=== PATIENT | female | born 1950 | race Caucasian/White ===

== ENCOUNTER 2022-06-11 16:46 | Inpatient (IN) ==
[2022-06-11] MEDS ORDERED: SODIUM CHLORIDE 0.9% 1000ML 1,000 ML IV ONE (16:55)
[2022-06-11] MEDS ORDERED: LACTATED RINGER'S 1,000 ML IV ONE (16:55)
[2022-06-11] MEDS ORDERED: OPTIRAY 320 500ml IV ONE (17:08)
[2022-06-11 17:13] LABS: iSTAT Creatinine 1.8 mg/dl (0.6-1.3); iSTAT Hemoglobin 12.6 g/dl (12.0-16.0); iSTAT Ionized Calcium 1.08 mmol/l (1.12-1.32); iSTAT Potassium 3.9 mmol/L (3.3-5.0)
[2022-06-11 17:18] LABS: Base Excess VBG -10.9 mEq/L; HCO3 VBG 16 mmol/L; Oxygen Saturation VBG < 60.0 %; PCO2 VBG 38 mmHg (38-50); PO2 VBG 32 mmHg; pH VBG 7.23 (7.36-7.41)
[2022-06-11] MEDS ORDERED: ACETAMINOPHEN 1,000 MG/100 ML VIAL IV STA (17:19)
[2022-06-11] MEDS ORDERED: PIPERACILLIN/TAZOBACTAM 4.5 GM/120 ML BAG IV ONE (17:19)
--- NOTE | 2022-06-11 17:23 | Emergency Department Note ---
Impression & Plan SBO (small bowel obstruction), Lactic acidosis, Sepsis, Acute kidney injury superimposed on CKD, Elevated troponin ED Provider Note Provider: Harrison Garcia MD DATE OF SERVICE: 06/11/2022 CHIEF COMPLAINT: Abdominal pain, hypoxia, altered HISTORY OF PRESENT ILLNESS: Patient is a 71-year-old female history of hypertension presenting here today via ambulance from home. Patient herself will answer questions upon arrival. EMS reports they found the patient somewhat hypoxic and minimally responsive at her house hypotensive here to see the liter of normal saline prior to arrival. Found to be significantly tachycardic. later arrives and provides additional history. Reports the patient had some nausea and GI upset last evening. Is vomiting a good bit of the night. Slept a bit and then continued to have vomiting abdominal upset this morning peer developed worsening abdominal pain. Evidently called her doctor's office and was scheduled for an appointment tomorrow but was concerned about ongoing pain. Did not eat much today. No trauma or falls reported. reports as a afternoon proceeded she was not making sense and was having increased pain and thus he called the ambulance. Patient himself again is altered and unable provide additional history. Patient placed on nonrebreather by EMS. reports that the patient had a history of 3 sections but no other abdominal surgeries by his recollection. PAST MEDICAL HISTORY: As noted above MEDICATIONS: Reviewed home medications no noted history of anticoagulants SOCIAL HISTORY: and lives at PHYSICAL EXAM: GENERAL: alert and oriented in no acute distress on stretcher Head: normocephalic and atraumatic EYES: No injection, discharge or icterus. PERRL, EOMI. NECK: Trachea midline. Supple. ENT: Mucous membranes pink and moist. Pharynx without erythema or exudate. LUNGS: Airway patent. No retractions. Breath sounds clear with good air entry bilaterally. HEART: Regular rate and rhythm. No chest wall tenderness ABDOMEN: Soft and non-tender, without guarding or rebound. No hepatosplenomegaly or masses BACK: No midline tenderness, no SI joint tenderness. No bilateral flank ten derness. SKIN: Acyanotic, warm, dry, without rashes EXTREMITIES: Without swelling, tenderness or deformity NEUROLOGICAL: No focal deficits. No aphasia. No facial droop or slurred speech. Normal strength and tone in the extremities. Sensation to gross touch normal. Ambulatory. EK bpm sinus tachycardia with diffuse ST segment slight ST elevation in aVR. Appears to be sinus tach with a QTc of 524. CONTINUOUS CARDIAC MONITORING: was ordered and showed a heart rate of 120s-150s bpm in sinus tachycardia Patient's laboratory studies and imaging reviewed. Differential includes Appendicitis, infections, diverticulitis, UTI, obstruction, mesenteric ischemia, aortic pathology, inflammatory bowel disease, renal colic, PUD, pancreatitis, biliary pathology, hernia, volvulus, constipation, as well as other pathologies. IMPRESSION/MEDICAL DECISION MAKING: Received call from EMS shortly before their arrival and met them in room B1. Patient altered but opens eyes to voice. Not following commands. On a nonrebreather satting 100%. Significantly tachycardic. EKG with evidence of diffuse ST depressions. Blood pressure in the 130s here initially and received a liter of normal saline prior to arrival. Additional IV fluids ordered here. Febrile here. Quick abdominal ultrasound with evidence of some free fluid. Immediately sent for CT scan of the head as well as the chest abdomen pelvis to look for possible intra-abdominal source. Given her altered mentation as well as some shortness of breath to complete the head and chest CT at this time as well. Does have a creatinine of 1.8 but given her critical illness believe she needs IV contrast to elucidate the cause of her symptoms. Given the fever ordered Tylenol as well as Zosyn. Patient's lactate returns at 10.4. VBG pH 7.23 but CO2 is 38. Patient is somewhat tachypneic. Maintaining her airway at this time other not following commands. Believes she is trying to compensate for her acidosis with elevated lactate with the tachypnea. Hemoglobin on the [id number] returns at 12.6. Updating her at bedside frequently. Head CT per radiology without acute pathology which seems consistent as a believe this is more sepsis and intra-abdominal source Patient has an anion gap with creatinine 1.7 on formal labs. No significant transaminitis. No lipase elevation. Urinalysis negative for infection. Trop onin of 661 likely demand related to sepsis and tachycardia. Formal CBC with hemoglobin 11.9 normal platelet count. White blood cell count 3.4. CT report of the abdomen pelvis and chest reviewed and indicates evidence of a high-grade small bowel obstruction and ascites but no free air. Discussed with general surgery Dr. Stone to come see the patient in the room soon as possible. Dr. Stone wished me to discuss with the medicine team/hospitalist. Did order NG tube. Dr. Price at bedside and discussed with after evaluating the patient plan to take 2 OR for surgical intervention given her critical illness with the SBO. NG tube not placed given plan for OR. Patient did report a little bit of abdominal pain verbally to nurse. Heart rate improving some. Not hypotensive here in ED. DIAGNOSIS: Small bowel obstruction, type II NSTEMI, elevated lactic acid, AMS, hypoxia, sepsis DISPOSITION: Hospitalist will evaluate as well as our general surgeon Critical Care I have personally spent 75 minutes of critical care time in the direct management of this patient. This includes bedside care, interpretation of diagnostic studies, and testing, discussion with consultants, patient, and family members, and other required patient management activities. These 75 minutes is in excess of all separately billable procedures. Past Med/Surg History Medical History (Updated 06/11/22 @ 22:35 by Harrison Garcia M.D.) Chronic iron deficiency anemia CKD (chronic kidney disease), stage III Degenerative joint disease of left knee Exertional dyspnea GERD (gastroesophageal reflux disease) treated prn Glaucoma Osteoarthritis Seasonal allergies Surgical History History of appendectomy History of bilateral tubal ligation History of cataract surgery right History of section x3 History of colonoscopy History of detached retina repair right History of dilatation and curettage History of tonsillectomy Family History Other No family history of adverse response to anesthesia Social History Smoking Status: Never smoker Second Hand Exposure: No; Hx Alcohol Use: Yes Alcohol type: wine Hx Substance Use: No Preferred Language: Ukrainian Communication Ability: Effective [employer]st Required: No Beliefs That Will Affect Care: None Current Living Situation: Spouse Feels Safe at Home: Yes Assistive Devices: Glasses Allergies Allergies Allergy/AdvReac Type Severity Reaction Status Date / Time prochlorperazine Allergy Severe severe Verified 06/11/22 17:31 [From Compazine] muscle spasms (neck) as a child Sulfa (Sulfonamide Allergy Intermediate Rash Verified 06/11/22 17:31 Antibiotics) Home Meds Home Medications Medication Instructions Recorded Confirmed cetirizine 10 mg tablet (Zyrtec) 10 mg PO DAILY 01/26/20 06/11/22 cyclosporine 0.05 % eye drops in a 1 drp ophthalmic (eye) Q12H 01/26/20 06/11/22 dropperette (Restasis) psyllium husk 3.4 gram/5.4 gram 1 tbsp PO BID 01/26/20 06/11/22 oral powder (Metamucil) timolol maleate 0.5 % eye drops 1 drp OPB QAM 01/26/20 06/11/22 meloxicam 7.5 mg tablet 7.5 mg PO QAM 11/14/21 06/11/22 omeprazole 20 mg capsule,delayed 20 mg PO DAILYBB 11/14/21 06/11/22 release acetaminophen 500 mg tablet 500 mg PO TID 06/11/22 06/11/22 (Tylenol Extra Strength) bimatoprost 0.01 % eye drops 1 drp OPB HS 06/11/22 06/11/22 (Lumigan) [id number] D2 1 tab PO DAILY 06/11/22 06/11/22 cyanocobalamin (vitamin B-12) 1,000 mcg PO DAILY 06/11/22 06/11/22 1,000 mcg tablet (Vitamin B-12) diclofenac sodium 1 % topical gel 2 g topical TID PRN LEFT KNEE PAIN 06/11/22 06/11/22 iron,carbonyl 65 mg-vitamin C 125 1 tab PO QAM 06/11/22 06/11/22 mg tablet,delayed release (Vitron-C) metoprolol succinate 25 mg 12.5 mg PO BID 06/11/22 06/11/22 tablet,extended release 24 hr tretinoin 0.05 % topical cream 1 applic topical QPM 06/11/22 06/11/22 Results & Data (ED) Vital Signs Vital Signs - 24 hr 06/11/22 16:50 06/11/22 17:25 06/11/22 17:25 Temperature 40.0 C H Temperature Source Rectal Pulse Rate 147 H 147 H Pulse Rate from SpO2 Sensor Respiratory Rate 51 H Respiratory Effort / Characteristics Grunting Respiratory Depth Shallow Respiratory Pattern Rapid/Shallow Blood Pressure Blood Pressure Mean Pulse Oximetry Oxygen Delivery Method Non-rebreather Non-rebreather Oxygen Flow Rate 15 15 Sepsis Recent Fever Within 48 Hours Yes Sepsis New/Unexplained Change in Mental Status Yes Sepsis Action Taken by Nursing No Action Required 06/11/22 17:30 06/11/22 17:30 06/11/22 17:40 Temperature Temperature Source Pulse Rate 145 H 142 H Pulse Rate from SpO2 Sensor 146 H 142 H Respiratory Rate 45 H 46 H Respiratory Effort / Characteristics Respiratory Depth Respiratory Pattern Blood Pressure 150/71 H Blood Pressure Mean 97 Pulse Oximetry 100 100 Oxygen Delivery Method Non-rebreather Non-rebreather Non-rebreather Oxygen Flow Rate 15 15 15 Sepsis Recent Fever Within 48 Hours Sepsis New/Unexplained Change in Mental Status Sepsis Action Taken by Nursing 06/11/22 17:45 06/11/22 17:45 06/11/22 17:50 Temperature Temperature Source Pulse Rate 141 H 140 H Pulse Rate from SpO2 Sensor 141 H 140 H Respiratory Rate 45 H 43 H Respiratory Effort / Characteristics Respiratory Depth Respiratory Pattern Blood Pressure 140/60 Blood Pressure Mean 86 Pulse Oximetry 100 100 Oxygen Delivery Method Non-rebreather Non-rebreather Non-rebreather Oxygen Flow Rate 15 15 15 Sepsis Recent Fever Within 48 Hours Sepsis New/Unexplained Change in Mental Status Sepsis Action Taken by Nursing 06/11/22 18:00 06/11/22 18:00 06/11/22 18:10 Temperature Temperature Source Pulse Rate 138 H 129 H Pulse Rate from SpO2 Sensor 139 H 129 H Respiratory Rate 44 H 41 H Respiratory Effort / Characteristics Respiratory Depth Respiratory Pattern Blood Pressure 147/56 H Blood Pressure Mean 86 Pulse Oximetry 100 100 Oxygen Delivery Method Non-rebreather Non-rebreather Non-rebreather Oxygen Flow Rate 15 15 15 Sepsis Recent Fever Within 48 Hours Sepsis New/Unexplained Change in Mental Status Sepsis Action Taken by Nursing 06/11/22 18:15 06/11/22 18:15 06/11/22 18:20 Temperature Temperature Source Pulse Rate 131 H 130 H Pulse Rate from SpO2 Sensor 131 H 129 H Respiratory Rate 44 H 40 H Respiratory Effort / Characteristics Respiratory Depth Respiratory Pattern Blood Pressure 145/68 H Blood Pressure Mean 93 Pulse Oximetry 100 100 Oxygen Delivery Method Non-rebreather Non-rebreather Non-rebreather Oxygen Flow Rate 15 15 15 Sepsis Recent Fever Within 48 Hours Sepsis New/Unexplained Change in Mental Status Sepsis Action Taken by Nursing 06/11/22 18:30 06/11/22 18:30 06/11/22 18:40 Temperature Temperature Source Pulse Rate 132 H 128 H Pulse Rate from SpO2 Sensor 132 H 129 H Respiratory Rate 39 H 40 H Respiratory Effort / Characteristics Respiratory Depth Respiratory Pattern Blood Pressure 148/69 H Blood Pressure Mean 95 Pulse Oximetry 100 100 Oxygen Delivery Method Non-rebreather Non-rebreather Non-rebreather Oxygen Flow Rate 15 15 15 Sepsis Recent Fever Within 48 Hours Sepsis New/Unexplained Change in Mental Status Sepsis Action Taken by Nursing 06/11/22 19:03 06/11/22 18:45 06/11/22 18:45 Temperature Temperature Source Pulse Rate 131 H Pulse Rate from SpO2 Sensor 131 H Respiratory Rate 42 H Respiratory Effort / Characteristics Respiratory Depth Respiratory Pattern Blood Pressure 130/73 Blood Pressure Mean 92 Pulse Oximetry 100 Oxygen Delivery Method Non-rebreather Non-rebreather Non-rebreather Oxygen Flow Rate 15 15 15 Sepsis Recent Fever Within 48 Hours Sepsis New/Unexplained Change in Mental Status Sepsis Action Taken by Nursing 06/11/22 18:50 06/11/22 19:00 06/11/22 19:00 Temperature Temperature Source Pulse Rate 132 H 131 H Pulse Rate from SpO2 Sensor 133 H 131 H Respiratory Rate 42 H 44 H Respiratory Effort / Characteristics Respiratory Depth Respiratory Pattern Blood Pressure 126/75 Blood Pressure Mean 92 Pulse Oximetry 100 100 Oxygen Delivery Method Non-rebreather Non-rebreather Non-rebreather Oxygen Flow Rate 15 15 15 Sepsis Recent Fever Within 48 Hours Sepsis New/Unexplained Change in Mental Status Sepsis Action Taken by Nursing Laboratory Data 06/11/22 17:00 06/11/22 17:00 Lab Results 06/11/22 06/11/22 06/11/22 Range/Units 16:57 16:57 16:57 WBC (4.8-10.8) K/ul RBC (4.20-5.40) M/uL Hgb (12.0-16.0) g/dl POC Hgb (12.0-16.0) g/dl Hct (37.0-47.0) % POC Hct (37-47) % MCV (80.0-100.0) fL MCH (25.0-34.0) pg MCHC (32.0-36.0) g/dL RDW Std Deviation (36.4-46.3) fL RDW Coeff of Lei (11.5-14.5) % Plt Count (130-400) K/uL MPV (9.4-12.4) fL Neutrophils % (Manual) % Lymphocytes % (Manual) % Monocytes % (Manual) % Metamyelocytes % (Man) % Myelocytes % (Man) % Neutrophils # (Manual) (1.40-6.50) K/uL Total Absolute Neuts (1.4-6.5) K/uL Lymphocytes # (Manual) (1.2-3.4) K/uL Total Abs Lymphocytes (1.2-3.4) K/uL Monocytes # (Manual) (0.11-0.59) K/uL Metamyelocytes # (Man) (0-0) K/uL Myelocytes # (Manual) (0-0) K/uL Polychromasia Acanthocytes (Spur) PT (9.0-12.0) Seconds INR (0.9-1.1) VBG pH 7.23 L (7.36-7.41) VBG pCO2 38 (38-50) mmHg VBG pO2 32 mmHg VBG HCO3 16 mmol/L VBG O2 Saturation < 60.0 % VBG Base Excess -10.9 mEq/L POC Sodium (135-144) mmol/L Sodium (136-145) mmol/L POC Potassium (3.3-5.0) mmol/L Potassium (3.5-5.1) mmol/L POC Chloride (101-112) mmol/L Chloride (98-107) mmol/L Carbon Dioxide (21-32) mmol/L POC Total CO2 (24-31) mmol/L Anion Gap (3-11) POC Anion Gap (16-25) mmol/L POC BUN (7-18) mg/dl BUN (6-23) mg/dl Creatinine (0.6-1.2) mg/dl POC Creatinine (0.6-1.3) mg/dl Est Cr Clr Drug Dosing Est GFR ( Amer) ml/min Est GFR (Non-Af Amer) ml/min BUN/Creatinine Ratio (10-20) Glucose (70-99(Fasting)) mg/dl POC Glucose (other) (70-99) mg/dl Lactate 10.4 H* (0.4-2.0) mmol/L Calcium (8.5-10.1) mg/dl POC Ioniz Calcium Rima (1.12-1.32) mmol/l Total Bilirubin (0.2-1.0) mg/dl AST (13-39) U/L ALT (7-52) U/L Alkaline Phosphatase (34-104) U/L Troponin I High Sens (0-14) pg/ml Total Protein (6.0-8.3) gm/dl Albumin (3.4-5.0) gm/dl Globulin (2.5-4.0) gm/dl Albumin/Globulin Ratio (0.9-2) Lipase (11-82) U/L Procalcitonin (0-0.5) ng/ml SARS-CoV-2, RNA, NAAT (NEGATIVE) Blood Type O Positive Antibody Screen NEGATIVE Crossmatch See Detail 06/11/22 06/11/22 06/11/22 Range/Units 16:59 17:00 17:00 WBC (4.8-10.8) K/ul RBC (4.20-5.40) M/uL Hgb (12.0-16.0) g/dl POC Hgb 12.6 (12.0-16.0) g/dl Hct (37.0-47.0) % POC Hct 37 (37-47) % MCV (80.0-100.0) fL MCH (25.0-34.0) pg MCHC (32.0-36.0) g/dL RDW Std Deviation (36.4-46.3) fL RDW Coeff of Lei (11.5-14.5) % Plt Count (130-400) K/uL MPV (9.4-12.4) fL Neutrophils % (Manual) % Lymphocytes % (Manual) % Monocytes % (Manual) % Metamyelocytes % (Man) % Myelocytes % (Man) % Neutrophils # (Manual) (1.40-6.50) K/uL Total Absolute Neuts (1.4-6.5) K/uL Lymphocytes # (Manual) (1.2-3.4) K/uL Total Abs Lymphocytes (1.2-3.4) K/uL Monocytes # (Manual) (0.11-0.59) K/uL Metamyelocytes # (Man) (0-0) K/uL Myelocytes # (Manual) (0-0) K/uL Polychromasia Acanthocytes (Spur) PT 11.4 (9.0-12.0) Seconds INR 1.1 (0.9-1.1) VBG pH (7.36-7.41) VBG pCO2 (38-50) mmHg VBG pO2 mmHg VBG HCO3 mmol/L VBG O2 Saturation % VBG Base Excess mEq/L POC Sodium 140 (135-144) mmol/L Sodium 141 (136-145) mmol/L POC Potassium 3.9 (3.3-5.0) mmol/L Potassium 3.9 (3.5-5.1) mmol/L POC Chloride 105 (101-112) mmol/L Chloride 106 (98-107) mmol/L Carbon Dioxide 17 L (21-32) mmol/L POC Total CO2 16 L (24-31) mmol/L Anion Gap 18 H (3-11) POC Anion Gap 24.0 (16-25) mmol/L POC BUN 25 H (7-18) mg/dl BUN 27 H (6-23) mg/dl Creatinine 1.77 H (0.6-1.2) mg/dl POC Creatinine 1.8 H (0.6-1.3) mg/dl Est Cr Clr Drug Dosing Not Reportable Est GFR ( Amer) 32.5 ml/min Est GFR (Non-Af Amer) 28.0 ml/min BUN/Creatinine Ratio 15.3 (10-20) Glucose 181 H (70-99(Fasting)) mg/dl POC Glucose (other) 176 H (70-99) mg/dl Lactate (0.4-2.0) mmol/L Calcium 8.7 (8.5-10.1) mg/dl POC Ioniz Calcium Rima 1.08 L (1.12-1.32) mmol/l Total Bilirubin 0.7 (0.2-1.0) mg/dl AST 17 (13-39) U/L ALT 13 (7-52) U/L Alkaline Phosphatase 73 (34-104) U/L Troponin I High Sens 661.6 H* (0-14) pg/ml Total Protein 6.4 (6.0-8.3) gm/dl Albumin 3.7 (3.4-5.0) gm/dl Globulin 2.7 (2.5-4.0) gm/dl Albumin/Globulin Ratio 1.4 (0.9-2) Lipase 16 (11-82) U/L Procalcitonin (0-0.5) ng/ml SARS-CoV-2, RNA, NAAT (NEGATIVE) Blood Type Antibody Screen Crossmatch 06/11/22 06/11/22 06/11/22 Range/Units 17:00 17:00 17:30 WBC 3.44 L (4.8-10.8) K/ul RBC 3.85 L (4.20-5.40) M/uL Hgb 11.9 L (12.0-16.0) g/dl POC Hgb (12.0-16.0) g/dl Hct 35.8 L (37.0-47.0) % POC Hct (37-47) % MCV 93.0 (80.0-100.0) fL MCH 30.9 (25.0-34.0) pg MCHC 33.2 (32.0-36.0) g/dL RDW Std Deviation 52.9 H (36.4-46.3) fL RDW Coeff of Lei 15.5 H (11.5-14.5) % Plt Count 317 (130-400) K/uL MPV 9.8 (9.4-12.4) fL Neutrophils % (Manual) 69 % Lymphocytes % (Manual) 23 % Monocytes % (Manual) 3 % Metamyelocytes % (Man) 3 % Myelocytes % (Man) 2 % Neutrophils # (Manual) 2.37 (1.40-6.50) K/uL Total Absolute Neuts 2.37 (1.4-6.5) K/uL Lymphocytes # (Manual) 0.79 L (1.2-3.4) K/uL Total Abs Lymphocytes 0.79 L (1.2-3.4) K/uL Monocytes # (Manual) 0.10 L (0.11-0.59) K/uL Metamyelocytes # (Man) 0.10 H (0-0) K/uL Myelocytes # (Manual) 0.07 H (0-0) K/uL Polychromasia 1+ Acanthocytes (Spur) 1+ PT (9.0-12.0) Seconds INR (0.9-1.1) VBG pH (7.36-7.41) VBG pCO2 (38-50) mmHg VBG pO2 mmHg VBG HCO3 mmol/L VBG O2 Saturation % VBG Base Excess mEq/L POC Sodium (135-144) mmol/L Sodium (136-145) mmol/L POC Potassium (3.3-5.0) mmol/L Potassium (3.5-5.1) mmol/L POC Chloride (101-112) mmol/L Chloride (98-107) mmol/L Carbon Dioxide (21-32) mmol/L POC Total CO2 (24-31) mmol/L Anion Gap (3-11) POC Anion Gap (16-25) mmol/L POC BUN (7-18) mg/dl BUN (6-23) mg/dl Creatinine (0.6-1.2) mg/dl POC Creatinine (0.6-1.3) mg/dl Est Cr Clr Drug Dosing Est GFR ( Amer) ml/min Est GFR (Non-Af Amer) ml/min BUN/Creatinine Ratio (10-20) Glucose (70-99(Fasting)) mg/dl POC Glucose (other) (70-99) mg/dl Lactate (0.4-2.0) mmol/L Calcium (8.5-10.1) mg/dl POC Ioniz Calcium Rima (1.12-1.32) mmol/l Total Bilirubin (0.2-1.0) mg/dl AST (13-39) U/L ALT (7-52) U/L Alkaline Phosphatase (34-104) U/L Troponin I High Sens (0-14) pg/ml Total Protein (6.0-8.3) gm/dl Albumin (3.4-5.0) gm/dl Globulin (2.5-4.0) gm/dl Albumin/Globulin Ratio (0.9-2) Lipase (11-82) U/L Procalcitonin 3.51 H (0-0.5) ng/ml SARS-CoV-2, RNA, NAAT NEGATIVE (NEGATIVE) Blood Type Antibody Screen Crossmatch 06/11/22 Range/Units 19:01 WBC (4.8-10.8) K/ul RBC (4.20-5.40) M/uL Hgb (12.0-16.0) g/dl POC Hgb (12.0-16.0) g/dl Hct (37.0-47.0) % POC Hct (37-47) % MCV (80.0-100.0) fL MCH (25.0-34.0) pg MCHC (32.0-36.0) g/dL RDW Std Deviation (36.4-46.3) fL RDW Coeff of Lei (11.5-14.5) % Plt Count (130-400) K/uL MPV (9.4-12.4) fL Neutrophils % (Manual) % Lymphocytes % (Manual) % Monocytes % (Manual) % Metamyelocytes % (Man) % Myelocytes % (Man) % Neutrophils # (Manual) (1.40-6.50) K/uL Total Absolute Neuts (1.4-6.5) K/uL Lymphocytes # (Manual) (1.2-3.4) K/uL Total Abs Lymphocytes (1.2-3.4) K/uL Monocytes # (Manual) (0.11-0.59) K/uL Metamyelocytes # (Man) (0-0) K/uL Myelocytes # (Manual) (0-0) K/uL Polychromasia Acanthocytes (Spur) PT (9.0-12.0) Seconds INR (0.9-1.1) VBG pH (7.36-7.41) VBG pCO2 (38-50) mmHg VBG pO2 mmHg VBG HCO3 mmol/L VBG O2 Saturation % VBG Base Excess mEq/L POC Sodium (135-144) mmol/L Sodium (136-145) mmol/L POC Potassium (3.3-5.0) mmol/L Potassium (3.5-5.1) mmol/L POC Chloride (101-112) mmol/L Chloride (98-107) mmol/L Carbon Dioxide (21-32) mmol/L POC Total CO2 (24-31) mmol/L Anion Gap (3-11) POC Anion Gap (16-25) mmol/L POC BUN (7-18) mg/dl BUN (6-23) mg/dl Creatinine (0.6-1.2) mg/dl POC Creatinine (0.6-1.3) mg/dl Est Cr Clr Drug Dosing Est GFR ( Amer) ml/min Est GFR (Non-Af Amer) ml/min BUN/Creatinine Ratio (10-20) Glucose (70-99(Fasting)) mg/dl POC Glucose (other) (70-99) mg/dl Lactate 9.0 H* (0.4-2.0) mmol/L Calcium (8.5-10.1) mg/dl POC Ioniz Calcium Rima (1.12-1.32) mmol/l Total Bilirubin (0.2-1.0) mg/dl AST (13-39) U/L ALT (7-52) U/L Alkaline Phosphatase (34-104) U/L Troponin I High Sens (0-14) pg/ml Total Protein (6.0-8.3) gm/dl Albumin (3.4-5.0) gm/dl Globulin (2.5-4.0) gm/dl Albumin/Globulin Ratio (0.9-2) Lipase (11-82) U/L Procalcitonin (0-0.5) ng/ml SARS-CoV-2, RNA, NAAT (NEGATIVE) Blood Type Antibody Screen Crossmatch Administered Medications Discontinued Medications Bacitracin (Bacitracin Oint 15 Gm Tube) Confirm Administered Dose 45 appln .ROUTE .STK-MED ONE Stop: 06/11/22 19:31 Last Admin: 06/11/22 21:54 Dose: Not Given Documented By: TRISH Bupivacaine HCl (Bupivacaine 0.5 % 5 Mg/1 Ml Mpf 30ml Vial) Confirm Administered Dose 30 ml .ROUTE .STK-MED ONE Stop: 06/11/22 19:31 Last Admin: 06/11/22 21:32 Dose: 18 ml Documented By: SELMA Sodium Chloride (Nss 1000ml) 1,000 mls @ 999 mls/hr IV .Q1H1M ONE Stop: 06/11/22 17:55 Last Infusion: 06/11/22 17:57 Dose: 0 mls/hr Documented By: Admin: 06/11/22 17:05 Dose: 999 mls/hr Documented By: SHAMAR Lactated Ringer's (Lr) 1,000 mls @ 999 mls/hr IV .Q1H1M ONE Stop: 06/11/22 17:55 Last Infusion: 06/11/22 18:40 Dose: 0 mls/hr Documented By: Admin: 06/11/22 17:35 Dose: 999 mls/hr Documented By: SHAMAR Piperacillin Sod/Tazobactam Sod (Zosyn) 4.5 gm in 120 mls @ 240 mls/hr IV NOW ONE Stop: 06/11/22 17:48 Last Infusion: 06/11/22 18:41 Dose: 0 mls/hr Documented By: Admin: 06/11/22 17:34 Dose: 240 mls/hr Documented By: SHAMAR Acetaminophen (Ofirmev) 1,000 mg in 100 mls @ 400 mls/hr IV NOW STA Stop: 06/11/22 17:33 Last Infusion: 06/11/22 17:57 Dose: 0 mls/hr Documented By: Admin: 06/11/22 17:35 Dose: 400 mls/hr Documented By: SHAMAR Lactated Ringer's (Lr) 500 mls @ 999 mls/hr IV .Q31M ONE Stop: 06/11/22 18:06 Last Infusion: 06/11/22 19:16 Dose: 0 mls/hr Documented By: Admin: 06/11/22 18:16 Dose: 999 mls/hr Documented By: SHAMAR Ioversol (Optiray 320 500ml) 112 ml IV ONCE ONE Stop: 06/11/22 17:09 Last Admin: 06/11/22 17:17 Dose: 112 ml Documented By: SHAMAR Lidocaine HCl (Lidocaine 1% Local 20 Ml Vial) Confirm Administered Dose 1 ml .ROUTE .STK-MED ONE Stop: 06/11/22 19:31 Last Admin: 06/11/22 21:36 Dose: 18 ml Documented By: SELMA Imaging Data Radiologist's Impression: Chest X-Ray 06/11/22 16:52 XR chest 1V portable HISTORY: 71 years-old Female ams . Acutely altered mental status COMPARISON: CTA chest of same day TECHNIQUE: AP view of the chest FINDINGS: Cardiac mediastinal and hilar silhouettes are within normal limits. No pneumothorax, pleural effusion, airspace consolidation or pulmonary edema. Bones appear grossly intact. IMPRESSION: No acute process. ACT 112: Negative or not required by law. The above report was generated using voice recognition software. It may contain grammatical, syntax or spelling errors. Electronically signed by: Lefty Landis M.D. 06/11/2022 6:[address] 06/11/22 16:52 CT head/brain wo con CLINICAL HISTORY: 71 years-old Female with ams. Acutely altered mental status TECHNIQUE: Multiple axial CT images of the head were obtained without contrast. A dose lowering technique was utilized adhering to the principles of ALARA. COMPARISON: None. FINDINGS: No acute intracranial hemorrhage, midline shift, intracranial mass, hydrocephalus, territorial ischemia or abnormal extra-axial collection. Mildly motion degraded exam. Involutional changes with chronic microvascular ischemic disease. The calvarium is intact. Mild to moderate mucosal thickening maxillary sinus with air-fluid level. Trace right mastoid effusion. Prior bilateral lens repair. IMPRESSION: No acute intracranial abnormality. ACT 112: Negative or not required by law. The above report was generated using voice recognition software. It may contain grammatical, syntax or spelling errors. Electronically signed by: Lefty Landis M.D. 06/11/2022 5:27 PM Abdomen/Pelvis CTA 06/11/22 16:53 CT angio chest dissec wo/w con, CT angio abdomen pelvis w con HISTORY: 71 years-old Female ams, hypoxia, abd pain, tachy acute hypoxia with chest and abdominal pain with tachycardia COMPARISON: None TECHNIQUE: CTA of the chest was obtained both with and without use of [address] abdomen and pelvis was also obtained with IV contrast. 3-D coronal and sagittal MIPS were obtained from the axial data set and were submitted for review. All measurements were obtained according to NASCET criteria. A dose lowering technique was used consistent with the principals of ALARA. FINDINGS: Limited study secondary to upper Hilary positioning and respiratory motion artifact. CTA CHEST: Noncontrast study demonstrates no intramural or mediastinal hematoma mild cardiomegaly with trace pericardial effusion. No thoracic aortic aneurysm or dissection. No significant atherosclerosis. The visualized pulmonary arterial tree is unremarkable. CT CHEST: Unremarkable thyroid. No lymphadenopathy. Fluid-filled distention of the mid to distal esophagus with moderate sized hiatal hernia. No pneumothorax, pleural effusion, airspace consolidation or pulmonary edema. Mild dependent subsegmental bibasilar atelectasis. There are no suspicious pulmonary nodules or masses rosanne ntified. Central airways are patent. Unremarkable soft tissues. No acute fracture identified. Mildly hyperinflated compression of the T3 vertebral body is age-indeterminate, likely chronic. CTA ABDOMEN/PELVIS: Mild atherosclerosis of the abdominal aorta without aneurysm or dissection. Iliac and imaged femoral arteries are patent. The celiac trunk, superior and inferior mesenteric and renal arteries appear patent. No aneurysm, dissection, high-grade stenosis or arterial occlusion identified. CT ABDOMEN/PELVIS: No pneumatosis or pneumoperitoneum. There is limited evaluation of the solid abdominal organs secondary to arterial phase imaging. Within the limitations of the study, the spleen, pancreas, hyperattenuating adrenal glands, distended gallbladder and liver appear unremarkable. Kidneys are within normal limits with mild scarring of the superior poles, right greater than left. No urolith or hydronephrosis. Decompressed urinary bladder with Merchant catheter in place in wall thickening with perivesicular stranding. No lymphadenopathy. Moderate sized hiatal hernia. Small volume of abdominal pelvic ascites. Colonic diverticulosis. Mild wall thickening throughout the colon with partial distention. The appendix is not definitively seen. There are several mildly dilated small bowel loops within the mid to lower abdomen and pelvis measuring up to approximately 3 cm with air-fluid levels. Decompressed distal small bowel loops. Interloop edema. There is a decompressed loop noted within the mid to upper pelvis on image 267 several loops of small bowel demonstrates circumferential wall thickening. No acute fracture identified. IMPRESSION: 1. Unremarkable CTA of the chest, abdomen and pelvis. 2. Limited evaluation of the solid abdominal organs and bowel secondary to arterial phase of imaging and lack of enteric contrast. 3. High-grade small bowel obstruction with several loops demonstrating circumferential wall thickening with associated intraluminal edema and small volume of abdominopelvic ascites. 4. No pneumoperitoneum identified. 5. Moderate sized hiatal hernia. 6. Additional findings as above. ACT 112: Negative or not required by law. The above report was generated using voice recognition software. It may contain grammatical, syntax or spelling errors. Electronically signed by: Lefty Landis M.D. 06/11/2022 5:58 PM Chest CTA 06/11/22 16:53 CT angio chest dissec wo/w con, CT angio abdomen pelvis w con HISTORY: 71 years-old Female ams, hypoxia, abd pain, tachy acute hypoxia with chest and abdominal pain with tachycardia COMPARISON: None TECHNIQUE: CTA of the chest was obtained both with and without use of [address] abdomen and pelvis was also obtained with IV contrast. 3-D coronal and sagittal MIPS were obtained from the axial data set and were submitted for review. All measurements were obtained according to NASCET criteria. A dose lowering technique was used consistent with the principals of KURTIS. FINDINGS: Limited study secondary to upper Hilary positioning and respiratory motion artifact. CTA CHEST: Noncontrast study demonstrates no intramural or mediastinal hematoma mild cardiomegaly with trace pericardial effusion. No thoracic aortic aneurysm or dissection. No significant atherosclerosis. The visualized pulmonary arterial tree is unremarkable. CT CHEST: Unremarkable thyroid. No lymphadenopathy. Fluid-filled distention of the mid to distal esophagus with moderate sized hiatal hernia. No pneumothorax, pleural effusion, airspace consolidation or pulmonary edema. Mild dependent subsegmental bibasilar atelectasis. There are no suspicious pulmonary nodules or masses identified. Central airways are patent. Unremarkable soft tissues. No acute fracture identified. Mildly hyperinflated compression of the T3 vertebral body is age-indeterminate, likely chronic. CTA ABDOMEN/PELVIS: Mild atherosclerosis of the abdominal aorta without aneurysm or dissection. Iliac and imaged femoral arteries are patent. The celiac trunk, superior and inferior mesenteric and renal arteries appear patent. No aneurysm, dissection, high-grade stenosis or arterial occlusion identified. CT ABDOMEN/PELVIS: No pneumatosis or pneumoperitoneum. There is limited evaluation of the solid abdominal organs secondary to arterial phase imaging. Within the limitations of the study, the spleen, pancreas, hyperattenuating adrenal glands, distended gallbladder and liver appear unremarkable. Kidneys are within normal limits with mild scarring of the superior poles, right greater than left. No urolith or hydronephrosis. Decompressed urinary bladder with Merchant catheter in place in wall thickening with perivesicular stranding. No lymphadenopathy. Moderate sized hiatal hernia. Small volume of abdominal pelvic ascites. Colonic diverticulosis. Mild wall thickening throughout the colon with partial distention. The appendix is not definitively seen. There are several mildly di lated small bowel loops within the mid to lower abdomen and pelvis measuring up to approximately 3 cm with air-fluid levels. Decompressed distal small bowel loops. Interloop edema. There is a decompressed loop noted within the mid to upper pelvis on image 267 several loops of small bowel demonstrates circumferential wall thickening. No acute fracture identified. IMPRESSION: 1. Unremarkable CTA of the chest, abdomen and pelvis. 2. Limited evaluation of the solid abdominal organs and bowel secondary to arterial phase of imaging and lack of enteric contrast. 3. High-grade small bowel obstruction with several loops demonstrating circ umferential wall thickening with associated intraluminal edema and small volume of abdominopelvic ascites. 4. No pneumoperitoneum identified. 5. Moderate sized hiatal hernia. 6. Additional findings as above. ACT 112: Negative or not required by law. The above report was generated using voice recognition software. It may contain grammatical, syntax or spelling errors. Electronically signed by: Lefty Landis M.D. 06/11/2022 5:58 PM Discharge Plan Visit Data Chief Complaint: Illness Stated Complaint: AB PAIN, SOB, SEMI RESPONSIVE ED Provider: Harrison Garcia Discharge Problem: SBO (small bowel obstruction), Lactic acidosis, Sepsis, Acute kidney injury superimposed on CKD, Elevated troponin Patient Disposition: Admitted As Inpatient Discharge Instructions Interventions: ED Discharge Assessment Last Done: 06/11/22 19:03
--- NOTE | 2022-06-11 17:29 | CT Scan Report ---
CT head/brain wo con CLINICAL HISTORY: 71 years-old Female with ams. Acutely altered mental status TECHNIQUE: Multiple axial CT images of the head were obtained without contrast. A dose lowering tech nique was utilized adhering to the principles of ALARA. COMPARISON: None. FINDINGS: No acute intracranial hemorrhage, midline shift, intracranial mass, hydrocephalus, territorial ischem ia or abnormal extra-axial collection. Mildly motion degraded exam. Involutional changes with chronic microvascular ischemic disease. The calvarium is intact. Mild to moderate mucosal thickening maxillary sinus with air-fluid level. T race right mastoid effusion. Prior bilateral lens repair. IMPRESSION: No acute intracranial abnormality. ACT 112: Negative or not required by law. The above report was generated using voice recognition software. It may contain grammatical, syntax o r spelling errors. Electronically signed by: Lefty Landis M.D. 06/11/2022 5:27 PM
[2022-06-11] MEDS ORDERED: LACTATED RINGER'S 500 ML IV ONE (17:36)
[2022-06-11 17:38] LABS: Alanine Aminotransferase 13 U/L (7-52); Albumin Globulin Ratio 1.4 (0.9-2); Albumin Level 3.7 gm/dl (3.4-5.0); Alkaline Phosphatase 73 U/L (34-104); Anion Gap 18 (3-11); Aspartate Aminotransferase 17 U/L (13-39); BUN Creatinine Ratio 15.3 (10-20); Bilirubin,Total 0.7 mg/dl (0.2-1.0); Blood Urea Nitrogen 27 mg/dl (6-23); Calcium 8.7 mg/dl (8.5-10.1); Carbon Dioxide 17 mmol/L (21-32); Chloride 106 mmol/L (98-107); Est GFR (African American) 32.5 ml/min; Globulin 2.7 gm/dl (2.5-4.0); Glucose 181 mg/dl (70-99(Fasting)); Lipase 16 U/L (11-82); Potassium 3.9 mmol/L (3.5-5.1); Sodium 141 mmol/L (136-145); Total Protein 6.4 gm/dl (6.0-8.3)
[2022-06-11 17:40] LABS: Hematocrit (blood only) 35.8 % (37.0-47.0); Hemoglobin 11.9 g/dl (12.0-16.0); Mean Corpuscular Hemoglobin 30.9 pg (25.0-34.0); Mean Corpuscular Hgb Conc 33.2 g/dL (32.0-36.0); Mean Platelet Volume 9.8 fL (9.4-12.4); Platelet Count 317 K/uL (130-400); RDW Coefficient of Variation 15.5 % (11.5-14.5); RDW Standard Deviation 52.9 fL (36.4-46.3); Red Blood Count 3.85 M/uL (4.20-5.40)
[2022-06-11 17:45] LABS: Appearance Urine Cloudy (Clear); Bacteria Urine Automated Negative (Negative); Bilirubin Urine Negative (Negative); Blood Urine Negative (Negative); Color Urine Dark Yellow; Glucose Urine UA 3+ (Negative); Ketones Urine 1+ (Negative); Leukocyte Esterase Urine Negative (Negative); Nitrite Urine Negative (Negative); Protein Urine 2+ (Negative); RBC Urine Automated 0-4 /hpf (0-4); Specific Gravity Urine 1.021 (1.000-1.030); Urobilinogen Urine Negative (Negative); pH Urine 5.5 (4.5-7.5)
[2022-06-11 17:46] LABS: Troponin I High Sensitivity 661.6 pg/ml (0-14)
[2022-06-11 17:47] LABS: White Blood Count 3.44 K/ul (4.8-10.8)
[2022-06-11 17:49] LABS: ALC (manual) 0.79 K/uL (1.2-3.4); ANC (manual) 2.37 K/uL (1.4-6.5); Acanthocytes 1+; INR 1.1 (0.9-1.1); Lymphocytes # (manual) 0.79 K/uL (1.2-3.4); Lymphocytes % (manual) 23 %; Metamyelocytes % (manual) 3 %; Monocytes % (manual) 3 %; Myelocytes # (manual) 0.07 K/uL (0-0); Myelocytes % (manual) 2 %; Neutrophils # (manual) 2.37 K/uL (1.40-6.50); Neutrophils % (manual) 69 %; Polychromasia 1+; Prothrombin Time 11.4 Seconds (9.0-12.0)
--- NOTE | 2022-06-11 17:59 | CT Scan Report ---
CT angio chest dissec wo/w con, CT angio abdomen pelvis w con HISTORY: 71 years-old Female ams, hypoxia, abd pain, tachy acute hypoxia with chest and abdominal pa in with tachycardia COMPARISON: None TECHNIQUE: CTA of the chest was obtained both with and without use of [address] abdomen and pelvis was also obtained with IV contrast. 3-D coronal and sagittal MIPS were obtained from the axial data set and were submitted for review. All measurements were obtained according to NASCET criteria. A dose lowering technique was used consistent with the principals of KURTIS. FINDINGS: Limited study secondary to upper Hilary positioning and respiratory motion artifact. CTA CHEST: Noncontrast study demonstrates no intramural or mediastinal hematoma mild cardiomegaly with trace per icardial effusion. No thoracic aortic aneurysm or dissection. No significant atherosclerosis. The vis ualized pulmonary arterial tree is unremarkable. CT CHEST: Unremarkable thyroid. No lymphadenopathy. Fluid-filled distention of the mid to distal esophagus with moderate sized hiatal hernia. No pneumothorax, pleural effusion, airspace consolidation or pulmonary edema. Mild dependent subsegmental bibasilar atelectasis. There are no suspicious pulmonary nodules or masses identified. Central airways are patent. Unremarkable soft tissues. No acute fracture identi fied. Mildly hyperinflated compression of the T3 vertebral body is age-indeterminate, likely chronic. CTA ABDOMEN/PELVIS: Mild atherosclerosis of the abdominal aorta without aneurysm or dissection. Iliac and imaged femoral arteries are patent. The celiac trunk, superior and inferior mesenteric and renal arteries appear pat ent. No aneurysm, dissection, high-grade stenosis or arterial occlusion identified. CT ABDOMEN/PELVIS: No pneumatosis or pneumoperitoneum. There is limited evaluation of the solid abdominal organs seconda ry to arterial phase imaging. Within the limitations of the study, the spleen, pancreas, hyperattenua ting adrenal glands, distended gallbladder and liver appear unremarkable. Kidneys are within normal l imits with mild scarring of the superior poles, right greater than left. No urolith or hydronephrosis . Decompressed urinary bladder with Merchant catheter in place in wall thickening with perivesicular str anding. No lymphadenopathy. Moderate sized hiatal hernia. Small volume of abdominal pelvic ascites. Colonic diverticulosis. Mild wall thickening throughout the colon with partial distention. The appendix is not definitively seen. There are several mildly dilated small bowel loops within the mid to lower abdomen and pelvis measuri ng up to approximately 3 cm with air-fluid levels. Decompressed distal small bowel loops. Interloop e [place]. There is a decompressed loop noted within the mid to upper pelvis on image 267 several loops of small bowel demonstrates circumferential wall thickening. No acute fracture identified. IMPRESSION: 1. Unremarkable CTA of the chest, abdomen and pelvis. 2. Limited evaluation of the solid abdominal organs and bowel secondary to arterial phase of imaging and lack of enteric contrast. 3. High-grade small bowel obstruction with several loops demonstrating circumferential wall thickenin g with associated intraluminal edema and small volume of abdominopelvic ascites. 4. No pneumoperitoneum identified. 5. Moderate sized hiatal hernia. 6. Additional findings as above. ACT 112: Negative or not required by law. The above report was generated using voice recognition software. It may contain grammatical, syntax o r spelling errors. Electronically signed by: Lefty Landis M.D. 06/11/2022 5:58 PM
--- NOTE | 2022-06-11 18:01 | XRay Report ---
XR chest 1V portable HISTORY: 71 years-old Female ams . Acutely altered mental status COMPARISON: CTA chest of same day TECHNIQUE: AP view of the chest FINDINGS: Cardiac mediastinal and hilar silhouettes are within normal limits. No pneumothorax, pleural effusion , airspace consolidation or pulmonary edema. Bones appear grossly intact. IMPRESSION: No acute process. ACT 112: Negative or not required by law. The above report was generated using voice recognition software. It may contain grammatical, syntax o r spelling errors. Electronically signed by: Lefty Landis M.D. 06/11/2022 6:00 PM
[2022-06-11] MEDS ORDERED: fentaNYL citrate PF 100 MCG/2 ML VIAL ONE (18:57)
[2022-06-11] MEDS ORDERED: PROPOFOL IV EMULSION 10 MG/ML 20 ML VIAL IV ONE (18:57)
[2022-06-11] MEDS ORDERED: ROCURONIUM BROMIDE 10 MG/ML 5 ML VIAL IV ONE ×7 (18:57→22:29)
[2022-06-11] MEDS ORDERED: LIDOCAINE 2% MPF LOCAL 5 ML VIAL INFIL ONE (18:57)
[2022-06-11] MEDS ORDERED: SUCCINYLCHOLINE CHLORIDE 20 MG/ML 10 ML VIAL IV ONE (18:57)
--- NOTE | 2022-06-11 18:57 | Surgery Consultation ---
Date of Consultation June 11, 2022 Assessment & Plan (1) SBO (small bowel obstruction): pt is a 71 year-old female who presents to Er with one day history abdominal pain with nausea and vomiting, IMP; SBO, possible loop SBO, Plan, base on H/P, labs and CT scan finding, I recommend to do emergent exploratory laparotomy, possible bowel resection or stoma, D/W benefits, risks and alternatives of the surgery with pt's , the risks - infection, bleeding, sepsis, injury other organs, multiple organs failure, MS, anastomotic leak, , pt's understood, he agreed with surgery, he signed informed consent, I answered all questions, pre-op iv antibiotic. D/W ER attending, History of Present Illness Reason for Consultation: SBO History of Present Illness Provider: Harrison Garcia MD DATE OF SERVICE: 06/11/2022 CHIEF COMPLAINT: Abdominal pain, hypoxia, altered HISTORY OF PRESENT ILLNESS: Patient is a 71-year-old female history of hypertension presenting here today via ambulance from home. Patient herself will answer questions upon arrival. EMS reports they found the patient somewhat hypoxic and minimally responsive at her house hypotensive here to see the liter of normal saline prior to arrival. Found to be significantly tachycardic. later arrives and provides additional history. Reports the patient had some nausea and GI upset last evening. Is vomiting a good bit of the night. Slept a bit and then continued to have vomiting abdominal upset this morning peer developed worsening abdominal pain. Evidently called her doctor's office and was scheduled for an appointment tomorrow but was concerned about ongoing pain. Did not eat much today. No trauma or falls reported. reports as a afternoon proceeded she was not making sense and was having increased pain and thus he called the ambulance. Patient himself again is altered and unable provide additional history. Patient placed on nonrebreather by EMS. reports that the patient had a history of 3 sections but no other abdominal surgeries by his recollection. I ( Alonso Stone MD ) got a call for consult SBO, I reviewed pt's H/P, labs and CT scan with pt and her , PAST MEDICAL HISTORY: As noted above MEDICATIONS: Reviewed home medications no noted history of anticoagulants SOCIAL HISTORY: and lives at Past Med/Surg History Medical History Degenerative joint disease of left knee GERD (gastroesophageal reflux disease) Glaucoma Osteoarthritis Seasonal allergies Surgical History History of appendectomy History of bilateral tubal ligation History of cataract surgery History of section History of colonoscopy History of detached retina repair History of dilatation and curettage History of tonsillectomy Family History Other No family history of adverse response to anesthesia Social History Smoking Status: Never smoker Second Hand Exposure: No; Hx Alcohol Use: Yes Alcohol type: wine Hx Substance Use: No Preferred Language: Welsh Communication Ability: Effective 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 Beliefs That Will Affect Care: None Current Living Situation: Spouse Feels Safe at Home: Yes Assistive Devices: Glasses Allergies Allergies Allergy/AdvReac Type Severity Reaction Status Date / Time prochlorperazine Allergy Severe severe Verified 06/11/22 17:31 [From Compazine] muscle spasms (neck) as a child Sulfa (Sulfonamide Allergy Intermediate Rash Verified 06/11/22 17:31 Antibiotics) Home Meds Home Medications Medication Instructions Recorded Confirmed cetirizine 10 mg tablet (Zyrtec) 10 mg PO DAILY 01/26/20 06/11/22 cyclosporine 0.05 % eye drops in a 1 drp ophthalmic (eye) Q12H 01/26/20 06/11/22 dropperette (Restasis) psyllium husk 3.4 gram/5.4 gram 1 tbsp PO BID 01/26/20 06/11/22 oral powder (Metamucil) timolol maleate 0.5 % eye drops 1 drp OPB QAM 01/26/20 06/11/22 meloxicam 7.5 mg tablet 7.5 mg PO QAM 11/14/21 06/11/22 omeprazole 20 mg capsule,delayed 20 mg PO DAILYBB 11/14/21 06/11/22 release acetaminophen 500 mg tablet 500 mg PO TID 06/11/22 06/11/22 (Tylenol Extra Strength) bimatoprost 0.01 % eye drops 1 drp OPB HS 06/11/22 06/11/22 (Lumigan) [id number]-xigixpf D2 1 tab PO DAILY 06/11/22 06/11/22 cyanocobalamin (vitamin B-12) 1,000 mcg PO DAILY 06/11/22 06/11/22 1,000 mcg tablet (Vitamin B-12) diclofenac sodium 1 % topical gel 2 g topical TID PRN LEFT KNEE PAIN 06/11/22 06/11/22 iron,carbonyl 65 mg-vitamin C 125 1 tab PO QAM 06/11/22 06/11/22 mg tablet,delayed release (Vitron-C) metoprolol succinate 25 mg 12.5 mg PO BID 06/11/22 06/11/22 tablet,extended release 24 hr tretinoin 0.05 % topical cream 1 applic topical QPM 06/11/22 06/11/22 Allergies Allergy/AdvReac Type Severity Reaction Status Date / Time prochlorperazine Allergy Severe severe Verified 06/11/22 17:31 [From Compazine] muscle spasms (neck) as a child Sulfa (Sulfonamide Allergy Intermediate Rash Verified 06/11/22 17:31 Antibiotics) Home Medications Medication Instructions Recorded Confirmed Type cetirizine 10 mg tablet (Zyrtec) 10 mg PO DAILY 01/26/20 06/11/22 History cyclosporine 0.05 % eye drops in a 1 drp ophthalmic (eye) Q12H 01/26/20 06/11/22 History dropperette (Restasis) psyllium husk 3.4 gram/5.4 gram 1 tbsp PO BID 01/26/20 06/11/22 History oral powder (Metamucil) timolol maleate 0.5 % eye drops 1 drp OPB QAM 01/26/20 06/11/22 History meloxicam 7.5 mg tablet 7.5 mg PO QAM 11/14/21 06/11/22 History omeprazole 20 mg capsule,delayed 20 mg PO DAILYBB 11/14/21 06/11/22 History release acetaminophen 500 mg tablet 500 mg PO TID 06/11/22 06/11/22 History (Tylenol Extra Strength) bimatoprost 0.01 % eye drops 1 drp OPB HS 06/11/22 06/11/22 History (Lumigan) [id number]-[id number]-xhwkyda D2 1 tab PO DAILY 06/11/22 06/11/22 History cyanocobalamin (vitamin B-12) 1,000 mcg PO DAILY 06/11/22 06/11/22 History 1,000 mcg tablet (Vitamin B-12) diclofenac sodium 1 % topical gel 2 g topical TID PRN LEFT KNEE PAIN 06/11/22 06/11/22 History iron,carbonyl 65 mg-vitamin C 125 1 tab PO QAM 06/11/22 06/11/22 History mg tablet,delayed release (Vitron-C) metoprolol succinate 25 mg 12.5 mg PO BID 06/11/22 06/11/22 History tablet,extended release 24 hr tretinoin 0.05 % topical cream 1 applic topical QPM 06/11/22 06/11/22 History Patient History Medical History Degenerative joint disease of left knee GERD (gastroesophageal reflux disease) Glaucoma Osteoarthritis Seasonal allergies Surgical History History of appendectomy History of bilateral tubal ligation History of cataract surgery History of section History of colonoscopy History of detached retina repair History of dilatation and curettage History of tonsillectomy Family History Other No family history of adverse response to anesthesia Social History Smoking Status: Never smoker Second Hand Exposure: No; Hx Alcohol Use: Yes Alcohol type: wine Hx Substance Use: No Preferred Language: Welsh Communication Ability: Effective 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 Beliefs That Will Affect Care: None Current Living Situation: Spouse Feels Safe at Home: Yes Assistive Devices: Glasses Physical Exam Constitutional: awake, Eyes: PERRL, conjunctivae normal, anicteric sclerae Neck: trachea midline, no thyromegaly Respiratory: RR 44, o2 sat 100% on 15L/min, bilateral lung sound clear, Cardiovascular: RRR, no murmur, no edema Gastrointestinal (Abdomen): soft, distend abdomen, tenderness periumbilical area, rebound +, lower middle line scar, BS - Musculoskeletal: no cyanosis or clubbing, extremities motor strength 5/5 Neurologic: patellar DTR's 2+ bilat, sensation intact Psychiatric: A+Ox3, euthymic affect Results & Data ([facility]) Vital Signs (Past 12 Hours) Vital Signs Temp Pulse Resp BP Pulse Ox O2 Del Method O2 Flow Rate 06/11/22 18:40 128 H 40 H 100 Non-rebreather 15 06/11/22 18:30 132 H 39 H 100 Non-rebreather 15 06/11/22 18:30 148/69 H Non-rebreather 15 06/11/22 18:20 130 H 40 H 100 Non-rebreather 15 06/11/22 18:15 145/68 H Non-rebreather 15 06/11/22 18:15 131 H 44 H 100 Non-rebreather 15 06/11/22 18:10 129 H 41 H 100 Non-rebreather 15 06/11/22 18:00 138 H 44 H 100 Non-rebreather 15 06/11/22 18:00 147/56 H Non-rebreather 15 06/11/22 17:50 140 H 43 H 100 Non-rebreather 15 06/11/22 17:45 141 H 45 H 100 Non-rebreather 15 06/11/22 17:45 140/60 Non-rebreather 15 06/11/22 17:40 142 H 46 H 100 Non-rebreather 15 06/11/22 17:30 145 H 45 H 100 Non-rebreather 15 06/11/22 17:30 150/71 H Non-rebreather 15 06/11/22 17:25 147 H 51 H Non-rebreather 15 06/11/22 17:25 147 H 06/11/22 16:50 40.0 C H Non-rebreather 15 Laboratory Results Abnormal lab results 06/11/22 06/11/22 06/11/22 Range/Units 16:57 16:57 16:59 WBC (4.8-10.8) K/ul RBC (4.20-5.40) M/uL Hgb (12.0-16.0) g/dl Hct (37.0-47.0) % RDW Std Deviation (36.4-46.3) fL RDW Coeff of Lei (11.5-14.5) % Lymphocytes # (Manual) (1.2-3.4) K/uL Total Abs Lymphocytes (1.2-3.4) K/uL Monocytes # (Manual) (0.11-0.59) K/uL Metamyelocytes # (Man) (0-0) K/uL Myelocytes # (Manual) (0-0) K/uL VBG pH 7.23 L (7.36-7.41) Carbon Dioxide (21-32) mmol/L POC Total CO2 16 L (24-31) mmol/L Anion Gap (3-11) POC BUN 25 H (7-18) mg/dl BUN (6-23) mg/dl Creatinine (0.6-1.2) mg/dl POC Creatinine 1.8 H (0.6-1.3) mg/dl Glucose (70-99(Fasting)) mg/dl POC Glucose (other) 176 H (70-99) mg/dl Lactate 10.4 H* (0.4-2.0) mmol/L POC Ioniz Calcium Rima 1.08 L (1.12-1.32) mmol/l Troponin I High Sens (0-14) pg/ml Procalcitonin (0-0.5) ng/ml Urine Appearance (Clear) Urine Protein (Negative) Urine Glucose (UA) (Negative) Urine Ketones (Negative) U Hyaline Cast (Auto) (0-5) /lpf U Epithel Cells (Auto) (0-5) /lpf 06/11/22 06/11/22 06/11/22 Range/Units 17:00 17:00 17:00 WBC 3.44 L (4.8-10.8) K/ul RBC 3.85 L (4.20-5.40) M/uL Hgb 11.9 L (12.0-16.0) g/dl Hct 35.8 L (37.0-47.0) % RDW Std Deviation 52.9 H (36.4-46.3) fL RDW Coeff of Lei 15.5 H (11.5-14.5) % Lymphocytes # (Manual) 0.79 L (1.2-3.4) K/uL Total Abs Lymphocytes 0.79 L (1.2-3.4) K/uL Monocytes # (Manual) 0.10 L (0.11-0.59) K/uL Metamyelocytes # (Man) 0.10 H (0-0) K/uL Myelocytes # (Manual) 0.07 H (0-0) K/uL VBG pH (7.36-7.41) Carbon Dioxide 17 L (21-32) mmol/L POC Total CO2 (24-31) mmol/L Anion Gap 18 H (3-11) POC BUN (7-18) mg/dl BUN 27 H (6-23) mg/dl Creatinine 1.77 H (0.6-1.2) mg/dl POC Creatinine (0.6-1.3) mg/dl Glucose 181 H (70-99(Fasting)) mg/dl POC Glucose (other) (70-99) mg/dl Lactate (0.4-2.0) mmol/L POC Ioniz Calcium Rima (1.12-1.32) mmol/l Troponin I High Sens 661.6 H* (0-14) pg/ml Procalcitonin 3.51 H (0-0.5) ng/ml Urine Appearance (Clear) Urine Protein (Negative) Urine Glucose (UA) (Negative) Urine Ketones (Negative) U Hyaline Cast (Auto) (0-5) /lpf U Epithel Cells (Auto) (0-5) /lpf 06/11/22 Range/Units Unknown WBC (4.8-10.8) K/ul RBC (4.20-5.40) M/uL Hgb (12.0-16.0) g/dl Hct (37.0-47.0) % RDW Std Deviation (36.4-46.3) fL RDW Coeff of Lei (11.5-14.5) % Lymphocytes # (Manual) (1.2-3.4) K/uL Total Abs Lymphocytes (1.2-3.4) K/uL Monocytes # (Manual) (0.11-0.59) K/uL Metamyelocytes # (Man) (0-0) K/uL Myelocytes # (Manual) (0-0) K/uL VBG pH (7.36-7.41) Carbon Dioxide (21-32) mmol/L POC Total CO2 (24-31) mmol/L Anion Gap (3-11) POC BUN (7-18) mg/dl BUN (6-23) mg/dl Creatinine (0.6-1.2) mg/dl POC Creatinine (0.6-1.3) mg/dl Glucose (70-99(Fasting)) mg/dl POC Glucose (other) (70-99) mg/dl Lactate (0.4-2.0) mmol/L POC Ioniz Calcium Rima (1.12-1.32) mmol/l Troponin I High Sens (0-14) pg/ml Procalcitonin (0-0.5) ng/ml Urine Appearance Cloudy A (Clear) Urine Protein 2+ H (Negative) Urine Glucose (UA) 3+ H (Negative) Urine Ketones 1+ H (Negative) U Hyaline Cast (Auto) 5-10 H (0-5) /lpf U Epithel Cells (Auto) 10-20 H (0-5) /lpf Diagnostic Findings CT angio chest dissec wo/w con, CT angio abdomen pelvis w con HISTORY: 71 years-old Female ams, hypoxia, abd pain, tachy acute hypoxia with chest and abdominal pain with tachycardia COMPARISON: None TECHNIQUE: CTA of the chest was obtained both with and without use of [address] abdomen and pelvis was also obtained with IV contrast. 3-D coronal and sagittal MIPS were obtained from the axial data set and were submitted for review. All measurements were obtained according to NASCET criteria. A dose lowering technique was used consistent with the principals of UKRTIS. FINDINGS: Limited study secondary to upper Hilary positioning and respiratory motion artifact. CTA CHEST: Noncontrast study demonstrates no intramural or mediastinal hematoma mild cardiomegaly with trace pericardial effusion. No thoracic aortic aneurysm or dissection. No significant atherosclerosis. The visualized pulmonary arterial tree is unremarkable. CT CHEST: Unremarkable thyroid. No lymphadenopathy. Fluid-filled distention of the mid to distal esophagus with moderate sized hiatal hernia. No pneumothorax, pleural effusion, airspace consolidation or pulmonary edema. Mild dependent subsegmental bibasilar atelectasis. There are no suspicious pulmonary nodules or masses identified. Central airways are patent. Unremarkable soft tissues. No acute fracture identified. Mildly hyperinflated compression of the T3 vertebral body is age-indeterminate, likely chronic. CTA ABDOMEN/PELVIS: Mild atherosclerosis of the abdominal aorta without aneurysm or dissection. Iliac and imaged femoral arteries are patent. The celiac trunk, superior and inferior mesenteric and renal arteries appear patent. No aneurysm, dissection, high-grade stenosis or arterial occlusion identified. CT ABDOMEN/PELVIS: No pneumatosis or pneumoperitoneum. There is limited evaluation of the solid abdominal organs secondary to arterial phase imaging. Within the limitations of the study, the spleen, pancreas, hyperattenuating adrenal glands, distended gallbladder and liver appear unremarkable. Kidneys are within normal limits with mild scarring of the superior poles, right greater than left. No urolith or hydronephrosis. Decompressed urinary bladder with Merchant catheter in place in wal l thickening with perivesicular stranding. No lymphadenopathy. Moderate sized hiatal hernia. Small volume of abdominal pelvic ascites. Colonic diverticulosis. Mild wall thickening throughout the colon with partial distention. The appendix is not definitively seen. There are several mildly dilated small bowel loops within the mid to lower abdomen and pelvis measuring up to approximately 3 cm with air-fluid levels. Decompressed distal small bowel loops. Interloop edema. There is a decompressed loop noted within the mid to upper pelvis on image [id number] several loops of small bowel demonstrates circu mferential wall thickening. No acute fracture identified. IMPRESSION: 1. Unremarkable CTA of the chest, abdomen and pelvis. 2. Limited evaluation of the solid abdominal organs and bowel secondary to arterial phase of imaging and lack of enteric contrast. 3. High-grade small bowel obstruction with several loops demonstrating circumferential wall thickening with associated intraluminal edema and small volume of abdominopelvic ascites. 4. No pneumoperitoneum identified. 5. Moderate sized hiatal hernia. 6. Additional findings as above.
--- NOTE | 2022-06-11 19:00 | History & Physical Report ---
Date of Service June 11, 2022 Assessment & Plan (1) SBO (small bowel obstruction): (2) Sepsis: (3) Lactic acidosis: Plan: Patient is 71 y/o F with PMH CKD III, GERD, IBS, chronic iron deficiency anemia presented to ER via EMS for abdominal pain, N/V started last night after dinner at 1900. Today with worsening abdominal pain, noted lethargy, AMS In ER T: 40 C rectal, P: 147, R: 51, BP 150/71 on nonrebreather No leukocytosis, lactate: 10, procalcitonin: 3.5, Cr: 1.7, A, VBG pH: 7.23. Negative SARS-CoV-2 CT head: No acute intracranial abnormality CTA chest, abd/pelvis: 1. Unremarkable CTA of the chest, abdomen and pelvis. 2. Limited evaluation of the solid abdominal organs and bowel secondary to arterial phase of imaging and lack of enteric contrast. 3. High-grade small bowel obstruction with several loops demonstrating circumferential wall thickening with associated intraluminal edema and small volume of abdominopelvic ascites. 4. No pneumoperitoneum identified. 5. Moderate sized hiatal hernia. In ER given 1 L NSS, 1.5L LR, Zosyn, IV Tylenol Blood cultures pending Repeat lactate 9.0 General surgeon was consulted. Dr. Stone evaluated patient in ER. Plans to take patient emergently to OR for exploratory laparotomy. Plan for patient to be admitted to ICU Give dose vancomycin now MRSA swab pending Trend lactate Admit ICU, further management per ICU tray line worker (4) Elevated troponin: Plan: High-sensitivity troponin: 661. EKG sinus tachycardia, rate 150, noted ST depressions anterior lateral leads ? Demand ischemia Trend troponin Echo May need cardiology consult (5) Acute kidney injury superimposed on CKD: Plan: BUN: 27, Cr: 1.77. Baseline creatinine 1.0 per outpatient chart review (6) Exertional dyspnea: Plan: 03/2022 initial stress test nondiagnostic secondary to rapid heart rate blood pressure response and poor exercise tolerance. It was suspected HTN, elevated heart response may be contributed and patient was started on 12.5 mg metoprolol succinate twice daily. Repeat nuclear stress testing reported as no evidence of ischemia Home dose of metoprolol succinate 12.5mg twice daily (7) Chronic iron deficiency anemia: Plan: Hgb: 11.9. Baseline 11-12 per outpatient chart review (8) GERD (gastroesophageal reflux disease): Plan: PPI home medicine Full Code as per discussion with pt's . Follows with Dr Faustin for routine care Pt was seen and care coordinated with Dr Pryor. See addendum for PE and additional details. I spent a total of 85 minutes reviewing notes, outpatient records, labs, medication, coordinating, documenting and providing care for this patient excluding time spent in the performance of separately billed services. History of Present Illness Chief Complaint: AMS Primary Care Provider: Colby Faustin MD Patient is 71 y/o F with PMH CKD III, GERD, IBS, chronic iron deficiency anemia presented to ER via EMS for AMS, abdominal pain. History obtained from outpatient record review and patient's who is at bedside secondary to patient's current cognitive status. states last night they ate spaghetti for dinner around 19:00. Shortly after that patient complained of abdominal pain and had nausea and vomiting. Reported episodes of vomiting until 3:00am today. This morning when woke up patient c/o abdominal pain, nausea. Reports patient called PCP's office for appointment but none available today. As day progressed patient became lethargic and with noted increased respirations and decreased responsiveness. doesn't think patient ate today. He states gave her lemonade prior to noon today but patient did not drink it. Patient with history appendectomy, x 3 per outpatient records. EMS was called this afternoon secondary to patient's worsening status. Upon ER arrival patient noted to be tachycardic, tachypneic, febrile and with AMS. CT abd/pelvis showed high grade SBO. Had lactate 10. General surgery consulted and plan to take patient to OR now for exploratory laparotomy. Allergies Allergy/AdvReac Type Severity Reaction Status Date / Time prochlorperazine Allergy Severe severe Verified 06/11/22 17:31 [From Compazine] muscle spasms (neck) as a child Sulfa (Sulfonamide Allergy Intermediate Rash Verified 06/11/22 17:31 Antibiotics) Home Medications Medication Instructions Recorded Confirmed Type cetirizine 10 mg tablet (Zyrtec) 10 mg PO DAILY 01/26/20 06/11/22 History cyclosporine 0.05 % eye drops in a 1 drp ophthalmic (eye) Q12H 01/26/20 06/11/22 History dropperette (Restasis) psyllium husk 3.4 gram/5.4 gram 1 tbsp PO BID 01/26/20 06/11/22 History oral powder (Metamucil) timolol maleate 0.5 % eye drops 1 drp OPB QAM 01/26/20 06/11/22 History meloxicam 7.5 mg tablet 7.5 mg PO QAM 11/14/21 06/11/22 History omeprazole 20 mg capsule,delayed 20 mg PO DAILYBB 11/14/21 06/11/22 History release acetaminophen 500 mg tablet 500 mg PO TID 06/11/22 06/11/22 History (Tylenol Extra Strength) bimatoprost 0.01 % eye drops 1 drp OPB HS 06/11/22 06/11/22 History (Lumigan) yaizkdd-jtitzjrfs-pyjloar D2 1 tab PO DAILY 06/11/22 06/11/22 History cyanocobalamin (vitamin B-12) 1,000 mcg PO DAILY 06/11/22 06/11/22 History 1,000 mcg tablet (Vitamin B-12) diclofenac sodium 1 % topical gel 2 g topical TID PRN LEFT KNEE PAIN 06/11/22 06/11/22 History iron,carbonyl 65 mg-vitamin C 125 1 tab PO QAM 06/11/22 06/11/22 History mg tablet,delayed release (Vitron-C) metoprolol succinate 25 mg 12.5 mg PO BID 06/11/22 06/11/22 History tablet,extended release 24 hr tretinoin 0.05 % topical cream 1 applic topical QPM 06/11/22 06/11/22 History Past Med/Surg History Medical History (Updated 06/11/22 @ 19:49 by Brandi Bee PA-C) Chronic iron deficiency anemia CKD (chronic kidney disease), stage III Degenerative joint disease of left knee Exertional dyspnea GERD (gastroesophageal reflux disease) treated prn Glaucoma Osteoarthritis Seasonal allergies Surgical History History of appendectomy History of bilateral tubal ligation History of cataract surgery right History of section x3 History of colonoscopy History of detached retina repair right History of dilatation and curettage History of tonsillectomy Family History Other No family history of adverse response to anesthesia Social History Smoking Status: Never smoker Second Hand Exposure: No; Hx Alcohol Use: Yes Alcohol type: wine Hx Substance Use: No Preferred Language: Swedish Communication Ability: Effective Security Officer Supervisor Required: No Beliefs That Will Affect Care: None Current Living Situation: Spouse Feels Safe at Home: Yes Assistive Devices: Glasses Review of Systems Review of Systems: Unobtainable due to cognitive status Physical Exam Physical Exam: PE per Dr Pryor Results & Data Results & Data ([facility]) Vital Signs (Past 12 Hours) Vital Signs Temp Pulse Resp BP Pulse Ox O2 Del Method O2 Flow Rate 06/11/22 18:40 128 H 40 H 100 Non-rebreather 15 06/11/22 18:30 132 H 39 H 100 Non-rebreather 15 06/11/22 18:30 148/69 H Non-rebreather 15 06/11/22 18:20 130 H 40 H 100 Non-rebreather 15 06/11/22 18:15 145/68 H Non-rebreather 15 06/11/22 18:15 131 H 44 H 100 Non-rebreather 15 06/11/22 18:10 129 H 41 H 100 Non-rebreather 15 06/11/22 18:00 138 H 44 H 100 Non-rebreather 15 06/11/22 18:00 147/56 H Non-rebreather 15 06/11/22 17:50 140 H 43 H 100 Non-rebreather 15 06/11/22 17:45 141 H 45 H 100 Non-rebreather 15 06/11/22 17:45 140/60 Non-rebreather 15 06/11/22 17:40 142 H 46 H 100 Non-rebreather 15 06/11/22 17:30 145 H 45 H 100 Non-rebreather 15 06/11/22 17:30 150/71 H Non-rebreather 15 06/11/22 17:25 147 H 51 H Non-rebreather 15 06/11/22 17:25 147 H 06/11/22 16:50 40.0 C H Non-rebreather 15 Laboratory Results Short CBC 06/11/22 Range/Units 17:00 WBC 3.44 L (4.8-10.8) K/ul Hgb 11.9 L (12.0-16.0) g/dl Hct 35.8 L (37.0-47.0) % Plt Count 317 (130-400) K/uL BMP 06/11/22 17:00 Sodium 141 Potassium 3.9 Chloride 106 Carbon Dioxide 17 L BUN 27 H Creatinine 1.77 H Glucose 181 H Calcium 8.7 Liver Function 06/11/22 Range/Units 17:00 Total Bilirubin 0.7 (0.2-1.0) mg/dl AST 17 (13-39) U/L ALT 13 (7-52) U/L Alkaline Phosphatase 73 (34-104) U/L Albumin 3.7 (3.4-5.0) gm/dl Urine 06/11/22 Range/Units Unknown Urine Color Dark Yellow Urine Appearance Cloudy A (Clear) Urine pH 5.5 (4.5-7.5) Ur Specific [place] 1.021 (1.000-1.030) Urine Protein 2+ H (Negative) Urine Glucose (UA) 3+ H (Negative) Diagnostic Findings Chest X-Ray 06/11/22 16:52 XR chest 1V portable HISTORY: 71 years-old Female ams . Acutely altered mental status COMPARISON: CTA chest of same day TECHNIQUE: AP view of the chest FINDINGS: Cardiac mediastinal and hilar silhouettes are within normal limits. No pneumothorax, pleural effusion, airspace consolidation or pulmonary edema. Bones appear grossly intact. IMPRESSION: No acute process. ACT 112: Negative or not required by law. The above report was generated using voice recognition software. It may contain grammatical, syntax or spelling errors. Electronically signed by: Lefty Landis M.D. 06/11/2022 6:[address] 06/11/22 16:52 CT head/brain wo con CLINICAL HISTORY: 71 years-old Female with ams. Acutely altered mental status TECHNIQUE: Multiple axial CT images of the head were obtained without contrast. A dose lowering technique was utilized adhering to the principles of ALARA. COMPARISON: None. FINDINGS: No acute intracranial hemorrhage, midline shift, intracranial mass, hydrocephalus, territorial ischemia or abnormal extra-axial collection. Mildly motion degraded exam. Involutional changes with chronic microvascular ischemic disease. The calvarium is intact. Mild to moderate mucosal thickening maxillary sinus with air-fluid level. Trace right mastoid effusion. Prior bilateral lens repair. IMPRESSION: No acute intracranial abnormality. ACT 112: Negative or not required by law. The above report was generated using voice recognition software. It may contain grammatical, syntax or spelling errors. Electronically signed by: Lefty Landis M.D. 06/11/2022 5:27 PM Abdomen/Pelvis CTA 06/11/22 16:53 CT angio chest dissec wo/w con, CT angio abdomen pelvis w con HISTORY: 71 years-old Female ams, hypoxia, abd pain, tachy acute hypoxia with chest and abdominal pain with tachycardia COMPARISON: None TECHNIQUE: CTA of the chest was obtained both with and without use of [address] abdomen and pelvis was also obtained with IV contrast. 3-D coronal and sagittal MIPS were obtained from the axial data set and were submitted for review. All measurements were obtained according to NASCET criteria. A dose lowering technique was used consistent with the principals of KURTIS. FINDINGS: Limited study secondary to upper Hilary positioning and respiratory motion artifact. CTA CHEST: Noncontrast study demonstrates no intramural or mediastinal hematoma mild cardiomegaly with trace pericardial effusion. No thoracic aortic aneurysm or dissection. No significant atherosclerosis. The visualized pulmonary arterial tree is unremarkable. CT CHEST: Unremarkable thyroid. No lymphadenopathy. Fluid-filled distention of the mid to distal esophagus with moderate sized hiatal hernia. No pneumothorax, pleural effusion, airspace consolidation or pulmonary edema. Mild dependent subsegmental bibasilar atelectasis. There are no suspicious pulmonary nodules or masses identified. Central airways are patent. Unremarkable soft tissues. No acute fracture identified. Mildly hyperinflated compression of the T3 vertebral body is age-indeterminate, likely chronic. CTA ABDOMEN/PELVIS: Mild atherosclerosis of the abdominal aorta without aneurysm or dissection. Iliac and imaged femoral arteries are patent. The celiac trunk, superior and inferior mesenteric and renal arteries appear patent. No aneurysm, dissection, high-grade stenosis or arterial occlusion identified. CT ABDOMEN/PELVIS: No pneumatosis or pneumoperitoneum. There is limited evaluation of the solid abdominal organs secondary to arterial phase imaging. Within the limitations of the study, the spleen, pancreas, hyperattenuating adrenal glands, distended gal lbladder and liver appear unremarkable. Kidneys are within normal limits with mild scarring of the superior poles, right greater than left. No urolith or hydronephrosis. Decompressed urinary bladder with Merchant catheter in place in wall thickening with perivesicular stranding. No lymphadenopathy. Moderate sized hiatal hernia. Small volume of abdominal pelvic ascites. Colonic diverticulosis. Mild wall thickening throughout the colon with partial distention. The appendix is not definitively seen. There are several mildly dilated small bowel loops within the mid to lower abdomen and pelvis measuring up to approximately 3 cm with air-fluid levels. Decompressed distal small bowel loops. Interloop edema. There is a decompressed loop noted within the mid to upper pelvis on image 267 several loops of small bowel demonstrates circumferential wall thickening. No acute fracture identified. IMPRESSION: 1. Unremarkable CTA of the chest, abdomen and pelvis. 2. Limited evaluation of the solid abdominal organs and bowel secondary to arterial phase of imaging and lack of enteric contrast. 3. High-grade small bowel obstruction with several loops demonstrating circumferential wall thickening with associated intraluminal edema and small volume of abdominopelvic ascites. 4. No pneumoperitoneum identified. 5. Moderate sized hiatal hernia. 6. Additional findings as above. ACT 112: Negative or not required by law. The above report was generated using voice recognition software. It may contain grammatical, syntax or spelling errors. Electronically signed by: Lefty Landis M.D. 06/11/2022 5:58 PM Chest CTA 06/11/22 16:53 CT angio chest dissec wo/w con, CT angio abdomen pelvis w con HISTORY: 71 years-old Female ams, hypoxia, abd pain, tachy acute hypoxia with chest and abdominal pain with tachycardia COMPARISON: None TECHNIQUE: CTA of the chest was obtained both with and without use of [address] abdomen and pelvis was also obtained with IV contrast. 3-D coronal and sagittal MIPS were obtained from the axial data set and were submitted for review. All measurements were obtained according to NASCET criteria. A dose lowering technique was used consistent with the principals of KURTIS. FINDINGS: Limited study secondary to upper Hilary positioning and respiratory motion artifact. CTA CHEST: Noncontrast study demonstrates no intramural or mediastinal hematoma mild cardiomegaly with trace pericardial effusion. No thoracic aortic aneurysm or dissection. No significant atherosclerosis. The visualized pulmonary arterial tree is unremarkable. CT CHEST: Unremarkable thyroid. No lymphadenopathy. Fluid-filled distention of the mid to distal esophagus with moderate sized hiatal hernia. No pneumothorax, pleural effusion, airspace consolidation or pulmonary edema. Mild dependent subsegmental bibasilar atelectasis. There are no suspicious pulmonary nodules or masses identified. Central airways are patent. Unremarkable soft tissues. No acute fracture identified. Mildly hyperinflated compression of the T3 vertebral body is age-indeterminate, likely chronic. CTA ABDOMEN/PELVIS: Mild atherosclerosis of the abdominal aorta without aneurysm or dissection. Iliac and imaged femoral arteries are patent. The celiac trunk, superior and inferior mesenteric and renal arteries appear patent. No aneurysm, dissection, high-grade stenosis or arterial occlusion identified. CT ABDOMEN/PELVIS: No pneumatosis or pneumoperitoneum. There is limited evaluation of the solid abdominal organs secondary to arterial phase imaging. Within the limitations of the study, the spleen, pancreas, hyperattenuating adrenal glands, distended gallbladder and liver appear unremarkable. Kidneys are within normal limits with mild scarring of the superior poles, right greater than left. No urolith or hydronephrosis. Decompressed urinary bladder with Merchant catheter in place in wall thickening with perivesicular stranding. No lymphadenopathy. Moderate sized hiatal hernia. Small volume of abdominal pelvic ascites. Colonic diverticulosis. Mild wall thickening throughout the colon with partial distention. The appendix is not definitively seen. There are several mildly dilated small bowel loops within the mid to lower abdomen and pelvis measuring up to approximately 3 cm with air-fluid levels. Decompressed distal small bowel loops. Interloop edema. There is a decompressed loop noted within the mid to upper pelvis on image 267 several loops of small bowel demonstrates circumferential wall thickening. No acute fracture identified. IMPRESSION: 1. Unremarkable CTA of the chest, abdomen and pelvis. 2. Limited evaluation of the solid abdominal organs and bowel secondary to arterial phase of imaging and lack of enteric contrast. 3. High-grade small bowel obstruction with several loops demonstrating circumferential wall thickening with associated intraluminal edema and small volume of abdominopelvic ascites. 4. No pneumoperitoneum identified. 5. Moderate sized hiatal hernia. 6. Additional findings as above. ACT 112: Negative or not required by law. The above report was generated using voice recognition software. It may contain grammatical, syntax or spelling errors. Electronically signed by: Lefty Landis M.D. 06/11/2022 5:58 PM ECG Rate (beats per minute): 150 Rhythm: sinus tachycardia Findings: + other (ST depression anterior, lateral) Supervising Physician Co-Signing Physician Notes Date of Service: June 11, 2022 History and exam performed by me History notable for 71-year-old woman who was brought in for altered mental status and abdominal pain that started yesterday. History provided by as patient is currently altered. reported that patient started having abdominal pain and persistent vomiting since after eating dinner last night. He noted that patient was in bed all day this morning. He tried to encourage her to drink some fluids but she was weak and in bed. Later around noon she started getting confused and respiratory rate increased. He called his PCPs office and was advised to come to the ER. He called EMS who brought patient to the ER. On exam, General: Ill looking elderly woman Eyes: PERRL, conjunctivae normal ENMT: On NRB Respiratory: In respiratory distress, tachypneic, on NRB, lungs clear to auscultation Cardiovascular: Tachycardic, normal rhythm, S1 S2 Gastrointestinal (Abdomen): Abdomen is mildly distended, generalized tenderness, +rebound tenderness, absent bowel sounds Musculoskeletal: No pedal edema Neurologic: Lethargic, not oriented, not following commands Psychiatric: Unable to assess Labs notable for WBC of 3.4, hemoglobin of 11.9, VBG pH of 7.23, bicarb of 17, anion gap of 18, creatinine of 1.77, lactate of 10.4, troponin of 661, procalcitonin of 3.51 Chest x-ray did not show any acute abnormality Head CT did not show any acute abnormality CTA of chest abdomen and pelvis noted high-grade small bowel obstruction with several loops demonstrating circumferential wall thickening with associated and trauma luminal edema and small volume abdominal pelvic ascites. Severe sepsis High-grade small bowel obstruction Lactic acidosis Metabolic encephalopathy Acute kidney injury Elevated troponin Patient is critically ill, lethargic, tachypneic, tachycardic. Discussed with surgeon Dr. Stone in ER. Plan to take to the OR right away. Discussed with ICU physician Dr. Ochoa. Patient will be admitted to the ICU after the OR. ER ordered 2.5 L of fluid which responds to 30 cc/kg. We will continue IV fluids. We will trend lactate. Got Zosyn in ER. Will continue Zosyn [renally dosed] and give 1 dose of vancomycin. Get MRSA screen Follow-up blood cultures and lab. Elevated troponin likely demand ischemia. Get EKG. Trend troponin. 2D echo Updated who was at bedside about plans. Discussed the patient is critically ill. He confirmed CODE STATUS is full code. Other plans as detailed by Brandi Bee PA-C I spent a total of 55 minutes of critical care with this patient on the date referenced in note and exclusive of time spent performing procedures or time spent by another provider or resident. This involves my evaluation, physical exam, review of labs, resuscitative measures, discussing plans/orders with NAMAN, communication with surgeon and ICU team
[2022-06-11] MEDS ORDERED: ceFAZolin 2000MG 2,000 MG/15 ML SYR IV ONE (19:08)
--- NOTE | 2022-06-11 19:08 | History & Physical Bridge Note ---
Date of Service June 11, 2022 History & Physical Bridge Note I have examined the patient, reviewed the History & Physical and in the interval since the performance of the History & Physical I have noted the following changes of clinical significance: no changes noted
[2022-06-11] MEDS ORDERED: VANCOMYCIN CONSULT ACTIVE PRN (19:10)
[2022-06-11] MEDS ORDERED: Patient's HEIGHT &/or WEIGHT Needed STA (19:16)
[2022-06-11] MEDS ORDERED: ATROPINE SULFATE 0.1 MG/ML 10ML SYR IV PRN (19:20)
[2022-06-11] MEDS ORDERED: ePHEDrine sulfate 50 MG/ML AMP IV PRN (19:20)
[2022-06-11] MEDS ORDERED: fentaNYL citrate PF 100 MCG/2 ML VIAL IV PRN (19:20)
[2022-06-11] MEDS ORDERED: HYDROmorphone INJ 2 MG/ML SYR/VIAL IV PRN (19:20)
[2022-06-11] MEDS ORDERED: ONDANSETRON INJ 2 MG/ML 2 ML VIAL IV PRN (19:20)
--- NOTE | 2022-06-11 19:20 | Anesthesiology Consultation ---
Date of Service June 11, 2022 Assessment & Plan ASA [id number] Proposed Anesthesia Anesthesia Type: General Anesthesia Line Insertion: Arterial line Risk / Benefits Reviewed With: PT / POA / Parent / Guardian, Accepts Plan and Informed Consent Obtained Additional Comments: pt is high risk. pt is septic. d/w that patient is at high risk of mortality History Surgery Operation Date: 06/11/22 19:00 Proposed Procedures p Exploratory Laparotomy - Alonso Stone MD Height/Weight Height: 5 ft 6 in Weight: 0 g Allergies Allergy/AdvReac Type Severity Reaction Status Date / Time prochlorperazine Allergy Severe severe Verified 06/11/22 17:31 [From Compazine] muscle spasms (neck) as a child Sulfa (Sulfonamide Allergy Intermediate Rash Verified 06/11/22 17:31 Antibiotics) Medications Home Medications Medication Instructions Recorded Confirmed Last Taken cetirizine 10 mg tablet (Zyrtec) 10 mg PO DAILY 01/26/20 06/11/22 02/12/20 cyclosporine 0.05 % eye drops in a 1 drp ophthalmic (eye) Q12H 01/26/20 06/11/22 02/13/20 09:00 dropperette (Restasis) psyllium husk 3.4 gram/5.4 gram 1 tbsp PO BID 01/26/20 06/11/22 02/12/20 oral powder (Metamucil) timolol maleate 0.5 % eye drops 1 drp OPB QAM 01/26/20 06/11/22 02/13/20 10:00 meloxicam 7.5 mg tablet 7.5 mg PO QAM 11/14/21 06/11/22 Unknown omeprazole 20 mg capsule,delayed 20 mg PO DAILYBB 11/14/21 06/11/22 Unknown release acetaminophen 500 mg tablet 500 mg PO TID 06/11/22 06/11/22 Unknown (Tylenol Extra Strength) bimatoprost 0.01 % eye drops 1 drp OPB HS 06/11/22 06/11/22 Unknown (Lumigan) [id number] D2 1 tab PO DAILY 06/11/22 06/11/22 Unknown cyanocobalamin (vitamin B-12) 1,000 mcg PO DAILY 06/11/22 06/11/22 Unknown 1,000 mcg tablet (Vitamin B-12) diclofenac sodium 1 % topical gel 2 g topical TID PRN LEFT KNEE PAIN 06/11/22 06/11/22 Unknown iron,carbonyl 65 mg-vitamin C 125 1 tab PO QAM 06/11/22 06/11/22 Unknown mg tablet,delayed release (Vitron-C) metoprolol succinate 25 mg 12.5 mg PO BID 06/11/22 06/11/22 Unknown tablet,extended release 24 hr tretinoin 0.05 % topical cream 1 applic topical QPM 06/11/22 06/11/22 Unknown NPO Date Last Intake of Fluids: 06/10/22 Time Last Intake of Fluids: 00:00 Date Last Intake of Solids: 06/10/22 Time Last Intake of Solids: 00:00 Past Medical History Medical History Degenerative joint disease of left knee GERD (gastroesophageal reflux disease) treated prn Glaucoma Osteoarthritis Seasonal allergies Exercise / Class Metabolic Activity II 4-5 Yardwork/Stairs/Walk up hill Past Family History Family History Other No family history of adverse response to anesthesia Past Surgical History Surgical History History of appendectomy History of bilateral tubal ligation History of cataract surgery right History of section x3 History of colonoscopy History of detached retina repair right History of dilatation and curettage History of tonsillectomy Past Anesthesia History No Hx of Anesthesia Complications and No Family Hx of Anesthesia Complications History of PONV No Hx of PONV and No Hx of Motion Sickness Social History Smoking Status: Never smoker tobacco type: cigarettes Hx Alcohol Use: Yes Alcohol type: wine alcohol intake frequency: a few times a month Hx Substance Use: No substance use type: does not use Review of Systems denies /cough/ colds/ chest pain/ SOB/ +ASIF/fever ROS from denies ASIF Physical Exam Vital Signs Last Vital Signs Temp 37.6 C H 06/11/22 19:14 Pulse 135 H 06/11/22 19:15 Resp 39 H 06/11/22 19:15 BP 96/67 L 06/11/22 19:15 Pulse Ox 100 06/11/22 19:15 O2 Del Method Non-rebreather 06/11/22 19:15 O2 Flow Rate 15 06/11/22 19:15 ENMT Mouth: no TMJ abnormality and no dentition abnormality Thyromental Distance: > or= 3.5 Finger Breadths Mallampati Class: Other (unable to assess pt is minimally responsive) Neck neck extension not limited Respiratory + respiratory distress and + tachypneic Auscultation: lungs clear to auscultation bilaterally Cardiovascular Rate/Rhythm: regular rhythm and + tachycardic Psychiatric Orientation: + not oriented x 3 Testing Laboratory Results 06/11/22 17:00 06/11/22 17:00 PT 11.4 Seconds (9.0-12.0) 06/11/22 17:00 INR 1.1 (0.9-1.1) 06/11/22 17:00 Urine Color Dark Yellow 06/11/22 Unknown Urine Appearance Cloudy (Clear) A 06/11/22 Unknown Urine pH 5.5 (4.5-7.5) 06/11/22 Unknown Ur Specific [place] 1.021 (1.000-1.030) 06/11/22 Unknown Urine Protein 2+ (Negative) H 06/11/22 Unknown Urine Glucose (UA) 3+ (Negative) H 06/11/22 Unknown Urine Ketones 1+ (Negative) H 06/11/22 Unknown Urine Nitrite Negative (Negative) 06/11/22 Unknown Ur Leukocyte Esterase Negative (Negative) 06/11/22 Unknown Urine WBC (Auto) 1-5 /hpf (0-5) 06/11/22 Unknown Urine RBC (Auto) 0-4 /hpf (0-4) 06/11/22 Unknown U Hyaline Cast (Auto) 5-10 /lpf (0-5) H 06/11/22 Unknown U Epithel Cells (Auto) 10-20 /lpf (0-5) H 06/11/22 Unknown Urine Bacteria (Auto) Negative (Negative) 06/11/22 Unknown 06/11/22 16:59 POC Glucose (other) 176 H
--- NOTE | 2022-06-11 19:28 | Communication Note ---
Date of Service: June 11, 2022 History and exam performed by me History notable for 71-year-old woman who was brought in for altered mental status and abdominal pain that started yesterday. History provided by as patient is currently altered. reported that patient started having abdominal pain and persistent vomiting since after eating dinner last night. He noted that patient was in bed all day this morning. He tried to encourage her to drink some fluids but she was weak and in bed. Later around noon she started getting confused and respiratory rate increased. He called his PCPs office and was advised to come to the ER. He called EMS who brought patient to the ER. On exam, General: Ill looking elderly woman Eyes: PERRL, conjunctivae normal ENMT: On NRB Respiratory: In respiratory distress, tachypneic, on NRB, lungs clear to auscultation Cardiovascular: Tachycardic, normal rhythm, S1 S2 Gastrointestinal (Abdomen): Abdomen is mildly distended, generalized tenderness, +rebound tenderness, absent bowel sounds Musculoskeletal: No pedal edema Neurologic: Lethargic, not oriented, not following commands Psychiatric: Unable to assess Labs notable for WBC of 3.4, hemoglobin of 11.9, VBG pH of 7.23, bicarb of 17, anion gap of 18, creatinine of 1.77, lactate of 10.4, troponin of 661, procalcitonin of 3.51 Chest x-ray did not show any acute abnormality Head CT did not show any acute abnormality CTA of chest abdomen and pelvis noted high-grade small bowel obstruction with several loops demonstrating circumferential wall thickening with associated and trauma luminal edema and small volume abdominal pelvic ascites. Severe sepsis High-grade small bowel obstruction Lactic acidosis Metabolic encephalopathy Acute kidney injury Elevated troponin Patient is critically ill, lethargic, tachypneic, tachycardic. Discussed with surgeon Dr. Stone in ER. Plan to take to the OR right away. Discussed with ICU physician Dr. Ochoa. Patient will be admitted to the ICU after the OR. ER ordered 2.5 L of fluid which responds to 30 cc/kg. We will continue IV fluids. We will trend lactate. Got Zosyn in ER. Will continue Zosyn [renally dosed] and give 1 dose of vancomycin. Get MRSA screen Follow-up blood cultures and lab. Elevated troponin likely demand ischemia. Get EKG. Trend troponin. 2D echo Updated who was at bedside about plans. Discussed the patient is critically ill. He confirmed CODE STATUS is full code. Other plans as detailed by Brandi Bee PA-C I spent a total of 55 minutes of critical care with this patient on the date referenced in note and exclusive of time spent performing procedures or time spent by another provider or resident. This involves my evaluation, physical exam, review of labs, resuscitative measures, discussing plans/orders with NAMAN, communication with surgeon and ICU team
[2022-06-11] MEDS ORDERED: LIDOCAINE 1% LOCAL 20 ML VIAL ONE (19:30)
[2022-06-11] MEDS ORDERED: VANCOMYCIN HCL 1000MG/20ML VIAL ONE (19:30)
[2022-06-11] MEDS ORDERED: BUPIVACAINE 0.5 % 5 MG/1 ML MPF 30ML VIAL ONE (19:30)
[2022-06-11] MEDS ORDERED: BACITRACIN OINT 15 GM TUBE ONE (19:30)
[2022-06-11] MEDS ORDERED: VANCOMYCIN HCL 1,000 MG in SODIUM CHLORIDE 0.9% 250 ML IV STA (19:35)
[2022-06-11] MEDS ORDERED: MIDAZOLAM HCL 1 MG/ML 2ML VIAL ONE ×3 (19:53→21:33)
[2022-06-11] MEDS ORDERED: VASOPRESSION #-# Do NOT Titrate #-# Option IV SCH (20:15)
[2022-06-11] MEDS ORDERED: PHENYLEPHRINE HCL 10 MG/ML VIAL ONE ×3 (20:22→22:29)
[2022-06-11] MEDS ORDERED: ePHEDrine sulfate 50 MG/ML SYR ONE (20:23)
[2022-06-11] MEDS ORDERED: SODIUM CHLORIDE 0.9% 250 ML IV PRN (20:33)
--- NOTE | 2022-06-11 20:40 | Anesthesia Procedure Note ---
Anesthesia Procedure Note Arterial Line Note Patient medical history, medications, allergies and vitals reviewed. Date of procedure: 06/11/22 Consent: Risk / Benefits Reviewed With: PT / POA / Parent / Guardian, Accepts Plan, Informed Consent Obtained and All Questions Answered Monitors attached: Blood Pressure, CO2, EKG and Pulse Oximetry Oxygen delivery method: ETT Time out completed: No Premedication: None Laterality: Left Location: Radial Hand hygeine: Soap and water and Alcohol based hand rub Equipment/Supplies: Cap, Mask and Sterile gloves Skin prep: Chloraprep Ultrasound used: Yes US equipment and supplies: Sterile Gel Attempts: 2 Procedure Summary: pt was an emergency case in the OR. I observe a patent ulnar and radial artery on ultrasound. 20 gauge angiocath advanced until return of bright red blood. Catheter threaded using seldinger technique with return of pulsatile, bright red blood. Catheter secured with tape and covered with occlusive dressing. Waveform consistent with correct arterial placement. After placement, normal perfusion was observed distal to the site of catheter placement. Post-Procedure: Pt tolerates well and No complication
[2022-06-11 20:43] LABS: iSTAT Arterial Blood Gas HCO3 17 meg/L (19-24); iSTAT Arterial Blood Gas pCO2 36 mmHg (35-46); iSTAT Arterial Blood Gas pH 7.28 (7.35-7.45); iSTAT Arterial Blood Gas pO2 341 mmHg (80-95); iSTAT Carbon Dioxide 18 mmol/L (24-31); iSTAT Hematocrit 25 % (37-47); iSTAT Hemoglobin 8.5 g/dl (12.0-16.0); iSTAT Potassium 3.2 mmol/L (3.3-5.0); iSTAT Sodium 140 mmol/L (135-144)
--- NOTE | 2022-06-11 20:44 | Communication Note ---
Date of Service: June 11, 2022 pt was tachycardic and hypotensive on arrival to OR. pt with only a carotid pulse. pt on phenylephedrine drip. After intubation, surgeon proceeded to open the belly. Per surgeon, he noted 1L of free blood/hematoma. bowel was present. Between his observations and the patients tenuous hemodynamics, I felt she needed immediate blood transfusion. I called for the emergency release of two units and for two more to be cross matched. One unit uncross matched blood given. repeat hgb 8.5. we returned the second unit to the blood bank. Pt has hemostasis. If she needs additional blood we can use the crossmatched blood. pt remains on a phenylephedrine drip.
[2022-06-11] MEDS ORDERED: SODIUM BICARBONATE 8.4% INJ 50 MEQ/50 ML VIAL ONE (21:33)
[2022-06-11] MEDS ORDERED: SODIUM BICARB 8.4% INJ 50 MEQ/50 ML SYR IV ONE (21:33)
[2022-06-11 21:46] LABS: iSTAT Arterial Blood Gas HCO3 23 meg/L (19-24); iSTAT Arterial Blood Gas pCO2 44 mmHg (35-46); iSTAT Arterial Blood Gas pH 7.32 (7.35-7.45); iSTAT Arterial Blood Gas pO2 353 mmHg (80-95); iSTAT Carbon Dioxide 24 mmol/L (24-31); iSTAT Hematocrit 26 % (37-47); iSTAT Hemoglobin 8.8 g/dl (12.0-16.0); iSTAT Potassium 3.1 mmol/L (3.3-5.0); iSTAT Sodium 144 mmol/L (135-144)
[2022-06-11] MEDS ORDERED: PHENYLEPHRINE HCL 25 MG/250 ML NSS IV ONE (21:53)
--- NOTE | 2022-06-11 21:57 | Post Operative Brief Note ---
Immediate Post Op Note v1 Date of Surgery June 11, 2022 Pre & Post Diagnosis Operation Date: 06/11/22 19:00 Pre-Op Diagnosis: small bowel obstruction, Sepsis, Lactic acidosis Post-Op Diagnosis: small bowel obstruction, Sepsis, Lactic acidosis, of small bowel I identified the patient and participated in the time-out.: Yes Procedure Operation Date: 06/11/22 19:00 Actual Procedures Emergent Exploratory Laparotomy, small bowel resection, one FLORY drainage - Alonso Stone MD Surgeon Alonso Stone MD [employer] Machine Operator rn surgical pcu Estimated Blood Loss 20 Findings Consistent with Post-Op Diagnosis small bowel, about 160cm, caused by scar bend. blood free fluid in abdominal cavity about 1000ml Fluids 3500ml Specimens small bowel, anastomatic small bowel ring Drains Merchant Catheter (Patient arrived to operating room with Merchant catheter intact) and Cal-Mendoza Drain (10 bengali flat cal-mendoza drain inserted by Dr. Stone during procedure) Anesthesia Type General Complications none Disposition Accompanied Patient To Recovery: Yes
--- NOTE | 2022-06-11 22:30 | Critical Care Consultation ---
Date of Consultation June 11, 2022 Assessment & Plan (1) SBO (small bowel obstruction): (2) Degenerative joint disease of left knee: (3) Sepsis: (4) Lactic acidosis: (5) Elevated troponin: (6) Acute kidney injury superimposed on CKD: (7) Chronic iron deficiency anemia: (8) GERD (gastroesophageal reflux disease): Plan Reason Critically Ill: Intubated and Sedated following emergent surgery for sepsis in the setting of high grade bowel obstruciton with bowel ischemia. S/P Ex-lap with resection of 160cm small bowel. Neuro - Encephalopathy, sedation for mechanical ventilation, acute pain - Encephalopathy on arrival to the EMD likely secondary to sepsis from bowel obstruction - Head CT negative for acute process - Continue sedation with Propofol and Fentanyl for pain control- Goal JORJE -2- patient remains on minimal sedation and without localization or withdraw to pain - hold sedation if continued with no response repeat head CT non con - Daily awakening and SBT Cardiac - Shock, Elevated HScTNI - Shock secondary to sepsis and hypovolemia - following resuscitation and surgical control remains on vasopressor support with neosynepherine- currently weaned to off - required 1 unit of PRBC in operating theater- follow HGB - Hold home Metoprolol while on vasopressor use - Continue with LR at 90ml/hour- avoid over resuscitation with closed abdomen - HScTNI elevation likely demand type II in the setting of septic shock and hypovolemia- trend HScTNI and ECGs. - current ECG without ischaemia changes Respiratory - Intubation with Mechanical Ventilation - no history of pulmonary disease or respiratory failure noted - remains intubated following OR for continued resuscitation needs and vasopressors - daily SBT - ARDSnet ventilation strategy GI - High grade SBO, bowel resection, GERD - POD #0, abdomen closed - appreciate surgical assistance - OGT remain LIWS - Protonix 40mg IV daily RENAL/LYTES - MICHEAL, AGAP Metabolic Acidosis - MICHEAL- resoliving following volume resuscitation and vasopressor- maintain MAP >65, UO 30ml/kg - AGAP metabolic acidosis resolving- Gap closed as lactate and BUN downtrending - Continue as above - No acute needs - Merchant to gravity ENDO - No acute needs - follow BG with dextrose sticks q6 hours- goal BG <180mg/dl- ICU protocol HEME - Acute on chronic anemia- - acute blood loss anemia with chronic fe deficiency- 1 unit transfused - Transfuse for HGB <8.0 or worsening organ dysfunction/lactic acidosis ID - Septic shock - No jena spillage of bowel per surigical report - ABX therapy- Zosyn/Vancomycin- send vanco random level at this time to dose - Source control as per surgery- appreciate assitance LINES/IV ACCESS - ETT, Merchant catheter, OGT, Left radial arterial line, FLORY drain Continue use of these lines DVT PROPHYLAXIS - SCDs- hold on chemoprophylaxis until hemostasis is ensured DISPO- ICU while on vasopressors and requiring mechanical ventilation I have personally spent 50 minutes of critical care time in the direct management of this patient. This is a life/limb threatening event. This includes time spent evaluating patient, direct bedside care, chart review, placing orders, interpretation of diagnostic studies, discussion with consultants, patient, and family members, as well as other required patient management activities. This time is exclusive of all separately billable procedures, and separate from and in addition to any other critical care service time. Thank you for allowing us to participate in the care of this patient. Please refer to my attending physician's documentation for any further recommendations. History of Present Illness Reason for Consultation: Intubation Mechanical Ventilation in setting of- Bowel obstruction with ischemia Requesting Physician: Cameron Gautam Attending Physician: mC Foster MD History of Present Illness 71 YOF with medical history of: GERD, Chronic FE deficient anemia, DJD, glaucoma. Patient presents to the EMD today for concerns of encephalopathy following 1 day history of abdominal pain with nausea and vomiting. Per chart review and discussion with following dinner around 1900 yesterday the patient had onset of abdominal pain and nausea with vomiting. This onset was approx 30min to 1 hour post ingestion. Multiple bouts of emesis into the morning. Through the day patient continued with abdominal pain, which progressed to encephalopathy and increase in respirations. In the EMD the patient was noted to be hyperthermic to 40 degrees Celsius , tahcycardia, and tachypneic. The patient had routine labs performed to include blood cultures/lactate as well as CT of abdomen and pelvis. CT abdomen and pelvis was interpreted with high grade bowel obstruction with intraluminal edema. Lactate was elevated to 9.0. Patient had urgent surgical evaluation performed at the bedside and was taken to the operating room. In the OR the patient underwent exploratory laparotomy with small bowel resection- removal of 160cm of reported bowel and removal of 1000ml of free fluid from the abdominal cavity. Discussed with primary surgeon at bedside and reports no jena spillage or bowel leakage noted. Patient received 1 unit of PRBC through the case as well as 3 Liters Crystalloid, required Norsynephrine infusion and 1 amp of NAHCO3. Patient was brought out to the ICU with ETT in place, FLORY drain in place, OGT in place, left radial arterial line and Merchant catheter in place. Patient abdomen is closed. COVID on admission is: NEGATIVE CODE: FULL Consultations: General Surgery Allergies Allergy/AdvReac Type Severity Reaction Status Date / Time prochlorperazine Allergy Severe severe Verified 06/11/22 17:31 [From Compazine] muscle spasms (neck) as a child Sulfa (Sulfonamide Allergy Intermediate Rash Verified 06/11/22 17:31 Antibiotics) Home Medications Medication Instructions Recorded Confirmed Type cetirizine 10 mg tablet (Zyrtec) 10 mg PO DAILY 01/26/20 06/11/22 History cyclosporine 0.05 % eye drops in a 1 drp ophthalmic (eye) Q12H 01/26/20 06/11/22 History dropperette (Restasis) psyllium husk 3.4 gram/5.4 gram 1 tbsp PO BID 01/26/20 06/11/22 History oral powder (Metamucil) timolol maleate 0.5 % eye drops 1 drp OPB QAM 01/26/20 06/11/22 History meloxicam 7.5 mg tablet 7.5 mg PO QAM 11/14/21 06/11/22 History omeprazole 20 mg capsule,delayed 20 mg PO DAILYBB 11/14/21 06/11/22 History release acetaminophen 500 mg tablet 500 mg PO TID 06/11/22 06/11/22 History (Tylenol Extra Strength) bimatoprost 0.01 % eye drops 1 drp OPB HS 06/11/22 06/11/22 History (Lumigan) [id number]-oqjimbs D2 1 tab PO DAILY 06/11/22 06/11/22 History cyanocobalamin (vitamin B-12) 1,000 mcg PO DAILY 06/11/22 06/11/22 History 1,000 mcg tablet (Vitamin B-12) diclofenac sodium 1 % topical gel 2 g topical TID PRN LEFT KNEE PAIN 06/11/22 06/11/22 History iron,carbonyl 65 mg-vitamin C 125 1 tab PO QAM 06/11/22 06/11/22 History mg tablet,delayed release (Vitron-C) metoprolol succinate 25 mg 12.5 mg PO BID 06/11/22 06/11/22 History tablet,extended release 24 hr tretinoin 0.05 % topical cream 1 applic topical QPM 06/11/22 06/11/22 History Patient History Medical History Chronic iron deficiency anemia CKD (chronic kidney disease), stage III Degenerative joint disease of left knee Exertional dyspnea GERD (gastroesophageal reflux disease) treated prn Glaucoma Osteoarthritis Seasonal allergies Surgical History History of appendectomy History of bilateral tubal ligation History of cataract surgery right History of section x3 History of colonoscopy History of detached retina repair right History of dilatation and curettage History of tonsillectomy Family History Other No family history of adverse response to anesthesia Social History Smoking Status: Never smoker Second Hand Exposure: No; Do You Dip or Chew Tobacco: No; Hx Alcohol Use: Yes Alcohol type: wine Hx Substance Use: No Preferred Language: Occitan Communication Ability: Effective Banking Services Officer Required: No Beliefs That Will Affect Care: None Current Living Situation: Spouse Feels Safe at Home: Yes Safety Concerns: Feels Safe At This Time Assistive Devices: None Review of Systems Review of Systems: unable to obtain secondary to intubation and sedation Physical Exam Physical Exam: PHYSICAL EXAM: General: intubated, sedated Neuro: Pupils 2 sluggish, prior to intubation patient was awake to voice, lethargic, followed commands and moving all extremities Chest: equal rise and fall of the chest,decreased in bases, on mechanical ventilation Cardiac: Regular rate and rhythm, telemetry reviewed- sinus tachycardia, skin warm dry, cap refill <3 seconds, peripheral pulses +2 no JVD, no edema GI: NABS x 4 quadrants, soft, nontender to palpation, no rebound, guarding or tenderness : Spontaneously voiding, Merchant to gravity Extremities: Normal inspection, no peripheral edema or erythema, calfs nontender to palpation Skin: no rash or erythema Results & Data Results & Data ([facility] [place]) Vital Signs (Past 12 Hours) Vital Signs Temp Pulse Pulse Resp BP BP Pulse Ox 06/11/22 19:29 134 H 42 H 88/63 L 97 06/11/22 19:15 96/67 L 06/11/22 19:15 135 H 39 H 100 06/11/22 19:10 134 H 30 H 91 06/11/22 19:00 131 H 44 H 100 06/11/22 19:00 126/75 06/11/22 18:50 132 H 42 H 100 06/11/22 18:45 130/73 06/11/22 18:45 131 H 42 H 100 06/11/22 19:14 37.6 C H 06/11/22 19:03 06/11/22 18:40 128 H 40 H 100 06/11/22 18:30 132 H 39 H 100 06/11/22 18:30 148/69 H 06/11/22 18:20 130 H 40 H 100 06/11/22 18:15 145/68 H 06/11/22 18:15 131 H 44 H 100 06/11/22 18:10 129 H 41 H 100 06/11/22 18:00 138 H 44 H 100 06/11/22 18:00 147/56 H 06/11/22 17:50 140 H 43 H 100 06/11/22 17:45 141 H 45 H 100 06/11/22 17:45 140/60 06/11/22 17:40 142 H 46 H 100 06/11/22 17:30 145 H 45 H 100 06/11/22 17:30 150/71 H 06/11/22 17:25 147 H 51 H 06/11/22 17:25 147 H 06/11/22 16:50 40.0 C H O2 Del Method O2 Flow Rate 06/11/22 19:29 Room Air 06/11/22 19:15 Non-rebreather 15 06/11/22 19:15 Non-rebreather 15 06/11/22 19:10 Non-rebreather 15 06/11/22 19:00 Non-rebreather 15 06/11/22 19:00 Non-rebreather 15 06/11/22 18:50 Non-rebreather 15 06/11/22 18:45 Non-rebreather 15 06/11/22 18:45 Non-rebreather 15 06/11/22 19:14 06/11/22 19:03 Non-rebreather 15 06/11/22 18:40 Non-rebreather 15 06/11/22 18:30 Non-rebreather 15 06/11/22 18:30 Non-rebreather 15 06/11/22 18:20 Non-rebreather 15 06/11/22 18:15 Non-rebreather 15 06/11/22 18:15 Non-rebreather 15 06/11/22 18:10 Non-rebreather 15 06/11/22 18:00 Non-rebreather 15 06/11/22 18:00 Non-rebreather 15 06/11/22 17:50 Non-rebreather 15 06/11/22 17:45 Non-rebreather 15 06/11/22 17:45 Non-rebreather 15 06/11/22 17:40 Non-rebreather 15 06/11/22 17:30 Non-rebreather 15 06/11/22 17:30 Non-rebreather 15 06/11/22 17:25 Non-rebreather 15 06/11/22 17:25 06/11/22 16:50 Non-rebreather 15 Laboratory Results Abnormal lab results 06/11/22 06/11/22 06/11/22 Range/Units 16:57 16:57 16:57 WBC (4.8-10.8) K/ul RBC (4.20-5.40) M/uL Hgb (12.0-16.0) g/dl POC Hgb (12.0-16.0) g/dl Hct (37.0-47.0) % POC Hct (37-47) % RDW Std Deviation (36.4-46.3) fL RDW Coeff of Lei (11.5-14.5) % Lymphocytes # (Manual) (1.2-3.4) K/uL Total Abs Lymphocytes (1.2-3.4) K/uL Monocytes # (Manual) (0.11-0.59) K/uL Metamyelocytes # (Man) (0-0) K/uL Myelocytes # (Manual) (0-0) K/uL POC pH (7.35-7.45) POC pO2 (80-95) mmHg POC HCO3 (19-24) lovely/L POC Base Excess (-9-1.8) lovely/L POC ABG O2 Sat (90-95) % VBG pH 7.23 L (7.36-7.41) POC Potassium (3.3-5.0) mmol/L Carbon Dioxide (21-32) mmol/L POC Total CO2 (24-31) mmol/L Anion Gap (3-11) POC BUN (7-18) mg/dl BUN (6-23) mg/dl Creatinine (0.6-1.2) mg/dl POC Creatinine (0.6-1.3) mg/dl Glucose (70-99(Fasting)) mg/dl POC Glucose (other) (70-99) mg/dl Lactate 10.4 H* (0.4-2.0) mmol/L POC Ioniz Calcium Rima (1.12-1.32) mmol/l Troponin I High Sens (0-14) pg/ml Procalcitonin (0-0.5) ng/ml Urine Appearance (Clear) Urine Protein (Negative) Urine Glucose (UA) (Negative) Urine Ketones (Negative) U Hyaline Cast (Auto) (0-5) /lpf U Epithel Cells (Auto) (0-5) /lpf Crossmatch See Detail 06/11/22 06/11/22 06/11/22 Range/Units 16:59 17:00 17:00 WBC (4.8-10.8) K/ul RBC (4.20-5.40) M/uL Hgb (12.0-16.0) g/dl POC Hgb (12.0-16.0) g/dl Hct (37.0-47.0) % POC Hct (37-47) % RDW Std Deviation (36.4-46.3) fL RDW Coeff of Lei (11.5-14.5) % Lymphocytes # (Manual) (1.2-3.4) K/uL Total Abs Lymphocytes (1.2-3.4) K/uL Monocytes # (Manual) (0.11-0.59) K/uL Metamyelocytes # (Man) (0-0) K/uL Myelocytes # (Manual) (0-0) K/uL POC pH (7.35-7.45) POC pO2 (80-95) mmHg POC HCO3 (19-24) lovely/L POC Base Excess (-9-1.8) lovely/L POC ABG O2 Sat (90-95) % VBG pH (7.36-7.41) POC Potassium (3.3-5.0) mmol/L Carbon Dioxide 17 L (21-32) mmol/L POC Total CO2 16 L (24-31) mmol/L Anion Gap 18 H (3-11) POC BUN 25 H (7-18) mg/dl BUN 27 H (6-23) mg/dl Creatinine 1.77 H (0.6-1.2) mg/dl POC Creatinine 1.8 H (0.6-1.3) mg/dl Glucose 181 H (70-99(Fasting)) mg/dl POC Glucose (other) 176 H (70-99) mg/dl Lactate (0.4-2.0) mmol/L POC Ioniz Calcium Rima 1.08 L (1.12-1.32) mmol/l Troponin I High Sens 661.6 H* (0-14) pg/ml Procalcitonin 3.51 H (0-0.5) ng/ml Urine Appearance (Clear) Urine Protein (Negative) Urine Glucose (UA) (Negative) Urine Ketones (Negative) U Hyaline Cast (Auto) (0-5) /lpf U Epithel Cells (Auto) (0-5) /lpf Crossmatch 06/11/22 06/11/22 06/11/22 Range/Units 17:00 19:01 20:15 WBC 3.44 L (4.8-10.8) K/ul RBC 3.85 L (4.20-5.40) M/uL Hgb 11.9 L (12.0-16.0) g/dl POC Hgb 8.5 L (12.0-16.0) g/dl Hct 35.8 L (37.0-47.0) % POC Hct 25 L (37-47) % RDW Std Deviation 52.9 H (36.4-46.3) fL RDW Coeff of Lei 15.5 H (11.5-14.5) % Lymphocytes # (Manual) 0.79 L (1.2-3.4) K/uL Total Abs Lymphocytes 0.79 L (1.2-3.4) K/uL Monocytes # (Manual) 0.10 L (0.11-0.59) K/uL Metamyelocytes # (Man) 0.10 H (0-0) K/uL Myelocytes # (Manual) 0.07 H (0-0) K/uL POC pH 7.28 L (7.35-7.45) POC pO2 341 H (80-95) mmHg POC HCO3 17 L (19-24) lovely/L POC Base Excess -10.0 L (-9-1.8) lovely/L POC ABG O2 Sat 100.0 H (90-95) % VBG pH (7.36-7.41) POC Potassium 3.2 L (3.3-5.0) mmol/L Carbon Dioxide (21-32) mmol/L POC Total CO2 18 L (24-31) mmol/L Anion Gap (3-11) POC BUN (7-18) mg/dl BUN (6-23) mg/dl Creatinine (0.6-1.2) mg/dl POC Creatinine (0.6-1.3) mg/dl Glucose (70-99(Fasting)) mg/dl POC Glucose (other) (70-99) mg/dl Lactate 9.0 H* (0.4-2.0) mmol/L POC Ioniz Calcium Rima (1.12-1.32) mmol/l Troponin I High Sens (0-14) pg/ml Procalcitonin (0-0.5) ng/ml Urine Appearance (Clear) Urine Protein (Negative) Urine Glucose (UA) (Negative) Urine Ketones (Negative) U Hyaline Cast (Auto) (0-5) /lpf U Epithel Cells (Auto) (0-5) /lpf Crossmatch 06/11/22 06/11/22 Range/Units 21:13 Unknown WBC (4.8-10.8) K/ul RBC (4.20-5.40) M/uL Hgb (12.0-16.0) g/dl POC Hgb 8.8 L (12.0-16.0) g/dl Hct (37.0-47.0) % POC Hct 26 L (37-47) % RDW Std Deviation (36.4-46.3) fL RDW Coeff of Lei (11.5-14.5) % Lymphocytes # (Manual) (1.2-3.4) K/uL Total Abs Lymphocytes (1.2-3.4) K/uL Monocytes # (Manual) (0.11-0.59) K/uL Metamyelocytes # (Man) (0-0) K/uL Myelocytes # (Manual) (0-0) K/uL POC pH 7.32 L (7.35-7.45) POC pO2 353 H (80-95) mmHg POC HCO3 (19-24) lovely/L POC Base Excess (-9-1.8) lovely/L POC ABG O2 Sat 100.0 H (90-95) % VBG pH (7.36-7.41) POC Potassium 3.1 L (3.3-5.0) mmol/L Carbon Dioxide (21-32) mmol/L POC Total CO2 (24-31) mmol/L Anion Gap (3-11) POC BUN (7-18) mg/dl BUN (6-23) mg/dl Creatinine (0.6-1.2) mg/dl POC Creatinine (0.6-1.3) mg/dl Glucose (70-99(Fasting)) mg/dl POC Glucose (other) (70-99) mg/dl Lactate (0.4-2.0) mmol/L POC Ioniz Calcium Rima (1.12-1.32) mmol/l Troponin I High Sens (0-14) pg/ml Procalcitonin (0-0.5) ng/ml Urine Appearance Cloudy A (Clear) Urine Protein 2+ H (Negative) Urine Glucose (UA) 3+ H (Negative) Urine Ketones 1+ H (Negative) U Hyaline Cast (Auto) 5-10 H (0-5) /lpf U Epithel Cells (Auto) 10-20 H (0-5) /lpf Crossmatch Diagnostic Findings Chest X-Ray 06/11/22 16:52 XR chest 1V portable HISTORY: 71 years-old Female ams . Acutely altered mental status COMPARISON: CTA chest of same day TECHNIQUE: AP view of the chest FINDINGS: Cardiac mediastinal and hilar silhouettes are within normal limits. No pneumothorax, pleural effusion, airspace consolidation or pulmonary edema. Bones appear grossly intact. IMPRESSION: No acute process. ACT 112: Negative or not required by law. The above report was generated using voice recognition software. It may contain grammatical, syntax or spelling errors. Electronically signed by: Lefty Landis M.D. 06/11/2022 6:[address] 06/11/22 16:52 CT head/brain wo con CLINICAL HISTORY: 71 years-old Female with ams. Acutely altered mental status TECHNIQUE: Multiple axial CT images of the head were obtained without contrast. A dose lowering technique was utilized adhering to the principles of ALARA. COMPARISON: None. FINDINGS: No acute intracranial hemorrhage, midline shift, intracranial mass, hydrocephalus, territorial ischemia or abnormal extra-axial collection. Mildly motion degraded exam. Involutional changes with chronic microvascular ischemic disease. The calvarium is intact. Mild to moderate mucosal thickening maxillary sinus with air-fluid level. Trace right mastoid effusion. Prior bilateral lens repair. IMPRESSION: No acute intracranial abnormality. ACT 112: Negative or not required by law. The above report was generated using voice recognition software. It may contain grammatical, syntax or spelling errors. Electronically signed by: Lefty Landis M.D. 06/11/2022 5:27 PM Abdomen/Pelvis CTA 06/11/22 16:53 CT angio chest dissec wo/w con, CT angio abdomen pelvis w con HISTORY: 71 years-old Female ams, hypoxia, abd pain, tachy acute hypoxia with chest and abdominal pain with tachycardia COMPARISON: None TECHNIQUE: CTA of the chest was obtained both with and without use of [address] abdomen and pelvis was also obtained with IV contrast. 3-D coronal and sagittal MIPS were obtained from the axial data set and were submitted for review. All measurements were obtained according to NASCET criteria. A dose lowering technique was used consistent with the principals of ALARA. FINDINGS: Limited study secondary to upper Hilary positioning and respiratory motion artifact. CTA CHEST: Noncontrast study demonstrates no intramural or mediastinal hematoma mild cardiomegaly with trace pericardial effusion. No thoracic aortic aneurysm or dissection. No significant atherosclerosis. The visualized pulmonary arterial tree is unremarkable. CT CHEST: Unremarkable thyroid. No lymphadenopathy. Fluid-filled distention of the mid to distal esophagus with moderate sized hiatal hernia. No pneumothorax, pleural effusion, airspace consolidation or pulmonary edema. Mild dependent subsegmental bibasilar atelectasis. There are no suspicious pulmonary nodules or masses identified. Central airways are patent. Unremarkable soft tissues. No acute fracture identified. Mildly hyperinflated compression of the T3 vertebral body is age-indeterminate, likely chronic. CTA ABDOMEN/PELVIS: Mild atherosclerosis of the abdominal aorta without aneurysm or dissection. Iliac and imaged femoral arteries are patent. The celiac trunk, superior and inferior mesenteric and renal arteries appear patent. No aneurysm, dissection, high-grade stenosis or arterial occlusion identified. CT ABDOMEN/PELVIS: No pneumatosis or pneumoperitoneum. There is limited evaluation of the solid abdominal organs secondary to arterial phase imaging. Within the limitations of the study, the spleen, pancreas, hyperattenuating adrenal glands, distended gallbladder and liver appear unremarkable. Kidneys are within normal limits with mild scarring of the superior poles, right greater than left. No urolith or hydronephrosis. Decompressed urinary bladder with Merchant catheter in place in wall thickening with perivesicular stranding. No lymphadenopathy. Moderate sized hiatal hernia. Small volume of abdominal pelvic ascites. Colonic diverticulosis. Mild wall thickening throughout the colon with partial distention. The appendix is not definitively seen. There are several mildly dilated small bowel loops within the mid to lower abdomen and pelvis measuring up to approximately 3 cm with air-fluid levels. Decompressed distal small bowel loops. Interloop edema. There is a decompressed loop noted within the mid to upper pelvis on image 267 several loops of small bowel demonstrates circumferential wall thickening. No acute fracture identified. IMPRESSION: 1. Unremarkable CTA of the chest, abdomen and pelvis. 2. Limited evaluation of the solid abdominal organs and bowel secondary to arterial phase of imaging and lack of enteric contrast. 3. High-grade small bowel obstruction with several loops demonstrating circumferential wall thickening with associated intraluminal edema and small volume of abdominopelvic ascites. 4. No pneumoperitoneum identified. 5. Moderate sized hiatal hernia. 6. Additional findings as above. ACT 112: Negative or not required by law. The above report was generated using voice recognition software. It may contain grammatical, syntax or spelling errors. Electronically signed by: Lefty Landis M.D. 06/11/2022 5:58 PM Chest CTA 06/11/22 16:53 CT angio chest dissec wo/w con, CT angio abdomen pelvis w con HISTORY: 71 years-old Female ams, hypoxia, abd pain, tachy acute hypoxia with chest and abdominal pain with tachycardia COMPARISON: None TECHNIQUE: CTA of the chest was obtained both with and without use of [address] abdomen and pelvis was also obtained with IV contrast. 3-D coronal and sagittal MIPS were obtained from the axial data set and were submitted for review. All measurements were obtained according to NASCET criteria. A dose lowering technique was used consistent with the principals of KURTIS. FINDINGS: Limited study secondary to upper Hilary positioning and respiratory motion artifact. CTA CHEST: Noncontrast study demonstrates no intramural or mediastinal hematoma mild cardiomegaly with trace pericardial effusion. No thoracic aortic aneurysm or dissection. No significant atherosclerosis. The visualized pulmonary arterial tree is unremarkable. CT CHEST: Unremarkable thyroid. No lymphadenopathy. Fluid-filled distention of the mid to distal esophagus with moderate sized hiatal hernia. No pneumothorax, pleural effusion, airspace consolidation or pulmonary edema. Mild dependent subsegmental bibasilar atelectasis. There are no suspicious pulmonary nodules or masses identified. Central airways are patent. Unremarkable soft tissues. No acute f racture identified. Mildly hyperinflated compression of the T3 vertebral body is age-indeterminate, likely chronic. CTA ABDOMEN/PELVIS: Mild atherosclerosis of the abdominal aorta without aneurysm or dissection. Iliac and imaged femoral arteries are patent. The celiac trunk, superior and inferior mesenteric and renal arteries appear patent. No aneurysm, dissection, high-grade stenosis or arterial occlusion identified. CT ABDOMEN/PELVIS: No pneumatosis or pneumoperitoneum. There is limited evaluation of the solid abdominal organs secondary to arterial phase imaging. Within the limitations of the study, the spleen, pancreas, hyperattenuating adrenal glands, distended gallbladder and liver appear unremarkable. Kidneys are within normal limits with mild scarring of the superior poles, right greater than left. No urolith or hydronephrosis. Decompressed urinary bladder with Merchant catheter in place in wall thickening with perivesicular stranding. No lymphadenopathy. Moderate sized hiatal hernia. Small volume of abdominal pelvic ascites. Colonic diverticulosis. Mild wall thickening throughout the colon with partial distention. The appendix is not definitively seen. There are several mildly dilated small bowel loops within the mid to lower abdomen and pelvis measuring up to approximately 3 cm with air-fluid levels. Decompressed distal small bowel loops. Interloop edema. There is a decompressed loop noted within the mid to upper pelvis on image 267 several loops of small bowel demonstrates circumferential wall thickening. No acute fracture identified. IMPRESSION: 1. Unremarkable CTA of the chest, abdomen and pelvis. 2. Limited evaluation of the solid abdominal organs and bowel secondary to arterial phase of imaging and lack of enteric contrast. 3. High-grade small bowel obstruction with several loops demonstrating circumferential wall thickening with associated intraluminal edema and small volume of abdominopelvic ascites. 4. No pneumoperitoneum identified. 5. Moderate sized hiatal hernia. 6. Additional findings as above. ACT 112: Negative or not required by law. The above report was generated using voice recognition software. It may contain grammatical, syntax or spelling errors. Electronically signed by: Lefty Landis M.D. 06/11/2022 5:58 PM Medications Administered Home Medications cetirizine 10 mg tablet (Zyrtec) 10 mg PO DAILY 01/26/20 [History Confirmed 06/11/22] cyclosporine 0.05 % eye drops in a dropperette (Restasis) 1 drp ophthalmic (eye) Q12H 01/26/20 [History Confirmed 06/11/22] psyllium husk 3.4 gram/5.4 gram oral powder (Metamucil) 1 tbsp PO BID 01/26/20 [History Confirmed 06/11/22] timolol maleate 0.5 % eye drops 1 drp OPB QAM 01/26/20 [History Confirmed 06/11/22] meloxicam 7.5 mg tablet 7.5 mg PO QAM 11/14/21 [History Confirmed 06/11/22] omeprazole 20 mg capsule,delayed release 20 mg PO DAILYBB 11/14/21 [History Confirmed 06/11/22] acetaminophen 500 mg tablet (Tylenol Extra Strength) 500 mg PO TID 06/11/22 [History Confirmed 06/11/22] bimatoprost 0.01 % eye drops (Lumigan) 1 drp OPB HS 06/11/22 [History Confirmed 06/11/22] iwlbypr-zpzzipbhh-yvcyrql D2 1 tab PO DAILY 06/11/22 [History Confirmed 06/11/22] cyanocobalamin (vitamin B-12) 1,000 mcg tablet (Vitamin B-12) 1,000 mcg PO DAILY 06/11/22 [History Confirmed 06/11/22] diclofenac sodium 1 % topical gel 2 g topical TID PRN LEFT KNEE PAIN 06/11/22 [History Confirmed 06/11/22] iron,carbonyl 65 mg-vitamin C 125 mg tablet,delayed release (Vitron-C) 1 tab PO QAM 06/11/22 [History Confirmed 06/11/22] metoprolol succinate 25 mg tablet,extended release 24 hr 12.5 mg PO BID 06/11/22 [History Confirmed 06/11/22] tretinoin 0.05 % topical cream 1 applic topical QPM 06/11/22 [History Confirmed 06/11/22] Active Medications Acetaminophen (Acetaminophen 500 Mg Tab) 500 mg PO TID ASIA Stop: 07/12/22 08:59 Cetirizine HCl (Cetirizine Hcl 10 Mg Tablet) 10 mg PO DAILY ASIA Stop: 07/12/22 08:59 Dextrose (Dextrose 50% 50 Ml Syringe) 25 - 50 ml IV UD PRN; Protocol PRN Reason: Hypoglycemia Protocol Stop: 07/11/22 22:31 Diclofenac Sodium (Diclofenac Sod 1% Gel 100 Gm Tube) 2 gm EXT TID PRN; Protocol PRN Reason: LEFT KNEE PAIN Stop: 07/11/22 22:31 Fentanyl Citrate (Fentanyl Bolus From Bag) 50 mcg IV Q60M PRN PRN Reason: Pain or Agitation Stop: 06/25/22 22:31 Glucagon (Glucagon For Inj 1 Mg Vial) 1 mg SQ UD PRN; Protocol PRN Reason: Hypoglycemia Protocol Stop: 07/11/22 22:31 Glucose (Glucose 10 Tab/Tube) 4 - 8 tab PO UD PRN; Protocol PRN Reason: Hypoglycemia Treatment Stop: 07/11/22 22:31 Glucose (Glucose 40% Gel 15 Gm Tube) 15 - 30 gm PO UD PRN; Protocol PRN Reason: Hypoglycemia Protocol Stop: 07/11/22 22:31 Hydromorphone HCl (Hydromorphone Inj 1 Mg/Ml Syringe) 1 mg IV Q3H PRN PRN Reason: Pain Stop: 06/25/22 22:31 Vasopressin 20 units/ Sodium (Chloride) 101 mls @ 12.12 mls/hr IV .Q8H20M ASIA Stop: 07/11/22 20:14 Sodium Chloride (Nss 1000ml) 1,000 mls @ 125 mls/hr IV .Q8H ASIA Stop: 06/12/22 14:31 Piperacillin Sod/Tazobactam (Sod 4.5 gm/ Dextrose) 120 mls @ 30 mls/hr IV Q8H ASIA; Protocol Stop: 06/21/22 22:59 Fentanyl Citrate (Fentanyl Citrate) 2,500 mcg in 250 mls @ 2.5 mls/hr IV .Q96H ASIA; Protocol Stop: 06/25/22 22:31 Acetaminophen (Ofirmev) 1,000 mg in 100 mls @ 400 mls/hr IV Q8H PRN PRN Reason: Fever/Mild Pain (Pain 1,2,3) Stop: 06/14/22 22:31 Propofol (Diprivan) 1,000 mg in 100 mls @ 9.72 mls/hr IV .[id number] ASIA; Protocol Stop: 06/14/22 22:31 Phenylephrine HCl (Phenylephrine/Nss) 25 mg in 250 mls @ 24.3 mls/hr IV .[id number] ASIA; Protocol Stop: 07/11/22 22:31 Meloxicam (Meloxicam 7.5 Mg Tab) 7.5 mg PO QAM [facility] Stop: 07/12/22 08:59 Metoprolol Succinate (Metoprolol Succ 25mg Ext Rel Tab) 12.5 mg PO BID [facility] Stop: 07/12/22 08:59 Miscellaneous (Icu Protocol For Hyperglycemia) 1 each N/A ACHS [facility] Stop: 06/13/22 22:31 Miscellaneous (Carbohydrates For Hypoglycemia ) 15 - 30 gm PO UD PRN PRN Reason: Hypoglycemia Protocol Stop: 07/11/22 22:31 Miscellaneous (Stat Iv Infusion Titration Per Protocol) 1 each N/A NOW STA Stop: 06/11/22 22:33 Miscellaneous (Icu Electrolyte Replacement Protocol) 1 each N/A BID@06,18 ASIA; Protocol Stop: 06/19/22 05:59 Non-Formulary Medication (Bimatoprost [Lumigan]) 1 drops OPB HS ASIA Stop: 07/12/22 20:59 Non-Formulary Medication (Nnkdjfg-Flwelznsv-Nbltpbp D2) 1 tab PO DAILY ASIA Stop: 07/12/22 08:59 Non-Formulary Medication (Cyanocobalamin (Vitamin B-12) [Vitamin B-12]) 1,000 mcg PO DAILY ASIA Stop: 07/12/22 08:59 Non-Formulary Medication (Cyclosporine [Restasis]) 1 drops OP Q12H ASIA Stop: 07/11/22 22:31 Non-Formulary Medication (Iron,Carbonyl-Vitamin C [Vitron-C]) 1 tab PO QAM [facility]IA Stop: 07/12/22 08:59 Non-Formulary Medication (Omeprazole) 20 mg PO DAILYBB ASIA Stop: 07/12/22 06:29 Non-Formulary Medication (Psyllium Husk [Metamucil]) 1 tbs PO BID ASIA Stop: 07/12/22 08:59 Non-Formulary Medication (Timolol Maleate) 1 drops OPB QAM [facility]IA Stop: 07/12/22 08:59 Non-Formulary Medication (Tretinoin) 1 appln TOP QPM [facility]IA Stop: 07/12/22 20:59 Ondansetron HCl (Ondansetron Inj 2 Mg/Ml 2 Ml Vial) 4 mg IV ONCE PRN PRN Reason: PACU Use Only-Nausea/Vomiting Stop: 06/12/22 03:21 Propofol (Propofol Bolus From Bag) 20 mg IV Q5M PRN PRN Reason: Sedation Stop: 06/14/22 22:31 ECG Additional Comments: Sinus tachycardia Marked ST abnormality, possible inferolateral subendocardial injury Abnormal ECG No previous ECGs available Coding Level of Care Code 64321 CRITICAL CARE 1ST 30-74M Diagnoses SBO (small bowel obstruction) K56.609 Degenerative joint disease of left knee M17.12 Sepsis A41.9 Lactic acidosis E87.20 Elevated troponin R77.8 Acute kidney injury superimposed on CKD N17.9; N18.9 Chronic iron deficiency anemia D50.9 GERD (gastroesophageal reflux disease) K21.9
[2022-06-11] MEDS ORDERED: fentaNYL BOLUS from BAG IV PRN (22:32)
[2022-06-11] MEDS ORDERED: fentaNYL citrate 2,500 MCG/250 ML BAG IV SCH (22:32)
[2022-06-11] MEDS ORDERED: propofoL 1,000 MG/100 ML VIAL IV SCH (22:32)
[2022-06-11] MEDS ORDERED: CARBOHYDRATES FOR HYPOGLYCEMIA PO PRN ×2 (22:32)
[2022-06-11] MEDS ORDERED: PROPOFOL BOLUS FROM BAG IV PRN (22:32)
[2022-06-11] MEDS ORDERED: GLUCOSE 10 TAB/TUBE PO PRN ×2 (22:32)
[2022-06-11] MEDS ORDERED: SODIUM CHLORIDE 0.9% 1000ML 1,000 ML IV SCH (22:32)
[2022-06-11] MEDS ORDERED: NON-FORMULARY MEDICATION (Cyclosporine [Restasis] 0.05 % Dropperette) OP SCH (22:32)
[2022-06-11] MEDS ORDERED: DICLOFENAC SOD 1% GEL 100 GM TUBE EXT PRN (22:32)
[2022-06-11] MEDS ORDERED: STAT IV Infusion **Titration per Protocol STA (22:32)
[2022-06-11] MEDS ORDERED: GLUCOSE 40% GEL 15 GM TUBE PO PRN ×2 (22:32)
[2022-06-11] MEDS ORDERED: DEXTROSE 50% 50 ML SYRINGE IV PRN ×2 (22:32)
[2022-06-11] MEDS ORDERED: GLUCAGON FOR INJ 1 MG VIAL SQ PRN ×2 (22:32)
[2022-06-11] MEDS ORDERED: HYDROmorphone INJ 1 MG/ML SYRINGE IV PRN (22:32)
--- NOTE | 2022-06-11 22:32 | Anesthesiology Progress Note ---
Date of Service June 11, 2022 Anesthesia Post Procedure Vital Signs Vital Signs: Temp Pulse Pulse Resp BP BP BP 06/11/22 22:26 120 H 16 115/61 115/58 L 06/11/22 22:21 120 H 16 118/63 118/61 06/11/22 22:16 119 H 16 124/66 121/63 06/11/22 22:11 118 H 16 133/70 129/67 06/11/22 22:22 120 H 16 06/11/22 22:06 36.6 C 119 H 16 110/72 06/11/22 19:29 134 H 42 H 88/63 L 06/11/22 19:15 96/67 L 06/11/22 19:15 135 H 39 H 06/11/22 19:10 134 H 30 H 06/11/22 19:00 131 H 44 H 06/11/22 19:00 126/75 06/11/22 18:50 132 H 42 H 06/11/22 18:45 130/73 06/11/22 18:45 131 H 42 H 06/11/22 19:14 37.6 C H 06/11/22 19:03 06/11/22 18:40 128 H 40 H 06/11/22 18:30 132 H 39 H 06/11/22 18:30 148/69 H 06/11/22 18:20 130 H 40 H 06/11/22 18:15 145/68 H 06/11/22 18:15 131 H 44 H 06/11/22 18:10 129 H 41 H 06/11/22 18:00 138 H 44 H 06/11/22 18:00 147/56 H 06/11/22 17:50 140 H 43 H 06/11/22 17:45 141 H 45 H 06/11/22 17:45 140/60 06/11/22 17:40 142 H 46 H 06/11/22 17:30 145 H 45 H 06/11/22 17:30 150/71 H 06/11/22 17:25 147 H 51 H 06/11/22 17:25 147 H 06/11/22 16:50 40.0 C H Pulse Ox O2 Del Method O2 Flow Rate FiO2 06/11/22 22:26 97 Mechanical Vent 40 06/11/22 22:21 96 Mechanical Vent 40 06/11/22 22:16 94 Mechanical Vent 40 06/11/22 22:11 95 Mechanical Vent 40 06/11/22 22:22 94 40 06/11/22 22:06 95 Mechanical Vent 40 06/11/22 19:29 97 Room Air 06/11/22 19:15 Non-rebreather 15 06/11/22 19:15 100 Non-rebreather 15 06/11/22 19:10 91 Non-rebreather 15 06/11/22 19:00 100 Non-rebreather 15 06/11/22 19:00 Non-rebreather 15 06/11/22 18:50 100 Non-rebreather 15 06/11/22 18:45 Non-rebreather 15 06/11/22 18:45 100 Non-rebreather 15 06/11/22 19:14 06/11/22 19:03 Non-rebreather 15 06/11/22 18:40 100 Non-rebreather 15 06/11/22 18:30 100 Non-rebreather 15 06/11/22 18:30 Non-rebreather 15 06/11/22 18:20 100 Non-rebreather 15 06/11/22 18:15 Non-rebreather 15 06/11/22 18:15 100 Non-rebreather 15 06/11/22 18:10 100 Non-rebreather 15 06/11/22 18:00 100 Non-rebreather 15 06/11/22 18:00 Non-rebreather 15 06/11/22 17:50 100 Non-rebreather 15 06/11/22 17:45 100 Non-rebreather 15 06/11/22 17:45 Non-rebreather 15 06/11/22 17:40 100 Non-rebreather 15 06/11/22 17:30 100 Non-rebreather 15 06/11/22 17:30 Non-rebreather 15 06/11/22 17:25 Non-rebreather 15 06/11/22 17:25 06/11/22 16:50 Non-rebreather 15 Transfer of Care Handoff Completed per policy Notes Mental Status: see notes below (intubated and sedated) Patient Amnestic to Procedure: Yes Nausea / Vomiting: adequately controlled Pain: adequately controlled BP & HR: see Notes below (pressor support) Hydration State: stable & adequate Anesthetic Complications: no major complications apparent and Pt Satisfied with anesthetic care
[2022-06-11] MEDS: PHENYLEPHRINE/NSS 25 MG/250 ML BAG IV SCH (22:57)
[2022-06-11] MEDS: ICU Protocol for HYPERglycemia SCH (22:58)
[2022-06-11] MEDS: LACTATED RINGER'S 1,000 ML IV SCH (23:01)
[2022-06-11 23:12] LABS: BUN Creatinine Ratio 19.7 (10-20); Est GFR (African American) 53.5 ml/min; Est GFR (Non-African American) 46.2 ml/min; Magnesium 1.5 mg/dl (1.7-2.4); Potassium 3.3 mmol/L (3.5-5.1)
[2022-06-11 23:34] LABS: iSTAT Art Bld Gas pCO2 Correct 37 mmHg (35-46); iSTAT Art Bld Gas pH Corrected 7.314 (7.35-7.45); iSTAT Arterial Blood Gas HCO3 19 meg/L (19-24); iSTAT Arterial Blood Gas pCO2 37 mmHg (35-46); iSTAT Arterial Blood Gas pH 7.31 (7.35-7.45); iSTAT Arterial Blood Gas pO2 81 mmHg (80-95); iSTAT Arterial Blood Gas pO2 C 81; iSTAT Carbon Dioxide 20 mmol/L (24-31); iSTAT FiO2 40 %; iSTAT Hematocrit 31 % (37-47); iSTAT Hemoglobin 10.5 g/dl (12.0-16.0); iSTAT Potassium 3.1 mmol/L (3.3-5.0); iSTAT Site Art Line; iSTAT Sodium 141 mmol/L (135-144)
[2022-06-11 23:50] LABS: Hematocrit (blood only) 32.9 % (37.0-47.0); Hemoglobin 11.1 g/dl (12.0-16.0); Mean Corpuscular Hemoglobin 30.9 pg (25.0-34.0); Mean Corpuscular Hgb Conc 33.7 g/dL (32.0-36.0); Mean Corpuscular Volume 91.6 fL (80.0-100.0); Mean Platelet Volume 9.8 fL (9.4-12.4); Platelet Count 183 K/uL (130-400); RDW Standard Deviation 50.2 fL (36.4-46.3); Red Blood Count 3.59 M/uL (4.20-5.40); White Blood Count 3.55 K/ul (4.8-10.8)
[2022-06-11 23:51] LABS: ALC (manual) 1.21 K/uL (1.2-3.4); Lymphocytes # (manual) 1.21 K/uL (1.2-3.4); Lymphocytes % (manual) 34 %; Metamyelocytes # (manual) 0.21 K/uL (0-0); Metamyelocytes % (manual) 6 %; Monocytes # (manual) 0.21 K/uL (0.11-0.59); Monocytes % (manual) 6 %; Myelocytes # (manual) 0.21 K/uL (0-0); Myelocytes % (manual) 6 %; Neutrophils % (manual) 48 %; Toxic Vacuolation 1+
[2022-06-11] MEDS: PIPERACILLIN/TAZOBACTAM 4.5 GM in DEXTROSE 5% 100 ML IV SCH (23:59)
[2022-06-12 00:11] LABS: Troponin I High Sensitivity 1229.7 pg/ml (0-14)
[2022-06-12] MEDS ORDERED: VANCOMYCIN CONSULT ACTIVE PRN ×2 (00:49→00:50)
[2022-06-12] MEDS ORDERED: VANCOMYCIN HCL 1,750 MG in SODIUM CHLORIDE 0.9% 500 ML IV ONE (01:00)
[2022-06-12] MEDS ORDERED: VANCOMYCIN HCL 1,500 MG in SODIUM CHLORIDE 0.9% 500 ML IV ONE (01:00)
[2022-06-12] MEDS: MAGNESIUM SULFATE / D5W 1 GM/100 ML BAG IV SCH ×4 (01:16→05:14)
[2022-06-12] MEDS: ACETAMINOPHEN 1,000 MG/100 ML VIAL IV PRN ×3 (03:31→20:25)
--- NOTE | 2022-06-12 04:17 | Operative Report (OR) ---
DATE OF PROCEDURE: 06/11/2022. PREOPERATIVE DIAGNOSES: Small-bowel obstruction and sepsis. POSTOPERATIVE DIAGNOSES: Small-bowel obstruction, sepsis and small-bowel necrosis. OPERATION: Emergency exploratory laparotomy, small-bowel resection, FLORY drainage x1. SURGEON: Alonso Stone MD. ANESTHESIA: General. ESTIMATED BLOOD LOSS: About 20 mL. FINDINGS: Small-bowel obstruction, small-bowel necrosis about 160 cm and bloody flow inside the abdominal cavity, about 1000 mL. COMPLICATIONS: None. INDICATIONS FOR THE PROCEDURE: This is a 71-year-old lady who presented to ED with 1-day history of abdominal pain, nausea, vomiting and the patient had a CT scan diagnosis of high-grade small-bowel obstruction with sepsis. I recommended to do the emergency exploratory laparotomy, possible bowel resection and stoma. I did talk to the patient and the patient's about the benefit, risk, alternate procedure. I indicated the risks may include but not limited to such as bleeding, infection, sepsis, multiple organ failure, injury to other organs, myocardial infarction, DVT, stroke, even , incisional hernia, recurrence of small-bowel obstruction. The patient and the patient's understand. The patient's signed informed consent and I answered all questions. DETAILS OF PROCEDURE: After we identified the patient and verified the procedure, we brought the patient to the OR, put the patient in the supine position on the OR table. The patient received SCD on bilateral legs to prevent DVT. Also, the patient received 2 g of Ancef IV for prophylactic antibiotic and the patient received general anesthesia without difficulty. The abdomen was prepped and draped in routine sterile fashion. The patient already had a Merchant catheter insertion and also the patient had NG tube at the ER. After timeout, I made a midline incision, dissected the subcutaneous layer, reached the fascial layer, opened the fascial layer, opened the peritoneum and get in the abdomen without difficulty. However, there was significant free blood fluid inside the abdomen, about 1 liter. We suctioned out. Then, we found the patient had small bowel dark color, already small bowel. Cause of the small bowel scar fiber band to close the mesenteric blood circulation caused all this small bowel . After we released the band, then we waited 10 minutes and on the small bowel no blood circulation; however, I can see the transection between the small bowel and viable small bowel. Then, I used a 45 mm Endo-DOE staple transection on the viable small bowel near the bowel and also distal of the small bowel, we found the transection between the small bowel and viable small bowel. Again, we used the 45 Endo-DOE staple transection on the small bowel and then we used the endovascular to take down the mesentery, removed all the small bowel. Then I measured the small bowel length, about 160 cm of small bowel. We removed the specimen, sent to pathology. I rechecked the remainder alive small bowel, about 100 cm length. I do the small bowel to small bowel txya-em-oeez anastomosis by using an 80 mm Endo-DOE staple and closed the 2 small bowel opening by using a 60 DOE staple. Then, I used a 3-0 Vicryl to reinforce the anastomosis interruptedly. Then, I closed the mesenteric defect by using 0 Vicryl interruptedly and the small bowel anastomosis has good blood circulation, pink and wide open on the small bowel anastomosis. Also, we sent the small bowel anastomosis ring to pathology. Hemostasis was obtained. I used warm saline to flush the abdomen. Rechecked, no active bleeding inside the abdomen. I put one 10 mm FLORY drainage near the anastomosis of the small bowel. Then, I closed the abdomen by using 0 PDS, closed the fascia in continuous running, closed subcutaneous layer by using 2-0 Vicryl continuous running, closed skin by using staple. Then, I put the dressing on. The patient tolerated the procedure well. All instrument, needle and sponge counts were correct x2 at the end of the case. The patient was transferred to recovery room in stable condition. The specimen was sent to pathology. After the procedure, I did talk to the patient's about the OR finding and the procedure we did, and also I informed the the prognosis may be poor and he understands. I answered all questions. Job ID: [id number] [facility]
[2022-06-12 05:06] LABS: iSTAT Arterial Blood Gas HCO3 18 meg/L (19-24); iSTAT Arterial Blood Gas pCO2 30 mmHg (35-46); iSTAT Arterial Blood Gas pO2 82 mmHg (80-95); iSTAT Carbon Dioxide 19 mmol/L (24-31); iSTAT FiO2 30 %; iSTAT Site Art Line
[2022-06-12] MEDS: PHENYLEPHRINE/NSS 25 MG/250 ML BAG IV SCH ×3 (05:14→22:09)
[2022-06-12 05:48] LABS: Albumin Globulin Ratio 1.3 (0.9-2); Albumin Level 2.4 gm/dl (3.4-5.0); BUN Creatinine Ratio 22.7 (10-20); Calcium 7.2 mg/dl (8.5-10.1); Creatinine Clr Calc Pharmacy 48.9 ml/min; Est GFR (African American) 57.7 ml/min; Est GFR (Non-African American) 49.8 ml/min; Globulin 1.8 gm/dl (2.5-4.0); Magnesium 2.3 mg/dl (1.7-2.4); Phosphorus 2.7 mg/dl (2.5-4.9); Potassium 3.5 mmol/L (3.5-5.1); Total Protein 4.2 gm/dl (6.0-8.3); Troponin I High Sensitivity 737.6 pg/ml (0-14)
[2022-06-12] MEDS: ICU ELECTROLYTE REPLACEMENT PROTOCOL SCH ×2 (05:54→18:24)
[2022-06-12 05:55] LABS: A calco-baum cmplx NotReported Not Detected (NotDetected); Bact fragilis Not Reported Not Detected (NotDetected); C auris Not Reported Not Detected (NotDetected); Calbicans Not Reported Not Detected (NotDetected); Candida glabrata Not Reported Not Detected (NotDetected); Candida krusei Not Reported Not Detected (NotDetected); Cneoformans/gatti Not Reported Not Detected (NotDetected); Cparapsilosis Not Reported Not Detected (NotDetected); Ctropicalis Not Reported Not Detected (NotDetected); E cloacae compx Not Reported Not Detected (NotDetected); Efaecalis Not Reported Not Detected (NotDetected); Efaecium Not Reported Not Detected (NotDetected); Enterobacterales Not Reported Not Detected (NotDetected); Escherichia coli Not Reported Not Detected (NotDetected); H influenzae Not Reported Not Detected (NotDetected); K aerogenes Not Reported Not Detected (NotDetected); Koxytoca Not Reported Not Detected (NotDetected); Kpneumoniae grp Not Reported Not Detected (NotDetected); Lmonocyt Not Reported Not Detected (NotDetected); N meningitidis Not Reported Not Detected (NotDetected); P aeruginosa Not Reported Not Detected (NotDetected); Proteus spp Not Reported Not Detected (NotDetected); Salmonella spp Not Reported Not Detected (NotDetected); Smarcescens Not Reported Not Detected (NotDetected); Staph lugdunensis Not Reported Not Detected (NotDetected); Staph spp. Not Reported Not Detected (NotDetected); Staphaureus Not Reported Not Detected (NotDetected); Staphepi Not Reported Not Detected (NotDetected); Stenmaltophilia Not Reported Not Detected (NotDetected); Strep agal(GrpB) Not Reported Not Detected (NotDetected); Strep pneum Not Reported Not Detected (NotDetected); Strep pyog (GrpA) Not Reported Not Detected (NotDetected); Strep spp Not Reported Not Detected (NotDetected)
[2022-06-12] MEDS: ICU Protocol for HYPERglycemia SCH ×3 (05:55→18:25)
[2022-06-12] MEDS: POTASSIUM CHLORIDE / WTR 10 MEQ/100 ML PLCT IV SCH ×4 (06:13→10:03)
[2022-06-12 06:16] LABS: ALC (manual) 1.79 K/uL (1.2-3.4); ANC (manual) 4.37 K/uL (1.4-6.5); Echinocytes 1+; Eosinophils # (manual) 0.07 K/uL (0-0.50); Eosinophils % (manual) 1 %; Hematocrit (blood only) 29.9 % (37.0-47.0); Hemoglobin 10.3 g/dl (12.0-16.0); Lymphocytes # (manual) 1.79 K/uL (1.2-3.4); Lymphocytes % (manual) 25 %; Mean Corpuscular Hemoglobin 31.3 pg (25.0-34.0); Mean Corpuscular Hgb Conc 34.4 g/dL (32.0-36.0); Mean Corpuscular Volume 90.9 fL (80.0-100.0); Metamyelocytes # (manual) 0.57 K/uL (0-0); Metamyelocytes % (manual) 8 %; Monocytes # (manual) 0.21 K/uL (0.11-0.59); Monocytes % (manual) 3 %; Myelocytes # (manual) 0.14 K/uL (0-0); Myelocytes % (manual) 2 %; Neutrophils # (manual) 4.37 K/uL (1.40-6.50); Neutrophils % (manual) 61 %; Platelet Count 193 K/uL (130-400); RDW Standard Deviation 50.5 fL (36.4-46.3); Red Blood Count 3.29 M/uL (4.20-5.40); Toxic Vacuolation 1+; White Blood Count 7.16 K/ul (4.8-10.8)
[2022-06-12] MEDS ORDERED: LACTATED RINGER'S 250 ML IV ONE (06:25)
[2022-06-12] MEDS ORDERED: NON-FORMULARY MEDICATION (Omeprazole 20 mg capsule,delayed release(DR/EC)) PO SCH (06:30)
[2022-06-12] MEDS: PIPERACILLIN/TAZOBACTAM 4.5 GM in DEXTROSE 5% 100 ML IV SCH ×2 (07:21→17:39)
--- NOTE | 2022-06-12 08:20 | XRay Report ---
XR chest 1V portable HISTORY: 71 years-old Female eval ett placment and lung bhatti/tubes status post placement of an end otracheal tube COMPARISON: Chest radiograph 06/11/2022 TECHNIQUE: Supine AP view of the chest FINDINGS: Cardiac silhouette is mildly enlarged. Endotracheal tube overlies the midline, 2.1 cm superior to the ahmet. Enteric tube courses below the diaphragm with distal tip projected over the mid stomach. Mil d chronic interstitial coarsening. Unchanged asymmetric right hilar prominence. No pneumothorax or lo bar airspace consolidation. The bones appear grossly intact. IMPRESSION: Lines and tubes as above. No pneumothorax identified. ACT 112: Negative or not required by law. The above report was generated using voice recognition software. It may contain grammatical, syntax o r spelling errors. Electronically signed by: Lefty Landis M.D. 06/12/2022 8:19 AM
[2022-06-12] MEDS: LACTATED RINGER'S 1,000 ML IV SCH (08:29)
[2022-06-12] MEDS: TIMOLOL MALEATE 0.5% OP SOLN 5 ML BTL OP SCH (08:52)
[2022-06-12] MEDS ORDERED: NON-FORMULARY MEDICATION (Iron,Carbonyl-Vitamin C [Vitron-C] 65 mg iron- 125 mg Tablet,Del PO SCH (09:00)
[2022-06-12] MEDS ORDERED: ACETAMINOPHEN 500 MG TAB PO SCH (09:00)
[2022-06-12] MEDS ORDERED: MAGNESIUM PO SCH (09:00)
[2022-06-12] MEDS ORDERED: CETIRIZINE HCL 10 MG TABLET PO SCH (09:00)
[2022-06-12] MEDS ORDERED: PSYLLIUM or GUAR GUM FIBER POWDER PACKET PO SCH (09:00)
[2022-06-12] MEDS ORDERED: CYANOCOBALAMIN (B-12) 500 MCG TABLET PO SCH (09:00)
[2022-06-12] MEDS ORDERED: CALCIUM PO SCH (09:00)
[2022-06-12] MEDS ORDERED: MELOXICAM 7.5 MG TAB PO SCH (09:00)
[2022-06-12] MEDS ORDERED: METOPROLOL SUCC 25MG EXT REL TAB PO SCH (09:00)
[2022-06-12] MEDS ORDERED: [UNRECOGNIZED DRUG - OTHER] PO SCH (09:00)
[2022-06-12] MEDS ORDERED: PNEUMOCOCCAL POLYSACCHARIDES 25 MCG/0.5 ML VIAL/SYR IM ONE (09:00)
--- NOTE | 2022-06-12 09:17 | Critical Care Progress Note ---
Date of Service June 12, 2022 Assessment & Plan (1) SBO (small bowel obstruction): (2) Degenerative joint disease of left knee: (3) Sepsis: (4) Lactic acidosis: (5) Elevated troponin: (6) Acute kidney injury superimposed on CKD: (7) Chronic iron deficiency anemia: (8) GERD (gastroesophageal reflux disease): Plan Reason Critically Ill: Intubated and Sedated following emergent surgery for sepsis in the setting of high grade bowel obstruciton with bowel ischemia. S/P Ex-lap with resection of 160cm small bowel. Neuro - Encephalopathy, sedation for mechanical ventilation, acute pain - Encephalopathy on arrival to the EMD likely secondary to sepsis from bowel obstruction - Head CT negative for acute process -Sedation vacation. SBT trial. Cardiac - Shock, Elevated HScTNI -Shock resolved. - required 1 unit of PRBC in operating theater- follow HGB - Hold home Metoprolol while on vasopressor use - Continue with LR at 90ml/hour- avoid over resuscitation with closed abdomen - HScTNI elevation likely demand type II in the setting of septic shock and hypovolemia- trend HScTNI and ECGs. - current ECG without ischaemia changes Respiratory - Intubation with Mechanical Ventilation - no history of pulmonary disease or respiratory failure noted -SBT today with likely trial of extubation GI - High grade SBO, bowel resection, GERD - POD #0, abdomen closed - appreciate surgical assistance - OGT remain LIWS - Protonix 40mg IV daily RENAL/LYTES - MICHEAL, AGAP Metabolic Acidosis -Acidosis and MICHEAL resolving. - No acute needs - Merchant to gravity ENDO - No acute needs - follow BG with dextrose sticks q6 hours- goal BG <180mg/dl- ICU protocol HEME - Acute on chronic anemia- - acute blood loss anemia with chronic fe deficiency- 1 unit transfused - Transfuse for HGB <7. ID - Septic shock -Broad-spectrum antibiotics. Await cultures. LINES/IV ACCESS - ETT, Merchant catheter, OGT, Left radial arterial line, FLORY drain Continue use of these lines DVT PROPHYLAXIS - SCDs- hold on chemoprophylaxis until hemostasis is ensured DISPO-if able to extubate and wean off pressors, can likely downgrade later today. CRITICAL CARE TIME - I have personally spent 39 minutes of critical care time in the direct management of this patient. This is a life/limb threatening event. This includes time spent evaluating patient, direct bedside care, chart review, placing orders, interpretation of diagnostic studies, discussion with consultants, patient, and family members, as well as other required patient management activities. This time is exclusive of all separately billable procedures, and teaching time and separate from and in addition to any other critical care service time. Admission and Anticipated Discharge Date Admission Date: June 11, 2022 Subjective No significant events overnight. Patient currently tolerating spontaneous breathing trial. Sedation turned off. She is following simple commands intermittently. Physical Exam Physical Exam: Constitutional: Intubated and lethargic. Eyes: Pupils are equal round and reactive to light. Conjunctivae are normal. Anicteric sclera. Ears nose, mouth and throat: ET tube in place. Neck: Trachea is midline. Visual inspection is normal. Respiratory: Clear to auscultation bilaterally. No use of accessory muscles. No significant clubbing noted. Cardiovascular: Regular rate and rhythm. No murmurs. No edema. Gastrointestinal: Diminished bowel sounds. Tenderness to palpation. Musculoskeletal: No cyanosis. Patient is able to move all extremities. Skin: No rashes, warm dry and intact. Neurologic: No obvious focal neurological deficits seen. Follow simple commands. Psychiatric: Lethargic. Results & Data Results & Data ([facility]) Vital Signs (Past 12 Hours) Vital Signs Temp Pulse Pulse Resp BP BP BP 06/12/22 08:00 06/12/22 08:00 06/12/22 08:00 102 H 06/12/22 08:00 98 H 06/12/22 08:00 06/12/22 07:56 102 H 25 H 06/12/22 07:00 37.5 C 99 H 26 H 06/12/22 07:00 122/58 L 06/12/22 06:40 37.5 C 94 H 23 06/12/22 06:30 37.5 C 95 H 24 06/12/22 06:20 37.5 C 101 H 16 06/12/22 06:10 37.5 C 99 H 20 06/12/22 06:00 37.5 C 99 H 25 H 06/12/22 06:00 105/53 L 06/12/22 05:30 37.5 C 104 H 25 H 06/12/22 05:15 37.5 C 104 H 25 H 06/12/22 05:09 14 06/12/22 05:00 37.5 C 103 H 25 H 06/12/22 05:00 104/58 L 06/12/22 04:45 37.4 C 99 H 24 06/12/22 04:30 37.4 C 99 H 23 06/12/22 04:00 37.4 C 101 H 20 06/12/22 04:00 108/54 L 06/12/22 03:30 37.4 C 108 H 18 06/12/22 03:00 37.4 C 106 H 20 06/12/22 03:00 109/57 L 06/12/22 04:00 06/12/22 02:45 37.4 C 105 H 18 06/12/22 02:30 37.4 C 107 H 18 06/12/22 02:15 37.4 C 106 H 17 06/12/22 02:29 106 H 21 06/12/22 02:00 37.4 C 108 H 17 06/12/22 02:00 103/66 06/12/22 01:45 37.4 C 107 H 19 06/12/22 01:30 37.4 C 109 H 20 06/12/22 00:01 06/12/22 01:15 37.5 C 110 H 19 06/12/22 01:00 37.5 C 113 H 19 06/12/22 01:00 102/66 06/12/22 00:45 37.4 C 113 H 20 06/12/22 00:30 06/12/22 00:00 114 H 06/12/22 00:40 37.4 C 110 H 20 06/12/22 00:30 37.4 C 114 H 19 06/12/22 00:20 37.4 C 114 H 19 06/12/22 00:10 37.4 C 113 H 16 06/12/22 00:00 37.4 C 115 H 16 06/12/22 00:00 103/53 L 06/11/22 23:50 37.4 C 116 H 16 06/11/22 23:40 37.4 C 119 H 16 06/11/22 23:30 120 H 16 06/11/22 23:20 120 H 16 06/11/22 23:10 120 H 16 06/11/22 23:05 120 H 16 06/11/22 23:05 98/51 L 06/11/22 23:00 121 H 16 06/11/22 23:00 95/50 L 06/11/22 22:55 121 H 16 06/11/22 22:55 94/53 L 06/11/22 22:50 122 H 16 06/11/22 22:50 105/54 L 06/11/22 22:45 118/58 L 06/11/22 22:45 123 H 16 06/11/22 22:40 123 H 16 06/11/22 22:40 110/61 06/11/22 22:40 110/61 06/11/22 22:35 121 H 16 06/11/22 22:35 108/64 06/11/22 22:35 108/64 06/11/22 22:30 120 H 16 06/11/22 22:30 115/58 L 06/11/22 22:30 115/58 L 06/12/22 00:44 16 06/11/22 23:53 36.6 C 116 H 16 110/60 06/11/22 22:26 36.6 C 120 H 16 115/61 115/58 L 06/11/22 22:21 120 H 16 118/63 118/61 06/11/22 22:16 119 H 16 124/66 121/63 06/11/22 22:11 118 H 16 133/70 129/67 06/11/22 22:22 120 H 16 06/11/22 22:06 36.6 C 119 H 16 110/72 Pulse Ox O2 Del Method FiO2 06/12/22 08:00 30 06/12/22 08:00 Mechanical Vent 30 06/12/22 08:00 06/12/22 08:00 06/12/22 08:00 Mechanical Vent 30 06/12/22 07:56 97 30 06/12/22 07:00 97 06/12/22 07:00 06/12/22 06:40 98 06/12/22 06:30 97 06/12/22 06:20 97 06/12/22 06:10 97 06/12/22 06:00 97 06/12/22 06:00 06/12/22 05:30 98 06/12/22 05:15 98 06/12/22 05:09 30 06/12/22 05:00 98 06/12/22 05:00 06/12/22 04:45 98 06/12/22 04:30 98 06/12/22 04:00 98 06/12/22 04:00 06/12/22 03:30 97 06/12/22 03:00 97 06/12/22 03:00 06/12/22 04:00 30 06/12/22 02:45 97 06/12/22 02:30 98 06/12/22 02:15 98 06/12/22 02:29 97 30 06/12/22 02:00 97 06/12/22 02:00 06/12/22 01:45 96 Mechanical Vent 30 06/12/22 01:30 96 06/12/22 00:01 Mechanical Vent 30 06/12/22 01:15 95 06/12/22 01:00 95 06/12/22 01:00 06/12/22 00:45 95 06/12/22 00:30 30 06/12/22 00:00 06/12/22 00:40 97 06/12/22 00:30 96 06/12/22 00:20 95 06/12/22 00:10 95 06/12/22 00:00 96 06/12/22 00:00 06/11/22 23:50 96 06/11/22 23:40 95 06/11/22 23:30 98 06/11/22 23:20 98 06/11/22 23:10 98 06/11/22 23:05 98 06/11/22 23:05 06/11/22 23:00 97 06/11/22 23:00 06/11/22 22:55 96 06/11/22 22:55 06/11/22 22:50 96 06/11/22 22:50 06/11/22 22:45 06/11/22 22:45 97 06/11/22 22:40 97 06/11/22 22:40 06/11/22 22:40 06/11/22 22:35 97 06/11/22 22:35 06/11/22 22:35 06/11/22 22:30 97 06/11/22 22:30 06/11/22 22:30 06/12/22 00:44 30 06/11/22 23:53 95 Mechanical Vent 40 06/11/22 22:26 97 Mechanical Vent 40 06/11/22 22:21 96 Mechanical Vent 40 06/11/22 22:16 94 Mechanical Vent 40 06/11/22 22:11 95 Mechanical Vent 40 06/11/22 22:22 94 40 06/11/22 22:06 95 Mechanical Vent 40 Coding Level of Care Code 63378 CRITICAL CARE 1ST 30-74M Diagnoses SBO (small bowel obstruction) K56.609 Degenerative joint disease of left knee M17.12 Sepsis A41.9 Lactic acidosis E87.20 Elevated troponin R77.8 Acute kidney injury superimposed on CKD N17.9; N18.9 Chronic iron deficiency anemia D50.9 GERD (gastroesophageal reflux disease) K21.9 Time Spent (min) 39
[2022-06-12] MEDS ORDERED: STAT IV STA (09:35)
[2022-06-12] MEDS ORDERED: CALCIUM GLUCONATE 10% 2,000 MG in DEXTROSE 5% 50 ML IV ONE (10:00)
[2022-06-12] MEDS: PANTOprazole 40 MG in SYRINGE 0 ML IV SCH (10:03)
[2022-06-12] MEDS ORDERED: ACETAMINOPHEN 1,000 MG/100 ML VIAL IV PRN (10:12)
--- NOTE | 2022-06-12 12:21 | Electrocardiogram Report ---
Test Reason : Blood Pressure : / mmHG Vent. Rate : 150 BPM Atrial Rate : 150 BPM P-R Int : 118 ms QRS Dur : 080 ms QT Int : 332 ms P-R-T Axes : 066 056 063 degrees QTc Int : 524 ms Sinus tachycardia Marked ST abnormality, possible inferolateral subendocardial injury Abnormal ECG No previous ECGs available Confirmed by Michael Philip ([id number]) on 06/12/2022 12:21:18 PM Referred By: REFERRED SELF Confirmed By:Michael Philip
--- NOTE | 2022-06-12 12:21 | Electrocardiogram Report ---
Test Reason : Blood Pressure : / mmHG Vent. Rate : 120 BPM Atrial Rate : 120 BPM P-R Int : 144 ms QRS Dur : 100 ms QT Int : 338 ms P-R-T Axes : 082 065 036 degrees QTc Int : 477 ms Sinus tachycardia Left atrial enlargement Borderline ECG When compared with ECG of 11-JUN-2022 16:50, ST no longer depressed in Lateral leads Confirmed by Michael Philip ([id number]) on 06/12/2022 12:21:31 PM Referred By: REFERRED SELF Confirmed By:Michael Philip
--- NOTE | 2022-06-12 12:24 | Electrocardiogram Report ---
Test Reason : Blood Pressure : / mmHG Vent. Rate : 098 BPM Atrial Rate : 098 BPM P-R Int : 124 ms QRS Dur : 086 ms QT Int : 374 ms P-R-T Axes : 065 062 075 degrees QTc Int : 477 ms Normal sinus rhythm Normal ECG When compared with ECG of 11-JUN-2022 23:22, HR has decreased by 22 bpm Otherwise no significant change Confirmed by Michael Philip ([id number]) on 06/12/2022 12:23:35 PM Referred By: REFERRED SELF Confirmed By:Michael Philip
--- NOTE | 2022-06-12 12:39 | Surgery Progress Note ---
Date of Service June 12, 2022 Assessment & Plan (1) SBO (small bowel obstruction): Plan: POD # 1 s/p ex lap, small bowel resection 160 cm for ischemic bowel - extubated this am, now on oxygen via nc - minimal NGT output - drain serosanguineous Plan: Continue current ICU management Continue pain management as needed Continue IV Zosyn Continue jessica drain to bulb suction abdominal binder, keep dressing on for today repeat am labs Continue scds for dvt prophylaxis COntinue Protonix Dr. Stone has seen and examined patient, agrees with above. Admission and Anticipated Discharge Date Admission Date: June 11, 2022 Subjective patient extubated this am, tolerated well now on oxygen via nasal cannula patient sleeping upon entering room, opens eyes but ROS limited states she is not having any abdominal pain at this time Physical Exam Constitutional: + lethargic; not in distress extubated, oxygen via nasal cannula, drowsy Neck: normal visual inspection and trachea midline Respiratory: normal respiratory effort; no respiratory distress, no labored breathing and no retractions Gastrointestinal (Abdomen): Inspection/Auscultation: abdomen normal to inspection and + abdominal surgical drain present (serosanguineous); abdomen not distended Percussion/Palpation: abdomen soft; abdomen nontender, no guarding and abdomen not rigid NGT with bilious output, minimal incannister Skin: no rashes, warm and dry Psychiatric: Orientation: alert, oriented to person and oriented to place Results & Data ([facility]) Vital Signs (Past 12 Hours) Vital Signs Temp Pulse Resp BP Pulse Ox O2 Del Method FiO2 06/12/22 10:30 37.6 C H 112 H 25 H 96 06/12/22 10:15 37.6 C H 109 H 25 H 98 06/12/22 10:01 37.6 C H 111 H 29 H 98 06/12/22 10:00 113/60 06/12/22 09:59 37.5 C 109 H 27 H 99 06/12/22 09:45 37.5 C 111 H 29 H 99 06/12/22 09:30 37.5 C 110 H 31 H 97 06/12/22 09:15 37.5 C 109 H 28 H 98 06/12/22 09:00 37.5 C 108 H 29 H 98 06/12/22 09:00 126/60 06/12/22 08:45 37.5 C 102 H 27 H 98 06/12/22 08:30 37.5 C 102 H 29 H 97 06/12/22 08:15 37.5 C 101 H 25 H 97 06/12/22 08:00 37.5 C 102 H 25 H 98 06/12/22 08:00 118/56 L 06/12/22 07:45 37.5 C 97 H 24 98 06/12/22 07:30 37.5 C 101 H 25 H 98 06/12/22 07:15 37.5 C 97 H 24 97 06/12/22 08:00 30 06/12/22 08:00 Mechanical Vent 30 06/12/22 08:00 102 H 06/12/22 08:00 98 H 06/12/22 08:00 Mechanical Vent 30 06/12/22 07:56 102 H 25 H 97 30 06/12/22 07:00 37.5 C 99 H 26 H 97 06/12/22 07:00 122/58 L 06/12/22 06:40 37.5 C 94 H 23 98 06/12/22 06:30 37.5 C 95 H 24 97 06/12/22 06:20 37.5 C 101 H 16 97 06/12/22 06:10 37.5 C 99 H 20 97 06/12/22 06:00 37.5 C 99 H 25 H 97 06/12/22 06:00 105/53 L 06/12/22 05:30 37.5 C 104 H 25 H 98 06/12/22 05:15 37.5 C 104 H 25 H 98 06/12/22 05:09 14 30 06/12/22 05:00 37.5 C 103 H 25 H 98 06/12/22 05:00 104/58 L 06/12/22 04:45 37.4 C 99 H 24 98 06/12/22 04:30 37.4 C 99 H 23 98 06/12/22 04:00 37.4 C 101 H 20 98 06/12/22 04:00 108/54 L 06/12/22 03:30 37.4 C 108 H 18 97 06/12/22 03:00 37.4 C 106 H 20 97 06/12/22 03:00 109/57 L 06/12/22 04:00 30 06/12/22 02:45 37.4 C 105 H 18 97 06/12/22 02:30 37.4 C 107 H 18 98 06/12/22 02:15 37.4 C 106 H 17 98 06/12/22 02:29 106 H 21 97 30 06/12/22 02:00 37.4 C 108 H 17 97 06/12/22 02:00 103/66 06/12/22 01:45 37.4 C 107 H 19 96 Mechanical Vent 30 06/12/22 01:30 37.4 C 109 H 20 96 06/12/22 01:15 37.5 C 110 H 19 95 06/12/22 01:00 37.5 C 113 H 19 95 06/12/22 01:00 102/66 06/12/22 00:45 37.4 C 113 H 20 95 06/12/22 00:40 37.4 C 110 H 20 97 06/12/22 00:44 16 30
--- NOTE | 2022-06-12 13:24 | Hospitalist Progress Note ---
Date of Service June 12, 2022 Assessment & Plan (1) SBO (small bowel obstruction): (2) Sepsis: (3) Lactic acidosis: (4) Elevated troponin: (5) Acute kidney injury superimposed on CKD: (6) Exertional dyspnea: (7) Chronic iron deficiency anemia: (8) GERD (gastroesophageal reflux disease): Plan Patient is a 71 yr female with H/O CKD III, GERD, IBS, chronic iron deficiency anemia presented to ER via EMS for abdominal pain, N/V started last night after dinner at 1900. Today with worsening abdominal pain, noted lethargy, AMS Septic shock Lactic acidosis Acute metabolic encephalopathy High-grade small bowel obstruction with bowel necrosis Sepsis secondary to SBO --Negative SARS-CoV-2 --CT head: No acute intracranial abnormality --CTA chest, abd/pelvis:Unremarkable CTA of the chest, abdomen and pelvis. Limited evaluation of the solid abdominal organs and bowel secondary to arterial phase of imaging and lack of enteric contrast. High-grade small bowel obstruction with several loops demonstrating circumferential wall thickening with associated intraluminal edema and small volume of abdominopelvic ascites. No pneumoperitoneum identified. Moderate sized hiatal hernia. --S/P Emergency exploratory laparotomy, small-bowel resection, FLORY drainage x1 --S/P Extubation on 06/12/22 --Pressors discontinued --Blood Cultures: 04/09:Gram positive Bacilli --Hold Metoprolol for now --Continue IV fluids --Empirically on Vanco, Zosyn>>Zosyn Appreciate Pill[employer] Sewer/Surgery Help Continue wound care Continue NG tube for now Elevated troponin: Type II CA secondary to above ECHO: Left ventricle is normal in size. Left ventricle systolic function is no rmal. EF 60 to 65%. Right ventricle systolic function is normal. Left atrial size is normal. Right atrial size is normal. No significant valvular pathology Monitor Acute kidney injury on CKD III Cr: 1.7>>1.1 Continue IV fluids Avoid nephrotoxic agents as able Exertional dyspnea: 03/2022 initial stress test nondiagnostic secondary to rapid heart rate blood pressure response and poor exercise tolerance. It was suspected HTN, elevated heart response may be contributed and patient was started on 12.5 mg metoprolol succinate twice daily. Repeat nuclear stress testing reported as no evidence of ischemia --Held metoprolol due to Shock Chronic iron deficiency anemia: Baseline Hb 11-12 per outpatient chart review Monitor CBC GERD Resume PPI as able Code Status Full Code Admission and Anticipated Discharge Date Admission Date: June 11, 2022 Subjective Patient is seen and examined at bedside Extubated this morning Currently off pressors Tachycardic on monitor Febrile today Poor historian due to drowsiness Discussed with patient's family at bedside Patient denies any abdominal pain, chest pain Review of Systems Review of Systems: All systems reviewed & are unremarkable except as noted in Subjective Physical Exam Physical Exam: Physical Exam: Vitals signs as noted above General Appearance:Moderately built and nourished, no apparent distress Head: normocephalic, Atraumatic Eyes: normal inspection, EOMI Neck: supple, Trachea midline Respiratory/Chest: Normal breath sounds, CTA, No accessory muscle use Cardiovascular: S1, S2, No murmur, +Tachycardic Abdomen/GI:Soft, Non tender, +Abd binder, Bowel sounds present Extremities/Musculoskeletal:normal inspection, no edema Neurologic/Psych:Drowsy, Oriented to person, grossly moves all extremities Skin: normal color, warm Results & Data Results & Data ([facility]) Vital Signs (Past 12 Hours) Vital Signs Temp Pulse Resp BP Pulse Ox O2 Del Method FiO2 06/12/22 10:30 37.6 C H 112 H 25 H 96 06/12/22 10:15 37.6 C H 109 H 25 H 98 06/12/22 10:01 37.6 C H 111 H 29 H 98 06/12/22 10:00 113/60 06/12/22 09:59 37.5 C 109 H 27 H 99 06/12/22 09:45 37.5 C 111 H 29 H 99 06/12/22 09:30 37.5 C 110 H 31 H 97 06/12/22 09:15 37.5 C 109 H 28 H 98 06/12/22 09:00 37.5 C 108 H 29 H 98 06/12/22 09:00 126/60 06/12/22 08:45 37.5 C 102 H 27 H 98 06/12/22 08:30 37.5 C 102 H 29 H 97 06/12/22 08:15 37.5 C 101 H 25 H 97 06/12/22 08:00 37.5 C 102 H 25 H 98 06/12/22 08:00 118/56 L 06/12/22 07:45 37.5 C 97 H 24 98 06/12/22 07:30 37.5 C 101 H 25 H 98 06/12/22 07:15 37.5 C 97 H 24 97 06/12/22 08:00 30 06/12/22 08:00 Mechanical Vent 06/12/22 08:00 102 H 06/12/22 08:00 98 H 06/12/22 08:00 Mechanical Vent 06/12/22 07:56 102 H 25 H 97 30 06/12/22 07:00 37.5 C 99 H 26 H 97 06/12/22 07:00 122/58 L 06/12/22 06:40 37.5 C 94 H 23 98 06/12/22 06:30 37.5 C 95 H 24 97 06/12/22 06:20 37.5 C 101 H 16 97 06/12/22 06:10 37.5 C 99 H 20 97 06/12/22 06:00 37.5 C 99 H 25 H 97 06/12/22 06:00 105/53 L 06/12/22 05:30 37.5 C 104 H 25 H 98 06/12/22 05:15 37.5 C 104 H 25 H 98 06/12/22 05:09 14 30 06/12/22 05:00 37.5 C 103 H 25 H 98 06/12/22 05:00 104/58 L 06/12/22 04:45 37.4 C 99 H 24 98 06/12/22 04:30 37.4 C 99 H 23 98 06/12/22 04:00 37.4 C 101 H 20 98 06/12/22 04:00 108/54 L 06/12/22 03:30 37.4 C 108 H 18 97 06/12/22 03:00 37.4 C 106 H 20 97 06/12/22 03:00 109/57 L 06/12/22 04:00 30 06/12/22 02:45 37.4 C 105 H 18 97 06/12/22 02:30 37.4 C 107 H 18 98 06/12/22 02:15 37.4 C 106 H 17 98 06/12/22 02:29 106 H 21 97 30 06/12/22 02:00 37.4 C 108 H 17 97 03/09/23 02:00 103/66 06/12/22 01:45 37.4 C 107 H 19 96 Mechanical Vent 30 06/12/22 01:30 37.4 C 109 H 20 96 Laboratory Results Short CBC 06/11/22 06/11/22 06/12/22 Range/Units 17:00 22:40 04:39 WBC 3.44 L 3.55 L 7.16 (4.8-10.8) K/ul Hgb 11.9 L 11.1 L 10.3 L (12.0-16.0) g/dl Hct 35.8 L 32.9 L 29.9 L (37.0-47.0) % Plt Count 317 183 193 (130-400) K/uL BMP 06/11/22 06/11/22 06/12/22 17:00 22:40 04:39 Sodium 141 140 138 Potassium 3.9 3.3 L 3.5 Chloride 106 112 H 112 H Carbon Dioxide 17 L 20 L 20 L BUN 27 H 23 25 H Creatinine 1.77 H 1.17 D 1.10 Glucose 181 H 118 H 124 H Calcium 8.7 7.0 L 7.2 L Liver Function 06/11/22 06/12/22 Range/Units 17:00 04:39 Total Bilirubin 0.7 1.0 (0.2-1.0) mg/dl AST 17 44 H (13-39) U/L ALT 13 12 (7-52) U/L Alkaline Phosphatase 73 45 (34-104) U/L Albumin 3.7 2.4 L (3.4-5.0) gm/dl Urine 06/11/22 Range/Units Unknown Urine Color Dark Yellow Urine Appearance Cloudy A (Clear) Urine pH 5.5 (4.5-7.5) Ur Specific [place] 1.021 (1.000-1.030) Urine Protein 2+ H (Negative) Urine Glucose (UA) 3+ H (Negative)
[2022-06-12] MEDS ORDERED: VANCOMYCIN HCL 1,250 MG in SODIUM CHLORIDE 0.9% 250 ML IV SCH (14:00)
[2022-06-12] MEDS ORDERED: LACTATED RINGER'S 500 ML IV ONE (17:04)
[2022-06-12] MEDS: HYDROmorphone INJ 0.5 MG/0.5 ML SYR IV PRN (20:20)
[2022-06-12] MEDS ORDERED: TRETINOIN 0.05% TOP SCH (21:00)
[2022-06-12] MEDS: BIMATOPROST 0.01% OP SOLN 2.5 ML BTL OP SCH (22:11)
[2022-06-13] MEDS: LACTATED RINGER'S 1,000 ML IV SCH (01:29)
[2022-06-13] MEDS: PIPERACILLIN/TAZOBACTAM 4.5 GM in DEXTROSE 5% 100 ML IV SCH ×3 (01:30→16:24)
[2022-06-13] MEDS: ICU Protocol for HYPERglycemia SCH ×5 (01:33→21:00)
[2022-06-13] MEDS: HYDROmorphone INJ 0.5 MG/0.5 ML SYR IV PRN ×2 (01:34→05:46)
[2022-06-13] MEDS: D5W AND 1/2NSS 1,000 ML IV SCH ×2 (03:21→16:25)
[2022-06-13 06:01] LABS: Hematocrit (blood only) 27.1 % (37.0-47.0); Hemoglobin 9.3 g/dl (12.0-16.0); Mean Corpuscular Hemoglobin 31.3 pg (25.0-34.0); Mean Corpuscular Hgb Conc 34.3 g/dL (32.0-36.0); Mean Corpuscular Volume 91.2 fL (80.0-100.0); Platelet Count 185 K/uL (130-400); RDW Coefficient of Variation 15.7 % (11.5-14.5); RDW Standard Deviation 52.4 fL (36.4-46.3); Red Blood Count 2.97 M/uL (4.20-5.40); White Blood Count 11.12 K/ul (4.8-10.8)
[2022-06-13 06:17] LABS: BUN Creatinine Ratio 25.5 (10-20); Calcium 7.6 mg/dl (8.5-10.1); Creatinine Clr Calc Pharmacy 48.9 ml/min; Est GFR (African American) 57.7 ml/min; Est GFR (Non-African American) 49.8 ml/min; Magnesium 2.5 mg/dl (1.7-2.4); Potassium 4.1 mmol/L (3.5-5.1)
[2022-06-13] MEDS: ICU ELECTROLYTE REPLACEMENT PROTOCOL SCH ×2 (06:32→18:00)
[2022-06-13] MEDS: TIMOLOL MALEATE 0.5% OP SOLN 5 ML BTL OP SCH (08:14)
--- NOTE | 2022-06-13 08:31 | Critical Care Progress Note ---
Date of Service June 13, 2022 Assessment & Plan (1) SBO (small bowel obstruction): (2) Degenerative joint disease of left knee: (3) Sepsis: (4) Lactic acidosis: (5) Elevated troponin: (6) Acute kidney injury superimposed on CKD: (7) Chronic iron deficiency anemia: (8) GERD (gastroesophageal reflux disease): Plan Reason Critically Ill: Intubated and Sedated following emergent surgery for sepsis in the setting of high grade bowel obstruciton with bowel ischemia. S/P Ex-lap with resection of 160cm small bowel. Neuro - Encephalopathy -Encephalopathy resolving. - Head CT negative for acute process -Pain control per surgery team. Cardiac - Shock, Elevated HScTNI - Shock secondary to sepsis and hypovolemia, resolved -Off vasopressors. - required 1 unit of PRBC in operating theater- follow HGB -D5 half-normal saline. - HScTNI elevation likely demand type II in the setting of septic shock and hypovolemia- trend HScTNI and ECGs. - current ECG without ischaemia changes -Echo unremarkable. Respiratory - -Extubated. Remains on low-flow oxygen. Tachypneic likely due to pain and mild metabolic acidosis. GI - High grade SBO, bowel resection, GERD - POD #2, abdomen closed - appreciate surgical assistance - OGT remain LIWS - Protonix 40mg IV daily -We will need to consider starting TPN if unable to use NG tube. Will defer to surgery. -At risk for short gut syndrome RENAL/LYTES - MICHEAL, AGAP Metabolic Acidosis -Resolving. Continue gentle hydration. - No acute needs - Merchant to gravity ENDO - No acute needs - Hypoglycemia overnight. Currently on D5 and half-normal saline. HEME - Acute on chronic anemia- - acute blood loss anemia with chronic fe deficiency- 1 unit transfused - Transfuse for HGB <8.0 or worsening organ dysfunction/lactic acidosis ID - Septic shock - No jena spillage of bowel per surgical report -Blood cultures with positive gram positive bacilli. - ABX therapy- Zosyn/Vancomycin - Source control as per surgery- appreciate assistance LINES/IV ACCESS - ETT, Merchant catheter, OGT, Left radial arterial line, FLORY drain Continue use of these lines DVT PROPHYLAXIS - SCDs- hold on chemoprophylaxis until hemostasis is ensured Admission and Anticipated Discharge Date Admission Date: June 11, 2022 Subjective Patient remains profoundly weak. She appears to be in mild distress and is able to answer simple questions. She denies any overt pain. She is tachypneic. Arterial line remains in place. Review of Systems Review of Systems: All systems reviewed & are unremarkable except as noted in HPI & below Physical Exam Physical Exam: Constitutional: Lethargic in mild distress. Eyes: Pupils are equal round and reactive to light. Conjunctivae are normal. Anicteric sclera. Ears nose, mouth and throat: NG and oxygen tubing in place. Neck: Trachea is midline. Visual inspection is normal. Respiratory: Clear to auscultation bilaterally. No use of accessory muscles. No significant clubbing noted. Tachypneic. Cardiovascular: Regular rate and rhythm. No murmurs. No edema. Gastrointestinal: Diminished bowel sounds. Tenderness to palpation. FLORY drain. Musculoskeletal: No cyanosis. Patient is able to move all extremities. Skin: No rashes, warm dry and intact. Neurologic: No obvious focal neurological deficits seen. Follow simple commands. Psychiatric: Lethargic. Results & Data Results & Data ([facility]) Vital Signs (Past 12 Hours) Vital Signs Temp Pulse Resp BP Pulse Ox 06/13/22 06:40 36.7 C 89 18 98 06/13/22 06:30 36.7 C 101 H 18 98 06/13/22 06:20 36.7 C 90 17 97 06/13/22 06:10 36.7 C 95 H 18 97 06/13/22 06:00 36.6 C 87 17 96 06/13/22 05:50 36.6 C 90 17 96 06/13/22 05:40 36.6 C 99 H 21 99 06/13/22 05:30 36.6 C 93 H 18 98 06/13/22 05:20 36.6 C 91 H 18 97 06/13/22 05:10 36.6 C 97 H 17 96 06/13/22 05:00 36.7 C 104 H 19 97 06/13/22 04:50 36.7 C 91 H 17 96 06/13/22 04:40 36.7 C 85 17 97 06/13/22 04:30 36.7 C 92 H 17 97 06/13/22 04:00 90 06/13/22 04:20 36.7 C 90 16 96 06/13/22 04:10 36.7 C 106 H 19 97 06/13/22 04:00 36.7 C 93 H 17 97 06/13/22 03:50 36.7 C 103 H 18 97 06/13/22 03:40 36.7 C 89 17 94 06/13/22 03:30 36.7 C 90 17 96 06/13/22 03:20 36.7 C 88 17 96 06/13/22 03:10 36.7 C 93 H 19 95 06/13/22 03:00 36.7 C 92 H 17 95 06/13/22 02:50 36.7 C 90 16 95 06/13/22 02:40 36.7 C 107 H 23 96 06/13/22 02:30 36.7 C 112 H 22 94 06/13/22 02:20 36.7 C 112 H 21 96 06/13/22 02:10 36.7 C 118 H 28 H 94 06/13/22 02:00 36.7 C 107 H 23 94 06/13/22 02:00 125/47 L 06/13/22 02:00 125/47 L 06/13/22 01:50 36.7 C 111 H 23 97 06/13/22 01:40 36.7 C 111 H 22 98 06/13/22 01:30 36.7 C 102 H 19 98 06/13/22 01:20 36.8 C 100 H 19 99 06/13/22 01:10 36.8 C 106 H 21 98 06/13/22 01:00 36.8 C 102 H 24 98 06/13/22 01:00 130/51 L 06/13/22 00:50 36.8 C 113 H 25 H 96 06/13/22 00:40 36.8 C 110 H 24 98 06/13/22 00:30 36.8 C 103 H 22 98 06/13/22 00:20 36.8 C 109 H 29 H 99 06/13/22 00:10 36.8 C 106 H 24 96 06/13/22 00:00 36.8 C 105 H 22 98 06/13/22 00:00 117/47 L 06/12/22 23:50 36.9 C 110 H 26 H 97 06/12/22 23:40 36.9 C 105 H 24 98 06/12/22 23:30 36.9 C 107 H 22 98 06/12/22 23:20 36.9 C 102 H 22 96 06/12/22 23:10 37.0 C 102 H 22 97 06/12/22 23:00 37.0 C 98 H 21 98 06/12/22 23:00 127/50 L 06/12/22 22:50 37.1 C 92 H 19 97 06/12/22 22:40 37.1 C 94 H 19 98 06/12/22 22:30 37.1 C 95 H 20 98 06/12/22 22:20 37.1 C 100 H 23 98 06/12/22 22:10 37.2 C 94 H 21 98 06/12/22 22:00 37.2 C 102 H 22 98 06/12/22 22:00 116/62 06/12/22 21:50 37.2 C 110 H 24 98 06/12/22 21:40 37.2 C 97 H 20 97 06/12/22 21:30 37.3 C 103 H 21 95 06/12/22 21:20 37.3 C 98 H 21 97 06/12/22 21:10 37.4 C 97 H 20 98 06/13/22 00:00 108 H 06/13/22 00:00 108 H Coding Level of Care Code 43380 SUB INP/OBS CARE MIN Diagnoses SBO (small bowel obstruction) K56.609 Degenerative joint disease of left knee M17.12 Sepsis A41.9 Lactic acidosis E87.20 Elevated troponin R77.8 Acute kidney injury superimposed on CKD N17.9; N18.9 Chronic iron deficiency anemia D50.9 GERD (gastroesophageal reflux disease) K21.9
[2022-06-13] MEDS ORDERED: STAT IV STA (09:05)
[2022-06-13] MEDS ORDERED: CALCIUM GLUCONATE 10% 2,000 MG in DEXTROSE 5% 50 ML IV ONE (09:15)
[2022-06-13] MEDS: ACETAMINOPHEN 1,000 MG/100 ML VIAL IV PRN (09:46)
--- NOTE | 2022-06-13 11:21 | Surgery Progress Note ---
Date of Service June 13, 2022 Assessment & Plan (1) SBO (small bowel obstruction): Plan: POD # 2 s/p ex lap, small bowel resection 160 cm for ischemic bowel - afebrile - hemodynamically stable - minimal NGT output - drain serosanguineous Plan: Continue pain management as needed, Will schedule the IV tylenol and continue IV Dilaudid for breakthrough pain Continue IV Zosyn Continue jessica drain to bulb suction abdominal binder repeat am labs Continue scds , start 40 mg Lovenox sq today for dvt prophylaxis Continue Protonix Will remove NGT today given low output May start clears tomorrow. IF does not tolerate clears may need to start TPN give risk of short gut syndrome PT/OT consults Okay to downgrade out of ICU Dr. Stone has seen and examined patient, agrees with above. Admission and Anticipated Discharge Date Admission Date: June 11, 2022 Subjective still very lethargic and weak, opens eyes and nodes to questions. Alert and oriented. Denies pain. Per nurse just gave IV Tylenol about 10 am got dose of Dilaudid overnight Physical Exam Constitutional: cooperative, comfortable, + lethargic and + edematous; no acute distress, not in distress and not diaphoretic Neck: normal visual inspection and trachea midline Respiratory: normal respiratory effort; no respiratory distress, no labored breathing, no retractions and not tachypneic Gastrointestinal (Abdomen): Inspection/Auscultation: abdomen normal to inspection and + abdominal surgical drain present (serosanguienous); abdomen not distended Percussion/Palpation: + abdomen tender and abdomen soft; no guarding and abdomen not rigid Skin: no rashes, warm and dry Psychiatric: Orientation: alert and oriented to person Results & Data ([facility]) Vital Signs (Past 12 Hours) Vital Signs Temp Pulse Resp BP Pulse Ox O2 Del Method O2 Flow Rate 06/13/22 10:56 37.0 C 92 H 22 100 06/13/22 10:56 112/60 06/13/22 10:00 37.0 C 92 H 18 99 06/13/22 09:00 36.9 C 91 H 19 99 06/13/22 08:00 Nasal Cannula 2 06/13/22 08:44 88 06/13/22 08:00 36.8 C 104 H 20 98 06/13/22 07:00 36.7 C 87 18 96 06/13/22 06:40 36.7 C 89 18 98 06/13/22 06:30 36.7 C 101 H 18 98 06/13/22 06:20 36.7 C 90 17 97 06/13/22 06:10 36.7 C 95 H 18 97 06/13/22 06:00 36.6 C 87 17 96 06/13/22 05:50 36.6 C 90 17 96 06/13/22 05:40 36.6 C 99 H 21 99 06/13/22 05:30 36.6 C 93 H 18 98 06/13/22 05:20 36.6 C 91 H 18 97 06/13/22 05:10 36.6 C 97 H 17 96 06/13/22 05:00 36.7 C 104 H 19 97 06/13/22 04:50 36.7 C 91 H 17 96 06/13/22 04:40 36.7 C 85 17 97 06/13/22 04:30 36.7 C 92 H 17 97 06/13/22 04:00 90 06/13/22 04:20 36.7 C 90 16 96 06/13/22 04:10 36.7 C 106 H 19 97 06/13/22 04:00 36.7 C 93 H 17 97 06/13/22 03:50 36.7 C 103 H 18 97 06/13/22 03:40 36.7 C 89 17 94 06/13/22 03:30 36.7 C 90 17 96 06/13/22 03:20 36.7 C 88 17 96 06/13/22 03:10 36.7 C 93 H 19 95 06/13/22 03:00 36.7 C 92 H 17 95 06/13/22 02:50 36.7 C 90 16 95 06/13/22 02:40 36.7 C 107 H 23 96 06/13/22 02:30 36.7 C 112 H 22 94 06/13/22 02:20 36.7 C 112 H 21 96 06/13/22 02:10 36.7 C 118 H 28 H 94 06/13/22 02:00 36.7 C 107 H 23 94 06/13/22 02:00 125/47 L 06/13/22 02:00 125/47 L 06/13/22 01:50 36.7 C 111 H 23 97 06/13/22 01:40 36.7 C 111 H 22 98 06/13/22 01:30 36.7 C 102 H 19 98 06/13/22 01:20 36.8 C 100 H 19 99 06/13/22 01:10 36.8 C 106 H 21 98 06/13/22 01:00 36.8 C 102 H 24 98 06/13/22 01:00 130/51 L 06/13/22 00:50 36.8 C 113 H 25 H 96 06/13/22 00:40 36.8 C 110 H 24 98 06/13/22 00:30 36.8 C 103 H 22 98 06/13/22 00:20 36.8 C 109 H 29 H 99 06/13/22 00:10 36.8 C 106 H 24 96 06/13/22 00:00 36.8 C 105 H 22 98 06/13/22 00:00 117/47 L 06/12/22 23:50 36.9 C 110 H 26 H 97 06/12/22 23:40 36.9 C 105 H 24 98 06/12/22 23:30 36.9 C 107 H 22 98 06/12/22 23:20 36.9 C 102 H 22 96 06/13/22 00:00 108 H 06/13/22 00:00 108 H
[2022-06-13] MEDS: PANTOprazole 40 MG in SYRINGE 0 ML IV SCH (11:39)
[2022-06-13] MEDS: ENOXAPARIN INJ 40 MG/0.4 ML SYR SQ SCH (12:14)
--- NOTE | 2022-06-13 15:23 | Hospitalist Progress Note ---
Date of Service June 13, 2022 Assessment & Plan (1) SBO (small bowel obstruction): (2) Sepsis: (3) Lactic acidosis: (4) Elevated troponin: (5) Acute kidney injury superimposed on CKD: (6) Exertional dyspnea: (7) Chronic iron deficiency anemia: (8) GERD (gastroesophageal reflux disease): Plan Patient is a 71 yr female with H/O CKD III, GERD, IBS, chronic iron deficiency anemia presented to ER via EMS for abdominal pain, N/V started last night after dinner at 1900. Today with worsening abdominal pain, noted lethargy, AMS Septic shock Lactic acidosis Acute metabolic encephalopathy High-grade small bowel obstruction with bowel necrosis Sepsis secondary to SBO --Negative SARS-CoV-2 --CT head: No acute intracranial abnormality --CTA chest, abd/pelvis:Unremarkable CTA of the chest, abdomen and pelvis. Limited evaluation of the solid abdominal organs and bowel secondary to arterial phase of imaging and lack of enteric contrast. High-grade small bowel obstruction with several loops demonstrating circumferential wall thickening with associated intraluminal edema and small volume of abdominopelvic ascites. No pneumoperitoneum identified. Moderate sized hiatal hernia. --S/P Emergency exploratory laparotomy, small-bowel resection, FLORY drainage x1 --S/P Extubation on 06/12/22 --Pressors discontinued --Blood Cultures: 04/09:Gram positive Bacilli --Repeat Blood Cultures: Pending --Hold Metoprolol for now --Continue IV fluids --Empirically on Vanco, Zosyn>>Zosyn Appreciate Geological Engineer/Surgery Help Continue wound care NG tube discontinued Likely to be started on clear liquid diet tomorrow Started on Lovenox SQ for DVT Px Elevated troponin: Type II MD secondary to above ECHO: Left ventricle is normal in size. Left ventricle systolic function is normal. EF 60 to 65%. Right ventricle systolic function is normal. Left atrial size is normal. Right atrial size is normal. No significant valvular pathology Monitor Acute kidney injury on CKD III Cr: 1.7>>1.1 Continue IV fluids Avoid nephrotoxic agents as able Exertional dyspnea: 03/2022 initial stress test nondiagnostic secondary to rapid heart rate blood pressure response and poor exercise tolerance. It was suspected HTN, elevated heart response may be contributed and patient was started on 12.5 mg metoprolol succinate twice daily. Repeat nuclear stress testing reported as no evidence of ischemia --Held metoprolol due to Shock Postoperative acute blood loss anemia Chronic iron deficiency anemia: Baseline Hb 11-12 per outpatient chart review S/P 1 unit PRBC Monitor CBC Hb 9.3 today GERD Resume PPI as able DVT Px: Lovenox SQ Code Status Full Code Admission and Anticipated Discharge Date Admission Date: June 11, 2022 Subjective Patient is seen and examined at bedside States having mild abdominal discomfort Denies any chest pain, shortness of breath Blood pressure stable today NG tube discontinued Plan to transfer out of ICU today Review of Systems Review of Systems: All systems reviewed & are unremarkable except as noted in Subjective Physical Exam Physical Exam: Physical Exam: Vitals signs as noted above General Appearance:Moderately built and nourished, no apparent distress Head: normocephalic, Atraumatic Eyes: normal inspection, EOMI Neck: supple, Trachea midline Respiratory/Chest: Normal breath sounds, CTA, No accessory muscle use Cardiovascular: S1, S2, No murmur Abdomen/GI:Soft, Non tender, +Abd binder, Bowel sounds present Extremities/Musculoskeletal:normal inspection, no edema Neurologic/Psych:Drowsy, Oriented to person, grossly moves all extremities Skin: normal color, warm Results & Data Results & Data ([facility]) Vital Signs (Past 12 Hours) Vital Signs Temp Pulse Resp BP Pulse Ox O2 Del Method O2 Flow Rate 06/13/22 15:00 37.2 C 90 20 99 Nasal Cannula 2 06/13/22 15:00 122/63 06/13/22 14:00 37.1 C 90 22 97 06/13/22 14:00 115/64 06/13/22 13:00 37.0 C 82 18 100 06/13/22 13:00 111/54 L 06/13/22 12:01 37.0 C 91 H 29 H 99 Nasal Cannula 2 06/13/22 12:01 111/61 06/13/22 12:00 37.0 C 90 26 H 100 06/13/22 11:02 37.1 C 96 H 20 97 06/13/22 15:16 86 06/13/22 10:56 37.0 C 92 H 22 100 06/13/22 10:56 112/60 06/13/22 10:00 37.0 C 92 H 18 99 06/13/22 09:00 36.9 C 91 H 19 99 06/13/22 08:00 Nasal Cannula 2 06/13/22 08:44 88 06/13/22 08:00 36.8 C 104 H 20 98 06/13/22 07:00 36.7 C 87 18 96 06/13/22 06:40 36.7 C 89 18 98 06/13/22 06:30 36.7 C 101 H 18 98 06/13/22 06:20 36.7 C 90 17 97 06/13/22 06:10 36.7 C 95 H 18 97 06/13/22 06:00 36.6 C 87 17 96 06/13/22 05:50 36.6 C 90 17 96 06/13/22 05:40 36.6 C 99 H 21 99 06/13/22 05:30 36.6 C 93 H 18 98 06/13/22 05:20 36.6 C 91 H 18 97 06/13/22 05:10 36.6 C 97 H 17 96 06/13/22 05:00 36.7 C 104 H 19 97 06/13/22 04:50 36.7 C 91 H 17 96 06/13/22 04:40 36.7 C 85 17 97 06/13/22 04:30 36.7 C 92 H 17 97 06/13/22 04:00 90 06/13/22 04:20 36.7 C 90 16 96 06/13/22 04:10 36.7 C 106 H 19 97 06/13/22 04:00 36.7 C 93 H 17 97 06/13/22 03:50 36.7 C 103 H 18 97 06/13/22 03:40 36.7 C 89 17 94 06/13/22 03:30 36.7 C 90 17 96 Laboratory Results Short CBC 06/13/22 Range/Units 05:38 WBC 11.12 H (4.8-10.8) K/ul Hgb 9.3 L (12.0-16.0) g/dl Hct 27.1 L (37.0-47.0) % Plt Count 185 (130-400) K/uL BMP 06/13/22 05:38 Sodium 136 Potassium 4.1 Chloride 110 H Carbon Dioxide 22 BUN 28 H Creatinine 1.10 Glucose 136 H Calcium 7.6 L
[2022-06-13] MEDS: ACETAMINOPHEN 1,000 MG/100 ML VIAL IV SCH (18:05)
[2022-06-13] MEDS ORDERED: Nursing to Pharmacy Communication SCH (18:15)
[2022-06-13] MEDS: BIMATOPROST 0.01% OP SOLN 2.5 ML BTL OP SCH (21:53)
[2022-06-14] MEDS: ACETAMINOPHEN 1,000 MG/100 ML VIAL IV SCH ×3 (01:48→17:23)
[2022-06-14] MEDS: D5W AND 1/2NSS 1,000 ML IV SCH ×2 (05:03→15:30)
[2022-06-14 06:49] LABS: Hematocrit (blood only) 25.9 % (37.0-47.0); Hemoglobin 8.7 g/dl (12.0-16.0); Mean Corpuscular Hemoglobin 31.3 pg (25.0-34.0); Mean Corpuscular Hgb Conc 33.6 g/dL (32.0-36.0); Mean Corpuscular Volume 93.2 fL (80.0-100.0); Mean Platelet Volume 10.1 fL (9.4-12.4); Platelet Count 182 K/uL (130-400); RDW Coefficient of Variation 15.6 % (11.5-14.5); RDW Standard Deviation 53.5 fL (36.4-46.3); Red Blood Count 2.78 M/uL (4.20-5.40); White Blood Count 15.67 K/ul (4.8-10.8)
[2022-06-14 07:05] LABS: Calcium 7.7 mg/dl (8.5-10.1); Creatinine Clr Calc Pharmacy 56.1 ml/min; Est GFR (Non-African American) 58.7 ml/min; Magnesium 2.2 mg/dl (1.7-2.4); Phosphorus 2.3 mg/dl (2.5-4.9); Potassium 3.7 mmol/L (3.5-5.1)
[2022-06-14] MEDS: PIPERACILLIN/TAZOBACTAM 4.5 GM in DEXTROSE 5% 100 ML IV SCH ×3 (08:37→15:29)
[2022-06-14] MEDS: TIMOLOL MALEATE 0.5% OP SOLN 5 ML BTL OP SCH (08:39)
--- NOTE | 2022-06-14 09:25 | Surgery Progress Note ---
Date of Service June 14, 2022 Assessment & Plan (1) SBO (small bowel obstruction): Plan: 06/14/2022 POD #3 s/p ex lap, small bowel resection 160 cm for ischemic bowel Vital signs stable. Abdominal pain improved. NG tube removed yesterday. She is sips and chips only. Does not feel hungry or thirsty right now. +abdominal drain in place with serosang output, abdominal binder in place. Slight decrease in H and H, but overall stable. WBC increased 15.67- Continue Zosyn. 06/13/2022 POD # 2 s/p ex lap, small bowel resection 160 cm for ischemic bowel - afebrile - hemodynamically stable - minimal NGT output - drain serosanguineous Plan: Continue pain management as needed, Will schedule the IV tylenol and continue IV Dilaudid for breakthrough pain Continue IV Zosyn Continue jessica drain to bulb suction abdominal binder repeat am labs Continue scds , start 40 mg Lovenox sq today for dvt prophylaxis Continue Protonix Will remove NGT today given low output May start clears tomorrow. IF does not tolerate clears may need to start TPN give risk of short gut syndrome PT/OT consults Okay to downgrade out of ICU Dr. Stone has seen and examined patient, agrees with above. Admission and Anticipated Discharge Date Admission Date: June 11, 2022 Supervising Physician Co-Signing Physician Notes Dr. Cartagena will continue on ice chips and sips today and advance to clear liquids tomorrow Physical therapy in the room helping Inessa Garcia is resting in bed, awake. She reports that she feels better than when she first came in. She reports abdominal pain at incision site. Review of Systems Constitutional: no fever and no chills Gastrointestinal: + abdominal pain (expected, at incision site. ); no nausea and no vomiting Physical Exam Constitutional: cooperative, comfortable, + lethargic and + edematous; no acute distress, not in distress and not diaphoretic Neck: normal visual inspection and trachea midline Respiratory: normal respiratory effort; no respiratory distress, no labored breathing, no retractions and not tachypneic Gastrointestinal (Abdomen): Inspection/Auscultation: abdomen normal to inspection and + abdominal surgical drain present (serosanguienous); abdomen not distended Percussion/Palpation: + abdomen tender and abdomen soft; no guarding and abdomen not rigid Skin: no rashes, warm and dry Psychiatric: Orientation: alert and oriented to person Results & Data ([facility]) Vital Signs (Past 12 Hours) Vital Signs Temp Pulse Pulse Resp BP BP Pulse Ox 06/14/22 07:43 36.6 C 87 18 119/67 93 06/14/22 02:31 36.7 C 92 H 18 119/67 98 06/14/22 00:00 06/14/22 00:00 91 H 06/13/22 22:29 36.7 C 91 H 18 115/71 99 O2 Del Method O2 Flow Rate 06/14/22 07:43 Nasal Cannula 1 06/14/22 02:31 Nasal Cannula 06/14/22 00:00 Nasal Cannula 2 06/14/22 00:00 06/13/22 22:29 Nasal Cannula 2 PG Care Time/CCT Total # of Minutes Spent Total Time Spent with Patient: Total time spent is greater than 50% in coordination of care (as documented) at patient's floor/unit and/or counseling patient: Coding Level of Care Code 15290 Post Operative Follow-Up Diagnoses SBO (small bowel obstruction) K56.609
[2022-06-14] MEDS: ENOXAPARIN INJ 40 MG/0.4 ML SYR SQ SCH (10:26)
[2022-06-14] MEDS: PANTOprazole 40 MG in SYRINGE 0 ML IV SCH (10:27)
--- NOTE | 2022-06-14 16:44 | Hospitalist Progress Note ---
Date of Service June 14, 2022 Assessment & Plan (1) SBO (small bowel obstruction): (2) Sepsis: (3) Lactic acidosis: (4) Elevated troponin: (5) Acute kidney injury superimposed on CKD: (6) Exertional dyspnea: (7) Chronic iron deficiency anemia: (8) GERD (gastroesophageal reflux disease): Plan Patient is a 71 yr female with H/O CKD III, GERD, IBS, chronic iron deficiency anemia presented to ER via EMS for abdominal pain, N/V started last night after dinner at 1900. Today with worsening abdominal pain, noted lethargy, AMS Septic shock Lactic acidosis Acute metabolic encephalopathy High-grade small bowel obstruction with bowel necrosis Sepsis secondary to SBO --Negative SARS-CoV-2 --CT head: No acute intracranial abnormality --CTA chest, abd/pelvis:Unremarkable CTA of the chest, abdomen and pelvis. Limited evaluation of the solid abdominal organs and bowel secondary to arterial phase of imaging and lack of enteric contrast. High-grade small bowel obstruction with several loops demonstrating circumferential wall thickening with associated intraluminal edema and small volume of abdominopelvic ascites. No pneumoperitoneum identified. Moderate sized hiatal hernia. --S/P Emergency exploratory laparotomy, small-bowel resection, FLORY drainage x1 --S/P Extubation on 06/12/22 --Pressors discontinued, NG tube discontinued --Blood Cultures: 04/09: Clostridium --Repeat Blood Cultures: No growth to date --Hold Metoprolol for now --Empirically on Vanco, Zosyn>>Zosyn Appreciate Graduate Advisor/Surgery Help Continue wound care Surgery following Continue IV fluids BP stable Hb drop likely dilutional Diet as per surgery Elevated troponin: Type II DE secondary to above ECHO: Left ventricle is normal in size. Left ventricle systolic function is normal. EF 60 to 65%. Right ventricle systolic function is normal. Left atrial size is normal. Right atrial size is normal. No significant valvular pathology Monitor Acute kidney injury on CKD III Cr: 1.7>>1.1>0.96 Continue IV fluids Avoid nephrotoxic agents as able Exertional dyspnea: 03/2022 initial stress test nondiagnostic secondary to rapid heart rate blood pressure response and poor exercise tolerance. It was suspected HTN, elevated heart response may be contributed and patient was started on 12.5 mg metoprolol succinate twice daily. Repeat nuclear stress testing reported as no evidence of ischemia --Held metoprolol due to Shock Postoperative acute blood loss anemia Chronic iron deficiency anemia: Baseline Hb 11-12 per outpatient chart review S/P 1 unit PRBC Monitor CBC Hb 8.7 today GERD Resume PPI as able DVT Px: Lovenox SQ Code Status Full Code Admission and Anticipated Discharge Date Admission Date: June 11, 2022 Subjective Patient is seen and examined at bedside Sitting in chair during my encounter Reports some abd pain at surgical site No Flatus/DM today Also denies any chest pain, shortness of breath No other complaints Review of Systems Review of Systems: All systems reviewed & are unremarkable except as noted in Subjective Physical Exam Physical Exam: Physical Exam: Vitals signs as noted above General Appearance:Moderately built and nourished, no apparent distress Head: normocephalic, Atraumatic Eyes: normal inspection, EOMI Neck: supple, Trachea midline Respiratory/Chest: Normal breath sounds, CTA, No accessory muscle use Cardiovascular: S1, S2, No murmur Abdomen/GI:Soft, Non tender, +Abd binder, Bowel sounds present Extremities/Musculoskeletal:normal inspection, no edema Neurologic/Psych:Drowsy, Oriented to person, grossly moves all extremities Skin: normal color, warm Results & Data Results & Data ([facility]) Vital Signs (Past 12 Hours) Vital Signs Temp Pulse Pulse Resp BP BP Pulse Ox 06/14/22 16:17 72 06/14/22 15:43 36.5 C 79 18 131/72 98 06/14/22 11:28 36.6 C 89 18 114/59 L 93 06/14/22 08:00 06/14/22 07:43 36.6 C 87 18 119/67 93 O2 Del Method O2 Flow Rate 06/14/22 16:17 06/14/22 15:43 Nasal Cannula 1 06/14/22 11:28 Nasal Cannula 1 06/14/22 08:00 Nasal Cannula 06/14/22 07:43 Nasal Cannula 1 Laboratory Results Short CBC 06/14/22 Range/Units 06:15 WBC 15.67 H (4.8-10.8) K/ul Hgb 8.7 L (12.0-16.0) g/dl Hct 25.9 L (37.0-47.0) % Plt Count 182 (130-400) K/uL BMP 06/14/22 06:15 Sodium 136 Potassium 3.7 Chloride 110 H Carbon Dioxide 25 BUN 25 H Creatinine 0.96 Glucose 103 H Calcium 7.7 L
[2022-06-14] MEDS: BIMATOPROST 0.01% OP SOLN 2.5 ML BTL OP SCH (20:49)
[2022-06-15] MEDS: PIPERACILLIN/TAZOBACTAM 4.5 GM in DEXTROSE 5% 100 ML IV SCH ×4 (00:35→23:08)
[2022-06-15] MEDS: ACETAMINOPHEN 1,000 MG/100 ML VIAL IV SCH ×3 (04:30→17:43)
[2022-06-15] MEDS: D5W AND 1/2NSS 1,000 ML IV SCH ×2 (04:42→21:36)
[2022-06-15 07:08] LABS: Hematocrit (blood only) 26.7 % (37.0-47.0); Mean Corpuscular Hemoglobin 31.4 pg (25.0-34.0); Mean Corpuscular Hgb Conc 33.7 g/dL (32.0-36.0); Mean Platelet Volume 9.9 fL (9.4-12.4); Platelet Count 200 K/uL (130-400); RDW Coefficient of Variation 15.8 % (11.5-14.5); Red Blood Count 2.87 M/uL (4.20-5.40); White Blood Count 16.42 K/ul (4.8-10.8)
--- NOTE | 2022-06-15 07:47 | Surgery Progress Note ---
Date of Service June 15, 2022 Assessment & Plan (1) SBO (small bowel obstruction): Plan: 06/15/2022 POD #4 s/p ex lap, small bowel resection 160 cm for ischemic bowel Radha is slowly improving. Would like to try clear liquids- was advised to go slow with liquids. Abdominal incision continues to look clean and dry with no signs of infection. Continue abdominal binder. H and H stable, increase in WBC- continue IV antibiotics per primary team. Dr. Stone to resume care tomorrow. 06/14/2022 POD #3 s/p ex lap, small bowel resection 160 cm for ischemic bowel Vital signs stable. Abdominal pain improved. NG tube removed yesterday. She is sips and chips only. Does not feel hungry or thirsty right now. +abdominal drain in place with serosang output, abdominal binder in place. Slight decrease in H and H, but overall stable. WBC increased 15.67- Continue Zosyn. 06/13/2022 POD # 2 s/p ex lap, small bowel resection 160 cm for ischemic bowel - afebrile - hemodynamically stable - minimal NGT output - drain serosanguineous Plan: Continue pain management as needed, Will schedule the IV tylenol and continue IV Dilaudid for breakthrough pain Continue IV Zosyn Continue jessica drain to bulb suction abdominal binder repeat am labs Continue scds , start 40 mg Lovenox sq today for dvt prophylaxis Continue Protonix Will remove NGT today given low output May start clears tomorrow. IF does not tolerate clears may need to start TPN give risk of short gut syndrome PT/OT consults Okay to downgrade out of ICU Dr. Stone has seen and examined patient, agrees with above. Admission and Anticipated Discharge Date Admission Date: June 11, 2022 Supervising Physician Co-Signing Physician Notes Dr. Brandtpatient sitting in her bed taking her clear liquid breakfast Awake and alert but feels very weak which is expected Continue supportive care Subjective Radha is resting in bed- she reports that she feels good this morning. She states that she is thirsty today and would like to try clear liquids. She denies nausea or vomiting and reports that her abdominal pain at incision site is improving. Review of Systems Constitutional: no fever and no chills Gastrointestinal: + abdominal pain (expected, at incision site. ); no nausea and no vomiting Physical Exam Constitutional: cooperative, comfortable, + lethargic (more awake today) and + edematous; no acute distress, not in distress and not diaphoretic Neck: normal visual inspection and trachea midline Respiratory: normal respiratory effort; no respiratory distress, no labored breathing, no retractions and not tachypneic Gastrointestinal (Abdomen): Inspection/Auscultation: abdomen normal to inspection and + abdominal surgical drain present (serosanguienous); abdomen not distended Percussion/Palpation: + abdomen tender and abdomen soft; no guarding and abdomen not rigid Skin: no rashes, warm and dry Psychiatric: Orientation: alert and oriented to person Results & Data ([facility]) Vital Signs (Past 12 Hours) Vital Signs Temp Pulse Resp BP BP Pulse Ox O2 Del Method 06/15/22 07:20 36.5 C 74 19 170/92 H 98 Nasal Cannula 06/15/22 03:00 36.3 C L 79 22 131/74 94 Nasal Cannula 06/14/22 23:58 36.4 C L 81 16 128/74 94 Nasal Cannula 06/14/22 20:45 Nasal Cannula 06/14/22 20:22 36.6 C 81 16 116/66 97 Nasal Cannula O2 Flow Rate 06/15/22 07:20 1 06/15/22 03:00 1 06/14/22 23:58 1 06/14/22 20:45 2 06/14/22 20:22 1 PG Care Time/CCT Total # of Minutes Spent Total Time Spent with Patient: Total time spent is greater than 50% in coordination of care (as documented) at patient's floor/unit and/or counseling patient: Coding Level of Care Code 50387 Post Operative Follow-Up Diagnoses SBO (small bowel obstruction) K56.609
[2022-06-15] MEDS: TIMOLOL MALEATE 0.5% OP SOLN 5 ML BTL OP SCH (08:42)
[2022-06-15 09:00] LABS: BUN Creatinine Ratio 25.3 (10-20); Calcium 7.4 mg/dl (8.5-10.1); Creatinine Clr Calc Pharmacy 68.1 ml/min; Est GFR (African American) 86.1 ml/min; Est GFR (Non-African American) 74.3 ml/min; Phosphorus 2.6 mg/dl (2.5-4.9); Potassium 3.2 mmol/L (3.5-5.1)
[2022-06-15] MEDS ORDERED: POTASSIUM CHLORIDE 20 MEQ/15 ML UDC PO ONE (09:36)
[2022-06-15] MEDS: ENOXAPARIN INJ 40 MG/0.4 ML SYR SQ SCH (10:22)
[2022-06-15] MEDS: PANTOprazole 40 MG in SYRINGE 0 ML IV SCH (10:22)
--- NOTE | 2022-06-15 17:10 | Hospitalist Progress Note ---
Date of Service June 15, 2022 Assessment & Plan (1) SBO (small bowel obstruction): (2) Sepsis: (3) Lactic acidosis: (4) Elevated troponin: (5) Acute kidney injury superimposed on CKD: (6) Exertional dyspnea: (7) Chronic iron deficiency anemia: (8) GERD (gastroesophageal reflux disease): Plan Patient is a 71 yr female with H/O CKD III, GERD, IBS, chronic iron deficiency anemia presented to ER via EMS for abdominal pain, N/V started last night after dinner at 1900. Today with worsening abdominal pain, noted lethargy, AMS Septic shock Lactic acidosis Acute metabolic encephalopathy High-grade small bowel obstruction with bowel necrosis Sepsis secondary to SBO --Negative SARS-CoV-2 --CT head: No acute intracranial abnormality --CTA chest, abd/pelvis:Unremarkable CTA of the chest, abdomen and pelvis. Limited evaluation of the solid abdominal organs and bowel secondary to arterial phase of imaging and lack of enteric contrast. High-grade small bowel obstruction with several loops demonstrating circumferential wall thickening with associated intraluminal edema and small volume of abdominopelvic ascites. No pneumoperitoneum identified. Moderate sized hiatal hernia. --S/P Emergency exploratory laparotomy, small-bowel resection, FLORY drainage x1 --S/P Extubation on 06/12/22 --Pressors discontinued, NG tube discontinued --Blood Cultures: 04/09: Clostridium --Repeat Blood Cultures: No growth to date --Empirically on Vanco, Zosyn>>Zosyn Appreciate Men'S Basketball Coach/Surgery Help Continue wound care Surgery following BP much improved Decrease IV fluids Start on clear liquid diet Check chest x-ray, Procalcitonin given mild cough, persistent leukocytosis Elevated troponin: Type II NM secondary to above ECHO: Left ventricle is normal in size. Left ventricle systolic function is normal. EF 60 to 65%. Right ventricle systolic function is normal. Left atrial size is normal. Right atrial size is normal. No significant valvular pathology Monitor Hypokalemia Replete electrolytes as needed Monitor Acute kidney injury on CKD III Cr: 1.7>>1.1>0.79 Continue IV fluids Avoid nephrotoxic agents as able Exertional dyspnea: 03/2022 initial stress test nondiagnostic secondary to rapid heart rate blood pressure response and poor exercise tolerance. It was suspected HTN, elevated heart response may be contributed and patient was started on 12.5 mg metoprolol succinate twice daily. Repeat nuclear stress testing reported as no evidence of ischemia -- Restarted metoprolol given blood pressure improved Postoperative acute blood loss anemia Chronic iron deficiency anemia: Baseline Hb 11-12 per outpatient chart review S/P 1 unit PRBC Monitor CBC Hb 9.0 today GERD Continue PPI DVT Px: Lovenox SQ Code Status Full Code Admission and Anticipated Discharge Date Admission Date: June 11, 2022 Subjective Patient is seen and examined at bedside States having mild cough, abdominal discomfort associated with cough Tolerating liquid diet Had 2 bowel movements Denies any chest pain, shortness of breath, nausea, vomiting Review of Systems Review of Systems: All systems reviewed & are unremarkable except as noted in Subjective Physical Exam Physical Exam: Physical Exam: Vitals signs as noted above General Appearance:Moderately built and nourished, no apparent distress Head: normocephalic, Atraumatic Eyes: normal inspection, EOMI Neck: supple, Trachea midline Respiratory/Chest: Normal breath sounds, CTA, No accessory muscle use Cardiovascular: S1, S2, No murmur Abdomen/GI:Soft, Non tender, +Abd binder, Bowel sounds present Extremities/Musculoskeletal:normal inspection, no edema Neurologic/Psych:Drowsy, Oriented to person, grossly moves all extremities Skin: normal color, warm Results & Data Results & Data ([facility]) Vital Signs (Past 12 Hours) Vital Signs Temp Pulse Pulse Resp BP Pulse Ox O2 Del Method 06/15/22 15:46 84 06/15/22 15:21 36.4 C L 87 19 163/77 H 100 Nasal Cannula 06/15/22 09:00 Nasal Cannula 06/15/22 11:17 36.7 C 91 H 20 152/84 H 93 Nasal Cannula 06/15/22 07:44 92 H 06/15/22 07:20 36.5 C 74 19 170/92 H 98 Nasal Cannula O2 Flow Rate 06/15/22 15:46 06/15/22 15:21 06/15/22 09:00 2 06/15/22 11:17 1 06/15/22 07:44 06/15/22 07:20 1 Laboratory Results Short CBC 06/15/22 Range/Units 06:43 WBC 16.42 H (4.8-10.8) K/ul Hgb 9.0 L (12.0-16.0) g/dl Hct 26.7 L (37.0-47.0) % Plt Count 200 (130-400) K/uL BMP 06/15/22 06:43 Sodium 140 Potassium 3.2 L Chloride 112 H Carbon Dioxide 24 BUN 20 Creatinine 0.79 Glucose 107 H Calcium 7.4 L
[2022-06-15] MEDS: BIMATOPROST 0.01% OP SOLN 2.5 ML BTL OP SCH (21:30)
[2022-06-16] MEDS: ACETAMINOPHEN 1,000 MG/100 ML VIAL IV SCH ×2 (02:20→09:52)
[2022-06-16] MEDS: oxyCODONE HCL IR 5 MG TAB (IMMEDIATE RELEASE) PO PRN ×3 (03:46→20:05)
[2022-06-16] MEDS: METOPROLOL SUCC 25MG EXT REL TAB PO SCH ×2 (05:09→20:06)
[2022-06-16 06:26] LABS: Hematocrit (blood only) 26.4 % (37.0-47.0); Hemoglobin 8.9 g/dl (12.0-16.0); Mean Corpuscular Hemoglobin 31.4 pg (25.0-34.0); Mean Corpuscular Hgb Conc 33.7 g/dL (32.0-36.0); Mean Corpuscular Volume 93.3 fL (80.0-100.0); Platelet Count 208 K/uL (130-400); RDW Coefficient of Variation 15.8 % (11.5-14.5); RDW Standard Deviation 54.1 fL (36.4-46.3); Red Blood Count 2.83 M/uL (4.20-5.40); White Blood Count 15.13 K/ul (4.8-10.8)
[2022-06-16 06:43] LABS: BUN Creatinine Ratio 21.9 (10-20); Calcium 7.4 mg/dl (8.5-10.1); Est GFR (African American) 102.6 ml/min; Est GFR (Non-African American) 88.5 ml/min; Phosphorus 3.3 mg/dl (2.5-4.9); Potassium 3.3 mmol/L (3.5-5.1)
--- NOTE | 2022-06-16 07:41 | XRay Report ---
SINGLE VIEW CHEST CLINICAL HISTORY: Cough FINDINGS: An AP, portable, upright chest radiograph is compared to chest x-ray and chest CT dated 06/11. Endotracheal and enteric tubes have been removed. The heart is enlarged. There is mild pulmona ry vascular congestion. Chronic interstitial thickening is similar to previous. There are layering pl eural effusions, right larger than left with bibasilar consolidation. No pneumothorax is seen. The sk eletal structures are osteopenic. The bony thorax is grossly intact. IMPRESSION: 1. Cardiomegaly with mild pulmonary vascular congestion. 2. Layering pleural effusions with dependent consolidation. These are new from 06/11/2022. ACT 112: Negative or not required by law. Electronically signed by: Antonio Bertrand M.D. 06/16/2022 7:40 AM
[2022-06-16] MEDS: PIPERACILLIN/TAZOBACTAM 4.5 GM in DEXTROSE 5% 100 ML IV SCH ×3 (08:09→23:06)
[2022-06-16] MEDS: TIMOLOL MALEATE 0.5% OP SOLN 5 ML BTL OP SCH (08:10)
[2022-06-16] MEDS ORDERED: D5W AND 1/2NSS + 20MEQ KCL 20 MEQ/1,000 ML BAG IV SCH (08:45)
[2022-06-16] MEDS ORDERED: POTASSIUM CHLORIDE 20 MEQ/15 ML UDC PO STA (09:15)
[2022-06-16] MEDS ORDERED: OPTIRAY 350 100ml IV ONE (10:39)
[2022-06-16] MEDS: ENOXAPARIN INJ 40 MG/0.4 ML SYR SQ SCH (12:10)
[2022-06-16] MEDS: PANTOprazole 40 MG in SYRINGE 0 ML IV SCH (12:10)
--- NOTE | 2022-06-16 13:00 | CT Scan Report ---
CT OF THE ABDOMEN AND PELVIS WITH CONTRAST CLINICAL HISTORY: H/O SBO, Persistent Leukocytosis, R/O abscess COMPARISON STUDY: CTA of the abdomen and pelvis June 11, 2022 TECHNIQUE: Following IV administration of 90 mL of Optiray, axial images of the abdomen and pelvis we re obtained from the lung bases to the proximal femurs. Images were reviewed in the axial, sagittal, and coronal planes. IV contrast was administered without complication. Automated exposure control wa s utilized for the study. A dose lowering technique was utilized adhering to the principles of ALARA . CT DOSE: 947.52 mGycm FINDINGS: Small to moderate bilateral pleural effusions are partially imaged. Extensive associated lo wer lobe airspace opacities are noted. No pneumatosis, free air or portal venous gas is present. Mode rate gallbladder distention has increased. There is minimal stranding adjacent to the gallbladder and the second portion of the duodenum. There is mild wall thickening of the second portion of the duode num. There is no biliary or pancreatic ductal dilatation. Spleen, adrenal glands, kidneys and pancrea s are normal. There is no hydronephrosis. Interval small bowel resection is noted. There is no eviden ce for a residual small bowel obstruction. Surgical drain is in place. No drainable fluid collection is present. There is a small right pelvic fluid collection with mild peripheral enhancement on axial image 339 of 501 that measures 4.3 x 2.5 cm. No additional fluid collections are present. There is me senteric stranding and a small amount of ascites within the abdomen and pelvis. Wall thickening of a small bowel loop within the left lower quadrant on axial image 293 is noted. This is nonspecific. Farhan or vasculature is patent. Merchant balloon and gas within the bladder present. Mild rectal wall thickeni ng is noted. While wall thickening of the descending colon is likely due to underdistention. There is anasarca. IMPRESSION: 1. Interval small bowel resection. No residual small bowel obstruction. No drainable collection. Smal l right pelvic fluid collection which measures 4.3 x 2.5 cm. This could reflect loculated ascites or a small developing abscess. 2. Moderate wall thickening of a small bowel loop within left lower quadrant. This is nonspecific in the early postoperative setting. Mesenteric stranding and a small amount of abdominal and pelvic asci [place]. 3. Small moderate bilateral pleural effusions with extensive bilateral lower lobe airspace opacities. These could reflect atelectasis or pneumonia. 4. Moderate gallbladder distention. If right upper quadrant pain, ultrasound is recommended to evalua te for cholecystitis. 5. Mild wall thickening of the duodenum. This could reflect duodenitis. 6. Colorectal wall thickening, likely due to underdistention. ACT 112: Negative or not required by law. Electronically signed by: Tristian Dean M.D. 06/16/2022 12:59 PM
--- NOTE | 2022-06-16 14:03 | Hospitalist Progress Note ---
Date of Service June 16, 2022 Assessment & Plan (1) SBO (small bowel obstruction): (2) Sepsis: (3) Lactic acidosis: (4) Elevated troponin: (5) Acute kidney injury superimposed on CKD: (6) Exertional dyspnea: (7) Chronic iron deficiency anemia: (8) GERD (gastroesophageal reflux disease): Plan Patient is a 71 yr female with possible developing CKD III, GERD, IBS, chronic iron deficiency anemia presented to ER via EMS for abdominal pain, N/V started last night after dinner at 1900. Today with worsening abdominal pain, noted lethargy, AMS Septic shock Lactic acidosis Acute metabolic encephalopathy High-grade small bowel obstruction with bowel necrosis Sepsis secondary to SBO --Negative SARS-CoV-2 --CT head: No acute intracranial abnormality --CTA chest, abd/pelvis:Unremarkable CTA of the chest, abdomen and pelvis. Limited evaluation of the solid abdominal organs and bowel secondary to arterial phase of imaging and lack of enteric contrast. High-grade small bowel obstruction with several loops demonstrating circumferential wall thickening with associated intraluminal edema and small volume of abdominopelvic ascites. No pneumoperitoneum identified. Moderate sized hiatal hernia. --S/P Emergency exploratory laparotomy, small-bowel resection, FLORY drainage x1 --S/P Extubation on 06/12/22 --Pressors discontinued, NG tube discontinued --Blood Cultures: 04/09: Clostridium septicum --Repeat Blood Cultures: No growth to date --Empirically on Vanco, Zosyn>>Zosyn (will need 2-week course of antibiotics given Clostridium septicum in 1of 4 blood culture) Appreciate Grocery Clerk Marking/Surgery Help Continue wound care Surgery following BP stable Hold IV fluids as developing volume overload On clear liquid diet Plan to transition Zosyn to Augmentin as able Repeat CT ABD suggestive of possible developing this small abdominal abscess. Moderate gallbladder distention and possible duodenitis Will obtain gallbladder ultrasound Check stool for C. difficile Elevated troponin: Type II OH secondary to above ECHO: Left ventricle is normal in size. Left ventricle systolic function is normal. EF 60 to 65%. Right ventricle systolic function is normal. Left atrial size is normal. Right atrial size is normal. No significant valvular pathology Monitor Hypokalemia Replete electrolytes as needed Monitor Acute kidney injury on CKD III Cr: 1.7>>1.1>0.85 Received IV fluids Avoid nephrotoxic agents as able Exertional dyspnea: 03/2022 initial stress test nondiagnostic secondary to rapid heart rate blood pressure response and poor exercise tolerance. It was suspected HTN, elevated heart response may be contributed and patient was started on 12.5 mg metoprolol succinate twice daily. Repeat nuclear stress testing reported as no evidence of ischemia -- Restarted metoprolol given blood pressure improved Postoperative acute blood loss anemia Chronic iron deficiency anemia: Baseline Hb 11-12 per outpatient chart review S/P 1 unit PRBC Monitor CBC Hb 8.9 today GERD Continue PPI DVT Px: Lovenox SQ Code Status Full Code Admission and Anticipated Discharge Date Admission Date: June 11, 2022 Subjective Patient is seen and examined at bedside Increased abdominal pain when compared to yesterday Also states having diarrhea We will obtain repeat CT abdomen today Denies any chest pain, shortness of breath, nausea, vomiting Review of Systems Review of Systems: All systems reviewed & are unremarkable except as noted in Subjective Physical Exam Physical Exam: Physical Exam: Vitals signs as noted above General Appearance:Moderately built and nourished, no apparent distress Head: normocephalic, Atraumatic Eyes: normal inspection, EOMI Neck: supple, Trachea midline Respiratory/Chest: Normal breath sounds, CTA, No accessory muscle use Cardiovascular: S1, S2, No murmur Abdomen/GI:Soft, tender, +Abd binder, Bowel sounds present Extremities/Musculoskeletal:normal inspection, no edema Neurologic/Psych:Drowsy, Oriented to person, grossly moves all extremities Skin: normal color, warm Results & Data Results & Data ([facility]) Vital Signs (Past 12 Hours) Vital Signs Temp Pulse Pulse Resp BP Pulse Ox O2 Del Method 06/16/22 11:35 36.8 C 71 16 133/78 96 Nasal Cannula 06/16/22 07:35 77 06/16/22 11:25 Room Air 06/16/22 07:33 36.9 C 75 16 140/65 99 Room Air 06/16/22 06:06 72 130/68 06/16/22 03:22 36.9 C 81 18 182/97 H 99 Nasal Cannula O2 Flow Rate 06/16/22 11:35 2 06/16/22 07:35 06/16/22 11:25 06/16/22 07:33 06/16/22 06:06 06/16/22 03:22 2 Laboratory Results Short CBC 06/16/22 Range/Units 05:59 WBC 15.13 H (4.8-10.8) K/ul Hgb 8.9 L (12.0-16.0) g/dl Hct 26.4 L (37.0-47.0) % Plt Count 208 (130-400) K/uL [facility] 06/16/22 05:59 Sodium 138 Potassium 3.3 L Chloride 110 H Carbon Dioxide 24 BUN 14 Creatinine 0.64 Glucose 96 Calcium 7.4 L
[2022-06-16] MEDS: ADVANCED PROBIOTIC 1250 MG CAPSULE PO SCH (14:22)
--- NOTE | 2022-06-16 15:17 | Surgery Progress Note ---
Date of Service June 16, 2022 Assessment & Plan (1) SBO (small bowel obstruction): Plan: POD # 2 s/p ex lap, small bowel resection 160 cm for ischemic bowel - afebrile - hemodynamically stable - minimal NGT output - drain serosanguineous Plan: Continue pain management as needed, Will schedule the IV tylenol and continue IV Dilaudid for breakthrough pain Continue IV Zosyn Continue jessica drain to bulb suction abdominal binder repeat am labs Continue scds , start 40 mg Lovenox sq today for dvt prophylaxis Continue Protonix Will remove NGT today given low output May start clears tomorrow. IF does not tolerate clears may need to start TPN give risk of short gut syndrome PT/OT consults Okay to downgrade out of ICU Dr. Stone has seen and examined patient, agrees with above. 06/16/2022 3:[address] Stone POD # 5 s/p ex lap, small bowel resection 160 cm for ischemic bowel - afebrile - WBC 15,000,. -some diarrhea, check C-Diff, - I update about OR finding and the procedure pt had to pt and her . - soft diet, - CONTINUE TREATMENT -OOB -repeat labs in morning - Hold CT scan now, -will F/U, Admission and Anticipated Discharge Date Admission Date: June 11, 2022 Subjective Patient is seen and examined at bedside Increased abdominal pain when compared to yesterday Also states having diarrhea We will obtain repeat CT abdomen today Denies any chest pain, shortness of breath, nausea, vomiting 06/16/2022 3:[address] Stone doing better, some abdominal pain and diarrhea, tolerated clear diet, no fever, JESSICA 60ml Physical Exam Eyes: PERRL, conjunctivae normal, anicteric sclerae Neck: trachea midline, no thyromegaly Cardiovascular: RRR, no murmur, no edema Gastrointestinal (Abdomen): mild tenderness at incision site, no rebound pain, no distend, JESSICA minimal, BS +, Musculoskeletal: no cyanosis or clubbing, extremities motor strength 5/5 Neurologic: patellar DTR's 2+ bilat, sensation intact Psychiatric: A+Ox3, euthymic affect Results & Data ([facility] [place]) Vital Signs (Past 12 Hours) Vital Signs Temp Pulse Pulse Resp BP Pulse Ox O2 Del Method 06/16/22 11:35 36.8 C 71 16 133/78 96 Nasal Cannula 06/16/22 07:35 77 06/16/22 11:25 Room Air 06/16/22 07:33 36.9 C 75 16 140/65 99 Room Air 06/16/22 06:06 72 130/68 06/16/22 03:22 36.9 C 81 18 182/97 H 99 Nasal Cannula O2 Flow Rate 06/16/22 11:35 2 06/16/22 07:35 06/16/22 11:25 06/16/22 07:33 06/16/22 06:06 06/16/22 03:22 2 Laboratory Results Abnormal lab results 06/16/22 06/16/22 06/16/22 Range/Units 05:59 05:59 05:59 WBC 15.13 H (4.8-10.8) K/ul RBC 2.83 L (4.20-5.40) M/uL Hgb 8.9 L (12.0-16.0) g/dl Hct 26.4 L (37.0-47.0) % RDW Std Deviation 54.1 H (36.4-46.3) fL RDW Coeff of Lei 15.8 H (11.5-14.5) % Potassium 3.3 L (3.5-5.1) mmol/L Chloride 110 H (98-107) mmol/L BUN/Creatinine Ratio 21.9 H (10-20) Calcium 7.4 L (8.5-10.1) mg/dl Procalcitonin 2.95 H (0-0.5) ng/ml
[2022-06-16] MEDS: BIMATOPROST 0.01% OP SOLN 2.5 ML BTL OP SCH (20:07)
[2022-06-17 06:32] LABS: Basophils # (auto) 0.05 K/uL (0-0.2); Basophils % (auto) 0.3 %; Eosinophils # (auto) 0.24 K/uL (0-0.50); Eosinophils % (auto) 1.4 %; Hemoglobin 9.3 g/dl (12.0-16.0); Immature Granulocytes # (auto) 0.82 K/uL (0.01-0.20); Immature Granulocytes % (auto) 4.9 %; Lymphocytes # (auto) 1.73 K/uL (1.2-3.4); Lymphocytes % (auto) 10.4 %; Mean Corpuscular Hemoglobin 31.5 pg (25.0-34.0); Mean Corpuscular Hgb Conc 34.4 g/dL (32.0-36.0); Mean Corpuscular Volume 91.5 fL (80.0-100.0); Mean Platelet Volume 10.1 fL (9.4-12.4); Monocytes # (auto) 1.54 K/uL (0.11-0.59); Monocytes % (auto) 9.2 %; Neutrophils # (auto) 12.29 K/uL (1.40-6.50); Neutrophils % (auto) 73.8 %; Nucleated RBC # (auto) 0.02 K/uL (0-0.12); Nucleated RBC % (auto) 0.1 %; Platelet Count 261 K/uL (130-400); RDW Coefficient of Variation 15.7 % (11.5-14.5); RDW Standard Deviation 52.6 fL (36.4-46.3); Red Blood Count 2.95 M/uL (4.20-5.40); White Blood Count 16.67 K/ul (4.8-10.8)
[2022-06-17 06:33] LABS: Magnesium 1.9 mg/dl (1.7-2.4); Phosphorus 3.3 mg/dl (2.5-4.9)
--- NOTE | 2022-06-17 08:29 | Ultrasound Report ---
US gallbladder CLINICAL HISTORY: Moderate gallbladder distention on CT TECHNIQUE: Multiple real-time sonographic images of the right upper quadrant were obtained. Comparison: Comparison is made to CT abdomen pelvis 06/16/2022 FINDINGS: The liver is diffusely homogenous with normal contour and echogenicity. No focal mass lesions are see n. No intrahepatic ductal dilatation is seen. Low level internal echoes are identified layering d ependently within the gallbladder, which is consistent with gallbladder sludge. The gallbladder wall is not thickened. There is no pericholecystic fluid present. A sonographic Alegre's sign was not johnny cited by the band cutting machine operator. The common duct measures 0.4 cm in diameter at the level of the hepatic a rtery. The visualized portions of the pancreas appear normal. The right kidney shows normal echogenicity, cortical thickness and renal contour. The right kidney sh ows no evidence of hydronephrosis or mass. No ascites or free fluid is seen in Chavez's pouch. IMPRESSION: No acute abnormalities and in particular no evidence of acute cholecystitis. ACT 112: Negative or not required by law. Electronically signed by: Neeraj Franco M.D. 06/17/2022 8:27 AM
[2022-06-17] MEDS: PIPERACILLIN/TAZOBACTAM 4.5 GM in DEXTROSE 5% 100 ML IV SCH (08:52)
[2022-06-17] MEDS: METOPROLOL SUCC 25MG EXT REL TAB PO SCH ×2 (08:53→20:04)
[2022-06-17] MEDS: ADVANCED PROBIOTIC 1250 MG CAPSULE PO SCH (08:54)
[2022-06-17] MEDS: TIMOLOL MALEATE 0.5% OP SOLN 5 ML BTL OP SCH (08:54)
[2022-06-17] MEDS ORDERED: POTASSIUM CHLORIDE 20 MEQ/15 ML UDC PO ONE (09:15)
--- NOTE | 2022-06-17 09:22 | Surgery Progress Note ---
Date of Service June 17, 2022 Assessment & Plan (1) SBO (small bowel obstruction): Plan: POD # 2 s/p ex lap, small bowel resection 160 cm for ischemic bowel - afebrile - hemodynamically stable - minimal NGT output - drain serosanguineous Plan: Continue pain management as needed, Will schedule the IV tylenol and continue IV Dilaudid for breakthrough pain Continue IV Zosyn Continue jessica drain to bulb suction abdominal binder repeat am labs Continue scds , start 40 mg Lovenox sq today for dvt prophylaxis Continue Protonix Will remove NGT today given low output May start clears tomorrow. IF does not tolerate clears may need to start TPN give risk of short gut syndrome PT/OT consults Okay to downgrade out of ICU Dr. Stone has seen and examined patient, agrees with above. 06/16/2022 3:[address] Stone POD # 5 s/p ex lap, small bowel resection 160 cm for ischemic bowel - afebrile - WBC 15,000,. -some diarrhea, check C-Diff, - I update about OR finding and the procedure pt had to pt and her . - soft diet, - CONTINUE TREATMENT -OOB -repeat labs in morning - Hold CT scan now, -will F/U, 06/17/2022 9: [address] Stone POD # 6 s/p ex lap, small bowel resection 160 cm for ischemic bowel - afebrile - WBC 16,000,. -some diarrhea, check C-Diff negative, - D/C hurd catheter, - U/A, JESSICA fluid gram stain + culture - soft diet, - CONTINUE TREATMENT -OOB - D/C zosyn, change to cipro + flagyl, -repeat labs in morning -will F/U, Admission and Anticipated Discharge Date Admission Date: June 11, 2022 Subjective Patient is seen and examined at bedside Increased abdominal pain when compared to yesterday Also states having diarrhea We will obtain repeat CT abdomen today Denies any chest pain, shortness of breath, nausea, vomiting 06/16/2022 3:[address] Stone doing better, some abdominal pain and diarrhea, tolerated clear diet, no fever, JESSICA 60ml 06/17/2022 9:[address] Stone F/U S/P resection small bowel, POD 6 doing fine, tolerated clear diet, diarrhea 3-4 times a day, C-diff negative, reviewed CT scan and U/S, JESSICA 80 ml clear color, Physical Exam Eyes: PERRL, conjunctivae normal, anicteric sclerae Neck: trachea midline, no thyromegaly Cardiovascular: RRR, no murmur, no edema Gastrointestinal (Abdomen): soft, mild tenderness at incision site, no rebound pain, the incision intact, no redness, no drainage, BS +, Musculoskeletal: no cyanosis or clubbing, extremities motor strength 5/5 Neurologic: patellar DTR's 2+ bilat, sensation intact Psychiatric: A+Ox3, euthymic affect Results & Data ([facility] [place]) Vital Signs (Past 12 Hours) Vital Signs Temp Pulse Pulse Resp BP BP Pulse Ox 06/17/22 08:00 37.0 C 89 18 140/70 96 06/17/22 03:57 37.0 C 71 18 145/77 H 95 06/16/22 22:02 69 06/16/22 22:59 36.4 C L 69 18 143/74 H 96 O2 Del Method O2 Flow Rate 06/17/22 08:00 Room Air 06/17/22 03:57 Nasal Cannula 2.0 06/16/22 22:02 06/16/22 22:59 Nasal Cannula 2.0 Laboratory Results Abnormal lab results 06/17/22 Range/Units 05:58 WBC 16.67 H (4.8-10.8) K/ul RBC 2.95 L (4.20-5.40) M/uL Hgb 9.3 L (12.0-16.0) g/dl Hct 27.0 L (37.0-47.0) % RDW Std Deviation 52.6 H (36.4-46.3) fL RDW Coeff of Lei 15.7 H (11.5-14.5) % Neut # (Auto) 12.29 H (1.40-6.50) K/uL [place] # (Auto) 1.54 H (0.11-0.59) K/uL Immature Gran # (Auto) 0.82 H (0.01-0.20) K/uL Diagnostic Findings CT OF THE ABDOMEN AND PELVIS WITH CONTRAST CLINICAL HISTORY: H/O SBO, Persistent Leukocytosis, R/O abscess COMPARISON STUDY: CTA of the abdomen and pelvis June 11, 2022 TECHNIQUE: Following IV administration of 90 mL of Optiray, axial images of the abdomen and pelvis were obtained from the lung bases to the proximal femurs. Images were reviewed in the axial, sagittal, and coronal planes. IV contrast was administered without complication. Automated exposure control was utilized for the study. A dose lowering technique was utilized adhering to the principles of ALARA. CT DOSE: 947.52 mGycm FINDINGS: Small to moderate bilateral pleural effusions are partially imaged. Extensive associated lower lobe airspace opacities are noted. No pneumatosis, free air or portal venous gas is present. Moderate gallbladder distention has increased. There is minimal stranding adjacent to the gallbladder and the second portion of the duodenum. There is mild wall thickening of the second portion of the duodenum. There is no biliary or pancreatic ductal dilatation. Spleen, adrenal glands, kidneys and pancreas are normal. There is no hydronephrosis. Interval small bowel resection is noted. There is no evidence for a residual small bowel obstruction. Surgical drain is in place. No drainable fluid collection is present. There is a small right pelvic fluid collection with mild peripheral enhancement on axial image 339 of 501 that measures 4.3 x 2.5 cm. No additional fluid collections are present. There is mesenteric stranding and a small amount of ascites within the abdomen and pelvis. Wall thickening of a small bowel loop within the left lower quadrant on axial image 293 is noted. This is nonspecific. Major vasculature is patent. Hurd balloon and gas within the bladder present. Mild rectal wall thickening is noted. While wall thickening of the descending colon is likely due to underdistention. There is anasarca. IMPRESSION: 1. Interval small bowel resection. No residual small bowel obstruction. No drainable collection. Small right pelvic fluid collection which measures 4.3 x 2.5 cm. This could reflect loculated ascites or a small developing abscess. 2. Moderate wall thickening of a small bowel loop within left lower quadrant. This is nonspecific in the early postoperative setting. Mesenteric stranding and a small amount of abdominal and pelvic ascites. 3. Small moderate bilateral pleural effusions with extensive bilateral lower lobe airspace opacities. These could reflect atelectasis or pneumonia. 4. Moderate gallbladder distention. If right upper quadrant pain, ultrasound is recommended to evaluate for cholecystitis. 5. Mild wall thickening of the duodenum. This could reflect duodenitis. 6. Colorectal wall thickening, likely due to underdistention. US gallbladder CLINICAL HISTORY: Moderate gallbladder distention on CT TECHNIQUE: Multiple real-time sonographic images of the right upper quadrant were obtained. Comparison: Comparison is made to CT abdomen pelvis 06/16/2022 FINDINGS: The liver is diffusely homogenous with normal contour and echogenicity. No focal mass lesions are seen. No intrahepatic ductal dilatation is seen. Low level internal echoes are identified layering dependently within the gallbladder, which is consistent with gallbladder sludge. The gallbladder wall is not thickened. There is no pericholecystic fluid present. A sonographic Alegre's sign was not elicited by the boring mill set up operator vertical. The common duct measures 0.4 cm in diameter at the level of the hepatic artery. The visualized portions of the pancreas appear normal. The right kidney shows normal echogenicity, cortical thickness and renal contour. The right kidney shows no evidence of hydronephrosis or mass. No ascites or free fluid is seen in Chavez's pouch. IMPRESSION: No acute abnormalities and in particular no evidence of acute cholecystitis.
[2022-06-17] MEDS: metroNIDAZOLE 500 MG/100 ML BAG IV SCH ×2 (10:21→18:32)
[2022-06-17] MEDS: CIPROFLOXACIN / D5W 400 MG/200 ML BAG IV SCH ×2 (10:30→21:44)
[2022-06-17] MEDS: ENOXAPARIN INJ 40 MG/0.4 ML SYR SQ SCH (12:15)
[2022-06-17 12:41] LABS: Appearance Urine Clear (Clear); Bacteria Urine Automated Negative (Negative); Bilirubin Urine Negative (Negative); Blood Urine Trace (Negative); Cast Urine Automated 0 /lpf (0-5); Color Urine Yellow; Epithelial Cell Urine Auto 0-5 /lpf (0-5); Glucose Urine UA Negative (Negative); Ketones Urine Negative (Negative); Leukocyte Esterase Urine Negative (Negative); Nitrite Urine Negative (Negative); Protein Urine Negative (Negative); RBC Urine Automated 0-4 /hpf (0-4); Specific Gravity Urine 1.007 (1.000-1.030); Urobilinogen Urine Negative (Negative); WBC Urine Automated 0 /hpf (0-5)
--- NOTE | 2022-06-17 14:02 | Hospitalist Progress Note ---
Date of Service June 17, 2022 Assessment & Plan (1) SBO (small bowel obstruction): (2) Sepsis: (3) Lactic acidosis: (4) Elevated troponin: (5) Acute kidney injury superimposed on CKD: (6) Exertional dyspnea: (7) Chronic iron deficiency anemia: (8) GERD (gastroesophageal reflux disease): Plan Patient is a 71 yr female with possible developing CKD III, GERD, IBS, chronic iron deficiency anemia presented to ER via EMS for abdominal pain, N/V started last night after dinner at 1900. Today with worsening abdominal pain, noted lethargy, AMS Septic shock Lactic acidosis Acute metabolic encephalopathy High-grade small bowel obstruction with bowel necrosis Sepsis secondary to SBO --Negative SARS-CoV-2 --CT head: No acute intracranial abnormality --CTA chest, abd/pelvis:Unremarkable CTA of the chest, abdomen and pelvis. Limited evaluation of the solid abdominal organs and bowel secondary to arterial phase of imaging and lack of enteric contrast. High-grade small bowel obstruction with several loops demonstrating circumferential wall thickening with associated intraluminal edema and small volume of abdominopelvic ascites. No pneumoperitoneum identified. Moderate sized hiatal hernia. --S/P Emergency exploratory laparotomy, small-bowel resection, FLORY drainage x1 --S/P Extubation on 06/12/22 --Repeat CT ABD suggestive of possible developing this small abdominal abscess. Moderate gallbladder distention and possible duodenitis --Gallbladder ultrasound:No acute abnormalities and in particular no evidence of acute cholecystitis. --Pressors discontinued, NG tube discontinued --Blood Cultures: 04/09: Clostridium septicum --Repeat Blood Cultures: No growth to date --Empirically on Vanco, Zosyn>>Zosyn>> changed to Cipro, Flagyl by surgery Will need atleast 2-week course of antibiotics given Clostridium septicum in 1of 4 blood culture) Appreciate Special Projects Manager/Surgery Help Continue wound care Surgery following BP stable Hold IV fluids as developing volume overload stool for C. difficile: Negative Advanced to regular diet today Persistent leukocytosis Elevated troponin: Type II OK secondary to above ECHO: Left ventricle is normal in size. Left ventricle systolic function is normal. EF 60 to 65%. Right ventricle systolic function is normal. Left atrial size is normal. Right atrial size is normal. No significant valvular pathology Monitor Hypokalemia Replete electrolytes as needed Monitor Acute kidney injury on CKD III Cr: 1.7>>1.1>0.85>0.64 Received IV fluids Avoid nephrotoxic agents as able Monitor renal function Exertional dyspnea: 03/2022 initial stress test nondiagnostic secondary to rapid heart rate blood pressure response and poor exercise tolerance. It was suspected HTN, elevated heart response may be contributed and patient was started on 12.5 mg metoprolol succinate twice daily. Repeat nuclear stress testing reported as no evidence of ischemia -- Restarted metoprolol given blood pressure improved Postoperative acute blood loss anemia Chronic iron deficiency anemia: Baseline Hb 11-12 per outpatient chart review S/P 1 unit PRBC Monitor CBC Hb 9.3 today GERD Continue PPI DVT Px: Lovenox SQ Code Status Full Code Admission and Anticipated Discharge Date Admission Date: June 11, 2022 Subjective Patient is seen and examined at bedside Decreased abdominal pain today Diarrhea slowly improving Denies any chest pain, shortness of breath, nausea, vomiting Afebrile No other complaints Review of Systems Review of Systems: All systems reviewed & are unremarkable except as noted in Subjective Physical Exam Physical Exam: Physical Exam: Vitals signs as noted above General Appearance:Moderately built and nourished, no apparent distress Head: normocephalic, Atraumatic Eyes: normal inspection, EOMI Neck: supple, Trachea midline Respiratory/Chest: Normal breath sounds, CTA, No accessory muscle use Cardiovascular: S1, S2, No murmur Abdomen/GI:Soft, tender, +Abd binder, Bowel sounds present Extremities/Musculoskeletal:normal inspection, no edema Neurologic/Psych:Drowsy, Oriented to person, grossly moves all extremities Skin: normal color, warm Results & Data Results & Data ([facility]) Vital Signs (Past 12 Hours) Vital Signs Temp Pulse Resp BP BP Pulse Ox O2 Del Method 06/17/22 12:00 36.8 C 84 20 135/79 98 Nasal Cannula 06/17/22 08:00 37.0 C 89 18 140/70 96 Room Air 06/17/22 03:57 37.0 C 71 18 145/77 H 95 Nasal Cannula O2 Flow Rate 06/17/22 12:00 2 06/17/22 08:00 06/17/22 03:57 2.0 Laboratory Results Short CBC 06/17/22 Range/Units 05:58 WBC 16.67 H (4.8-10.8) K/ul Hgb 9.3 L (12.0-16.0) g/dl Hct 27.0 L (37.0-47.0) % Plt Count 261 (130-400) K/uL Urine 06/17/22 Range/Units 12:28 Urine Color Yellow Urine Appearance Clear (Clear) Urine pH 7.0 (4.5-7.5) Ur Specific [place] 1.007 (1.000-1.030) Urine Protein Negative (Negative) Urine Glucose (UA) Negative (Negative)
[2022-06-17] MEDS: oxyCODONE HCL IR 5 MG TAB (IMMEDIATE RELEASE) PO PRN (20:02)
[2022-06-17] MEDS: BIMATOPROST 0.01% OP SOLN 2.5 ML BTL OP SCH (20:04)
[2022-06-18] MEDS: metroNIDAZOLE 500 MG/100 ML BAG IV SCH ×3 (00:54→16:30)
[2022-06-18 06:35] LABS: Hematocrit (blood only) 25.7 % (37.0-47.0); Hemoglobin 8.7 g/dl (12.0-16.0); Mean Corpuscular Hgb Conc 33.9 g/dL (32.0-36.0); Mean Corpuscular Volume 91.5 fL (80.0-100.0); Nucleated RBC # (auto) 0.02 K/uL (0-0.12); Nucleated RBC % (auto) 0.1 %; Platelet Count 289 K/uL (130-400); RDW Coefficient of Variation 15.5 % (11.5-14.5); RDW Standard Deviation 51.7 fL (36.4-46.3); Red Blood Count 2.81 M/uL (4.20-5.40); White Blood Count 16.74 K/ul (4.8-10.8)
[2022-06-18 06:52] LABS: BUN Creatinine Ratio 17.5 (10-20); Calcium 7.6 mg/dl (8.5-10.1); Creatinine Clr Calc Pharmacy 95.9 ml/min; Est GFR (African American) 106.6 ml/min; Magnesium 1.9 mg/dl (1.7-2.4); Phosphorus 3.4 mg/dl (2.5-4.9); Potassium 3.6 mmol/L (3.5-5.1)
[2022-06-18 07:01] LABS: Basophils # (auto) 0.05 K/uL (0-0.2); Basophils % (auto) 0.3 %; Eosinophils # (auto) 0.11 K/uL (0-0.50); Eosinophils % (auto) 0.7 %; Immature Granulocytes # (auto) 1.02 K/uL (0.01-0.20); Immature Granulocytes % (auto) 6.1 %; Lymphocytes % (auto) 10.8 %; Monocytes # (auto) 1.13 K/uL (0.11-0.59); Monocytes % (auto) 6.8 %; Neutrophils # (auto) 12.63 K/uL (1.40-6.50); Neutrophils % (auto) 75.3 %
[2022-06-18] MEDS: CIPROFLOXACIN / D5W 400 MG/200 ML BAG IV SCH ×2 (08:52→20:22)
[2022-06-18] MEDS: ADVANCED PROBIOTIC 1250 MG CAPSULE PO SCH (08:57)
[2022-06-18] MEDS: TIMOLOL MALEATE 0.5% OP SOLN 5 ML BTL OP SCH (08:57)
[2022-06-18] MEDS: METOPROLOL SUCC 25MG EXT REL TAB PO SCH ×2 (08:58→20:18)
[2022-06-18] MEDS: ENOXAPARIN INJ 40 MG/0.4 ML SYR SQ SCH (10:28)
[2022-06-18] MEDS ORDERED: FUROSEMIDE INJ 20 MG/2 ML VIAL IV ONE (11:47)
[2022-06-18] MEDS ORDERED: POTASSIUM CHLORIDE CRTAB 20 MEQ TABCR PO STA (11:47)
--- NOTE | 2022-06-18 11:48 | Hospitalist Progress Note ---
Date of Service June 18, 2022 Assessment & Plan (1) SBO (small bowel obstruction): (2) Sepsis: (3) Lactic acidosis: (4) Elevated troponin: (5) Acute kidney injury superimposed on CKD: (6) Exertional dyspnea: (7) Chronic iron deficiency anemia: (8) GERD (gastroesophageal reflux disease): (9) Arthritis of right knee: Plan Patient is a 71 yr female with CKD III, GERD, IBS, chronic iron deficiency anemia presented to ER via EMS for abdominal pain, N/V that began just prior to arrival. She was in septic shock on admission with acute metabolic encephalopathy. Sepsis was secondary to acute bowel ischemia with an SBO and bowel necrosis. --Negative SARS-CoV-2 --CT head: No acute intracranial abnormality --CTA chest, abd/pelvis:Unremarkable CTA of the chest, abdomen and pelvis. Limited evaluation of the solid abdominal organs and bowel secondary to arterial phase of imaging and lack of enteric contrast. High-grade small bowel obstruction with several loops demonstrating circumferential wall thickening with associated intraluminal edema and small volume of abdominopelvic ascites. No pneumoperitoneum identified. Moderate sized hiatal hernia. --S/PEmergency exploratory laparotomy on by Dr. Stone s/p small-bowel resection, FLORY drainage x1 --S/P Extubation on 06/12/22 --Repeat CT ABD on 06/16 suggestive of possible developing this small abdominal abscess. Moderate gallbladder distention and possible duodenitis --Gallbladder ultrasound on 06/16:No acute abnormalities and in particular no evidence of acute cholecystitis. --Pressors discontinued, NG tube discontinued --Blood Cultures (06/11): 04/09: Clostridium septicum --Repeat Blood Cultures: No growth to date --Empirically on Vanco, Zosyn>>Zosyn>> changed to Cipro, Flagyl by surgery Will need at least 2-week course of antibiotics given Clostridium septicum in blood culture, but will request formal ID consult for recs, especially given the residual/new developing intra-abdominal abscess. IVF were held for concerns of volume overload, this was supported by new pleural effusions seen on chest imaging. Small dose IV lasix given today (06/18) -some diarrhea with abx, stool for C. difficile: Negative -Persistent leukocytosis may be related to persistent abscess vs inflammation of her knee vs other. -tolerating solid food. Elevated troponin: likely demand ischemia in setting of sepsis. ECHO: Left ventricle is normal in size. Left ventricle systolic function is normal. EF 60 to 65%. Right ventricle systolic function is normal. Left atrial size is normal. Right atrial size is normal. No significant valvular pathology -no further cardiac workup is felt to be needed at this time. Acute kidney injury on CKD III Cr: 1.7>>1.1>0.85>0.64 resolved wtih IVF Avoid nephrotoxic agents as able, but we do need a short burst of NSAIDs to help with OA flare of right knee, so will Monitor renal function daily during this time. Acute blood loss anemia Chronic iron deficiency anemia: Baseline Hb 11-12 per outpatient chart review She was found to have 1L of hemoperitoneum when abdomen opened in the OR on 06/11. She was hypotensive, tachycardic with only a carotid pulse. She was transfused one unit of uncrossmatched blood and phenylephrine for hemodynamic support. OA flare-right knee -known h/o OA, now with Right knee having pain, restricted ROM and warm to touch consistent with acute arthritis. Mobic BID for short term control of pain and inflammation. DVT Px: Lovenox SQ Code Status Full Code Dispo-to rehab in 1-2 days Ceci Connolly DO [facility] Hospitalist Admission and Anticipated Discharge Date Admission Date: June 11, 2022 Subjective 71 yo F admitted for SBO s/p bowel surgery has alot of weakness as a result of her illness tolerating food 2 soft BMs today Some pain in the incision site of abdomen no fevers/chills mild cough still present no productive mucus from the cough pain and limited ROM in her right knee-known h/o OA Review of Systems Review of Systems: All systems were reviewed and negative except as indicated above. Physical Exam Physical Exam: CONSTITUTIONAL: WNWD, vitals as above, generally well-appearing, NAD EYES: normal conjunctivae, no scleral icterus ENT: external ear and nose normal, oropharynx clear NECK: trachea midline RESPIRATORY: clear to auscultation bilaterally, no crackles, rales or wheezes, normal respiratory effort CARDIOVASCULAR: regular rate and rhythm, S1 and 2 heard without murmurs, gallops or rubs, no JVD, no peripheral edema but patient's skin is tense and tissues feel boggy as if she has some swelling from her baseline. CHEST: inspection of chest was normal GASTROINTESTINAL: soft, nontender, ND, +FLORY drain in place with serosanguinous fluid present. Abdominal binder is in place. no guarding MUSCULOSKELETAL: strength 5/5 throughout, head is normocephalic and atraumatic R knee is warm to touch with decreased flexion/extension prompting pain wtih movement. no overt joint effusion is present. L knee is cool to touch with normal ROM in semi-recumbent position SKIN: warm and dry, no rashes NEUROLOGIC: No facial palsy, no dysarthria. CN 2-12 grossly intact, no sensory deficit, normal cognition, normal speech, no tremor PSYCHIATRIC: alert cooperative and oriented to person, place and time. Euthymic mood, makes good eye contact, language grossly intact, recent and remote memory grossly intact. Results & Data Results & Data Vital Signs (Past 12 Hours) Vital Signs Temp Pulse Pulse Resp BP Pulse Ox O2 Del Method 06/18/22 11:33 36.9 C 71 18 118/81 94 Room Air 06/18/22 10:57 Room Air 06/18/22 10:57 75 06/18/22 08:03 36.9 C 76 18 138/75 91 Room Air 06/18/22 02:51 36.9 C 72 20 132/69 91 Room Air 06/17/22 23:48 36.6 C 73 19 145/77 H 91 Room Air Laboratory Results Short CBC 06/18/22 Range/Units 05:49 WBC 16.74 H (4.8-10.8) K/ul Hgb 8.7 L (12.0-16.0) g/dl Hct 25.7 L (37.0-47.0) % Plt Count 289 (130-400) K/uL BMP 06/18/22 05:49 Sodium 139 Potassium 3.6 Chloride 108 H Carbon Dioxide 25 BUN 10 Creatinine 0.57 L Glucose 101 H Calcium 7.6 L Urine 06/17/22 Range/Units 12:28 Urine Color Yellow Urine Appearance Clear (Clear) Urine pH 7.0 (4.5-7.5) Ur Specific [place] 1.007 (1.000-1.030) Urine Protein Negative (Negative) Urine Glucose (UA) Negative (Negative) Medications Administered Current Inpatient Medications Bimatoprost (Bimatoprost 0.01% Op Soln 2.5 Ml Btl) 1 drops OP HS ASIA Stop: 07/12/22 20:59 Last Admin: 06/17/22 20:04 Dose: 1 drops Cetirizine HCl (Cetirizine Hcl 10 Mg Tablet) 10 mg PO DAILY ASIA Stop: 07/12/22 08:59 Cyanocobalamin (Cyanocobalamin (B-12) 500 Mcg Tablet) 1,000 mcg PO DAILY ASIA Stop: 07/12/22 08:59 Dextrose (Dextrose 50% 50 Ml Syringe) 25 - 50 ml IV UD PRN; Protocol PRN Reason: Hypoglycemia Protocol Stop: 07/11/22 22:31 Last Admin: 06/13/22 01:22 Dose: 50 ml Diclofenac Sodium (Diclofenac Sod 1% Gel 100 Gm Tube) 2 gm EXT TID PRN; Protocol PRN Reason: LEFT KNEE PAIN Stop: 07/11/22 22:31 Enoxaparin Sodium (Enoxaparin Inj 40 Mg/0.4 Ml Syr) 40 mg SQ Q24H ASIA Stop: 07/13/22 10:59 Last Admin: 06/18/22 10:28 Dose: 40 mg Glucagon (Glucagon For Inj 1 Mg Vial) 1 mg SQ UD PRN; Protocol PRN Reason: Hypoglycemia Protocol Stop: 07/11/22 22:31 Glucose (Glucose 10 Tab/Tube) 4 - 8 tab PO UD PRN; Protocol PRN Reason: Hypoglycemia Treatment Stop: 07/11/22 22:31 Glucose (Glucose 40% Gel 15 Gm Tube) 15 - 30 gm PO UD PRN; Protocol PRN Reason: Hypoglycemia Protocol Stop: 07/11/22 22:31 Hydromorphone HCl (Hydromorphone Inj 0.5 Mg/0.5 Ml Syr) 0.25 mg IV Q4H PRN PRN Reason: moderate-severe pain (4-10) Stop: 06/26/22 09:34 Last Admin: 06/13/22 05:46 Dose: 0.25 mg Potassium Chloride/Dextrose/Sod Cl (D5w And 1/2nss + 20meq Kcl) 20 meq in 1,000 mls @ 50 mls/hr IV .Q20H ASIA; Protocol Last Infusion: 06/16/22 13:56 Dose: Infused Ciprofloxacin (Cipro / D5w) 400 mg in 200 mls @ 100 mls/hr IV Q12H ASIA; Protocol Stop: 06/27/22 09:29 Last Infusion: 06/18/22 11:17 Dose: Infused Metronidazole (Flagyl) 500 mg in 100 mls @ 100 mls/hr IV Q8H [facility] Stop: 06/27/22 09:29 Last Infusion: 06/18/22 10:27 Dose: Infused Lactobacillus Acidophilus (Advanced Probiotic 1250 Mg Capsule) 2 cap PO DAILY [facility] Stop: 07/16/22 13:29 Last Admin: 06/18/22 08:57 Dose: 2 cap Metoprolol Succinate (Metoprolol Succ 25mg Ext Rel Tab) 25 mg PO BID ASIA Stop: 07/16/22 03:59 Last Admin: 06/18/22 08:58 Dose: 25 mg Miscellaneous (Carbohydrates For Hypoglycemia ) 15 - 30 gm PO UD PRN PRN Reason: Hypoglycemia Protocol Stop: 07/11/22 22:31 Last Admin: 06/13/22 01:15 Dose: 25 gm Oxycodone HCl (Oxycodone Hcl Ir 5 Mg Tab (Immediate Release)) 5 mg PO Q4H PRN PRN Reason: moderate pain Stop: 06/27/22 11:26 Last Admin: 06/17/22 20:02 Dose: 5 mg Psyllium Hydrophilic Mucilloid (Psyllium Or Guar Gum Fiber Powder Packet) 1 pkt PO BID [facility] Stop: 07/12/22 08:59 Last Admin: 06/12/22 08:29 Dose: Not Given Timolol Maleate (Timolol Maleate 0.5% Op Soln 5 Ml Btl) 1 drops OP QAM [facility] Stop: 07/12/22 08:59 Last Admin: 06/18/22 08:57 Dose: 1 drops
[2022-06-18] MEDS: MELOXICAM 7.5 MG TAB PO SCH ×2 (12:15→20:18)
--- NOTE | 2022-06-18 12:15 | Surgery Progress Note ---
Date of Service June 18, 2022 Assessment & Plan (1) SBO (small bowel obstruction): Plan: POD # 2 s/p ex lap, small bowel resection 160 cm for ischemic bowel - afebrile - hemodynamically stable - minimal NGT output - drain serosanguineous Plan: Continue pain management as needed, Will schedule the IV tylenol and continue IV Dilaudid for breakthrough pain Continue IV Zosyn Continue jessica drain to bulb suction abdominal binder repeat am labs Continue scds , start 40 mg Lovenox sq today for dvt prophylaxis Continue Protonix Will remove NGT today given low output May start clears tomorrow. IF does not tolerate clears may need to start TPN give risk of short gut syndrome PT/OT consults Okay to downgrade out of ICU Dr. Stone has seen and examined patient, agrees with above. 06/16/2022 3:[address] Stone POD # 5 s/p ex lap, small bowel resection 160 cm for ischemic bowel - afebrile - WBC 15,000,. -some diarrhea, check C-Diff, - I update about OR finding and the procedure pt had to pt and her . - soft diet, - CONTINUE TREATMENT -OOB -repeat labs in morning - Hold CT scan now, -will F/U, 06/17/2022 9: [address] Stone POD # 6 s/p ex lap, small bowel resection 160 cm for ischemic bowel - afebrile - WBC 16,000,. -some diarrhea, check C-Diff negative, - D/C hurd catheter, - U/A, JESSICA fluid gram stain + culture - soft diet, - CONTINUE TREATMENT -OOB - D/C zosyn, change to cipro + flagyl, -repeat labs in morning -will F/U, 06/18/2022 12:[address] Stone POD # 7 s/p ex lap, small bowel resection 160 cm for ischemic bowel - afebrile - WBC 16,000, bilateral pleural effusion, consult pulmonary doctor to R/U pleural infection, - pelvic fluid collection, small, continue iv antibiotic, -U/A negative, JESSICA fluid- negative - soft diet, - CONTINUE TREATMENT -OOB -repeat labs in morning -will F/U, Admission and Anticipated Discharge Date Admission Date: June 11, 2022 Subjective 71 yo F admitted for SBO s/p bowel surgery has alot of weakness as a result of her illness tolerating food 2 soft BMs today Some pain in the incision site of abdomen no fevers/chills mild cough still present no productive mucus from the cough pain and limited ROM in her right knee-known h/o OA 06/18/2022 12:13 PM, Dr. Stone stable, tolerated food, no fever or chills, JESSICA 25 ml clear color, JESSICA fluid culture- negative WBC 16,000. no significant abdominal pain, BM X 2, Physical Exam Eyes: PERRL, conjunctivae normal, anicteric sclerae Neck: trachea midline, no thyromegaly Cardiovascular: RRR, no murmur, no edema Gastrointestinal (Abdomen): soft, mild tenderness at incision site, no rebound, no distend, the incision intact, no redness, no drainage, BS +, Musculoskeletal: no cyanosis or clubbing, extremities motor strength 5/5 Neurologic: patellar DTR's 2+ bilat, sensation intact Psychiatric: A+Ox3, euthymic affect Results & Data Vital Signs (Past 12 Hours) Vital Signs Temp Pulse Pulse Resp BP Pulse Ox O2 Del Method 06/18/22 11:33 36.9 C 71 18 118/81 94 Room Air 06/18/22 10:57 Room Air 06/18/22 10:57 75 06/18/22 08:03 36.9 C 76 18 138/75 91 Room Air 06/18/22 02:51 36.9 C 72 20 132/69 91 Room Air Laboratory Results Abnormal lab results 06/17/22 06/18/22 06/18/22 Range/Units 12:28 05:49 05:49 WBC 16.74 H (4.8-10.8) K/ul RBC 2.81 L (4.20-5.40) M/uL Hgb 8.7 L (12.0-16.0) g/dl Hct 25.7 L (37.0-47.0) % RDW Std Deviation 51.7 H (36.4-46.3) fL RDW Coeff of Lei 15.5 H (11.5-14.5) % Neut # (Auto) 12.63 H (1.40-6.50) K/uL [place] # (Auto) 1.13 H (0.11-0.59) K/uL Immature Gran # (Auto) 1.02 H (0.01-0.20) K/uL Chloride 108 H (98-107) mmol/L Creatinine 0.57 L (0.6-1.2) mg/dl Glucose 101 H (70-99(Fasting)) mg/dl Calcium 7.6 L (8.5-10.1) mg/dl Urine Blood Trace H (Negative)
--- NOTE | 2022-06-18 17:03 | Pulmonology Progress Note ---
Date of Service June 18, 2022 Assessment & Plan (1) Pleural effusion: Plan Impression: 71-year-old female with bilateral pleural effusions. I think it is unlikely that these effusions are potentially infected or the source of her leukocytosis however I advised the patient the only way to be sure would be to undergo sampling of the fluid. She is agreeable to proceed. Recommendations: 1. Bilateral pleural effusions: We will consider limited thoracic ultrasound and consideration for ultrasound-guided catheter thoracentesis if significant fluid is identified. Again my suspicion is low that these represent an infectious etiology, rather suspect they are related to her volume administration during her sepsis. Review of her intake/output indicates that she is over 9 L positive since admission. Diuresis would be recommended if tolerable from a surgical and medical standpoint. 2. Management of the enhancing fluid collection in the abdomen per primary service and general surgery. Additional recommendations will be based on characteristics of the pleural fluid and response to therapy. The above recommendations and plan were discussed with the patient as well as with her at bedside. Questions were answered to the best my ability. She expressed understanding and is in agreement with plan as outlined Admission and Anticipated Discharge Date Admission Date: June 11, 2022 Subjective Asked by surgery to evaluate this patient with pleural effusions as a potential etiology for her elevated white blood cell count. History is obtained from discussion with the patient as well as her at bedside. This patient is a complicated 71-year-old female who was seen previously by one of my partners, Dr. Ochoa in the critical care setting. She developed ischemic bowel and required a resection. She has been on the floor receiving antibiotics. She has not been febrile but has had a mild increase in her white blood cell count. This prompted concern for infectious etiologies. CT scan was performed of the abdomen showing small bilateral effusions. The patient does report some abdominal pain. She did have a 4 x 3 cm enhancing fluid collection in the abdomen concerning for loculated ascites versus early abscess formation. It was not felt to be amenable to percutaneous drainage. From a pulmonary standpoint, the patient does not report any issues. She is not coughing or expectorating phlegm. She denies chest pain or palpitations. She is on room air. Review of Systems Review of Systems: All systems reviewed & are unremarkable except as noted in Subjective Physical Exam Eyes: PERRL, conjunctivae normal, anicteric sclerae Neck: trachea midline, no thyromegaly Respiratory: normal respiratory effort, lungs clear to auscultation Cardiovascular: RRR, no murmur, no edema Gastrointestinal (Abdomen): soft, mild tenderness at incision site, no rebound, no distend, the incision intact, no redness, no drainage, BS +, Musculoskeletal: no cyanosis or clubbing, extremities motor strength 5/5 Neurologic: patellar DTR's 2+ bilat, sensation intact Psychiatric: A+Ox3, euthymic affect Results & Data Results & Data Vital Signs (Past 12 Hours) Vital Signs Temp Pulse Pulse Resp BP Pulse Ox O2 Del Method 06/18/22 15:55 79 06/18/22 15:10 36.9 C 78 16 145/69 H 94 Room Air 06/18/22 11:33 36.9 C 71 18 118/81 94 Room Air 06/18/22 10:57 Room Air 06/18/22 10:57 75 06/18/22 08:03 36.9 C 76 18 138/75 91 Room Air Critical Care Results & Data Vital Signs (Past 12 Hours) Vital Signs Temp Pulse Pulse Resp BP Pulse Ox O2 Del Method 06/18/22 15:55 79 06/18/22 15:10 36.9 C 78 16 145/69 H 94 Room Air 06/18/22 11:33 36.9 C 71 18 118/81 94 Room Air 06/18/22 10:57 Room Air 06/18/22 10:57 75 06/18/22 08:03 36.9 C 76 18 138/75 91 Room Air Lab & Micro Results (Past 24 Hours) RBC 2.81 M/uL (4.20-5.40) L 06/18/22 WBC 16.74 K/ul (4.8-10.8) H 06/18/22 Hgb 8.7 g/dl (12.0-16.0) L 06/18/22 Hct 25.7 % (37.0-47.0) L 06/18/22 MCV 91.5 fL (80.0-100.0) 06/18/22 MCH 31.0 pg (25.0-34.0) 06/18/22 MCHC 33.9 g/dL (32.0-36.0) 06/18/22 RDW Standard Deviation 51.7 fL (36.4-46.3) H 06/18/22 RDW Coefficient of Variation 15.5 % (11.5-14.5) H 06/18/22 Plt Count 289 K/uL (130-400) 06/18/22 MPV 10.0 fL (9.4-12.4) 06/18/22 Nucleated Red Blood Cells % (auto) 0.1 % 06/18 Nucleated RBC Absolute Count (auto) 0.02 K/uL (0-0.12) 06/04 08/26 Neutrophils (%) (Auto) 75.3 % 06/18/22 Lymphocytes (%) (Auto) 10.8 % 06/18/22 Monocytes # (Auto) 1.13 K/uL (0.11-0.59) H 06/18/22 Eosinophils # (Auto) 0.11 K/uL (0-0.50) 06/18/22 Immature Granulocyte % (Auto) 6.1 % 06/18/22 Neutrophils # (Auto) 12.63 K/uL (1.40-6.50) H 06/18/22 Lymphocytes # (Auto) 1.80 K/uL (1.2-3.4) 06/18/22 Monocytes # (Auto) 1.13 K/uL (0.11-0.59) H 06/18/22 Eosinophils # (Auto) 0.11 K/uL (0-0.50) 06/18/22 Basophils # (Auto) 0.05 K/uL (0-0.2) 06/18/22 Immature Granulocyte # (Auto) 1.02 K/uL (0.01-0.20) H 06/18 Na 139 mmol/L (136-145) 06/18/22 K 3.6 mmol/L (3.5-5.1) 06/18/22 Cl 108 mmol/L (98-107) H 06/18/22 CO2 25 mmol/L (21-32) 06/18/22 Anion Gap 6 (3-11) 06/18/22 BUN 10 mg/dl (6-23) 06/18/22 Creatinine 0.57 mg/dl (0.6-1.2) L 06/18/22 Estimated GFR ( Amer) 106.6 ml/min 06/18/22 Estimated GFR (Non-Af Amer) 92.0 ml/min 06/18/22 BUN/Creatinine Ratio 17.5 (10-20) 06/18/22 Glu 101 mg/dl (70-99(Fasting)) H 06/18/22 Ca 7.6 mg/dl (8.5-10.1) L 06/18/22 Phosphorus Level 3.4 mg/dl (2.5-4.9) 06/18/22 Mg 1.9 mg/dl (1.7-2.4) 06/18/22 05:49 Calcium Level 7.6 mg/dl (8.5-10.1) L 06/18/22 05:49 Microbiology 06/13/22 09:10 Aerobic Blood Culture - Final Blood No growth in Aerobic bottle after 5 days. Anaerobic Blood Culture - Final 06/13/22 09:30 Aerobic Blood Culture - Final Blood No growth in Aerobic bottle after 5 days. Anaerobic Blood Culture - Final 06/17/22 10:01 Gram Stain - Final Abdomen, Left Lower Quadrant Aerobic and Anaerobic Culture - Preliminary No growth to date. I & O Totals 24 Hours 06/17/22 06/18/22 06/19/22 06:59 06:59 06:59 Intake Total 1117.5 / 1117.5 944.5 / 944.5 300 / 300 Output Total 2108 / 2108 702 / 702 Balance -990.5 / -990.5 919.5 / 919.5 -402 / -402 Cumulative 06/11/22 16:43 thru 06/18/22 13:25 Intake Total 64402.076 Output Total 9986 Balance 9272.076 RT Ventilator Mngmt (Last Documented) Ventilator Ordered Settings Ventilator Support Mode Pressure Control 06/12/22 09:40 Respiratory Rate 16 06/18/22 15:10 Ventilator Tidal Volume 360 06/12/22 08:00 Setting Minute Ventilation 10.8 06/12/22 09:40 Ventilator Positive Pressure 7 06/12/22 09:40 Support Setting Positive End Expiratory 5 06/12/22 09:40 Pressure Fraction of Inspired Oxygen 30 06/12/22 09:40 Machine Comment post ABG, STUDENT SERVICES ADVISOR Brezovic aware 06/12/22 05:09 Ventilator - PT Measurements Respiratory Rate 16 Exhaled Tidal Volume 374 Minute Ventilation 10.8 Peak Inspiratory Airway 13 Pressure Plateau Pressure 14.9 Respiratory Cycle Inspiratory: 1:1.5 Expiratory Ratio Inspiratory Phase Time 1.0 End-Tidal CO2 24 Static Lung Compliance 37.27 Dynamic Lung Compliance 46.75 Normal Static Lung Compliance 48.00 PG Care Time/CCT Total # of Minutes Spent Total Time Spent with Patient: Total time spent is greater than 50% in coordination of care (as documented) at patient's floor/unit and/or counseling patient: Coding [place] [address] SUB INP/OBS CARE 3/50MIN Patient Type Established History Expanded Problem Focused Exam Expanded Problem Focused Diagnoses Pleural effusion J90
[2022-06-18] MEDS: BIMATOPROST 0.01% OP SOLN 2.5 ML BTL OP SCH (20:18)
[2022-06-19] MEDS: metroNIDAZOLE 500 MG/100 ML BAG IV SCH ×3 (02:45→16:52)
[2022-06-19 07:46] LABS: Hematocrit (blood only) 25.8 % (37.0-47.0); Hemoglobin 8.7 g/dl (12.0-16.0); Mean Corpuscular Hemoglobin 31.1 pg (25.0-34.0); Mean Corpuscular Hgb Conc 33.7 g/dL (32.0-36.0); Mean Corpuscular Volume 92.1 fL (80.0-100.0); Mean Platelet Volume 9.9 fL (9.4-12.4); Platelet Count 350 K/uL (130-400); RDW Coefficient of Variation 15.9 % (11.5-14.5); RDW Standard Deviation 52.2 fL (36.4-46.3); White Blood Count 15.28 K/ul (4.8-10.8)
[2022-06-19 08:02] LABS: BUN Creatinine Ratio 19.6 (10-20); Calcium 7.5 mg/dl (8.5-10.1); Creatinine Clr Calc Pharmacy 97.7 ml/min; Est GFR (African American) 107.2 ml/min; Est GFR (Non-African American) 92.5 ml/min; Potassium 3.6 mmol/L (3.5-5.1)
[2022-06-19 08:19] LABS: Basophils # (auto) 0.05 K/uL (0-0.2); Basophils % (auto) 0.3 %; Eosinophils # (auto) 0.14 K/uL (0-0.50); Eosinophils % (auto) 0.9 %; Immature Granulocytes # (auto) 0.98 K/uL (0.01-0.20); Immature Granulocytes % (auto) 6.4 %; Lymphocytes # (auto) 1.83 K/uL (1.2-3.4); Monocytes # (auto) 0.96 K/uL (0.11-0.59); Monocytes % (auto) 6.3 %; Neutrophils # (auto) 11.32 K/uL (1.40-6.50); Neutrophils % (auto) 74.1 %; Polychromasia 1+
[2022-06-19] MEDS: CIPROFLOXACIN / D5W 400 MG/200 ML BAG IV SCH ×2 (08:36→21:00)
[2022-06-19] MEDS: METOPROLOL SUCC 25MG EXT REL TAB PO SCH ×2 (08:37→20:59)
[2022-06-19] MEDS: MELOXICAM 7.5 MG TAB PO SCH ×2 (08:37→20:58)
[2022-06-19] MEDS: ADVANCED PROBIOTIC 1250 MG CAPSULE PO SCH (08:37)
[2022-06-19] MEDS: TIMOLOL MALEATE 0.5% OP SOLN 5 ML BTL OP SCH (08:38)
--- NOTE | 2022-06-19 10:56 | Procedure Note ---
Procedure Note Date of Service June 19, 2022 Note Procedure: Bedside limited thoracic ultrasound Resolution Analyst Dr. Johnson Indication evaluate for pleural effusions Findings: Limited bilateral thoracic ultrasound was performed. There were small bilateral effusions noted with compressive atelectasis. Lung volumes were small due to the elevation of the diaphragms bilaterally but the diaphragms appeared to function normally. Some compressive atelectasis was noted. The fluid had a simple appearance on ultrasound without evidence of loculation or significant cellular debris Overall the amount of pleural fluid bilaterally is quite small and not amenable to thoracentesis. It is unlikely that the fluid is infected or contributing to the patient's symptoms. Would recommend diuresis and clinical follow-up with chest x-ray in a few weeks. If the patient's clinical condition should worsen, repeat evaluation may be warranted Coding CPT Codes Pulmonary/Thoracic - Pulmonary and Thoracic: 73777 US, Chest, real time with i maging documentation ([id number]) [facility] Procedure Codes (Charges) Pulmonary/Thoracic Procedure 1: Pulmonary and Thoracic: 70094 US, Chest, real time with imaging documentation
--- NOTE | 2022-06-19 10:59 | Pulmonology Progress Note ---
Date of Service June 19, 2022 Assessment & Plan (1) Pleural effusion: Plan Impression: 71-year-old female with bilateral pleural effusions. Bedside thoracic ultrasound performed this morning revealed the effusions are quite small. They had simple characteristics without evidence of loculations or septations. Suspect these are related to her volume resuscitation (patient 9 L positive since presentation. Recommendations: 1. Bilateral pleural effusions: Would not recommend proceeding with thoracentesis at this point time. Would favor trial of diuretics. Place patient on Lasix 20 mg daily. Additional dosing per the primary service. Follow-up chest x-ray as needed 2. Management of the enhancing fluid collection in the abdomen per primary service and general surgery. Pulmonary will sign off at this point time. Feel free to contact us with additional questions or concerns. Admission and Anticipated Discharge Date Admission Date: June 11, 2022 Subjective Patient seen and examined. EMR reviewed. The patient states that she feels well. She is on room air. She having any difficulty breathing. She denies any chest pain. No pleurisy. No other changes to her medical history or review of systems since she was last seen. Review of Systems Review of Systems: All systems reviewed & are unremarkable except as noted in Subjective Physical Exam Eyes: PERRL, conjunctivae normal, anicteric sclerae Neck: trachea midline, no thyromegaly Respiratory: normal respiratory effort, lungs clear to auscultation Cardiovascular: RRR, no murmur, no edema Musculoskeletal: no cyanosis or clubbing, extremities motor strength 5/5 Neurologic: patellar DTR's 2+ bilat, sensation intact Psychiatric: A+Ox3, euthymic affect Results & Data Results & Data Vital Signs (Past 12 Hours) Vital Signs Temp Pulse Pulse Resp BP BP Pulse Ox 06/19/22 07:01 36.7 C 72 16 141/65 H 92 06/19/22 02:49 36.8 C 76 16 135/65 92 06/18/22 23:19 36.6 C 78 19 129/68 94 06/18/22 23:19 86 O2 Del Method 06/19/22 07:01 Room Air 06/19/22 02:49 Room Air 06/18/22 23:19 Room Air 06/18/22 23:19 Laboratory Results 06/19/22 07:22 06/19/22 07:22 Diagnostic Findings Limited thoracic ultrasound with results noted on separate documentation. PG Care Time/CCT Total # of Minutes Spent Total Time Spent with Patient: Total time spent is greater than 50% in coordination of care (as documented) at patient's floor/unit and/or counseling patient: Coding Level of Care Code 43605 SUB INP/OBS CARE 2/35MIN Diagnoses Pleural effusion J90
[2022-06-19] MEDS: ENOXAPARIN INJ 40 MG/0.4 ML SYR SQ SCH (11:43)
[2022-06-19] MEDS: FUROSEMIDE 20 MG TAB PO SCH (11:43)
--- NOTE | 2022-06-19 13:26 | Surgery Progress Note ---
Date of Service June 19, 2022 Assessment & Plan (1) SBO (small bowel obstruction): Plan: POD # 2 s/p ex lap, small bowel resection 160 cm for ischemic bowel - afebrile - hemodynamically stable - minimal NGT output - drain serosanguineous Plan: Continue pain management as needed, Will schedule the IV tylenol and continue IV Dilaudid for breakthrough pain Continue IV Zosyn Continue jessica drain to bulb suction abdominal binder repeat am labs Continue scds , start 40 mg Lovenox sq today for dvt prophylaxis Continue Protonix Will remove NGT today given low output May start clears tomorrow. IF does not tolerate clears may need to start TPN give risk of short gut syndrome PT/OT consults Okay to downgrade out of ICU Dr. Stone has seen and examined patient, agrees with above. 06/16/2022 3:[address] Stone POD # 5 s/p ex lap, small bowel resection 160 cm for ischemic bowel - afebrile - WBC 15,000,. -some diarrhea, check C-Diff, - I update about OR finding and the procedure pt had to pt and her . - soft diet, - CONTINUE TREATMENT -OOB -repeat labs in morning - Hold CT scan now, -will F/U, 06/17/2022 9: [address] Stone POD # 6 s/p ex lap, small bowel resection 160 cm for ischemic bowel - afebrile - WBC 16,000,. -some diarrhea, check C-Diff negative, - D/C hurd catheter, - U/A, JESSICA fluid gram stain + culture - soft diet, - CONTINUE TREATMENT -OOB - D/C zosyn, change to cipro + flagyl, -repeat labs in morning -will F/U, 06/18/2022 12:[address] Stone POD # 7 s/p ex lap, small bowel resection 160 cm for ischemic bowel - afebrile - WBC 16,000, bilateral pleural effusion, consult pulmonary doctor to R/U pleural infection, - pelvic fluid collection, small, continue iv antibiotic, -U/A negative, JESSICA fluid- negative - soft diet, - CONTINUE TREATMENT -OOB -repeat labs in morning -will F/U, 06/19/2022 1:[address] Stone POD # 8 s/p ex lap, small bowel resection 160 cm for ischemic bowel - afebrile - WBC 15,000, bilateral pleural effusion, consult pulmonary doctor to R/U pleural infection, - pelvic fluid collection, small, continue iv antibiotic, -U/A negative, JESSICA fluid- negative - soft diet, - CONTINUE TREATMENT -OOB -repeat labs in morning - may discharge tomorrow if WBC down -will F/U, Admission and Anticipated Discharge Date Admission Date: June 11, 2022 Subjective Patient seen and examined. EMR reviewed. The patient states that she feels well. She is on room air. She having any difficulty breathing. She denies any chest pain. No pleurisy. No other changes to her medical history or review of systems since she was last seen. 06/19/2022 1:22PM Dr. Stone doing better, tolerated diet, no nausea, no vomiting, no fever, 5 BM, JESSICA 15 ml clear, Physical Exam Eyes: PERRL, conjunctivae normal, anicteric sclerae Neck: trachea midline, no thyromegaly Cardiovascular: RRR, no murmur, no edema Gastrointestinal (Abdomen): soft, NT, Nd, the incision intact, no redness, no drainage, JESSICA intact, BS +, Musculoskeletal: no cyanosis or clubbing, extremities motor strength 5/5 Neurologic: patellar DTR's 2+ bilat, sensation intact Psychiatric: A+Ox3, euthymic affect Results & Data Vital Signs (Past 12 Hours) Vital Signs Temp Pulse Resp BP BP Pulse Ox O2 Del Method 06/19/22 11:48 36.6 C 66 16 117/66 91 Room Air 06/19/22 07:01 36.7 C 72 16 141/65 H 92 Room Air 06/19/22 02:49 36.8 C 76 16 135/65 92 Room Air Laboratory Results Abnormal lab results 06/19/22 06/19/22 Range/Units 07:22 07:22 WBC 15.28 H (4.8-10.8) K/ul RBC 2.80 L (4.20-5.40) M/uL Hgb 8.7 L (12.0-16.0) g/dl Hct 25.8 L (37.0-47.0) % RDW Std Deviation 52.2 H (36.4-46.3) fL RDW Coeff of Lei 15.9 H (11.5-14.5) % Neut # (Auto) 11.32 H (1.40-6.50) K/uL [place] # (Auto) 0.96 H (0.11-0.59) K/uL Immature Gran # (Auto) 0.98 H (0.01-0.20) K/uL Chloride 108 H (98-107) mmol/L Creatinine 0.56 L (0.6-1.2) mg/dl Glucose 102 H (70-99(Fasting)) mg/dl Calcium 7.5 L (8.5-10.1) mg/dl
--- NOTE | 2022-06-19 15:38 | Hospitalist Progress Note ---
Date of Service June 19, 2022 Assessment & Plan (1) SBO (small bowel obstruction): Plan: CTA chest, abd/pelvis:Unremarkable CTA of the chest, abdomen and pelvis. Limited evaluation of the solid abdominal organs and bowel secondary to arterial phase of imaging and lack of enteric contrast. High-grade small bowel obstruction with several loops demonstrating circumferential wall thickening with associated intraluminal edema and small volume of abdominopelvic ascites. No pneumoperitoneum identified. Moderate sized hiatal hernia. S/PEmergency exploratory laparotomy on 06/11/[address] Stone s/p small-bowel resection, FLORY drainage x1 S/P Extubation on 06/12/[address] ABD on 06/16 suggestive of possible developing this small abdominal abscess. Moderate gallbladder distention and possible duodenitis Gallbladder ultrasound on 06/16:No acute abnormalities and in particular no evidence of acute cholecystitis. NG tube discontinued Blood Cultures (06/11): 04/09: Clostridium septicum Repeat Blood Cultures: No growth to date Empirically on Vanco, Zosyn>>Zosyn>> changed to Cipro, Flagyl by surgery Likely to need at least 2-week course of antibiotics given Clostridium septicum in blood culture, but will request formal ID consult for recs, especially given the residual/new developing intra-abdominal abscess. Awaiting ID recommendations IVF were held for concerns of volume overload, this was supported by new pleural effusions seen on chest imaging. Some diarrhea with abx, stool for C. difficile: Negative Persistent leukocytosis may be related to persistent abscess vs inflammation of her knee vs other. Tolerating solid food. Remains stable and the white cell count has been improving (2) Sepsis: Plan: Sepsis was secondary to acute bowel ischemia with an SBO and bowel necrosis. Negative SARS-CoV-2 Required pressor agents initially to maintain blood pressure (3) Lactic acidosis: Plan: Secondary to sepsis (4) Elevated troponin: Plan: Elevated troponin: likely demand ischemia in setting of sepsis. ECHO: Left ventricle is normal in size. Left ventricle systolic function is normal. EF 60 to 65%. Right ventricle systolic function is normal. Left atrial size is normal. Right atrial size is normal. No significant valvular pathology -no further cardiac workup is felt to be needed at this time. (5) Acute kidney injury superimposed on CKD: Plan: Acute kidney injury on CKD III Cr: 1.7>>1.1>0.85>0.64 resolved wtih IVF Avoid nephrotoxic agents as able, but we do need a short burst of NSAIDs to help with OA flare of right knee, so will Monitor renal function daily during this time. Kidney function remains stable (6) Exertional dyspnea: Plan: Secondary to above We will get to a stable O2 saturation prior to discharge (7) Chronic iron deficiency anemia: (8) GERD (gastroesophageal reflux disease): (9) Arthritis of right knee: Plan Patient is a 71 yr female with CKD III, GERD, IBS, chronic iron deficiency anemia presented to ER via EMS for abdominal pain, N/V that began just prior to arrival. She was in septic shock on admission with acute metabolic encephalopathy. --CT head: No acute intracranial abnormality Acute blood loss anemia Chronic iron deficiency anemia: Baseline Hb 11-12 per outpatient chart review She was found to have 1L of hemoperitoneum when abdomen opened in the OR on 06/11. She was hypotensive, tachycardic with only a carotid pulse. She was transfused one unit of uncrossmatched blood and phenylephrine for hemodynamic support. OA flare-right knee -known h/o OA, now with Right knee having pain, restricted ROM and warm to touch consistent with acute arthritis. Mobic BID for short term control of pain and inflammation. DVT Px: Lovenox SQ Code Status Full Code Dispo-to rehab in 1-2 days Admission and Anticipated Discharge Date Admission Date: June 11, 2022 Subjective 06/19/2022 The patient was seen and examined in telemetry unit She has been feeling much better but remains generally weak Asking that when she can be discharged Denies any significant symptoms Review of Systems Review of Systems: All systems reviewed and are unremarkable except as noted below Gastrointestinal: Abdominal discomfort and pain Physical Exam Physical Exam: Sitting on a chair without any acute distress Constitutional: well developed, well nourished, + ill appearing and average body habitus; no acute distress Eyes: PERRL, conjunctivae normal, anicteric sclerae ENMT: external ear and nose normal, oropharynx normal Neck: trachea midline, no thyromegaly Respiratory: no respiratory distress Auscultation: + diminished lung sounds (Bibasally) and + crackles (At the bases) Gastrointestinal (Abdomen): Inspection/Auscultation: normal bowel sounds; abdomen not distended Percussion/Palpation: + abdomen tender and abdomen soft Musculoskeletal: No acute arthritis involving any joint Neurologic: Alert, awake and oriented x3. Generally weak but no focal neurodeficit Lymphatic: no cervical or axillary lymphadenopathy Results & Data Results & Data Vital Signs (Past 12 Hours) Vital Signs Temp Pulse Resp BP BP Pulse Ox O2 Del Method 06/19/22 15:22 36.6 C 70 18 158/77 H 97 Room Air 06/19/22 11:48 36.6 C 66 16 117/66 91 Room Air 06/19/22 07:01 36.7 C 72 16 141/65 H 92 Room Air Laboratory Results Short CBC 06/19/22 Range/Units 07:22 WBC 15.28 H (4.8-10.8) K/ul Hgb 8.7 L (12.0-16.0) g/dl Hct 25.8 L (37.0-47.0) % Plt Count 350 (130-400) K/uL BMP 06/19/22 07:22 Sodium 139 Potassium 3.6 Chloride 108 H Carbon Dioxide 26 BUN 11 Creatinine 0.56 L Glucose 102 H Calcium 7.5 L Medications Administered Current Inpatient Medications Bimatoprost (Bimatoprost 0.01% Op Soln 2.5 Ml Btl) 1 drops OP HS ASIA Stop: 07/12/22 20:59 Last Admin: 06/18/22 20:18 Dose: 1 drops Cetirizine HCl (Cetirizine Hcl 10 Mg Tablet) 10 mg PO DAILY ASIA Stop: 07/12/22 08:59 Cyanocobalamin (Cyanocobalamin (B-12) 500 Mcg Tablet) 1,000 mcg PO DAILY ASIA Stop: 07/12/22 08:59 Dextrose (Dextrose 50% 50 Ml Syringe) 25 - 50 ml IV UD PRN; Protocol PRN Reason: Hypoglycemia Protocol Stop: 07/11/22 22:31 Last Admin: 06/13/22 01:22 Dose: 50 ml Diclofenac Sodium (Diclofenac Sod 1% Gel 100 Gm Tube) 2 gm EXT TID PRN; Protocol PRN Reason: LEFT KNEE PAIN Stop: 07/11/22 22:31 Enoxaparin Sodium (Enoxaparin Inj 40 Mg/0.4 Ml Syr) 40 mg SQ Q24H ASIA Stop: 07/13/22 10:59 Last Admin: 06/19/22 11:43 Dose: 40 mg Furosemide (Furosemide 20 Mg Tab) 20 mg PO QAM ASIA Stop: 07/19/22 10:59 Last Admin: 06/19/22 11:43 Dose: 20 mg Glucagon (Glucagon For Inj 1 Mg Vial) 1 mg SQ UD PRN; Protocol PRN Reason: Hypoglycemia Protocol Stop: 07/11/22 22:31 Glucose (Glucose 10 Tab/Tube) 4 - 8 tab PO UD PRN; Protocol PRN Reason: Hypoglycemia Treatment Stop: 07/11/22 22:31 Glucose (Glucose 40% Gel 15 Gm Tube) 15 - 30 gm PO UD PRN; Protocol PRN Reason: Hypoglycemia Protocol Stop: 07/11/22 22:31 Hydromorphone HCl (Hydromorphone Inj 0.5 Mg/0.5 Ml Syr) 0.25 mg IV Q4H PRN PRN Reason: moderate-severe pain (4-10) Stop: 06/26/22 09:34 Last Admin: 06/13/22 05:46 Dose: 0.25 mg Ciprofloxacin (Cipro / D5w) 400 mg in 200 mls @ 100 mls/hr IV Q12H [facility]; Protocol Stop: 06/27/22 09:29 Last Infusion: 06/19/22 11:41 Dose: Infused Metronidazole (Flagyl) 500 mg in 100 mls @ 100 mls/hr IV Q8H [facility] Stop: 06/27/22 09:29 Last Infusion: 06/19/22 11:41 Dose: Infused Lactobacillus Acidophilus (Advanced Probiotic 1250 Mg Capsule) 2 cap PO DAILY ASIA Stop: 07/16/22 13:29 Last Admin: 06/19/22 08:37 Dose: 2 cap Meloxicam (Meloxicam 7.5 Mg Tab) 7.5 mg PO BID [facility] Stop: 06/23/22 11:49 Last Admin: 06/19/22 08:37 Dose: 7.5 mg Metoprolol Succinate (Metoprolol Succ 25mg Ext Rel Tab) 25 mg PO BID [facility] Stop: 07/16/22 03:59 Last Admin: 06/19/22 08:37 Dose: 25 mg Miscellaneous (Carbohydrates For Hypoglycemia ) 15 - 30 gm PO UD PRN PRN Reason: Hypoglycemia Protocol Stop: 07/11/22 22:31 Last Admin: 06/13/22 01:15 Dose: 25 gm Oxycodone HCl (Oxycodone Hcl Ir 5 Mg Tab (Immediate Release)) 5 mg PO Q4H PRN PRN Reason: moderate pain Stop: 06/27/22 11:26 Last Admin: 06/17/22 20:02 Dose: 5 mg Psyllium Hydrophilic Mucilloid (Psyllium Or Guar Gum Fiber Powder Packet) 1 pkt PO BID [facility] Stop: 07/12/22 08:59 Last Admin: 06/12/22 08:29 Dose: Not Given Timolol Maleate (Timolol Maleate 0.5% Op Soln 5 Ml Btl) 1 drops OP QAM [facility] Stop: 07/12/22 08:59 Last Admin: 06/19/22 08:38 Dose: 1 drops
[2022-06-19] MEDS: BIMATOPROST 0.01% OP SOLN 2.5 ML BTL OP SCH (20:58)
[2022-06-19] MEDS: oxyCODONE HCL IR 5 MG TAB (IMMEDIATE RELEASE) PO PRN (21:03)
[2022-06-20] MEDS: metroNIDAZOLE 500 MG/100 ML BAG IV SCH ×2 (01:11→09:17)
[2022-06-20 06:51] LABS: Hematocrit (blood only) 24.7 % (37.0-47.0); Hemoglobin 8.3 g/dl (12.0-16.0); Mean Corpuscular Hemoglobin 31.6 pg (25.0-34.0); Mean Corpuscular Hgb Conc 33.6 g/dL (32.0-36.0); Mean Corpuscular Volume 93.9 fL (80.0-100.0); Mean Platelet Volume 9.9 fL (9.4-12.4); Platelet Count 377 K/uL (130-400); RDW Standard Deviation 52.8 fL (36.4-46.3); Red Blood Count 2.63 M/uL (4.20-5.40); White Blood Count 12.55 K/ul (4.8-10.8)
[2022-06-20 07:03] LABS: Est GFR (African American) 101.6 ml/min; Est GFR (Non-African American) 87.6 ml/min; Potassium 3.6 mmol/L (3.5-5.1)
[2022-06-20 07:04] LABS: Albumin Level 2.3 gm/dl (3.4-5.0); BUN Creatinine Ratio 16.7 (10-20); Bilirubin,Total 0.4 mg/dl (0.2-1.0); Calcium 7.3 mg/dl (8.5-10.1); Creatinine Clr Calc Pharmacy 82.1 ml/min; Globulin 2.3 gm/dl (2.5-4.0); Total Protein 4.6 gm/dl (6.0-8.3)
[2022-06-20 07:25] LABS: Basophils # (auto) 0.05 K/uL (0-0.2); Basophils % (auto) 0.4 %; Eosinophils # (auto) 0.28 K/uL (0-0.50); Eosinophils % (auto) 2.2 %; Immature Granulocytes # (auto) 0.71 K/uL (0.01-0.20); Immature Granulocytes % (auto) 5.7 %; Lymphocytes # (auto) 1.51 K/uL (1.2-3.4); Monocytes # (auto) 0.73 K/uL (0.11-0.59); Monocytes % (auto) 5.8 %; Neutrophils # (auto) 9.27 K/uL (1.40-6.50); Neutrophils % (auto) 73.9 %; Polychromasia 1+
[2022-06-20] MEDS: FUROSEMIDE 20 MG TAB PO SCH (08:05)
[2022-06-20] MEDS: MELOXICAM 7.5 MG TAB PO SCH ×2 (08:05→19:36)
[2022-06-20] MEDS: ADVANCED PROBIOTIC 1250 MG CAPSULE PO SCH (08:05)
[2022-06-20] MEDS: METOPROLOL SUCC 25MG EXT REL TAB PO SCH ×2 (08:05→19:35)
[2022-06-20] MEDS: TIMOLOL MALEATE 0.5% OP SOLN 5 ML BTL OP SCH (08:05)
[2022-06-20] MEDS: CIPROFLOXACIN / D5W 400 MG/200 ML BAG IV SCH (09:19)
--- NOTE | 2022-06-20 10:16 | Surgery Progress Note ---
Date of Service June 20, 2022 Assessment & Plan (1) SBO (small bowel obstruction): Plan: POD # 9 s/p ex lap, small bowel resection 160 cm for ischemic bowel - afebrile - WBC 12,500 today - pelvic fluid collection, small, continue iv antibiotic, - U/A negative, JESSICA fluid- negative - blood culture on 06/11/2022 + Clostridium Plan: Continue oral pain management as needed continue IV Abx, await ID recs, JESSICA 10 ml clear pull out jessica drain Continue Lovenox and SCDs for DVT prophylaxis Continue incentive spirometry Continue PT/OT Case management on board, plan to [facility] when [facility] Doing well from surgical standpoint for discharge to rehab, will reach out to hospitalist team about discharge planning Discussed with Dr. Stone who agrees with above I saw pt, D/W Hospitalist about discharge plan, po cipro + flagyl 10 days. regular diet, F/U me 2 weeks, Admission and Anticipated Discharge Date Admission Date: June 11, 2022 Subjective feeling tired today, did not sleep well having some incisional abdominal pain, controlled with Oxycodone, last dose last evening, nothing so far today no n,v tolerating low fiber diet loose stools , 5 times per day no chest pain or shortness of breath working with PT, coming back later today Physical Exam Constitutional: WD/WN, vitals as above cooperative and comfortable; no acute distress, not ill appearing and not frail appearing Eyes: PERRL, conjunctivae normal, anicteric sclerae Neck: trachea midline, no thyromegaly normal visual inspection and trachea midline Respiratory: normal respiratory effort; no respiratory distress Cardiovascular: RRR, no murmur, no edema Gastrointestinal (Abdomen): Inspection/Auscultation: abdomen normal to inspection, + abdominal surgical incision (covered with clean/dry dressings) and + abdominal surgical drain present (serous); abdomen not distended Percussion/Palpation: + abdomen tender (at midline incision site, appropriate postop) and abdomen soft; no guarding, abdomen not rigid and abdomen not firm Musculoskeletal: no cyanosis or clubbing, extremities motor strength 5/5 Skin: no rashes, warm and dry Neurologic: patellar DTR's 2+ bilat, sensation intact Psychiatric: A+Ox3, euthymic affect Orientation: alert and oriented x 3 Results & Data Vital Signs (Past 12 Hours) Vital Signs Temp Pulse Pulse Resp BP BP Pulse Ox 06/20/22 08:03 36.7 C 80 18 122/76 95 06/20/22 03:25 36.7 C 74 18 133/76 96 06/19/22 23:00 76 06/19/22 23:03 36.9 C 76 16 132/61 92 O2 Del Method 06/20/22 08:03 Room Air 06/20/22 03:25 Room Air 06/19/22 23:00 06/19/22 23:03 Room Air Laboratory Results 06/20/22 06/20/22 Range/Units 06:27 06:27 WBC 12.55 H (4.8-10.8) K/ul RBC 2.63 L (4.20-5.40) M/uL Hgb 8.3 L (12.0-16.0) g/dl Hct 24.7 L (37.0-47.0) % MCV 93.9 (80.0-100.0) fL MCH 31.6 (25.0-34.0) pg MCHC 33.6 (32.0-36.0) g/dL RDW Std Deviation 52.8 H (36.4-46.3) fL RDW Coeff of Lei 16.0 H (11.5-14.5) % Plt Count 377 (130-400) K/uL MPV 9.9 (9.4-12.4) fL Immature Gran % (Auto) 5.7 % Neut % (Auto) 73.9 % Lymph % (Auto) 12.0 % Ector % (Auto) 5.8 % Eos % (Auto) 2.2 % Baso % (Auto) 0.4 % Neut # (Auto) 9.27 H (1.40-6.50) K/uL Lymph # (Auto) 1.51 (1.2-3.4) K/uL Ector # (Auto) 0.73 H (0.11-0.59) K/uL Eos # (Auto) 0.28 (0-0.50) K/uL Baso # (Auto) 0.05 (0-0.2) K/uL Immature Gran # (Auto) 0.71 H (0.01-0.20) K/uL Polychromasia 1+ Sodium 138 (136-145) mmol/L Potassium 3.6 (3.5-5.1) mmol/L Chloride 109 H (98-107) mmol/L Carbon Dioxide 24 (21-32) mmol/L Anion Gap 5 (3-11) BUN 11 (6-23) mg/dl Creatinine 0.66 (0.6-1.2) mg/dl Est Cr Clr Drug Dosing 82.1 ml/min Est GFR ( Amer) 101.6 ml/min Est GFR (Non-Af Amer) 87.6 ml/min BUN/Creatinine Ratio 16.7 (10-20) Glucose 100 H (70-99(Fasting)) mg/dl Calcium 7.3 L (8.5-10.1) mg/dl Total Bilirubin 0.4 (0.2-1.0) mg/dl AST 23 (13-39) U/L ALT 18 (7-52) U/L Alkaline Phosphatase 176 H (34-104) U/L Total Protein 4.6 L (6.0-8.3) gm/dl Albumin 2.3 L (3.4-5.0) gm/dl Globulin 2.3 L (2.5-4.0) gm/dl Albumin/Globulin Ratio 1.0 (0.9-2)
[2022-06-20] MEDS: ENOXAPARIN INJ 40 MG/0.4 ML SYR SQ SCH (10:24)
--- NOTE | 2022-06-20 15:10 | Hospitalist Progress Note ---
Date of Service June 20, 2022 Assessment & Plan (1) SBO (small bowel obstruction): Plan: CTA chest, abd/pelvis:Unremarkable CTA of the chest, abdomen and pelvis. Limited evaluation of the solid abdominal organs and bowel secondary to arterial phase of imaging and lack of enteric contrast. High-grade small bowel obstruction with several loops demonstrating circumferential wall thickening with associated intraluminal edema and small volume of abdominopelvic ascites. No pneumoperitoneum identified. Moderate sized hiatal hernia. S/PEmergency exploratory laparotomy on 06/11/[address] Stone s/p small-bowel resection, FLORY drainage x1 S/P Extubation on 06/12/[address] ABD on 06/16 suggestive of possible developing this small abdominal abscess. Moderate gallbladder distention and possible duodenitis Gallbladder ultrasound on 06/16:No acute abnormalities and in particular no evidence of acute cholecystitis. NG tube discontinued Blood Cultures (06/11): 04/09: Clostridium septicum Repeat Blood Cultures: No growth to date Empirically on Vanco, Zosyn>>Zosyn>> changed to Cipro, Flagyl by surgery Likely to need at least 2-week course of antibiotics given Clostridium septicum in blood culture, but will request formal ID consult for recs, especially given the residual/new developing intra-abdominal abscess. Awaiting ID recommendations IVF were held for concerns of volume overload, this was supported by new pleural effusions seen on chest imaging. Some diarrhea with abx, stool for C. difficile: Negative Persistent leukocytosis may be related to persistent abscess vs inflammation of her knee vs other. Tolerating solid food. Remains stable and the white cell count has been improving Appreciate ID input and recommendation to continue oral Cipro and Flagyl until 06/30/[address] of the abdomen to reevaluate fluid collection. If any fluid collection is seen IR guided percutaneous drain is should be done and extension of antibiotic recommended Stable to be discharged as per surgery Bilateral pleural effusion Appreciate pulmonary input and recommendation Ultrasound did not show any significant fluid accumulation and doubt any infected fluid No aspiration was performed and does not require aspiration No fever and or chills and no shortness of breath (2) Sepsis: Plan: Sepsis was secondary to acute bowel ischemia with an SBO and bowel necrosis. Negative SARS-CoV-2 Required pressor agents initially to maintain blood pressure (3) Lactic acidosis: Plan: Secondary to sepsis (4) Elevated troponin: Plan: Elevated troponin: likely demand ischemia in setting of sepsis. ECHO: Left ventricle is normal in size. Left ventricle systolic function is normal. EF 60 to 65%. Right ventricle systolic function is normal. Left atrial size is normal. Right atrial size is normal. No significant valvular pathology -no further cardiac workup is felt to be needed at this time. (5) Acute kidney injury superimposed on CKD: Plan: Acute kidney injury on CKD III Cr: 1.7>>1.1>0.85>0.64 resolved wtih IVF Avoid nephrotoxic agents as able, but we do need a short burst of NSAIDs to help with OA flare of right knee, so will Monitor renal function daily during this time. Kidney function remains stable (6) Exertional dyspnea: Plan: Secondary to above We will get to a stable O2 saturation prior to discharge Clinically stable (7) Chronic iron deficiency anemia: (8) GERD (gastroesophageal reflux disease): (9) Arthritis of right knee: Plan Patient is a 71 yr female with CKD III, GERD, IBS, chronic iron deficiency anemia presented to ER via EMS for abdominal pain, N/V that began just prior to arrival. She was in septic shock on admission with acute metabolic encephalopathy. --CT head: No acute intracranial abnormality Acute blood loss anemia Chronic iron deficiency anemia: Baseline Hb 11-12 per outpatient chart review She was found to have 1L of hemoperitoneum when abdomen opened in the OR on 06/11. She was hypotensive, tachycardic with only a carotid pulse. She was transfused one unit of uncrossmatched blood and phenylephrine for hemodynamic support. OA flare-right knee -known h/o OA, now with Right knee having pain, restricted ROM and warm to touch consistent with acute arthritis. Mobic BID for short term control of pain and inflammation. DVT Px: Lovenox SQ Code Status Full Code Dispo-to rehab in 1-2 days Discharged to rehab when a bed is available Admission and Anticipated Discharge Date Admission Date: June 11, 2022 Subjective 06/19/2022 The patient was seen and examined in telemetry unit She has been feeling much better but remains generally weak Asking that when she can be discharged Denies any significant symptoms 06/20/2022 The patient was seen and examined in telemetry unit She has been feeling much better and is out of bed on a chair Abdominal discomfort is much diminished Intra-abdominal drain is taken out and surgery cleared her for discharge Review of Systems Review of Systems: All systems reviewed and are unremarkable except as noted below Gastrointestinal: Abdominal discomfort and pain Physical Exam Physical Exam: Sitting on a chair without any acute distress Constitutional: well developed, well nourished, + ill appearing and average body habitus; no acute distress Eyes: PERRL, conjunctivae normal, anicteric sclerae ENMT: external ear and nose normal, oropharynx normal Neck: trachea midline, no thyromegaly Respiratory: no respiratory distress Auscultation: + diminished lung sounds (Bibasally) and + crackles (At the bases) Cardiovascular: Rate/Rhythm: regular rate and regular rhythm; not tachycardic Heart Sounds: normal S1 and normal S2; no murmur Extremities: + edema (Trace edema bilaterally) Gastrointestinal (Abdomen): Inspection/Auscultation: normal bowel sounds; abdomen not distended Percussion/Palpation: + abdomen tender and abdomen soft Musculoskeletal: No acute arthritis involving any joint Neurologic: normal touch/pain/proprioception and moves all extremities; no fo taisha motor deficits Lymphatic: no cervical or axillary lymphadenopathy Results & Data Results & Data Vital Signs (Past 12 Hours) Vital Signs Temp Pulse Resp BP Pulse Ox O2 Del Method 06/20/22 08:03 36.7 C 80 18 122/76 95 Room Air 06/20/22 03:25 36.7 C 74 18 133/76 96 Room Air Laboratory Results Short CBC 06/20/22 Range/Units 06:27 WBC 12.55 H (4.8-10.8) K/ul Hgb 8.3 L (12.0-16.0) g/dl Hct 24.7 L (37.0-47.0) % Plt Count 377 (130-400) K/uL BMP 06/20/22 06:27 Sodium 138 Potassium 3.6 Chloride 109 H Carbon Dioxide 24 BUN 11 Creatinine 0.66 Glucose 100 H Calcium 7.3 L Liver Function 06/20/22 Range/Units 06:27 Total Bilirubin 0.4 (0.2-1.0) mg/dl AST 23 (13-39) U/L ALT 18 (7-52) U/L Alkaline Phosphatase 176 H (34-104) U/L Albumin 2.3 L (3.4-5.0) gm/dl Medications Administered Current Inpatient Medications Bimatoprost (Bimatoprost 0.01% Op Soln 2.5 Ml Btl) 1 drops OP HS ASIA Stop: 07/12/22 20:59 Last Admin: 06/19/22 20:58 Dose: 1 drops Cetirizine HCl (Cetirizine Hcl 10 Mg Tablet) 10 mg PO DAILY [facility] Stop: 07/12/22 08:59 Cyanocobalamin (Cyanocobalamin (B-12) 500 Mcg Tablet) 1,000 mcg PO DAILY [facility] Stop: 07/12/22 08:59 Dextrose (Dextrose 50% 50 Ml Syringe) 25 - 50 ml IV UD PRN; Protocol PRN Reason: Hypoglycemia Protocol Stop: 07/11/22 22:31 Last Admin: 06/13/22 01:22 Dose: 50 ml Diclofenac Sodium (Diclofenac Sod 1% Gel 100 Gm Tube) 2 gm EXT TID PRN; Protocol PRN Reason: LEFT KNEE PAIN Stop: 07/11/22 22:31 Enoxaparin Sodium (Enoxaparin Inj 40 Mg/0.4 Ml Syr) 40 mg SQ Q24H [facility] Stop: 07/13/22 10:59 Last Admin: 06/20/22 10:24 Dose: 40 mg Furosemide (Furosemide 20 Mg Tab) 20 mg PO QAM [facility] Stop: 07/19/22 10:59 Last Admin: 06/20/22 08:05 Dose: 20 mg Glucagon (Glucagon For Inj 1 Mg Vial) 1 mg SQ UD PRN; Protocol PRN Reason: Hypoglycemia Protocol Stop: 07/11/22 22:31 Glucose (Glucose 10 Tab/Tube) 4 - 8 tab PO UD PRN; Protocol PRN Reason: Hypoglycemia Treatment Stop: 07/11/22 22:31 Glucose (Glucose 40% Gel 15 Gm Tube) 15 - 30 gm PO UD PRN; Protocol PRN Reason: Hypoglycemia Protocol Stop: 07/11/22 22:31 Hydromorphone HCl (Hydromorphone Inj 0.5 Mg/0.5 Ml Syr) 0.25 mg IV Q4H PRN PRN Reason: moderate-severe pain (4-10) Stop: 06/26/22 09:34 Last Admin: 06/13/22 05:46 Dose: 0.25 mg Ciprofloxacin (Cipro / D5w) 400 mg in 200 mls @ 100 mls/hr IV Q12H ASIA; Protocol Stop: 06/27/22 09:29 Last Infusion: 06/20/22 11:53 Dose: Infused Metronidazole (Flagyl) 500 mg in 100 mls @ 100 mls/hr IV Q8H [facility] Stop: 06/27/22 09:29 Last Infusion: 06/20/22 10:19 Dose: Infused Lactobacillus Acidophilus (Advanced Probiotic 1250 Mg Capsule) 2 cap PO DAILY [facility] Stop: 07/16/22 13:29 Last Admin: 06/20/22 08:05 Dose: 2 cap Meloxicam (Meloxicam 7.5 Mg Tab) 7.5 mg PO BID [facility] Stop: 06/23/22 11:49 Last Admin: 06/20/22 08:05 Dose: 7.5 mg Metoprolol Succinate (Metoprolol Succ 25mg Ext Rel Tab) 25 mg PO BID [facility] Stop: 07/16/22 03:59 Last Admin: 06/20/22 08:05 Dose: 25 mg Miscellaneous (Carbohydrates For Hypoglycemia ) 15 - 30 gm PO UD PRN PRN Reason: Hypoglycemia Protocol Stop: 07/11/22 22:31 Last Admin: 06/13/22 01:15 Dose: 25 gm Oxycodone HCl (Oxycodone Hcl Ir 5 Mg Tab (Immediate Release)) 5 mg PO Q4H PRN PRN Reason: moderate pain Stop: 06/27/22 11:26 Last Admin: 06/19/22 21:03 Dose: 5 mg Psyllium Hydrophilic Mucilloid (Psyllium Or Guar Gum Fiber Powder Packet) 1 pkt PO BID [facility] Stop: 07/12/22 08:59 Last Admin: 06/12/22 08:29 Dose: Not Given Timolol Maleate (Timolol Maleate 0.5% Op Soln 5 Ml Btl) 1 drops OP QAM [facility] Stop: 07/12/22 08:59 Last Admin: 06/20/22 08:05 Dose: 1 drops
[2022-06-20] MEDS: BIMATOPROST 0.01% OP SOLN 2.5 ML BTL OP SCH (19:34)
[2022-06-20] MEDS: CIPROFLOXACIN 500 MG TAB PO SCH (19:35)
[2022-06-20] MEDS: metroNIDAZOLE 500 MG TAB PO SCH (19:35)
[2022-06-20] MEDS: oxyCODONE HCL IR 5 MG TAB (IMMEDIATE RELEASE) PO PRN (21:22)
[2022-06-21] MEDS: METOPROLOL SUCC 25MG EXT REL TAB PO SCH (08:12)
[2022-06-21] MEDS: MELOXICAM 7.5 MG TAB PO SCH (08:12)
[2022-06-21] MEDS: FUROSEMIDE 20 MG TAB PO SCH (08:13)
[2022-06-21] MEDS: ADVANCED PROBIOTIC 1250 MG CAPSULE PO SCH (08:13)
[2022-06-21] MEDS: TIMOLOL MALEATE 0.5% OP SOLN 5 ML BTL OP SCH (08:14)
[2022-06-21] MEDS: metroNIDAZOLE 500 MG TAB PO SCH ×2 (08:14→13:20)
[2022-06-21] MEDS: CIPROFLOXACIN 500 MG TAB PO SCH (08:14)
--- NOTE | 2022-06-21 10:11 | Hospitalist Progress Note ---
Date of Service June 21, 2022 Assessment & Plan (1) SBO (small bowel obstruction): Plan: CTA chest, abd/pelvis:Unremarkable CTA of the chest, abdomen and pelvis. Limited evaluation of the solid abdominal organs and bowel secondary to arterial phase of imaging and lack of enteric contrast. High-grade small bowel obstruction with several loops demonstrating circumferential wall thickening with associated intraluminal edema and small volume of abdominopelvic ascites. No pneumoperitoneum identified. Moderate sized hiatal hernia. S/PEmergency exploratory laparotomy on 06/11/[address] Stone s/p small-bowel resection, FLORY drainage x1 S/P Extubation on 06/12/[address] ABD on 06/16 suggestive of possible developing this small abdominal abscess. Moderate gallbladder distention and possible duodenitis Gallbladder ultrasound on 06/16:No acute abnormalities and in particular no evidence of acute cholecystitis. NG tube discontinued Blood Cultures (06/11): 04/09: Clostridium septicum Repeat Blood Cultures: No growth to date Empirically on Vanco, Zosyn>>Zosyn>> changed to Cipro, Flagyl by surgery Likely to need at least 2-week course of antibiotics given Clostridium septicum in blood culture, but will request formal ID consult for recs, especially given the residual/new developing intra-abdominal abscess. Awaiting ID recommendations IVF were held for concerns of volume overload, this was supported by new pleural effusions seen on chest imaging. Some diarrhea with abx, stool for C. difficile: Negative Persistent leukocytosis may be related to persistent abscess vs inflammation of her knee vs other. Tolerating solid food. Remains stable and the white cell count has been improving Appreciate ID input and recommendation to continue oral Cipro and Flagyl until 06/30/[address] of the abdomen to reevaluate fluid collection. If any fluid collection is seen IR guided percutaneous drain is should be done and extension of antibiotic recommended Stable to be discharged as per surgery Remains medically stable and feels a lot better and should be discharged to [facility] this afternoon Bilateral pleural effusion Appreciate pulmonary input and recommendation Ultrasound did not show any significant fluid accumulation and doubt any infected fluid No aspiration was performed and does not require aspiration No fever and or chills and no shortness of breath No shortness of breath at rest and has been saturating normally on room air (2) Sepsis: Plan: Sepsis was secondary to acute bowel ischemia with an SBO and bowel necrosis. Negative SARS-CoV-2 Required pressor agents initially to maintain blood pressure (3) Lactic acidosis: Plan: Secondary to sepsis-resolved (4) Elevated troponin: Plan: Elevated troponin: likely demand ischemia in setting of sepsis. ECHO: Left ventricle is normal in size. Left ventricle systolic function is normal. EF 60 to 65%. Right ventricle systolic function is normal. Left atrial size is normal. Right atrial size is normal. No significant valvular pathology -no further cardiac workup is felt to be needed at this time. (5) Acute kidney injury superimposed on CKD: Plan: Acute kidney injury on CKD III Cr: 1.7>>1.1>0.85>0.64 resolved wtih IVF Avoid nephrotoxic agents as able, but we do need a short burst of NSAIDs to help with OA flare of right knee, so will Monitor renal function daily during this time. Kidney function remains stable (6) Exertional dyspnea: Plan: Secondary to above We will get to a stable O2 saturation prior to discharge Clinically stable (7) Chronic iron deficiency anemia: Plan: Hemoglobin stable around 8.3 (8) GERD (gastroesophageal reflux disease): (9) Arthritis of right knee: Plan Patient is a 71 yr female with CKD III, GERD, IBS, chronic iron deficiency anemia presented to ER via EMS for abdominal pain, N/V that began just prior to arrival. She was in septic shock on admission with acute metabolic encephalopathy. --CT head: No acute intracranial abnormality Acute blood loss anemia Chronic iron deficiency anemia: Baseline Hb 11-12 per outpatient chart review She was found to have 1L of hemoperitoneum when abdomen opened in the OR on 06/11. She was hypotensive, tachycardic with only a carotid pulse. She was transfused one unit of uncrossmatched blood and phenylephrine for hemodynamic support. OA flare-right knee -known h/o OA, now with Right knee having pain, restricted ROM and warm to touch consistent with acute arthritis. Mobic BID for short term control of pain and inflammation. DVT Px: Lovenox SQ Code Status Full Code Will be discharged to [facility] this afternoon Admission and Anticipated Discharge Date Admission Date: June 11, 2022 Subjective 06/19/2022 The patient was seen and examined in telemetry unit She has been feeling much better but remains generally weak Asking that when she can be discharged Denies any significant symptoms 06/20/2022 The patient was seen and examined in telemetry unit She has been feeling much better and is out of bed on a chair Abdominal discomfort is much diminished Intra-abdominal drain is taken out and surgery cleared her for discharge 06/21/2022 The patient was seen and examined in telemetry unit He is lying in bed comfortably without any acute discomfort or symptoms Denies any fever and or chills and she wants to take a shower She will be discharged to [facility] this afternoon Review of Systems Review of Systems: All systems reviewed and are unremarkable except as noted below Gastrointestinal: Abdominal discomfort and pain-has improved a lot Physical Exam Physical Exam: Lying in bed without any acute distress Constitutional: well developed, well nourished and average body habitus; no acute distress and not ill appearing Eyes: PERRL, conjunctivae normal, anicteric sclerae ENMT: external ear and nose normal, oropharynx normal Neck: trachea midline, no thyromegaly Respiratory: no respiratory distress Auscultation: + diminished lung sounds (Bibasally) and + crackles (At the bases) Cardiovascular: Rate/Rhythm: regular rate and regular rhythm; not tachycardic Heart Sounds: normal S1 and normal S2; no murmur Extremities: + edema (Trace edema bilaterally) Gastrointestinal (Abdomen): Inspection/Auscultation: normal bowel sounds; abdomen not distended Percussion/Palpation: + abdomen tender and abdomen soft Musculoskeletal: No acute arthritis involving any joint Neurologic: normal touch/pain/proprioception and moves all extremities; no focal motor deficits Psychiatric: A+Ox3, euthymic affect Lymphatic: no cervical or axillary lymphadenopathy Results & Data Results & Data Vital Signs (Past 12 Hours) Vital Signs Temp Pulse Pulse Resp BP Pulse Ox O2 Del Method 06/21/22 08:10 36.8 C 73 16 146/58 H 97 Room Air 06/21/22 07:55 69 06/21/22 03:00 36.8 C 77 20 151/72 H 92 Room Air 06/20/22 23:43 36.8 C 79 19 133/65 94 Room Air 06/20/22 23:00 69 Medications Administered Current Inpatient Medications Bimatoprost (Bimatoprost 0.01% Op Soln 2.5 Ml Btl) 1 drops OP HS [facility]IA Stop: 07/12/22 20:59 Last Admin: 03/17/23 19:34 Dose: 1 drops Cetirizine HCl (Cetirizine Hcl 10 Mg Tablet) 10 mg PO DAILY [facility] Stop: 07/12/22 08:59 Ciprofloxacin (Ciprofloxacin 500 Mg Tab) 500 mg PO BID [facility] Stop: 06/30/22 20:59 Last Admin: 06/21/22 08:14 Dose: 500 mg Cyanocobalamin (Cyanocobalamin (B-12) 500 Mcg Tablet) 1,000 mcg PO DAILY [facility] Stop: 07/12/22 08:59 Dextrose (Dextrose 50% 50 Ml Syringe) 25 - 50 ml IV UD PRN; Protocol PRN Reason: Hypoglycemia Protocol Stop: 07/11/22 22:31 Last Admin: 06/13/22 01:22 Dose: 50 ml Diclofenac Sodium (Diclofenac Sod 1% Gel 100 Gm Tube) 2 gm EXT TID PRN; Protocol PRN Reason: LEFT KNEE PAIN Stop: 07/11/22 22:31 Enoxaparin Sodium (Enoxaparin Inj 40 Mg/0.4 Ml Syr) 40 mg SQ Q24H [facility] Stop: 07/13/22 10:59 Last Admin: 06/20/22 10:24 Dose: 40 mg Furosemide (Furosemide 20 Mg Tab) 20 mg PO QAM [facility] Stop: 07/19/22 10:59 Last Admin: 06/21/22 08:13 Dose: 20 mg Glucagon (Glucagon For Inj 1 Mg Vial) 1 mg SQ UD PRN; Protocol PRN Reason: Hypoglycemia Protocol Stop: 07/11/22 22:31 Glucose (Glucose 10 Tab/Tube) 4 - 8 tab PO UD PRN; Protocol PRN Reason: Hypoglycemia Treatment Stop: 07/11/22 22:31 Glucose (Glucose 40% Gel 15 Gm Tube) 15 - 30 gm PO UD PRN; Protocol PRN Reason: Hypoglycemia Protocol Stop: 07/11/22 22:31 Hydromorphone HCl (Hydromorphone Inj 0.5 Mg/0.5 Ml Syr) 0.25 mg IV Q4H PRN PRN Reason: moderate-severe pain (4-10) Stop: 06/26/22 09:34 Last Admin: 06/13/22 05:46 Dose: 0.25 mg Lactobacillus Acidophilus (Advanced Probiotic 1250 Mg Capsule) 2 cap PO DAILY [facility] Stop: 07/16/22 13:29 Last Admin: 06/21/22 08:13 Dose: 2 cap Meloxicam (Meloxicam 7.5 Mg Tab) 7.5 mg PO BID [facility] Stop: 06/23/22 11:49 Last Admin: 06/21/22 08:12 Dose: 7.5 mg Metoprolol Succinate (Metoprolol Succ 25mg Ext Rel Tab) 25 mg PO BID [facility] Stop: 07/16/22 03:59 Last Admin: 06/21/22 08:12 Dose: 25 mg Metronidazole (Metronidazole 500 Mg Tab) 500 mg PO TID [facility] Stop: 06/30/22 20:59 Last Admin: 06/21/22 08:14 Dose: 500 mg Miscellaneous (Carbohydrates For Hypoglycemia ) 15 - 30 gm PO UD PRN PRN Reason: Hypoglycemia Protocol Stop: 07/11/22 22:31 Last Admin: 06/13/22 01:15 Dose: 25 gm Oxycodone HCl (Oxycodone Hcl Ir 5 Mg Tab (Immediate Release)) 5 mg PO Q4H PRN PRN Reason: moderate pain Stop: 06/27/22 11:26 Last Admin: 06/20/22 21:22 Dose: 5 mg Psyllium Hydrophilic Mucilloid (Psyllium Or Guar Gum Fiber Powder Packet) 1 pkt PO BID [facility] Stop: 07/12/22 08:59 Last Admin: 06/12/22 08:29 Dose: Not Given Timolol Maleate (Timolol Maleate 0.5% Op Soln 5 Ml Btl) 1 drops OP QAM [facility] Stop: 07/12/22 08:59 Last Admin: 06/21/22 08:14 Dose: 1 drops
[2022-06-21] MEDS: ENOXAPARIN INJ 40 MG/0.4 ML SYR SQ SCH (12:09)
--- NOTE | 2022-06-21 12:44 | Surgery Progress Note ---
Date of Service June 21, 2022 Assessment & Plan (1) SBO (small bowel obstruction): Plan: POD # 9 s/p ex lap, small bowel resection 160 cm for ischemic bowel - afebrile - WBC 12,500 today - pelvic fluid collection, small, continue iv antibiotic, - U/A negative, JESSICA fluid- negative - blood culture on 06/11/2022 + Clostridium Plan: Continue oral pain management as needed continue IV Abx, await ID recs, JESSICA 10 ml clear pull out jessica drain Continue Lovenox and SCDs for DVT prophylaxis Continue incentive spirometry Continue PT/OT Case management on board, plan to discharge to [facility] when cleared Doing well from surgical standpoint for discharge to rehab, will reach out to hospitalist team about discharge planning Discussed with Dr. Stone who agrees with above I saw pt, D/W Hospitalist about discharge plan, po cipro + flagyl 10 days. regular diet, F/U me 2 weeks, 06/21/2022 12:42PM DR. Stone pt is doing fine, pt can be discharged today, or the bed available po cipro + flagyl 10 days. regular diet, F/U me 2 weeks, , Thanks all teams take care this pt. Admission and Anticipated Discharge Date Admission Date: June 11, 2022 Subjective 06/19/2022 The patient was seen and examined in telemetry unit She has been feeling much better but remains generally weak Asking that when she can be discharged Denies any significant symptoms 06/20/2022 The patient was seen and examined in telemetry unit She has been feeling much better and is out of bed on a chair Abdominal discomfort is much diminished Intra-abdominal drain is taken out and surgery cleared her for discharge 06/21/2022 The patient was seen and examined in telemetry unit He is lying in bed comfortably without any acute discomfort or symptoms Denies any fever and or chills and she wants to take a shower She will be discharged to [facility] this afternoon 06/21/2022 12:[address] Stone, doing fine, tolerated diet, 4 times BM. no fever, no abdominal pain, Physical Exam Eyes: PERRL, conjunctivae normal, anicteric sclerae Neck: trachea midline, no thyromegaly normal visual inspection and trachea midline Cardiovascular: RRR, no murmur, no edema Gastrointestinal (Abdomen): soft, NT, ND, the incision heals well, no redness, BS +, Musculoskeletal: no cyanosis or clubbing, extremities motor strength 5/5 Neurologic: patellar DTR's 2+ bilat, sensation intact Psychiatric: A+Ox3, euthymic affect Orientation: alert and oriented x 3 Results & Data Vital Signs (Past 12 Hours) Vital Signs Temp Pulse Pulse Resp BP Pulse Ox O2 Del Method 06/21/22 08:10 36.8 C 73 16 146/58 H 97 Room Air 06/21/22 07:55 69 06/21/22 03:00 36.8 C 77 20 151/72 H 92 Room Air
--- NOTE | 2022-06-21 15:05 | Discharge Summary ---
Date of Service June 21, 2022 Admission HPI Per Admitting Provider AMS Primary Care Provider: Colby Faustin MD Patient is 71 y/o F with PMH CKD III, GERD, IBS, chronic iron deficiency anemia presented to ER via EMS for AMS, abdominal pain. History obtained from outpatient record review and patient's who is at bedside secondary to patient's current cognitive status. states last night they ate spaghetti for dinner around 19:00. Shortly after that patient complained of abdominal pain and had nausea and vomiting. Reported episodes of vomiting until 3:00am today. This morning when woke up patient c/o abdominal pain, nausea. Reports patient called PCP's office for appointment but none available today. As day progressed patient became lethargic and with noted increased respirations and decreased responsiveness. doesn't think patient ate today. He states gave her lemonade prior to noon today but patient did not drink it. Patient with history appendectomy, x 3 per outpatient records. EMS was called this afternoon secondary to patient's worsening status. Upon ER arrival patient noted to be tachycardic, tachypneic, febrile and with AMS. CT abd/pelvis showed high grade SBO. Had lactate 10. General surgery consulted and plan to take patient to OR now for exploratory laparotomy. Admission Exam Per Admitting Provider General: Ill looking elderly woman Eyes: PERRL, conjunctivae normal ENMT: On NRB Respiratory: In respiratory distress, tachypneic, on NRB, lungs clear to auscultation Cardiovascular: Tachycardic, normal rhythm, S1 S2 Gastrointestinal (Abdomen): Abdomen is mildly distended, generalized tenderness, +rebound tenderness, absent bowel sounds Musculoskeletal: No pedal edema Neurologic: Lethargic, not oriented, not following commands Psychiatric: Unable to assess Principal Diagnosis Small bowel obstruction Small bowel ischemia Bacteremia Discharge Exam Lying in bed without any acute distress Constitutional well developed, well nourished and average body habitus; no acute distress and not ill appearing Eyes PERRL, conjunctivae normal, anicteric sclerae ENMT external ear and nose normal, oropharynx normal Neck trachea midline, no thyromegaly Respiratory no respiratory distress Auscultation: + diminished lung sounds (Bibasally) and + crackles (At the bases) Cardiovascular Rate/Rhythm: regular rate and regular rhythm; not tachycardic Heart Sounds: normal S1 and normal S2; no murmur Extremities: + edema (Trace edema bilaterally) Gastrointestinal (Abdomen) Inspection/Auscultation: normal bowel sounds; abdomen not distended Percussion/Palpation: + abdomen tender and abdomen soft Neurologic normal touch/pain/proprioception and moves all extremities; no focal motor deficits Psychiatric A+Ox3, euthymic affect Lymphatic no cervical or axillary lymphadenopathy Discharge Data Allergies Allergy/AdvReac Type Severity Reaction Status Date / Time prochlorperazine Allergy Severe severe Verified 06/11/22 17:31 [From Compazine] muscle spasms (neck) as a child Sulfa (Sulfonamide Allergy Intermediate Rash Verified 06/11/22 17:31 Antibiotics) Consultations 06/11/22 18:29 Consult General Surgery Routine ED Decision to Admit Stat 06/11/22 22:32 Consult General Surgery Routine Consult Wooden Barrel Mechanic Routine Consult Wooden Barrel Mechanic Routine 06/18/22 09:06 Consult Infectious Diseases Routine 06/18/22 13:48 Consult Pulmonology Routine Procedures Performed Operation Date: 06/11/22 19:00 Actual Procedures p Exploratory Laparotomy, small bowel resection(Not Applicable) - Alonso Stone MD Ordered Studies 06/11/22 16:52 CT head/brain wo con Stat 06/11/22 16:53 CTA abdomen pelvis w con [CT angio abdomen pelvis w con] Stat CTA chest dissec wo/w con [CT angio chest dissec wo/w con] Stat 06/16/22 08:42 CT Abd and Pelvis [CT abd pelvis IV con only] Routine 06/16/22 13:15 US gallbladder Routine Hospital Course (1) SBO (small bowel obstruction): CTA chest, abd/pelvis:Unremarkable CTA of the chest, abdomen and pelvis. Limited evaluation of the solid abdominal organs and bowel secondary to arterial phase of imaging and lack of enteric contrast. High-grade small bowel obstruction with several loops demonstrating circumferential wall thickening with associated intraluminal edema and small volume of abdominopelvic ascites. No pneumoperitoneum identified. Moderate sized hiatal hernia. S/PEmergency exploratory laparotomy on 06/11/[address] Stone s/p small-bowel resection, FLORY drainage x1 S/P Extubation on 06/12/[address] ABD on 06/16 suggestive of possible developing this small abdominal abscess. Moderate gallbladder distention and possible duodenitis Gallbladder ultrasound on 06/16:No acute abnormalities and in particular no evidence of acute cholecystitis. NG tube discontinued Blood Cultures (06/11): 04/09: Clostridium septicum Repeat Blood Cultures: No growth to date Empirically on Vanco, Zosyn>>Zosyn>> changed to Cipro, Flagyl by surgery Likely to need at least 2-week course of antibiotics given Clostridium septicum in blood culture, but will request formal ID consult for recs, especially given the residual/new developing intra-abdominal abscess. Awaiting ID recommendations IVF were held for concerns of volume overload, this was supported by new pleural effusions seen on chest imaging. Some diarrhea with abx, stool for C. difficile: Negative Persistent leukocytosis may be related to persistent abscess vs inflammation of her knee vs other. Tolerating solid food. Remains stable and the white cell count has been improving Appreciate ID input and recommendation to continue oral Cipro and Flagyl until 06/30/[address] of the abdomen to reevaluate fluid collection. If any fluid collection is seen IR guided percutaneous drain is should be done and extension of antibiotic recommended Stable to be discharged as per surgery Remains medically stable and feels a lot better and should be discharged to [facility] this afternoon Bilateral pleural effusion Appreciate pulmonary input and recommendation Ultrasound did not show any significant fluid accumulation and doubt any infected fluid No aspiration was performed and does not require aspiration No fever and or chills and no shortness of breath No shortness of breath at rest and has been saturating normally on room air (2) Sepsis: Sepsis was secondary to acute bowel ischemia with an SBO and bowel necrosis. Negative SARS-CoV-2 Required pressor agents initially to maintain blood pressure (3) Lactic acidosis: Secondary to sepsis-resolved (4) Elevated troponin: Elevated troponin: likely demand ischemia in setting of sepsis. ECHO: Left ventricle is normal in size. Left ventricle systolic function is normal. EF 60 to 65%. Right ventricle systolic function is normal. Left atrial size is normal. Right atrial size is normal. No significant valvular pathology -no further cardiac workup is felt to be needed at this time. (5) Acute kidney injury superimposed on CKD: Acute kidney injury on CKD III Cr: 1.7>>1.1>0.85>0.64 resolved wtih IVF Avoid nephrotoxic agents as able, but we do need a short burst of NSAIDs to help with OA flare of right knee, so will Monitor renal function daily during this time. Kidney function remains stable (6) Exertional dyspnea: Secondary to above We will get to a stable O2 saturation prior to discharge Clinically stable (7) Chronic iron deficiency anemia: Hemoglobin stable around 8.3 (8) GERD (gastroesophageal reflux disease): (9) Arthritis of right knee: Plan Patient is a 71 yr female with CKD III, GERD, IBS, chronic iron deficiency anemia presented to ER via EMS for abdominal pain, N/V that began just prior to arrival. She was in septic shock on admission with acute metabolic encephalopathy. --CT head: No acute intracranial abnormality Acute blood loss anemia Chronic iron deficiency anemia: Baseline Hb 11-12 per outpatient chart review She was found to have 1L of hemoperitoneum when abdomen opened in the OR on 06/11. She was hypotensive, tachycardic with only a carotid pulse. She was transfused one unit of uncrossmatched blood and phenylephrine for hemodynamic support. OA flare-right knee -known h/o OA, now with Right knee having pain, restricted ROM and warm to touch consistent with acute arthritis. Mobic BID for short term control of pain and inflammation. DVT Px: Lovenox SQ Code Status Full Code Will be discharged to [facility] this afternoon Total Time Total Time Spent Total Time Spent (In Minutes): 45 minutes Discharge Plan Discharge Items Patient Disposition: Transfer Inpatient Rehab Fac Reason For Visit: SBO Discharge Diagnosis: Small bowel obstruction Small bowel ischemia Bacteremia Condition on Discharge: Good Activity: Resume your previous activity Non-emergency contact: Primary Care Provider Call non-emergency contact if: you have any medication questions and your symptoms worsen Follow-up/Referrals: Colby Faustin MD [Primary Care Provider] - (Please make an appointment with your PCP within 1 week following discharge from the facility) Alonso Stone MD [Physician] - 07/01/22 10:30 am Diet: Low Fiber Addtl Attending Provider Instructions: Please take precautions to avoid falls Take your medications as advised Please give appointments with your healthcare providers Addtl Natural Resource Specialist Provider Instructions: Post-Surgical ~Discharge Instructions Activity Recommendations: - lifting limitation: (10 pounds for at least 6 weeks), - exercise/sex/sports limit: (nonstrenuous for 6 weeks), - driving or machine use limit: (none for 1 week. Until pain free and no longer taking narcotic pain medication), - Shower/bathe limit: (may shower beginning tomorrow) Diet: - Low fiber diet SPECIAL CARE INSTRUCTIONS: - May shower.. Let water run over area and pat dry. - Surgical lina will be removed in office - Call the surgeon's office with any questions or concerns - - (ex. temperature higher than 101 degrees F, excessive bleeding or pain). MEDICATIONS: - Resume previous medications unless instructed otherwise by your surgeon. - May alternate extra strength Tylenol as needed for mild to moderate pain -650 mg Tylenol every 6 hours - Oxycodone 1 every 6 hours, as needed for moderate to severe pain FOLLOW UP VISIT: - If not already scheduled, please call the office to schedule a one-two week follow-up appointment. Office number Pending Studies at Discharge: No Stand-Alone Forms: My [facility] Skilled Items Patient informed of condition?: Yes DNR: No Discharge Level of Care: Acute rehab Communicable Disease: No Discharge Prognosis: Stable Lines: None Urinary Catheter: No Medications and DC Order Prescriptions: New metronidazole 500 mg Tablet 500 mg PO TID 9 Days Qty: 27 0RF ciprofloxacin HCl 500 mg Tablet 500 mg PO BID 9 Days Qty: 18 0RF furosemide 20 mg Tablet 20 mg PO QAM 30 Days Qty: 30 0RF oxycodone 5 mg Tablet 5 mg PO Q4H PRN (Reason: pain) 3 Days Qty: 12 0RF Advanced Probiotic 625 mg (10 billion cell) Capsule 2 cap PO DAILY 30 Days Qty: 60 0RF Continued meloxicam 7.5 mg tablet 7.5 mg PO QAM omeprazole 20 mg capsule,delayed release(DR/EC) 20 mg PO DAILYBB cetirizine [Zyrtec] 10 mg Tablet 10 mg PO DAILY timolol maleate 0.5 % Drops 1 drp OPB QAM cyclosporine [Restasis] 0.05 % Dropperette 1 drp OPHTHALMIC (EYE) Q12H Metamucil 3.4 gram/5.4 gram Powder 1 tbsp PO BID cyanocobalamin (vitamin B-12) [Vitamin B-12] 1,000 mcg Tablet 1,000 mcg PO DAILY tretinoin 0.05 % cream 1 applic TOPICAL QPM acetaminophen [Tylenol Extra Strength] 500 mg Tablet 500 mg PO TID diclofenac sodium 1 % Gel 2 g TOPICAL TID PRN (Reason: LEFT KNEE PAIN) Lumigan 0.01 % drops 1 drp OPB HS Vitron-C 65 mg iron- 125 mg Tablet,Delayed Release (Dr/Ec) 1 tab PO QAM [id number]-[id number] D2 1 tab PO DAILY Rx Instructions: STRENGTH 600-40-500 Changed metoprolol succinate 25 mg tablet extended release 24 hr 25 mg PO BID Qty: 60 0RF Discharge Orders: Discharge Order (Routine); Ordered 06/21/22 Ordered By: Kong Causey Admission Data Admit Date/Time: 06/11/22 19:06 Attending Provider: Kong Causey Admit Provider: Lotus Pryor I. Primary Care Provider: Colby Faustin Other Providers: Lotus Pryor I. ; Ronny Ochoa ; Dylon Preciado ; Alonso Stone ; Antonio Sesay ; Audi Le ; Paddy De Jesus ; Rene Russell ; Dawit Johnson ; Marcia Marrero ; Rhett Canchola ; Alejandra Dougherty ; [facility] ; [facility] ; Toro Cheek ; Anayeli Cross ; Lopez Allen I. ; Luc Pizano II ; Zehra Marquez ; Ronni Leong ; Koffi Lawson ; Juju Leary ; Ceci Connolly Other Interventions: Discharge Summary Assessment (RN) Last Done: 06/21/22 13:23
== END 2022-06-21 14:19 | DRG 853 ==
LOC: ED 16:46 → OR 19:03 → SUATTDRO 19:06 → 1E 19:06 → 2E 06-13 17:57
DX: N17.9 Acute kidney failure, unspecified; A41.9 Sepsis, unspecified organism; J90 Pleural effusion, not elsewhere classified; K55.052 Diffuse acute (reversible) ischemia of intestine, part unspecified; D62 Acute posthemorrhagic anemia; R18.8 Other ascites; K66.1 Hemoperitoneum; G93.41 Metabolic encephalopathy; N18.30 Chronic kidney disease, stage 3 unspecified; I12.9 Hypertensive chronic kidney disease with stage 1 through stage 4 chronic kidney disease, or unspecified chronic kidney disease; Z88.2 Allergy status to sulfonamides; D50.9 Iron deficiency anemia, unspecified; K56.609 Unspecified intestinal obstruction, unspecified as to partial versus complete obstruction; L02.211 Cutaneous abscess of abdominal wall; J80 Acute respiratory distress syndrome; R57.1 Hypovolemic shock; I24.8 Other forms of acute ischemic heart disease; K65.1 Peritoneal abscess; E87.20 Acidosis, unspecified; R65.21 Severe sepsis with septic shock

== ENCOUNTER 2023-05-18 07:24 | Inpatient (IN) ==
--- NOTE | 2023-04-13 12:55 | PAT Medication Instructions ---
Medication Instructions Date of Service April 13, 2023 Home Medications Medication Instructions Recorded metoprolol succinate 25 mg 25 mg PO BID #60 tabs 06/21/22 tablet,extended release 24 hr Medication List: cetirizine 10 mg tablet (Zyrtec) 10 mg PO QAM cyclosporine 0.05 % eye drops in a dropperette (Restasis) 1 drp ophthalmic (eye) Q12H timolol maleate 0.5 % eye drops 1 drp OPB QAM meloxicam 7.5 mg tablet 7.5 mg PO QAM omeprazole 20 mg capsule,delayed release 20 mg PO DAILYBB acetaminophen 500 mg tablet (Tylenol Extra Strength) 500 mg PO TID PRN Pain bimatoprost 0.01 % eye drops (Lumigan) 1 drp OPB HS cdphrvj-nmszpunem-lplehse D2 1 tab PO DAILY cyanocobalamin (vitamin B-12) 1,000 mcg tablet (Vitamin B-12) 1,000 mcg PO QAM diclofenac sodium 1 % topical gel 2 g topical TID PRN LEFT KNEE PAIN tretinoin 0.05 % topical cream 1 applic topical QPM metoprolol succinate 25 mg tablet,extended release 24 hr 25 mg PO BID biotin 5 mg tablet 5 mg PO DAILY docusate sodium 100 mg capsule (Colace) 100 mg PO BID furosemide 20 mg tablet 20 mg PO QAM glucosamine-chondroitin 250 mg-200 mg tablet (Osteo Bi-Flex) 2 tab PO QAM MEDICATION INSTRUCTIONS: Continue as directed cyclosporine 0.05 % eye drops in a dropperette (Restasis) 1 drp ophthalmic (eye) Q12H timolol maleate 0.5 % eye drops 1 drp OPB QAM diclofenac sodium 1 % topical gel 2 g topical TID PRN LEFT KNEE PAIN (do not apply near surgical area after bathing prior to surgery) bimatoprost 0.01 % eye drops (Lumigan) 1 drp OPB HS tretinoin 0.05 % topical cream 1 applic topical QPM (do not apply near surgical area after bathing prior to surgery) ASK your surgeon for instructions meloxicam 7.5 mg tablet 7.5 mg PO QAM STOP taking 2 weeks before surgery glucosamine-chondroitin 250 mg-200 mg tablet (Osteo Bi-Flex) 2 tab PO QAM biotin 5 mg tablet 5 mg PO DAILY DO NOT take the morning of surgery furosemide 20 mg tablet 20 mg PO QAM cetirizine 10 mg tablet (Zyrtec) 10 mg PO QAM cyanocobalamin (vitamin B-12) 1,000 mcg tablet (Vitamin B-12) 1,000 mcg PO QAM docusate sodium 100 mg capsule (Colace) 100 mg PO BID [id number]-yymzwlbiv-hvrljhp D2 1 tab PO DAILY Take morning of surgery With a small sip of water, OTHERWISE NOTHING TO EAT OR DRINK AFTER MIDNIGHT: omeprazole 20 mg capsule,delayed release 20 mg PO DAILYBB acetaminophen 500 mg tablet (Tylenol Extra Strength) 500 mg PO TID PRN Pain metoprolol succinate 25 mg tablet,extended release 24 hr 25 mg PO BID Take evening before surgery docusate sodium 100 mg capsule (Colace) 100 mg PO BID acetaminophen 500 mg tablet (Tylenol Extra Strength) 500 mg PO TID PRN Pain metoprolol succinate 25 mg tablet,extended release 24 hr 25 mg PO BID Other Notes If you have any questions please call us at [phone] or [phone] or [phone] or [phone]
--- NOTE | 2023-04-20 12:56 | Anesthesiology Consultation ---
Date of Service April 20, 2023 Assessment & Plan (1) Encounter for pre-operative examination: - Infectious disease screening: Per assessment on 04/20/23: No known infectious disease contacts or current infectious disease symptoms. No noted recent Covid positive test result. - Outpatient joint assessment: Pt currently scheduled for inpatient pathway. If surgeon requests review for outpatient joint pathway, patient is not recommended candidate for outpatient joint program from anesthesia standpoint based on available information. - S/P Emergency exploratory laparotomy, small-bowel resection, FLORY drainage x1 (06/11/22): Grade view 1, MAC#3, ETT 7.0 (r/t SBO + sepsis) - Stress echo performed 04/04/22 noted Right atrial echodensity visualized in ap ical 4chamber view suggesting prominent eustachian valve versus mass. Seen by cardiology for further evaluation. Per [facility] cardio note 07/21/22, "Abnormal echo with prominent eustachian valve/rate cord trait atria- low suspicion for mass per Dr. Aguiar.. Repeat resting echo to reassess abnormality of the right atrium. Should changes be seen can consider CMRI vs MARY at that time." > Repeat Echo done 10/03/22 with stable findings. Cardio note/review of Echo (10/06/22): "Overall the echo appears stable. Moderate AI and MR- previously classified as mild." - Cardiology visit (01/29/23): "This is a 72-year-old female who was experiencing exertional dyspnea and recently underwent a small bowel resection. At that time she was profoundly anemic which was contributing to her symptoms. She is now fully recovered from her surgery and her blood counts are normal and her dyspnea has resolved. She has no ongoing cardiac complaints today.. The patient will continue her current medications. From a cardiac standpoint she is stable. She will have follow-up again in 6 months or earlier if needed." - PCP visit (03/23/23): "Here for annual doing well overall s/p partial small bowel resection in June. She has been taking iron daily since then along with Colace and her repeat CBC is normal. She continues on her PPI.. Plans on getting knee replacement her left knee, with Dr. Audi Flores, on May 18, 2023. She has excellent met tolerance.. Low cardiac risk for planned surgery." Chart Review Chart Review: Acceptable Risk for Surgery and Patient seen in Pre Admission Testing Teaching & Discussion Pre-Anesthesia Teaching/Discussion Notes: Instructed NPO after midnight before surgery,except medications with 15 cc of water. Medication instructions provided according to the PAT guidelines. History Surgery Operation Date: 05/18/23 08:00 Proposed Procedures p Left Total Knee Arthroplasty - Audi Flores, Height/Weight Height: 5 ft 3 in Weight: 68.6 kg Allergies Allergy/AdvReac Type Severity Reaction Status Date / Time prochlorperazine Allergy Severe Severe Verified 04/15/23 11:19 [From Compazine] muscle spasms (neck) as child Sulfa (Sulfonamide Allergy Intermediate Rash Verified 04/13/23 08:54 Antibiotics) Medications Home Medications Medication Instructions Recorded Confirmed Last Taken cetirizine 10 mg tablet (Zyrtec) 10 mg PO QAM 01/26/20 04/13/23 02/12/20 cyclosporine 0.05 % eye drops in a 1 drp ophthalmic (eye) Q12H 01/26/20 04/13/23 02/13/20 09:00 dropperette (Restasis) timolol maleate 0.5 % eye drops 1 drp OPB QAM 01/26/20 04/13/23 02/13/20 10:00 meloxicam 7.5 mg tablet 7.5 mg PO QAM 11/14/21 04/13/23 Unknown omeprazole 20 mg capsule,delayed 20 mg PO DAILYBB 11/14/21 04/13/23 Unknown release acetaminophen 500 mg tablet 500 mg PO TID PRN Pain 06/11/22 04/13/23 Unknown (Tylenol Extra Strength) bimatoprost 0.01 % eye drops 1 drp OPB HS 06/11/22 04/13/23 Unknown (Lumigan) [id number] D2 1 tab PO DAILY 06/11/22 04/13/23 Unknown cyanocobalamin (vitamin B-12) 1,000 mcg PO QAM 06/11/22 04/13/23 Unknown 1,000 mcg tablet (Vitamin B-12) diclofenac sodium 1 % topical gel 2 g topical TID PRN LEFT KNEE PAIN 06/11/22 04/13/23 Unknown tretinoin 0.05 % topical cream 1 applic topical QPM 06/11/22 04/13/23 Unknown metoprolol succinate 25 mg 25 mg PO BID #60 tabs 06/21/22 04/13/23 Unknown tablet,extended release 24 hr biotin 5 mg tablet 5 mg PO DAILY 04/13/23 04/13/23 Unknown docusate sodium 100 mg capsule 100 mg PO BID 04/13/23 04/13/23 Unknown (Colace) furosemide 20 mg tablet 20 mg PO QAM 04/13/23 04/13/23 Unknown glucosamine-chondroitin 250 mg-200 2 tab PO QAM 04/13/23 04/13/23 Unknown mg tablet (Osteo Bi-Flex) Past Medical History Medical History Chronic iron deficiency anemia CKD (chronic kidney disease), stage III Degenerative joint disease of left knee GERD (gastroesophageal reflux disease) Treated PRN Glaucoma History of COVID-19 12/2022- resolved HTN (hypertension) Osteoarthritis Seasonal allergies Exercise / Class Metabolic Activity III < 4 Walking/Shop/Light housework Past Family History Family History Other No family history of adverse response to anesthesia Past Surgical History Surgical History History of appendectomy History of bilateral tubal ligation History of cataract surgery right History of section x3 History of colonoscopy History of detached retina repair right History of dilatation and curettage History of tonsillectomy Hx of resection of small bowel Emergency exploratory laparotomy, small-bowel resection, FLORY drainage x1 (06/11/22): Grade view 1, MAC#3, ETT 7.0 (r/t SBO + sepsis) Past Anesthesia History No Hx of Anesthesia Complications and No Family Hx of Anesthesia Complications History of PONV No Hx of PONV and No Hx of Motion Sickness Social History Smoking Status: Former smoker tobacco type: cigarettes Do You Dip or Chew Tobacco: No Smoking End Date: Quit 50+ years ago Hx Alcohol Use: Yes Alcohol type: wine alcohol intake frequency: holidays/special occasions only Hx Substance Use: No substance use type: does not use Review of Systems Stable ZARAGOZA with stairs (ZARAGOZA stable from recent cardiology visit 01/2023, significant improved from 06/2022 hospital admission) Patient denies chest pain, fever, chills, cough, wheezing, palpitations. Physical Exam Vital Signs VITALS BP 178/71 P 58 TEMP 98.3 SP02 97%RA RESP 18 PHYSICAL Decreased cervical extension range of motion. Full TMJ range of motion. TMD 3 finger breaths Mallampati Score Dentition: intact, + bridges/several crowns (sides/molars) Lungs: clear throughout to auscultation Cardiac: regular rate and rhythm, no murmurs noted Spine: normal Carotid arteries: negative bruit Extremities: no LE edema Lab Results Anesthesia Preop Results Results Anesthesia Widget: WBC 7.49 K/ul (4.8-10.8) 04/20/23 Hgb 13.6 g/dl (12.0-16.0) 04/20/23 Hct 41.5 % (37.0-47.0) 04/20/23 Plt 279 K/uL (130-400) 04/20/23 Na 140 mmol/L (136-145) 04/20/23 K 4.6 mmol/L (3.5-5.1) 04/20/23 Cl 105 mmol/L (98-107) 04/20/23 CO2 29 mmol/L (21-32) 04/20/23 BUN 22 mg/dl (6-23) 04/20/23 Creat 0.83 mg/dl (0.6-1.2) 04/20/23 Glucose Level 92 mg/dl (70-99(Fasting)) 04/20/23 PT 10.5 Seconds (9.0-12.0) 04/20/23 PTT 28 Seconds (21-31) 04/20/23 INR 1.0 (0.9-1.1) 04/20/23 Blood Type O Positive 04/20/23 Antibody Screen NEGATIVE 04/20/23 Testing Electrocardiogram Date: 04/20/23 SB at 53bpm. NS STA. Chest X-Ray Date: 04/20/23 FINDINGS: No lines and tubes are seen. The cardiomediastinal silhouette is normal. The lungs are clear. No evidence of pleural effusion or pneumothorax. IMPRESSION: No acute chest disease. Echocardiogram Date: 10/03/22 LVEF 55 to 59%. Mildly increased cLV wall thickness. Right atrial echodensity visualized in apical 4chamber view suggesting prominent eustachian valve versus mass. Mild LAE. Grade 1 diastolic dysfunction. No LV mural thrombus. Mild TR. Stress Test Date: 05/12/22 Type: nuclear Gated SPECT imaging reveals normal myocardia thickening and wall motion. LVEF > 65%. Lexiscan nuclear cardiac stress test negative for ischemia. 98% MPHR. Other Testing 14 day rn cardiac cath Date: 10/03-10/17/22 Patient had a min HR of 41 bpm, max HR of 176 bpm, and avg HR of 64 bpm. Predominant underlying rhythm was Sinus Rhythm. Slight P wave morphology changes were noted. 32 Supraventricular Tachycardia runs occurred, the run with the fastest interval lasting 9 beats with a max rate of 176 bpm, the longest lasting 10.9 secs with an avg rate of 118 bpm. Ectopic Atrial Rhythm was present. Isolated SVEs were rare (<1.0%), SVE. Couplets were rare (<1.0%), and SVE Triplets were rare (<1.0%). Isolated VEs were rare (<1.0%), VE Couplets were rare (<1.0%), and no VE Triplets were present. There were 2 patient triggered events and 3 diary events submitted. Events correlate with normal sinus rhythm as well as sinus rhythm with premature atrial contractions and premature ventricular contractions. The overall frequency of the supraventricular and ventricular ectopy is rare. No symptoms were associated with the brief episodes of SVT. > Cardiology note (10/27/22): "Zio showed primarily NSR with an average HR in the mid 60s. Short salvos of SVT noted with the longest lasting 10 seconds, asymptomatic. Triggered symptoms associated with NSR and benign PVCs with overall rare burden. No PAF. No changes needed at this time."
--- NOTE | 2023-05-14 07:32 | History & Physical Report ---
Date of Service May 14, 2023 Assessment & Plan (1) Degenerative joint disease of left knee: We will proceed with a left total knee arthroplasty. Postoperatively she will be started on aspirin for DVT prophylaxis and kept overnight in the hospital for postop medical management. She plans to have fit for play at home upon discharge. History of Present Illness Chief Complaint: Osteoarthritis of the left knee. Primary Care Provider: Colby Faustin MD Radha is a pleasant 72-year-old female who has been dealing withchronic increasing left knee pain. She has been seeing a nonoperative orthopedist at [facility]. She has received multiple injections over the past year or so. She has tried cortisone shots and viscosupplementation. Unfortunately, she is still dealing with lot of left knee pain. X-rays and clinical examination been diagnostic for worsening osteoarthritis of the left knee. After failed conservative treatment, she has elected proceed with a left total knee arthroplasty. . Allergies Allergy/AdvReac Type Severity Reaction Status Date / Time prochlorperazine Allergy Severe Severe Verified 04/15/23 11:19 [From Compazine] muscle spasms (neck) as child Sulfa (Sulfonamide Allergy Intermediate Rash Verified 04/13/23 08:54 Antibiotics) Home Medications Medication Instructions Recorded Confirmed Type cetirizine 10 mg tablet (Zyrtec) 10 mg PO QAM 01/26/20 04/13/23 History cyclosporine 0.05 % eye drops in a 1 drp ophthalmic (eye) Q12H 01/26/20 04/13/23 History dropperette (Restasis) timolol maleate 0.5 % eye drops 1 drp OPB QAM 01/26/20 04/13/23 History meloxicam 7.5 mg tablet 7.5 mg PO QAM 11/14/21 04/13/23 History omeprazole 20 mg capsule,delayed 20 mg PO DAILYBB 11/14/21 04/13/23 History release acetaminophen 500 mg tablet 500 mg PO TID PRN Pain 06/11/22 04/13/23 History (Tylenol Extra Strength) bimatoprost 0.01 % eye drops 1 drp OPB HS 06/11/22 04/13/23 History (Lumigan) [id number] D2 1 tab PO DAILY 06/11/22 04/13/23 History cyanocobalamin (vitamin B-12) 1,000 mcg PO QAM 06/11/22 04/13/23 History 1,000 mcg tablet (Vitamin B-12) diclofenac sodium 1 % topical gel 2 g topical TID PRN LEFT KNEE PAIN 06/11/22 04/13/23 History tretinoin 0.05 % topical cream 1 applic topical QPM 06/11/22 04/13/23 History metoprolol succinate 25 mg 25 mg PO BID #60 tabs 06/21/22 04/13/23 Rx tablet,extended release 24 hr biotin 5 mg tablet 5 mg PO DAILY 04/13/23 04/13/23 History docusate sodium 100 mg capsule 100 mg PO BID 04/13/23 04/13/23 History (Colace) furosemide 20 mg tablet 20 mg PO QAM 04/13/23 04/13/23 History glucosamine-chondroitin 250 mg-200 2 tab PO QAM 04/13/23 04/13/23 History mg tablet (Osteo Bi-Flex) Past Med/Surg History Medical History History of COVID-19 12/2022- resolved HTN (hypertension) Chronic iron deficiency anemia CKD (chronic kidney disease), stage III Degenerative joint disease of left knee Glaucoma Seasonal allergies Osteoarthritis GERD (gastroesophageal reflux disease) Treated PRN Surgical History Hx of resection of small bowel Emergency exploratory laparotomy, small-bowel resection, FLORY drainage x1 (06/11/22): Grade view 1, MAC#3, ETT 7.0 (r/t SBO + sepsis) History of bilateral tubal ligation History of section x3 History of dilatation and curettage History of colonoscopy History of appendectomy History of tonsillectomy History of cataract surgery right History of detached retina repair right Family History Other No family history of adverse response to anesthesia Social History Smoking Status: Former smoker Tobacco Type: Cigarettes Smoking End Date: Quit 50+ years ago; Second Hand Exposure: No; Do You Dip or Chew Tobacco: No; Tobacco Cessation Education Requested by Patient: No Hx Alcohol Use: Yes Alcohol type: wine Hx Substance Use: No Preferred Language: Uzbek Communication Ability: Effective Administrative Support Assistant Required: No Beliefs That Will Affect Care: None Current Living Situation: Spouse Other Information That Helps Us Care for You: No Feels Safe at Home: Yes Safety Concerns: Feels Safe At This Time Assistive Devices: Glasses Review of Systems All systems reviewed & are unremarkable except as noted in HPI & below. Physical Exam On physical examination of the left knee, she has good range of motion. She has tenderness palpation of the distal femoral condyles.. Constitutional WD/WN, vitals as above Eyes PERRL, conjunctivae normal, anicteric sclerae ENMT external ear and nose normal, oropharynx normal Neck trachea midline, no thyromegaly Respiratory normal respiratory effort Cardiovascular RRR, no murmur, no edema Gastrointestinal (Abdomen) normal bowel sounds, soft, nontender, no hepatosplenomegaly Psychiatric A+Ox3, euthymic affect Results & Data Results & Data Laboratory Results . Diagnostic Findings X-rays of the left knee show advanced arthritis with some joint space narrowing and osteophyte formation. There is lateral translation of the tibia.. PG Care Time/CCT Total # of Minutes Spent Total Time Spent with Patient: Total time spent is greater than 50% in coordination of care (as documented) at patient's floor/unit and/or counseling patient: Coding Level of Care Code None Diagnoses Degenerative joint disease of left knee M17.12
[~2023-05-18 07:24] MED LIST: BUPIVACAINE 0.5 % 5 MG/1 ML PF 10ML VIAL ONE; ROPIVACAINE 0.5% 5 MG/ML 30 ML VIAL ONE
--- OUTSIDE RECORDS SUMMARY | 2023-05-18 07:39 | External Medical Summary | Summary of Care ---
Author Name Unknown Organization [facility] Address [address] [place] [address] Phone [phone] Care Team Providers Care Water Resource Project Manager Name Role Phone Colby Faustin MD Primary Care Provider + Reason for Visit * Reason Comments Acute Pt being seen for si nus infection, has symptoms of congestion, pressure around eyes, she is due for surgery on Thursday and need to be well. Encounter Details Date Type Department Care Team (Late st Contact Info) Description 05/14/2023 11:00 AM EST Office Visit Family Practice [facility] [address] [place] [address] Juanis Hand CRNP [address] [place] [address] Viral URI*; Nasal congestion; Chronic kidney disease, stage 3a ([facility]) Allergies Active Allergy Reactions Criticality Noted Date Comments Compazine 05/06/2012 Age 8 neck muscle tightening Sulfa Antibiotics 05/06/2012 rash documented as of this encounter (statuses as of 05/14/2023) Medications Medication Sig Dispensed Refills Start Date End Date Status RESTASIS 0.05 % OP EMUL 1 drop each eye twice daily 0 Active Calcium-Magnesium- Vitamin D ER 600-40-500 MG-MG-UNIT Tablet Extended Release 24 Hour Take 1 Tablet by mouth in the morning. Dose is 1250mg/200unit daily. 30 Tab 5 10/17/2015 Active LUMIGAN 0.01 % ophthalmic solution Instill 1 Drop into both eyes at bedtime. 0 10/13/2017 Active Diclofenac Sodium 1 % External Gel (Voltaren) Apply topically to affected area 3 times a day . Apply to knee L eft 100 g 3 06/08/2021 Active Timolol Maleate 0.5 % Ophthalmic Solution (Timoptic) Instill 1 Drop into both eyes in the morning. 0 12/03/2021 Active Vitamin B-12 1000 MCG Oral Tablet (Cyanocobalamin)In dications:B12 deficiency Take 1 Tablet (1,000 mcg) by mouth in the morning. 90 Tablet 3 03/19/2022 Active Acetaminophen 500 MG Oral Tablet Take 1 Tablet by mouth in the morning and 1 Tablet at noon and 1 Tablet in the evening. 0 Active Omeprazole Magnesium 20.6 (20 Base) MG Oral Capsule Delayed Release Take by mouth. 0 Active Metoprolol Succinate ER 25 MG Oral Tablet Extended Release 24 Hour (Toprol XL)Indications:Dys lipidemia, goal LDL below 70 Take 1 Tablet by mouth in the morning and 1 Tablet before bedtime. 180 Tablet 3 07/21/2022 Active Cetirizine HCl 10 MG Oral Tablet Chewable Take 1 Tablet by mouth in the morning. 0 Active Osteo Bi-Flex/5-Loxin Advanced Oral Tablet Take by mouth. 0 Active Furosemide 20 MG Oral Tablet (Lasix) Take 1 Tablet by mouth in the morning. 90 Tablet 3 10/13/2022 Active Tretinoin 0.05 % External Cream (Retin-A)Indicatio ns:Hx of actinic keratosis Apply to whole face nightly 45 g 3 12/03/2022 Active Fluorouracil 5 % External Cream (Efudex)Indication s:Hx of actinic keratosis Apply to scaly spots on face and arms nightly as needed for 2-3 weeks 40 g 1 12/03/2022 Active Meloxicam 7.5 MG Oral Tablet (Mobic) TAKE 1 TABLET IN THE MORNING FOR PAIN 90 Tablet 3 03/12/2023 Active Rosuvastatin Calcium 5 MG Oral Tablet (Crestor)Indicatio ns:Hyperlipidemia with target LDL less than 130 Take 1 Tablet by mouth in the morning. 90 Tablet 3 03/23/2023 Active Docusate Sodium 100 MG Oral Capsule (Colace) Take 1 Capsule by mouth in the morning and 1 Capsule before bedtime. 180 Capsule 1 04/07/2023 Active Amoxicillin-Pot Clavulanate 875-125 MG Oral Tablet (Augmentin) Take 1 Tablet by mouth in the morning and 1 Tablet before bedtime. Do all this for 10 days. 20 Tablet 0 05/14/2023 05/24/2023 Active documented as of this encounter (statuses as of 05/14/2023) Active Problems Problem Noted Date Diagnosed Date Iron deficiency anemia 03/19/2022 Bilateral lower extremity edema 03/19/2022 Chronic kidney disease, stage 3a 08/12/2021 Overview: Per CKD protocol Chronic pain of both knees 06/21/2021 Dysphagia 09/04/2020 Diverticulitis of colon 09/04/2020 Osteoarthritis of both hands 12/31/2017 Hx of actinic keratosis 10/15/2016 Hx of basal cell carcinoma 10/15/2016 Overview: AK vs. Early SCCIS L nasal tip 12/2019, BCC midline upper back 09/2015 Gastroesophageal reflux disease 10/17/2015 Hearing loss sensory, bilateral 05/15/2012 Overview: B/l high freq--scan 12/07/15. rec hearing aid. DJD (degenerative joint disease), cervical 05/15 Overview: 2005 outside MRI [facility] adult exam 05/06/2012 Overview: 04/28 EGD mild chronic inactive gastritis. COlon-A single non-bleeding colonic angioectasia. Treated with argon plasma coagulation (APC). Not clear this is the source of anemia, without findings of heme positive stool. - One 3 mm polyp in the ascending colon hyperplastic consider jonah 3y 02/25 CT chest WNL. 05/27 colon WNL jonah 8y egd ok. Doesn't tolerate PO iron well. 2018 dexa -mild thinning jonah 5 y. 712 TC 218, LDL 128, TG 63, HDL 77 CBC/BMP WNL 11/15-pap--WNL. 2008 WNL 10/15 mammo--WNL 11/15 cikuefysj-kdo-jrubur [facility] hearing loss 10/14 DEXA--mild osteopenia 01/13 colonoscopy-diverticulosis jonah 8y documented as of this encounter (statuses as of 05/14/2023) Resolved Problems Problem Noted Date Diagnosed Date Resolved Date Abrasion of left hand 02/07/20222022 Osteoarthritis of left knee 06/21/2021 03/23/2023 Anemia 11/15/2013 01/05/2019 Overview: 11/17 donates blood Q6wk. Stage 3 chronic kidney disease 05/30/2013 08/15/2021 Overview: Per CKD protocol #1 Hip bursitis, left 07/20/2012 7 Postmenopausal atrophic vaginitis 05/15/2012 12/29/2016 AK (actinic keratosis) 05/15/201210/15 Detached retina, right 05/06/201212/29 Hammertoe 05/06/2012 12/29/2016 documented as of this encounter (statuses as of 05/14/2023) Immunizations Name Administration Dates Next Due COVID-19 mRNA, LNP-s, No Pre serve, 2-Dose Series (Moderna) 07/23/2021,01/29/2021,06/12/2020,05/10 COVID-19, MRNA-LNP, 23-24, P F, 50 MCG/0.5 mL, 12 YRS AND ABOVE, IM (MODERNA-Spikevax) 04/12/2023 Covid-19, Mrna, Lnp-s, Pf, B ivalent, 25 Mcg, IM,6-11 yrs (Moderna) 01/15/2022 Hepatitis B, 20+ yrs 07/14/2006,02/24/2006,01/20 PPD 11/18/1999 Pneumococcal Conjugate Vacc, 13 Valent (Prevnar) 07/27/2014 Pneumococcal Polysaccharide PPV23 (Pneumovax) 08/16/2015,12/05/2009 RSV Vac., Bivalent, Perfusio n F, Pf,0.5 Ml (Abrysvo) 01/27/2023 Season Influenza, Quad, PF, Adjuvanted, 65+ Yrs, IM (FLUAD) 12/12/2019 Seasonal Influenza, PF, 6 M & above, IM , (FluLaval or Fluzone) 01/05/2019,12/31/2017,12/29/2016 Seasonal Influenza, Quadriva lent Hd (Fluzone Hd) 01/27/2023,01/15/2022 Seasonal Influenza, Quadriva lent, No Preserve, IM 01/28/2016,01/31/2015 Seasonal Influenza, Split, I IV3, With Preserve, Inj 12/30/2013,12/18/2012,02/03/2012 Seasonal Influenza, Trivalen t, Adjuvanted, 65+ yrs 01/09/2021 TD - Tetanus/Diptheria (ADULT) 11/18/1999 TDAP (age 10 and older)(Boostrix) 02/08/2022 TDAP (age 11 and older)(Adacel) 05/12/2011 Varicella Zoster Vaccine (Adult) 10/25/2009 Zoster Vaccine Recombinant (Shingrix) 07/08/2018 ,01/21/2018 documented as of this encounter Social History Tobacco Use Types Packs/Day Years Used Date Smoking Tobacco: Former Cigarettes Passive Smoke Exposure: Never Smokeless Tobacco: Never Tobacco Cessation:Counseling Given: Not Answered Comments:smoked for a few years 50+ years ago Alcohol Use Standard Drinks/Week Comments Yes 3.3 (1 standard drink = 0.6 oz p ure alcohol) PHQ-2 Answer Date Recorded PHQ Adult Total Score 0 07/01/2022 Hunger Vital Sign Answer Date Recorded Within the past 12 months, y ou worried that your food would run out before you got the money to buy more. Never true 10/14/19 23 Within the past 12 months, t he food you bought just didn't last and you didn't have money to get more. Never true 10/13/2022 Sex and Gender Information Value Date Recorded Sex Assigned at Female 05/17/2021 12:01 PM EST Gender Identity Female 06/24/2018 11:27 AM EDT Sexual Orientation Straight 06/24/2018 11 :27 AM EDT Job Start Date Occupation Industry Not on file Not on file Not on file documented as of this encounter Last Filed Vital Signs Vital Sign Reading Time Taken Comments Blood Pressure 118/82 05/14/2023 10:58 AM EST Pulse 57 05/14/2023 10:58 AM EST Temperature 36.6 C (97.8 F) 05/14/2023 10:[address] Respiratory Rate 16 05/14/2023 10:58 AM EST Oxygen Saturation - - Inhaled Oxygen Concentration - - Weight 68 kg (150 lb) 05/14/2023 10:58 AM EST Height 157.5 cm (5' 2") 05/14/2023 10:58 AM EST Body Mass Index 27.44 05/14/2023 10:58 AM EST documented in this encounter Progress Notes * Juanis Hand CRNP - 05/14/2023 11:10 AM EST Images from the original note were not included. Acute Family Medicine Visit History of Present Illness CC: Chief Complaint Patient presents with Acute Pt being seen for sinus infection, has symptoms of congestion, pressure around eyes, she is due forsurgery on Thursday and need to be well. Radha Khan is a very pleasant 72 year old female with above complaints x 4 days. Symptoms are little better over the period. Previous lung disease: None Has tried OTC benadryl with no relief. Knee replaced surgery on Thursday -fever, t max -chills -sweats -decreased appetite +tolerating fluids -RANDHAWA +congestion -loss of taste or smell +runny nose, +sneezing +PND (sometimes) -ear pain -sore throat -blurred vision -eye discharge -cough -productive of mucous -sob -wheezing -nausea -diarrhea -constipation -vomiting -body aches -Rash +Sleep disruption -Home Covid was negative x 2 times Past Medical History: Diagnosis Date AK (actinic keratosis) 05/15/2012 Detached retina, right 09/2006 DJD (degenerative joint disease), cervical 05/15/2012 Gastroesophageal reflux disease 10/17/2015 Hammertoe Hearing loss sensory, bilateral 05/15/2012 Hip bursitis, left 07/20/2012 Iron deficiency anemia 03/19/2022 Normal cardiac stress test 04/2006 Postmenopausal atrophic vaginitis 05/15/2012 Routine general medical examination at a health care facility 05/06/2012 Small bowel obstruction (HCC) 06/11/2022 hosp, surg. Social History Socioeconomic History Marital status: Spouse name: Not on file Number of children: Not on file Years of education: Not on file Highest education level: Not on file Occupational History Occupation: retired Comment: instructional asst special ed. Tobacco Use Smoking status: Former Types: Cigarettes Passive exposure: Never Smokeless tobacco: Never Tobacco comments: smoked for a few years 50+ years ago Vaping Use Vaping Use: Never used Substance and Sexual Activity Alcohol use: Yes Alcohol/week: 3.3 standard drinks of alcohol Types: 4 5 oz of wine per week Drug use: No Sexual activity: Yes Partners: Male Comment: . 3kids in [facility]. 2 grandkids Other Topics Concern Not on file Social History Narrative Moved to area Fall 2011 from [place]--kids/grandkids down there. Likes reading, day trips. walks Social Determinants of Health Financial Resource Strain: Not on file Food Insecurity: No Food Insecurity (10/13/2022) Hunger Vital Sign Worried About Running Out of Food in the Last Year: Never true Ran Out of Food in the Last Year: Never true Transportation Needs: Not on file Physical Activity: Not on file Stress: Not on file Social Connections: Not on file Intimate Partner Violence: Not on file Housing Stability: Not on file PMH: Past Medical History: Diagnosis Date AK (actinic keratosis) 05/15/2012 Detached retina, right 09/2006 DJD (degenerative joint disease), cervical 05/15/2012 Gastroesophageal reflux disease 10/17/2015 Hammertoe Hearing loss sensory, bilateral 05/15/2012 Hip bursitis, left 07/20/2012 Iron deficiency anemia 03/19/2022 Normal cardiac stress test 04/2006 Postmenopausal atrophic vaginitis 05/15/2012 Routine general medical examination at a health care facility 05/06/2012 Small bowel obstruction (HCC) 06/11/2022 hosp, surg. Past Surgical History: Procedure Laterality Date EDU x3 CATARACT SURGERY,COMPLEX 06/29/2008 right eye COLONOSCOPY 01/11/2010 WNL COLONOSCOPY, DIAGNOSTIC (RECTUM) 05/14/2020 diverticulosis, repeat 10 yrs / COLONOSCOPY FLEXIBLE PROXIMAL DIAGNOSTIC performed by Js Le MD at [facility] COLONOSCOPY, DIAGNOSTIC (RECTUM) 05/06/2022 hyperplastic polyp, single non-bleeding colonic angioectasia, diverticulosis, repeat 5 yrs / / COLONOSCOPY FLEXIBLE PROXIMAL DIAGNOSTIC performed by Mehul Funez DO at [facility] DENTAL SURGERY PROCEDURE NEC EGD, FLEXIBLE, DIAGNOSTIC 11/30/2020 normal / ESOPHAGOGASTRODUODENOSCOPY (EGD), FLEXIBLE, TRANSORAL, DIAGNOSTIC performed by Steffanie Ratliff MD at [facility] EGD, FLEXIBLE, DIAGNOSTIC 04/11/2022 normal bx / ESOPHAGOGASTRODUODENOSCOPY (EGD), FLEXIBLE, TRANSORAL, DIAGNOSTIC performed by Steffanie Ratliff MD at [facility] EXPLORATION OF ABDOMEN 06/11/[address] [facility] by Dr Stone- small bowel resection d/t SBO EXTENDED OPHTHALMOSCOPY, INITIAL 09/04/2006 OD retinal detachment surg FOOT/TOE SURGERY NEC 09/05/2015 hammertoe surgery left foot-middle toe PARTIAL REMOVAL OF EYE FLUID 09/16/2006 RD OD repaired-[facility] [facility] ENTRC RESCJ SMALL INTESTINE 1 RESCJ & ANAST 06/11/2022 Dr Stone, emergency SBO surgery. resection. REMOVAL OF APPENDIX REMOVAL OF TONSILS, UNDER AGE 10 REPAIR OF HAMMERTOE, ONE TOE 11/04/1999 SIGMOIDOSCOPY, OUTSIDE PROCEDURE 07/14/2006 Outpatient Medications Marked as Taking for the 05/14/23 encounter (Office Visit) with Juanis Hand CRNP Medication Sig Docusate Sodium 100 MG Oral Capsule (Colace) Take 1 Capsule by mouth in the morning and 1 Capsule before bedtime. Rosuvastatin Calcium 5 MG Oral Tablet (Crestor) Take 1 Tablet by mouth in the morning. Meloxicam 7.5 MG Oral Tablet (Mobic) TAKE 1 TABLET IN THE MORNING FOR PAIN Fluorouracil 5 % External Cream (Efudex) Apply to scaly spots on face and arms nightly as needed for 2-3 weeks Tretinoin 0.05 % External Cream (Retin-A) Apply to whole face nightly Furosemide 20 MG Oral Tablet (Lasix) Take 1 Tablet by mouth in the morning. Cetirizine HCl 10 MG Oral Tablet Chewable Take 1 Tablet by mouth in the morning. Osteo Bi-Flex/5-Loxin Advanced Oral Tablet Take by mouth. Metoprolol Succinate ER 25 MG Oral Tablet Extended Release 24 Hour (Toprol XL) Take 1 Tablet by mouth in the morning and 1 Tablet before bedtime. Omeprazole Magnesium 20.6 (20 Base) MG Oral Capsule Delayed Release Take by mouth. Vitamin B-12 1000 MCG Oral Tablet (Cyanocobalamin) Take 1 Tablet (1,000 mcg) by mouth in the morning. Timolol Maleate 0.5 % Ophthalmic Solution (Timoptic) Instill 1 Drop into both eyes in the morning. Diclofenac Sodium 1 % External Gel (Voltaren) Apply topically to affected area 3 times a day . Apply to knee L eft LUMIGAN 0.01 % ophthalmic solution Instill 1 Drop into both eyes at bedtime. Uaspiat-Zypdkrlwl-Rjbkskm D ER 600-40-500 MG-MG-UNIT Tablet Extended Release 24 Hour Take 1 Tablet by mouth in the morning. Dose is 1250mg/200unit daily. RESTASIS 0.05 % OP EMUL 1 drop each eye twice daily Review of patient's allergies indicates: Allergen Reactions Compazine Age 8 neck muscle tightening Sulfa Antibiotics rash Most Recent Immunizations Administered Date(s) Administered COVID-19 mRNA, LNP-s, No Preserve, 2-Dose Series (Moderna) 07/23/2021 COVID-19, MRNA-LNP, 23-24, PF, 50 MCG/0.5 mL, 12 YRS AND ABOVE, IM (MODERNA- Spikevax) 04/12/2023 Covid-19, Mrna, Lnp-s, Pf, Bivalent, 25 Mcg, IM,6-11 yrs (Moderna) 01/15/2022 Hepatitis B, 20+ yrs 07/14/2006 PPD 11/18/1999 Pneumococcal Conjugate Vacc, 13 Valent (Prevnar) 07/27/2014 Pneumococcal Polysaccharide PPV23 (Pneumovax) 08/16/2015 RSV Vac., Bivalent, Perfusion F, Pf,0.5 Ml (Abrysvo) 01/27/2023 Season Influenza, Quad, PF, Adjuvanted, 65+ Yrs, IM (FLUAD) 12/12/2019 Seasonal Influenza, PF, 6 M & above, IM , (FluLaval or Fluzone) 01/05/2019 Seasonal Influenza, Quadrivalent Hd (Fluzone Hd) 01/27/2023 Seasonal Influenza, Quadrivalent, No Preserve, IM 01/28/2016 Seasonal Influenza, Split, IIV3, With Preserve, Inj 12/30/2013 Seasonal Influenza, Trivalent, Adjuvanted, 65+ yrs 01/09/2021 TD - Tetanus/Diptheria (ADULT) 11/18/1999 TDAP (age 10 and older)(Boostrix) 02/08/2022 TDAP (age 11 and older)(Adacel) 05/12/2011 Varicella Zoster Vaccine (Adult) 10/25/2009 Zoster Vaccine Recombinant (Shingrix) 07/08/2018 Review of Systems: Physical Exam BP 118/82 | Pulse 57 | Temp 36.6 C (97.8 F) (Tympanic) | Resp 16 | Ht 1.575 m (5' 2") | Wt 68 kg (150 lb) | BMI 27.44 kg/m | BSA 1.72 m Physical Exam Constitutional: Appearance: Normal appearance. HENT: Head: Normocephalic. Right Ear: Tympanic membrane, ear canal and external ear normal. Left Ear: Tympanic membrane, ear canal and external ear normal. Nose: Mucosal edema present. Right Sinus: No maxillary sinus tenderness or frontal sinus tenderness. Left Sinus: No maxillary sinus tenderness or frontal sinus tenderness. Mouth/Throat: Pharynx: No posterior oropharyngeal erythema. Cardiovascular: Rate and Rhythm: Normal rate and regular rhythm. Pulmonary: Effort: Pulmonary effort is normal. Breath sounds: Normal breath sounds. Musculoskeletal: Cervical back: Neck supple. Skin: General: Skin is warm. Neurological: Mental Status: She is alert and oriented to person, place, and time. Psychiatric: Mood and Affect: Mood normal. Assessment and Plan 1. Viral URI Suspect Day 4, improving Afebrile, VSS Home Covid negative x 2 times Elective surgery on Thursday -- 2. Nasal congestion Improving Recommend saline irrigation and Flonase Paper script for Augmentin given to start develops fever or congestions worsening over weekend 3. Chronic kidney disease, stage 3a (HCC) Wrap-Up Recommend supportive care including: Humidifier Rest Push fluids Reviewed pathophysiology of viral URI Recommend handwashing and covering cough Reviewed signs and symptoms in which to seek medical care I have advised the patient to call our office incase of any worsening or new symptoms. A total of 25 minutes were spent with the patient, more than half in [id number] explanation and discussion of the condition and treatment and answering questions. Juanis Hand, MSN, WAQAR [facility] Family Medicine documented in this encounter Plan of Treatment Upcoming Encounters Date Type Department Care Team (Late st Contact Info) Description 08/03/2023 10:00 AM EDT Office Visit Orthopaedics [address] [place] [address] Audi Greenwood DO [address] [place] [address] 08/04/2023 2:00 PM EDT Office Visit Cardiology, [facility] [address] [place] [address] Halima Lorenzo CRNP [address] [place] [address] 12/08/2023 10:45 AM EDT Office Visit Dermatology [facility] [address] [facility] [place] [address] Harjit Whitlock MD [address] [facility] [place] [address] 02/08/2024 9:45 AM EST Imaging Radiology [facility] [facility] [address] [facility] [place] [address] 04/11/2024 10:40 AM EST Office Visit Family Practice [facility] [address] [facility] [place] [address] Colby Faustin MD [address] [place] [address] Scheduled Procedures Name Priority Associated Diagnoses Date/Ti me COLONOSCOPY FLEXIBLE PROXIMAL DIAGNOSTIC Recall History of colon polyps Health Maintenance Due Date Last Done Comments CKD PHOS USE SMARTSET 46525 03/19/202303/06, 09/09/2017, 12/04/2014, Additional history exists Depression Screening 07/02/2023 07/01/2022 GFR 07/30/2023 01/28/2023, 10/05, 10/15/2022, Additional history exists CKD HGB USE SMARTSET 94835 01/29/202401/28, 01/28/2023, 10/20/2022, Additional history exists Mammogram 02/06/2024 02/05/2023, 04/2021, 01/23/2021, Additional history exists Albumin/Creatinine Ratio 03/23/2024 023, 03/19/2022, 09/09/2017, Additional history exists DXA Scan 11/01/2025 11/01/2018, 10/05, 10/26/2013 Lipid Panel 04/22/2027 04/22/2022, 09/2017, 12/04/2014, Additional history exists COLONOSCOPY-EVERY 5 YRS AGES 18-100 05/06/2027 05/06/2022, 05/06/2022, 05/14/2020, Additional history exists DTaP,Tdap,and Td Vaccines (3 - Td or Tdap) 02/09/2032 02/08/2022, 05/12/2011, 11/18/1999 Hepatitis B Completed 07/14/2006, 02/05, 01/20/2006 Pneumococcal Vaccine: 65+ Years Completed 08/16/2015, 07/27/2014, 12/05/2009 Zoster Vaccines Completed 07/08/2018, 01/04, 10/25/2009 Colonoscopy Discontinued 05/06/2022, 04/08, 05/14/2020, Additional history exists Colorectal Cancer Screening Discontinued Influenza Vaccine (FLU shot) Completed 01/27/2023, 01/15/2022, 01/09/2021, Additional history exists COVID-19 Vaccine Completed 04/12/2023, 03/2022, 07/23/2021, Additional history exists Cologuard Discontinued Fecal Occult Blood Test Discontinued GARDASIL-HPV IMMUNIZATION SERIES Aged Out No longer eligible based on patient's age to complete this topic MENINGOCOCCAL (MENACTRA/MENVEO) Aged Out No longer eligible based on patient's age to complete this topic Sigmoidoscopy Discontinued documented as of this encounter Medical Devices Not on filedocumented as of this encounter Visit Diagnoses Diagnosis Viral URI- Primary Acute upper respiratory infections of unspecified site Nasal congestion Other diseases of nasal cavity and sinuses Chronic kidney disease, stage 3a (HCC) documented in this encounter Advance Directives Documents on File Type Date Recorded Patient Color Sprayer Expl anation Advance Directives and Living Will 02/07/2016 ADVANCE DIRECTIVE / LIVING WILL Power of Electric Installer 02/07/2016 POWER OF A TTORNEY Care Teams Water Resource Project Manager Relationship Specialty Start Date End Date Colby Faustin MD [address] [place] [id number] PCP - General Family Medicine 07/27/14 documented as of this encounter
--- OUTSIDE RECORDS SUMMARY | 2023-05-18 07:39 | External Medical Summary | Summary of Care ---
Author Name Unknown Organization [facility] Address [address] [place] [address] Phone [phone] Care Team Providers Care Powerhouse Mechanic Name Role Phone Colby Faustin MD Primary Care Provider + Reason for Visit * Reason Comments Knee Pain right Encounter Details Date Type Department Care Team (Latest Contact Info) Description 05/04/2023 10:15 AM EST Office Visit Orthopaedics [facility] [address] [place] [address] Audi Greenwood DO [address] [facility] [place] [address] Primary osteoarthritis of right knee* Allergies Active Allergy Reactions Criticality Noted Date Comments Compazine 05/06/2012 Age 8 neck muscle tightening Sulfa Antibiotics 05/06/2012 rash documented as of this encounter (statuses as of 05/04/2023) Medications Medication Sig Dispensed Refills Start Date End Date Status RESTASIS 0.05 % OP EMUL 1 drop each eye twice daily 0 Active Akxrcba-Optykizxx-U itamin D ER 600-40-500 MG-MG-UNIT Tablet Extended Release [...] Active Vitamin B-12 1000 MCG Oral Tablet (Cyanocobalamin)Ind ications:B12 deficiency Take 1 Tablet (1,000 mcg) by [...] Oral Tablet Extended Release 24 Hour (Toprol XL)Indications:Dysl ipidemia, goal LDL below 70 Take 1 Tablet [...] 10/13/2022 Active Tretinoin 0.05 % External Cream (Retin-A)Indication s:Hx of actinic keratosis Apply to whole face nightly 45 g 3 12/03/2022 Active Fluorouracil 5 % External Cream (Efudex)Indications :Hx of actinic keratosis Apply to scaly spots on face and arms nightly as needed for 2-3 weeks 40 g 1 12/03/2022 Active Meloxicam 7.5 MG Oral Tablet (Mobic) TAKE 1 TABLET IN THE MORNING FOR PAIN 90 Tablet 3 03/12/2023 Active Rosuvastatin Calcium 5 MG Oral Tablet (Crestor)Indication s:Hyperlipidemia with target LDL less than 130 Take 1 Tablet by mouth in the morning. 90 Tablet 3 03/23/2023 Active Docusate Sodium 100 MG Oral Capsule (Colace) Take 1 Capsule by mouth in the morning and 1 Capsule before bedtime. 180 Capsule 1 04/07/2023 Active Hospital, Clinic, or Other Facility Administered Medication Ordered Dose Route Frequency Start Date End Date Status lidocaine 1% 1 mL - triamcinolone acetonide 40 mg/mL 1 mL inj 2 mLIndications:Primary osteoarthritis of right knee 2 mL IJ ONCE 05/04/2023 05/04/2023 Ended documented as of this encounter (statuses as of 05/04/2023) Active Problems Problem Noted Date Diagnosed Date [...] disease), cervical 05/15 Overview: 2005 outside MRI [facility] adult exam 05/06/2012 Overview: 04/28 EGD mild [...] WNL 11/15-pap--WNL. 2008 WNL 10/15 mammo--WNL 11/15 [id number] AU SN hearing loss 10/14 DEXA--mild osteopenia 01/13 colonoscopy-diverticulosis jonah 10y documented as of this encounter (statuses as of 05/04/2023) Resolved Problems Problem Noted Date Diagnosed Date [...] as of this encounter (statuses as of 05/04/2023) Immunizations Name Administration Dates Next Due COVID-19 [...] Years Used Date Smoking Tobacco: Former Cigarettes Smokeless Tobacco: Never Comments:smoked for a few ye ars 50+ years ago Alcohol Use Standard Drinks/Week [...] on file documented as of this encounter Progress Notes * Audi Greenwood, - 05/04/2023 10:15 AM EST Radha Khan [id number] Radha Khan is a 72 year old female who presents for follow up of bilateral knee pain to [facility]. Radha Khan is here unaccompanied Interval history - Last series of Gelsyn did not provide much relief, scheduled for left TKA by early May 2023 TODAY: here for steroid injections, possible aspiration, prefers US guided PE: right knee: no significant effusion will not drain today Assessment and Plan: See procedure note. She may follow up with me or Dr. Flores regarding her right knee Primary osteoarthritis of right knee (Primary) - lidocaine 1% 1 mL - triamcinolone acetonide 40 mg/mL 1 mL inj 2 mL - POINT OF CARE US MAJOR JOINT INJECTION, ORTHO Audi Greenwood DO Primary Care Sports Medicine Orthopaedics [address] [address] Procedure note (knee injection) RIGHT Time out: Prior to injection, a time out was called to confirm the administration of appropriate medicine, patient name, procedure and confirm to the best of our ability and knowledge the presence of any necessary risks and benefits. Patient verbalizes understanding. Ultrasound utilized to guide injection Ultrasound required high risk for complications without ultrasound guideance (risk for neurovascular damage) and need to visualize specific joint recess. Reviewed benefits including potential pain reduction and improved function as well as risks including worsening pain or infection in detail with patient and patient verbalizes understanding. Sterile techinique applied. Skin sterilized with alcohol swab. Knee aspirated using 1.5 inch, 22 gauge needle from lateral approach. injected with lidocaine 1% 1 mL - triamcinolone acetonide 40 mg/mL1 mL inj 2 mL Patient tolerated procedure with no significant bleeding or adverse reaction. Patient instructed to call or return to clinic for fever or warmth and redness at injection site for potential infection. Patient also advised as to potential for steroid flare reaction including increased pain and redness at injection site which should be treated with ice and resolve within 24 hours. Audi Greenwood DO documented in this encounter Nursing Notes * Daisy Maldonado MED ASSIST - 05/04/2023 10:20 AM EST Follow up Patient Follow up: Knee Side: Right Date of last visit: 01/28/23 Improvement since last office visit: 0 percent. Prior Treatment: Injection Here for Test Results: No Goals for this appointment: injection documented in this encounter Plan of Treatment Upcoming Encounters Date Type Department Care Team (Late st Contact Info) Description 08/03/2023 10:00 AM EDT Office Visit Orthopaedics [facility] [address] [place] [address] Audi Greenwood DO [address] [place] [address] 08/04/2023 2:00 PM EDT Office Visit Cardiology, [facility] [address] [place] [address] Halima Lorenzo CRNP [address] [place] [address] 12/08/2023 10:45 AM EDT Office Visit Dermatology [facility] [address] [facility] [place] [address] Harjit Whitlock MD [address] [facility] [address] [place] [address] 02/08/2024 9:45 AM EST Imaging Radiology [facility] [address] [place] [address] 04/11/2024 10:40 AM EST Office Visit Family Practice [facility] [address] [place] [address] Colby Faustin MD [address] [place] [address] Scheduled Orders Name Type Priority Associated Diagnoses Orde r Schedule POINT OF CARE US MAJOR JOINT INJECTION, ORTHO Medical Imaging Routine Primary osteoarthritis of right knee Ordered: 05/04/2023 Scheduled Procedures Name Priority Associated Diagnoses Date/Ti me COLONOSCOPY FLEXIBLE PROXIMAL DIAGNOSTIC Recall History of colon polyps Health Maintenance Due Date Last Done Comments CKD PHOS USE SMARTSET 95115 03/19/2023 1207/2021, 09/09/2017, 12/04/2014, Additional history exists Depression Screening 07/02/2023 07/01/2022 GFR 07/30/2023 01/28/2023, 10/05, 10/15/2022, Additional history exists CKD HGB USE SMARTSET 65670 01/29/202401/28, 01/28/2023, 10/20/2022, Additional history exists Mammogram [...] as of this encounter Visit Diagnoses Diagnosis Primary osteoarthritis of right knee- Primary Primary localized osteoarthrosis, lower leg documented in this encounter Administered Medications Inactive Administered Medications - up to 3 most recent administrations Medication Order MAR Action Action Date Dose Rate Site lidocaine 1% 1 mL - triamcinolone acetonide 40 mg/mL 1 mL inj 2 mL 2 mL, Injection, ONCE, On 05/04/23 at 1115, For 1 dose, Lidocaine 1% 1mL Triamcinolone Acetonide 40 mg/mL 1 mL (Final concentration = 20 mg/mL) REFRIGERATE and SHAKE WELL Given 05/04/2023 10:37 AM EST 2 mL Knee Right documented in this encounter Advance Directives Documents on File Type Date Recorded Patient Print Binding And Finishing Worker Expl anation Advance Directives and Living Will 02/07/2016 ADVANCE DIRECTIVE / LIVING WILL Power of Rattan Worker 02/07/2016 POWER OF A TTORNEY Care Teams Powerhouse Mechanic Relationship Specialty Start Date End Date Colby Faustin MD [address] [place] [address] PCP - General Family Medicine 07/27/14 documented as of this encounter
--- OUTSIDE RECORDS SUMMARY | 2023-05-18 07:39 | External Medical Summary | Summary of Care ---
Author Name Unknown Organization [facility] Address [address] [place] [address] Phone [phone] Care Team Providers Care Decal Cutter Name Role Phone Colby Faustin MD Primary Care Provider + Reason for Visit * Reason Comments Knee Pain right Encounter Details Date Type Department Care Team (Latest Contact Info) Description 05/04/2023 10:15 AM EST Office Visit Orthopaedics [facility] [address] [place] [address] Audi Greenwood DO [address] [facility] [place] [address] Primary osteoarthritis of right knee* Allergies Active Allergy Reactions Criticality Noted Date Comments Compazine 05/06/2012 Age 8 neck muscle tightening Sulfa Antibiotics 05/06/2012 rash documented as of this encounter (statuses as of 05/04/2023) Medications Medication Sig Dispensed Refills Start Date End Date Status RESTASIS 0.05 % OP EMUL 1 drop each eye twice daily 0 Active Smcjlnk-Cpoloedsl-V itamin D ER 600-40-500 MG-MG-UNIT Tablet Extended [...] disease), cervical 05/15 Overview: 2005 outside MRI [facility] adult exam 05/06/2012 Overview: 04/28 EGD mild [...] WNL 11/15-pap--WNL. 2008 WNL 10/15 mammo--WNL 11/15 [id number]-[id number] AU SN hearing loss 10/14 DEXA--mild osteopenia [...] - 05/04/2023 10:15 AM EST Radha Khan [id number] Radha Khan is a 72 year old female who presents for follow up of bilateral knee pain to [facility]. Radha Khan is here unaccompanied [...] Greenwood DO Primary Care Sports Medicine Orthopaedics [address] [address] Procedure note (knee injection) RIGHT Time out: [...] 08/03/2023 10:00 AM EDT Office Visit Orthopaedics [facility] [address] [place] [address] Audi Greenwood DO [address] [place] [address] 08/04/2023 2:00 PM EDT Office Visit Cardiology, [facility] [address] [place] [address] Halima Lorenzo CRNP [address] [place] [address] 12/08/2023 10:45 AM EDT Office Visit Dermatology [facility] [address] [facility] [place] [address] Harjit Whitlock MD [address] [facility] [address] [place] [address] 02/08/2024 9:45 AM EST Imaging Radiology [facility] [address] [place] [address] 04/11/2024 10:40 AM EST Office Visit Family Practice [facility] [address] [place] [address] Colby Faustin MD [address] [place] [address] Scheduled Orders Name Type Priority Associated Diagnoses Orde r Schedule POINT OF CARE US MAJOR JOINT INJECTION, ORTHO Medical Imaging Routine Primary osteoarthritis of right knee Ordered: 05/04/2023 Scheduled Procedures Name Priority Associated Diagnoses Date/Ti me COLONOSCOPY FLEXIBLE PROXIMAL DIAGNOSTIC Recall History of colon polyps Health Maintenance Due Date Last Done Comments CKD PHOS USE SMARTSET 00217 03/19/2023 1207/2021, 09/09/2017, 12/04/2014, Additional history exists Depression Screening 07/02/2023 07/01/2022 GFR 07/30/2023 01/28/2023, 10/05, 10/15/2022, Additional history exists CKD HGB USE SMARTSET 69757 01/29/202401/28, 01/28/2023, 10/20/2022, Additional history exists Mammogram [...] Documents on File Type Date Recorded Patient Early Childhood Education Instructor Expl anation Advance Directives and Living Will 02/07/2016 ADVANCE DIRECTIVE / LIVING WILL Power of Safety And Occupational Health Manager 02/07/2016 POWER OF A TTORNEY Care Teams Decal Cutter Relationship Specialty Start Date End Date Colby Faustin MD [address] [place] [address] PCP - General Family Medicine 07/27/14 documented as of this encounter
[2023-05-18] MEDS ORDERED: PROPOFOL IV EMULSION 10 MG/ML 20 ML VIAL IV ONE (07:44)
[2023-05-18] MEDS ORDERED: ONDANSETRON INJ 2 MG/ML 2 ML VIAL ONE (07:44)
[2023-05-18] MEDS ORDERED: MIDAZOLAM HCL 1 MG/ML 2ML VIAL ONE (07:44)
--- NOTE | 2023-05-18 08:20 | History & Physical Bridge Note ---
Date of Service May 18, 2023 History & Physical Bridge Note I have examined the patient, reviewed the History & Physical and in the interval since the performance of the History & Physical I have noted the following changes of clinical significance: no changes noted
[2023-05-18] MEDS: LR 60ML/HR IV SCH (08:32)
[2023-05-18] MEDS: ACETAMINOPHEN 500 MG TAB PO SCH ×2 (08:32→14:11)
[2023-05-18] MEDS: LR 500ML BOLUS, THEN 15ML/HR IV SCH (08:32)
[2023-05-18] MEDS: GABAPENTIN 300 MG CAP PO SCH (08:33)
[2023-05-18] MEDS: FAMOTIDINE 20 MG TAB PO SCH (08:33)
[2023-05-18] MEDS: dexAMETHasone**PF** 10 MG/ML VIAL IV SCH (08:34)
[2023-05-18] MEDS ORDERED: fentaNYL citrate PF 100 MCG/2 ML VIAL ONE (08:46)
[2023-05-18] MEDS ORDERED: fentaNYL citrate PF 100 MCG/2 ML VIAL IV PRN (08:46)
[2023-05-18] MEDS ORDERED: ePHEDrine sulfate 50 MG/ML AMP IV PRN (08:46)
[2023-05-18] MEDS ORDERED: ONDANSETRON INJ 2 MG/ML 2 ML VIAL IV PRN ×2 (08:46→10:49)
[2023-05-18] MEDS ORDERED: ATROPINE SULFATE 0.1 MG/ML 10ML SYR IV PRN (08:46)
[2023-05-18] MEDS: TRANEXAMIC ACID 1,000 MG **IV Pre-op IV SCH (09:00)
[2023-05-18] MEDS: ceFAZolin 2000MG 2,000 MG/15 ML SYR IV SCH ×2 (09:15→17:07)
[2023-05-18] MEDS ORDERED: ePHEDrine sulfate 50 MG/5 ML SYR ONE (09:52)
[2023-05-18] MEDS: ORTHO JOINT ANESTHETIC ONE (09:59)
[2023-05-18] MEDS: TRANEXAMIC ACID 1,000 MG **IV Intra-op IV SCH (10:19)
[2023-05-18] MEDS: ROPIV 0.5% 246mg, Ketorolac 30mg, EPINEPHrine 0.5mg in NSS INFIL SCH (10:20)
[2023-05-18] MEDS ORDERED: MAGNESIUM HYDROXIDE SUSP 30 ML UDC PO PRN (10:49)
[2023-05-18] MEDS ORDERED: HYDROmorphone INJ 0.5 MG/0.5 ML SYR IV PRN (10:49)
[2023-05-18] MEDS ORDERED: METOCLOPRAMIDE HCL INJ 5 MG/ML 2 ML VIAL IV PRN (10:49)
[2023-05-18] MEDS ORDERED: NALOXONE HCL 0.4 MG/1 ML VIAL/CARP IV PRN (10:49)
[2023-05-18] MEDS ORDERED: bisacodyL 10 MG SUPP PR PRN (10:49)
--- NOTE | 2023-05-18 11:19 | XRay Report ---
TWO VIEWS LEFT KNEE CLINICAL HISTORY: Postoperative examination. FINDINGS: AP and crosstable lateral portable views of the left knee are obtained. A left knee arthrop lasty is in near anatomic alignment. There has been undersurface remodeling of the patella. No acute fracture is seen. There are expected postoperative changes around the knee including skin clips, soft tissue edema, and subcutaneous gas. IMPRESSION: Expected postoperative changes status post left knee arthroplasty. No acute fracture is s een. ACT 112: Negative or not required by law. Electronically signed by: Antonio Bertrand M.D. 05/18/2023 11:18 AM
--- NOTE | 2023-05-18 12:07 | Anesthesiology Progress Note ---
Date of Service May 18, 2023 Anesthesia Post Procedure Vital Signs Vital Signs: Temp Pulse Resp BP Pulse Ox O2 Del Method 05/18/23 12:05 60 12 134/57 L 96 Room Air 05/18/23 11:50 56 L 12 122/56 L 97 Room Air 05/18/23 11:35 97.3 F L 56 L 12 133/59 L 99 Room Air 05/18/23 11:25 62 14 132/87 99 Room Air 05/18/23 11:15 63 22 104/59 L 98 Room Air 05/18/23 11:05 64 16 120/55 L 99 Room Air 05/18/23 10:55 96.8 F L 71 18 107/50 L 97 Room Air 05/18/23 08:05 97.5 F L 59 L 20 150/64 H 98 Room Air Transfer of Care Handoff Completed per policy Notes Mental Status: alert / awake / arousable and participated in evaluation Patient Amnestic to Procedure: Yes Nausea / Vomiting: adequately controlled Pain: adequately controlled Airway Patency, RR, SpO2: stable & adequate BP & HR: stable & adequate Hydration State: stable & adequate Neuraxial Anesthesia: was administered and sensory block is resolving Anesthetic Complications: no major complications apparent and Pt Satisfied with anesthetic care
--- NOTE | 2023-05-18 13:55 | Operative Report ---
PG Post Operative Report Pre & Post Diagnosis Operation Date: 05/18/23 09:00 Pre-Op Diagnosis: Degenerative joint disease of left knee Post-Op Diagnosis: Degenerative joint disease of left knee I identified the patient and participated in the time-out.: Yes Procedure Operation Date: 05/18/23 09:00 Actual Procedures p Left Total Knee Arthroplasty(Left) - Audi Flores DO Surgeon Audi Flores DO Marketing Analytics Manager Halima Snell PA-C Estimated Blood Loss 30 Findings Consistent with Post-Op Diagnosis Specimens Left femoral and tibial bone Description of Procedure Implants used: I used a Cynthia Persona total knee arthroplasty system with a size 6 narrow CR femur, D tibia, 31 oval patella, and a size 12 medial congruent polyethylene bearing. All components were cemented in place with Biomet cement. Radha [facility] for the above procedure. She was seen in the preoperative holding area and the operative extremity was identified and signed. She was given a preoperative antibiotic, TXA, a spinal anesthetic and an adductor nerve block. She was taken back to the operating room and laid on the table in supine position. She was given basic sedation. The operative knee was then prepped and draped in sterile fashion. A timeout was done, and the patient and the operative extremity was properly identified. A midline incision was made directly over the patella. Dissection was taken down to the extensor mechanism. A midvastus arthrotomy was used. The medial retinaculum was released and the fat pad was mostly excised. The knee was flexed and the ACL, PCL, and meniscus were removed. A drill was sent down the center of the femoral canal followed by an intramedullary emir. Off that emir a distal femoral cutting block was placed. 9 mm was resected off the distal femur at 5 of valgus. A posterior referencing AP sizing guide was then placed on the distal femur. The femur measured to be a size 6. 2 drill holes were placed in 3 of external rotation. A 4-in-1 cutting block was then impacted into place. Anterior, posterior, and chamfer cuts were then made. The proximal tibia was then exposed. An external tibial alignment guide was placed. A tibial cut guide was then anchored in place and the proximal tibia was then resected. The posterior aspect of the knee was then opened up and any additional meniscus fragments and osteophytes were removed. The tibia measured to be a size D. The tibial plate was then placed in the appropriate rotation and the tibia was drilled and punched. Trial components were then placed. I used a size 12 medial congruent polyethylene insert. The knee was brought through a full range of motion and felt to be stable. The peg holes for the femoral component were then drilled. The patella was then everted and 9 mm was resected off the posterior aspect of the patella. The patella measured to be a size 31 oval. 3 peg holes were then drilled. A trial patella was placed. The knee was once again brought through a full range of motion and felt to be stable. Trial components were then removed. The surrounding soft tissues were injected with 100 cc of an orthopedic pain control cocktail. All components were then cemented into place with Biomet cement. The final polyethylene insert was then snapped into place. Once cement was dry the tourniquet was deflated. Hemostasis was obtained. A dilute betadyne lavage was then done for 3 minutes. The joint was then irrigated with normal saline solution. The midvastus arthrotomy was then closed with #1 Vicryl suture. The skin was closed with 2-0 Vicryl, 3-0V lock suture, and lina. A soft compressive dressing was placed. She was then transferred to a hospital bed and taken to the postanesthesia care unit in stable condition. She tolerated the procedure well. Halima Snell PA-C, PENNY, was present for the entire procedure. He was critical for patient positioning, prepping, draping, retraction exposure, wound closure and application of sterile dressing. I attest to the content of the Intraoperative Record and any orders documented therein. Any exceptions are noted below.
[2023-05-18] MEDS: SODIUM CHLORIDE 0.9% 1,000 ML IV SCH (14:12)
[2023-05-18] MEDS: DOCUSATE SODIUM 100 MG CAP PO SCH (20:04)
[2023-05-18] MEDS: SENNA 8.6 MG TAB PO SCH (20:04)
--- NOTE | 2023-05-19 06:42 | Orthopedic Progress Note ---
Date of Service May 19, 2023 Assessment & Plan (1) Status post left knee replacement: POD #1 from left tka. Doing well. PT/OT Discharge home today after PT Dvt prophylaxis: teds, aspirin, scd's Follow up with Dr. Watts office in 2 weeks Subjective . 72 year old patient POD #1 from left tka with Dr. Flores. She's doing well. Denies any knee pain. No other complaints. Review of Systems All systems reviewed & are unremarkable except as noted in HPI & below. Physical Exam .alert and oriented. NAD. VSS left leg: dressing clean, dry, intact. Able to dorsiflex/plantarflex. NVi. Able to do a straight leg raise Results & Data Results & Data Laboratory Results . Diagnostic Findings . PG Care Time/CCT Total # of Minutes Spent Total Time Spent with Patient: Total time spent is greater than 50% in coordination of care (as documented) at patient's floor/unit and/or counseling patient: Coding Level of Care Code 83204 Post Operative Follow-Up Diagnoses Status post left knee replacement Z96.652
[2023-05-19] MEDS: ASPIRIN 81 MG CHEW PO SCH (08:02)
[2023-05-19] MEDS: MULTIVITAMIN TAB PO SCH (08:02)
[2023-05-19] MEDS: dexAMETHasone 10 MG in SYRINGE 0 ML IV SCH (08:02)
[2023-05-19] MEDS: oxyCODONE HCL IR 5 MG TAB (IMMEDIATE RELEASE) PO PRN (10:48)
--- OUTSIDE RECORDS SUMMARY | 2023-05-20 10:31 | External Medical Summary | Summary of Care ---
Author Name Unknown Organization [facility] Address [address] [place] [address] Phone [phone] Care Team Providers Care Billing Customer Service Representative Name Role Phone Colby Faustin MD Primary Care Provider + Reason for Visit * Reason Comments eRx-Medication Refill Encounter Details Date Type Department Care Team (Late st Contact Info) Description 05/17/2023 Refill Gastroenterology, [facility] [address] [place] [address] Kennedi Morrison CRNP [address] [place] [address] Gastroesophageal reflux disease without esophagitis Allergies Active Allergy Reactions Criticality Noted Date Comments Compazine 05/06/2012 Age 8 neck muscle tightening Sulfa Antibiotics 05/06/2012 rash documented as of this encounter (statuses as of 05/19/2023) Medications Medication Sig Dispensed Refills Start Date [...] as of this encounter (statuses as of 05/19/2023) Active Problems Problem Noted Date Diagnosed Date [...] disease), cervical 05/15 Overview: 2005 outside MRI [facility] adult exam 05/06/2012 Overview: 04/28 EGD [...] WNL 11/15-pap--WNL. 2008 WNL 10/15 mammo--WNL 11/15 bkzmfumzs-mbk-rkeclu AU SN hearing loss 10/14 DEXA--mild osteopenia 01/13 colonoscopy-diverticulosis jonah 10y documented as of this encounter (statuses as of 05/19/2023) Resolved Problems Problem Noted Date Diagnosed Date [...] as of this encounter (statuses as of 05/19/2023) Immunizations Name Administration Dates Next Due COVID-19 [...] Passive Smoke Exposure: Never Smokeless Tobacco: Never Comments:smoked for a few [...] on file documented as of this encounter Miscellaneous Notes * Telephone Encounter - Padma Garcia CPhT - 05/19/2023 8:59 AM ESTRefused Prescriptions: Disp Refills Omeprazole 20 MG Oral Capsule Delayed Rele*90 Cap*3 Sig: TAKE 1CAPSULE IN THE MORNING 1 HOUR BEFORE THE FIRST MEAL OF THE DAYRefused By: Gabrielle GARCIA for Refusal: Refill Not Appropriate documented in this encounter Plan of Treatment Upcoming Encounters Date Type Department Care Team (Late st Contact Info) Description 08/03/2023 10:00 AM EDT Office Visit Orthopaedics [facility] [address] [place] [address] Audi Greenwood, [address] [place] [address] 08/04/2023 2:00 PM EDT Office Visit Cardiology, [facility] [address] [place] [address] Halima Lorenzo CRNP 132 [facility] [place] [address] 12/22/2023 10:45 AM EDT Office Visit Dermatology [facility] 200 [facility] [place] [address] Harjit Whitlock MD [facility] [address] 02/08/2024 9:45 AM EST Imaging Radiology [facility] [address] [place] [address] 04/11/2024 10:40 AM EST Office Visit Family Practice [facility] [address] [place] [address] Colby Faustin MD [address] [place] [address] Scheduled Procedures Name Priority Associated Diagnoses Date/Ti me COLONOSCOPY FLEXIBLE PROXIMAL DIAGNOSTIC Recall History of colon polyps Health Maintenance Due Date Last Done Comments CKD PHOS USE SMARTSET 31655 03/19/202303/06, 09/09/2017, 12/04/2014, Additional history exists Depression Screening 07/02/2023 07/01/2022 GFR 07/30/2023 01/28/2023, 10/05, 10/15/2022, Additional history exists CKD HGB USE SMARTSET 34167 01/29/202401/28, 01/28/2023, 10/20/2022, Additional history exists Mammogram [...] as of this encounter Visit Diagnoses Diagnosis Gastroesophageal reflux disease without esophagitis Esophageal reflux documented in this encounter Advance Directives Documents on File Type Date Recorded Patient Float Tender Expl anation Advance Directives and Living Will 02/07/2016 ADVANCE DIRECTIVE / LIVING WILL Power of Abrasives Sales Representative 02/07/2016 POWER OF A TTORNEY Care Teams Billing Customer Service Representative Relationship Specialty Start Date End Date Colby Faustin MD [address] [place] [address] PCP - General Family Medicine 07/27/14 documented as of this encounter
== END 2023-05-19 11:49 | disposition home or self-care (01) | DRG 470 ==
LOC: ASU 07:24 → OBSVTOIN 10:49 → INTOOBSV 10:49 → 3E 10:49